=== PATIENT | male | born 1940 | race Caucasian/White ===

== ENCOUNTER → 2017-11-21 13:20 | Outpatient (CLI) | payer MEDICARE, OTHER, MEDICAID, SELFPAY ==
[2017-11-21 12:36] VITALS: TEMP 36.6
== END ==
PROVIDERS: PCP Family Medicine; Visit Provider Internal Medicine
DX: M86.671 Other chronic osteomyelitis, right ankle and foot (principal); L97.812 Non-pressure chronic ulcer of other part of right lower leg with fat layer exposed
CPT/HCPCS: G0277

== ENCOUNTER → 2017-12-02 | Outpatient (CLI) | payer MEDICARE, OTHER, MEDICAID, SELFPAY ==
[2017-12-02 09:06] LABS: Add Manual Diff / Slide Review NO; Basophils Percent Auto 0.8 % (0-2); Eosinophils Percent Auto 4.6 % (2-4); Hematocrit 30.1 % (41-53); Hemoglobin 10.4 g/dL (13.5-17.5); Lymphocytes Percent Auto 24.5 % (25-40); Mean Corpuscular HGB Conc 34.4 % (30-36); Mean Corpuscular Hemoglobin 34.2 PG (26-34); Mean Corpuscular Volume 99.4 fL (80-100); Monocytes Percent Auto 7.6 % (3-14); Neutrophils Absolute Auto 4500 /uL (3000-5900); Neutrophils Percent Auto 62.5 % (50-75); Platelet Count 213 X10^3/uL (150-400); Red Blood Cell Count 3.03 X10^6/uL (4.5-5.9); Red Cell Distribution Width 15.2 % (11.6-14.8); White Blood Cell Count 7.2 X10^3/uL (4.5-11.0)
[2017-12-02 09:16] LABS: Hemoglobin A1C% w Est Avg Glu 5.8 % (4.0-6.0)
[2017-12-02 09:47] LABS: Alanine Aminotransferase 19 IU/L (21-72); Albumin 3.9 g/dL (3.5-5.0); Albumin Globulin Ratio 1.1 (1.0-2.8); Alkaline Phosphatase 77 U/L (38-126); Aspartate Aminotransferase 27 IU/L (17-59); BUN Creatinine Ratio 19.4 (6-22); Bilirubin Total 0.6 mg/dL (0.2-1.3); Calcium 9.8 mg/dL (8.4-10.2); Cholesterol 171 mg/dL (140-199); Estimated Glomerular Filt Rate 41.9 mL/min (>60); Globulin 3.6 g/dL (1.7-4.1); Glucose 113 mg/dL (80-110); HDL Cholesterol 45 mg/dL (40-60); HEMOLYSIS < 15 (0-50); LDL Cholesterol Calculated 112 mg/dL (<100); Potassium 5.3 mmol/L (3.4-5.1); Sodium 140 mmol/L (137-145); Total Protein 7.5 g/dL (6.3-8.2); Triglycerides 71 mg/dL (35-150)
[2017-12-02 09:53] LABS: Free T3, Triiodothyronine Free 3.31 pg/mL (2.77-5.27)
[2017-12-02 10:07] LABS: Thyroid Stimulating Hormone 2.02 uIU/mL (0.47-4.68)
== END ==
LOC: LAB 07:15
PROVIDERS: PCP Family Medicine; Visit Provider Family Medicine
DX: E11.621 Type 2 diabetes mellitus with foot ulcer (principal); E11.51 Type 2 diabetes mellitus with diabetic peripheral angiopathy without gangrene; E03.9 Hypothyroidism, unspecified; E78.2 Mixed hyperlipidemia; I10 Essential (primary) hypertension
CPT/HCPCS: 36415; 80053; 80061; 83036; 84439; 84443; 84481; 85025

== ENCOUNTER → 2017-12-04 14:11 | Outpatient (CLI) | payer MEDICARE, SELFPAY | PROVIDERS: PCP Family Medicine; Visit Provider Internal Medicine | DX: L97.812 Non-pressure chronic ulcer of other part of right lower leg with fat layer exposed (principal); M86.671 Other chronic osteomyelitis, right ankle and foot | CPT/HCPCS: 96365; G0277; J0878 ==

== ENCOUNTER → 2017-12-05 09:49 | Outpatient (CLI) | payer MEDICARE, SELFPAY | PROVIDERS: PCP Family Medicine; Visit Provider Internal Medicine | DX: M86.671 Other chronic osteomyelitis, right ankle and foot (principal); L97.812 Non-pressure chronic ulcer of other part of right lower leg with fat layer exposed | CPT/HCPCS: 96365; G0277; J0878 ==

== ENCOUNTER 2017-12-06 10:22 | Emergency (ER) | payer MEDICARE, SELFPAY ==
[2017-12-06] VITALS (19 sets, daily range): BP systolic 111–180; BP diastolic 43–99; PULSE 58–128; RESP 14–30; TEMP 36.4; O2SAT 95–99
[2017-12-06] MEDS: LORazepam 2 MG/ML SYRINGE IV (10:25)
--- NOTE | 2017-12-06 10:28 | ED.SEIZURE ---
HPI - Seizure General Chief Complaint: Seizure Stated Complaint: SEIZURE Time Seen by Provider: 12/06/17 10:28 Source: EMS and other (Dr. Christensen) Mode of arrival: EMS Limitations: altered mental status History of Present Illness HPI Narrative: 77-year-old male with a history of diabetes and chronic wound of the lower extremity was in the hyperbaric chamber earlier today and around 10:00 a.m. had a witnessed seizure lasting approximately 5 min and resolved on its own without medication after hyperbaric therapy was stopped. I spoke with Dr. christensen who is sending him over who believes this is related to oxygen toxicity. Patient has no history of seizures. His oxygen has been above 96% since the seizure. He did bite his tongue and appears to be postictal/confused. He has also been agitated. No known head injury as there were at least 3 pillows under his head. MD complaint: seizure Related Data Home Medications Medication Instructions Recorded Confirmed aspirin 325 mg PO DAILY #0 01/04/11 12/06/17 timolol maleate 1 drp OPHTH QDAY #0 01/04/11 12/06/17 travoprost 1 drp OPHTH HS #0 01/04/11 12/06/17 clopidogrel [Plavix] 75 mg PO QDAY #0 09/05/16 12/06/17 metformin 500 mg PO QPM 12/06/17 12/06/17 metformin [Glucophage] 1,000 mg PO QAM 12/06/17 12/06/17 Previous Rx's Medication Instructions Recorded colchicine 0.6 mg PO BIDP PRN #60 tab 07/09/16 gabapentin [Neurontin] 300 mg PO TID #270 cap 10/10/17 glipizide [Glucotrol XL] 10 mg PO AMCC #90 tab 10/10/17 lisinopril 40 mg PO QDAY #90 tab 10/10/17 amlodipine [Norvasc] 5 mg PO QDAY #90 tab 10/15/17 levothyroxine [Synthroid] 50 mcg PO QAM #30 tab 10/23/17 allopurinol 300 mg PO Q DAY #90 tab 11/12/17 indomethacin 50 mg capsule 50 mg PO Q DAY #90 cap 11/26/17 simvastatin 40 mg tablet 20 mg PO Q DAY #45 tab 11/26/17 Allergies Allergy/AdvReac Type Severity Reaction Status Date / Time No Known Drug Allergies Allergy Verified 11/23/17 10:58 Review of Systems Review of Systems unobtainable due to mental status [facility] Surgical History Status post hernia repair Exam Initial Vital Signs Initial Vital Signs: Vital Signs Temperature 97.6 F 12/06/17 10:26 Pulse Rate 128 H 12/06/17 10:26 Respiratory Rate 30 H 12/06/17 10:26 Blood Pressure 176/60 H 12/06/17 10:26 Pulse Oximetry 99 12/06/17 10:26 Const General: other (yelling, nonverbal response, confused, blood in mouth with no active bleeding seen, thrashing in bed) Nutritional Appearance: well nourished Orientation: awake and confused Limitations: altered mental status [facility]ENKS Head: normocephalic and atraumatic Ears: external ears normal Nose: external nose normal and No nasal discharge Face and sinus: sinuses nontender, face symmetric, no sinus tenderness and No dry mucous membranes Mouth: oral mucosae normal, moist mucous membranes and tongue abnormal (laceration) Teeth and gingiva: dentition normal Throat: tonsils normal and uvula midline Eyes General: appearance normal, both eyes and all related structures Eyelids: eyelids normal Conjunctivae: conjunctivae normal Sclera: sclerae normal Pupils: PERRL EOM: EOM intact bilaterally Neck Neck: normal visual inspection, trachea midline, No lymphadenopathy, No midline deformity and No JVD Lymphatic: No lymphedema Chest Chest: normal inspection of the chest Resp Effort & Inspection: normal respiratory effort, able to speak in complete sentences, no respiratory distress and no use of accessory muscles Auscultation: clear to auscultation bilaterally, no rales, no rhonchi and no wheezes Cardio Rate: tachycardic Rhythm: regular rhythm Heart Sounds: no click, no gallops, murmur and no rubs Pulses: normal peripheral pulses GI Inspection: non-distended Palpation: soft, no hepatosplenomegaly, No guarding, No pulsatile mass and No tender Auscultation: normal bowel sounds Back/Spine/Pelvis Back: No CVA tenderness Cervical Spine: cervical ROM normal and No pain with cervical ROM Thoracic/Lumbar Spine: thoracic and lumbar spine normal to inspection Skin General: no rashes or lesions noted, No jaundice and No petechiae Wounds: wounds noted (RLE with wound wrap) Neuro General: alert and awake Cranial Nerves: CN's II-XI intact bilaterally Cognition: abnormal cognition (post ichtal) Speech: abnormal speech Motor: strength 5/5 throughout Sensory Exam: no sensory deficits noted Extrem General: full ROM, no clubbing, cyanosis or edema, no pedal edema and no calf tenderness Psych Appearance: disheveled Judgment: judgment good Course Hospital Course: pt still confuse and combative after ativan so haldol given at 1035am Orders Ordered: ED Orders 12/06/17 10:35 EKG-12 Lead Stat 12/06/17 10:37 CT head/brain wo con Stat 12/06/17 10:40 Complete Blood Count AUTO DIFF Stat Comprehensive Metabolic Panel Stat Magnesium Stat Troponin I Stat 12/06/17 12:49 Arterial Blood Gas Stat 12/06/17 15:29 Urinalysis and Microscopic Stat Sodium Chloride (Normal Saline 0.9%) 1,000 mls @ 150 mls/hr IV CONT REPLACED BY [facility] Last Admin: 12/06/17 11:09 Dose: 150 mls/hr Daptomycin 500 mg/ Sodium (Chloride) 50 mls @ 100 mls/hr IV NOW REPLACED BY [facility] Last Admin: 12/06/17 17:11 Dose: 100 mls/hr Discontinued Medications Acetaminophen (Tylenol) 975 mg PO NOW ONE Stop: 12/06/17 13:12 Last Admin: 12/06/17 13:23 Dose: 975 mg Haloperidol (Haldol) 5 mg IV NOW ONE Stop: 12/06/17 10:33 Last Admin: 12/06/17 10:35 Dose: 5 mg Lorazepam (Ativan) 2 mg IV NOW ONE Stop: 12/06/17 10:25 Last Admin: 12/06/17 10:25 Dose: 2 mg Vital Signs - 8 hr 12/06/17 10:26 12/06/17 10:30 12/06/17 10:35 Temperature 97.6 F Pulse Rate 128 H 128 H 67 Respiratory Rate 30 H 20 14 Blood Pressure 176/60 H Blood Pressure [Right Arm] 180/81 H 111/51 L Pulse Oximetry 99 98 95 12/06/17 10:37 12/06/17 10:40 12/06/17 11:05 Temperature Pulse Rate 101 H 118 H 72 Respiratory Rate 17 28 H 18 Blood Pressure Blood Pressure [Right Arm] 180/80 H 176/60 H 120/43 L Pulse Oximetry 99 98 95 12/06/17 11:13 12/06/17 11:36 12/06/17 11:45 Temperature Pulse Rate 62 67 Respiratory Rate 14 16 Blood Pressure Blood Pressure [Right Arm] 115/47 L 131/43 H Pulse Oximetry 99 95 95 12/06/17 12:05 12/06/17 12:21 12/06/17 12:43 Temperature Pulse Rate 68 64 64 Respiratory Rate 14 18 14 Blood Pressure Blood Pressure [Right Arm] 123/48 H 129/43 H 130/56 H Pulse Oximetry 95 95 95 12/06/17 13:28 12/06/17 14:18 12/06/17 15:33 Temperature Pulse Rate 61 63 60 Respiratory Rate 16 16 18 Blood Pressure Blood Pressure [Right Arm] 136/48 H 138/51 H 158/70 H Pulse Oximetry 97 97 96 12/06/17 16:34 12/06/17 17:07 Temperature Pulse Rate 60 58 L Respiratory Rate 16 18 Blood Pressure Blood Pressure [Right Arm] 139/99 H 137/50 H Pulse Oximetry 97 97 MDM - Seizure Lab Data Result diagrams: 12/06/17 10:40 12/06/17 10:40 Lab Results 12/06/17 12/06/17 12/06/17 Range/Units 10:40 10:40 10:40 WBC 7.7 (4.5-11.0) X10^3/uL RBC 3.04 L (4.5-5.9) X10^6/uL Hgb 10.1 L (13.5-17.5) g/dL Hct 30.3 L (41-53) % MCV 99.7 (80-100) fL MCH 33.2 (26-34) PG MCHC 33.3 (30-36) % RDW 15.1 H (11.6-14.8) % Plt Count 203 (150-400) X10^3/uL Neut % (Auto) 54.8 (50-75) % Lymph % (Auto) 30.5 (25-40) % [place] % (Auto) 9.5 (3-14) % Eos % (Auto) 4.3 H (2-4) % Baso % (Auto) 0.9 (0-2) % Neut # (Auto) 4200 (9815-2193) /uL ABG pH (7.35-7.45) ABG pCO2 (35-45) mmHg ABG pO2 (80-105) mmHg ABG HCO3 (23-27) mmol/L ABG Total CO2 (23-27) mmol/L ABG O2 Saturation (95-100) % ABG Base Excess (-2-3) mmol/L FiO2 Sodium 142 (137-145) mmol/L Potassium 4.9 (3.4-5.1) mmol/L Chloride 110.0 H (98-107) mmol/L Carbon Dioxide 13.0 L (22-32) mmol/L BUN 38.0 H (9-20) mg/dL Creatinine 1.70 H (0.66-1.25) mg/dL Estimated GFR 39.1 L (>60) mL/min BUN/Creatinine Ratio 22.4 H (6-22) Glucose 167 H (80-110) mg/dL Calcium 9.1 (8.4-10.2) mg/dL Magnesium 2.1 Cancelled (1.6-2.3) mg/dL Total Bilirubin 0.5 (0.2-1.3) mg/dL AST 27 (17-59) IU/L ALT 28 (21-72) IU/L Alkaline Phosphatase 79 (38-126) U/L Troponin I < 0.012 (0.01-0.034) ng/mL Total Protein 7.2 (6.3-8.2) g/dL Albumin 3.9 (3.5-5.0) g/dL Globulin 3.3 (1.7-4.1) g/dL Albumin/Globulin Ratio 1.2 (1.0-2.8) 05/18/18 Range/Units 12:49 WBC (4.5-11.0) X10^3/uL RBC (4.5-5.9) X10^6/uL Hgb (13.5-17.5) g/dL Hct (41-53) % MCV (80-100) fL MCH (26-34) PG MCHC (30-36) % RDW (11.6-14.8) % Plt Count (150-400) X10^3/uL Neut % (Auto) (50-75) % Lymph % (Auto) (25-40) % [place] % (Auto) (3-14) % Eos % (Auto) (2-4) % Baso % (Auto) (0-2) % Neut # (Auto) (1793-6770) /uL ABG pH 7.31 L (7.35-7.45) ABG pCO2 34.9 L (35-45) mmHg ABG pO2 71 L (80-105) mmHg ABG HCO3 18 L (23-27) mmol/L ABG Total CO2 19 L (23-27) mmol/L ABG O2 Saturation 93 L (95-100) % ABG Base Excess -9.0 L (-2-3) mmol/L FiO2 0.21 Sodium (137-145) mmol/L Potassium (3.4-5.1) mmol/L Chloride (98-107) mmol/L Carbon Dioxide (22-32) mmol/L BUN (9-20) mg/dL Creatinine (0.66-1.25) mg/dL Estimated GFR (>60) mL/min BUN/Creatinine Ratio (6-22) Glucose (80-110) mg/dL Calcium (8.4-10.2) mg/dL Magnesium (1.6-2.3) mg/dL Total Bilirubin (0.2-1.3) mg/dL AST (17-59) IU/L ALT (21-72) IU/L Alkaline Phosphatase (38-126) U/L Troponin I (0.01-0.034) ng/mL Total Protein (6.3-8.2) g/dL Albumin (3.5-5.0) g/dL Globulin (1.7-4.1) g/dL Albumin/Globulin Ratio (1.0-2.8) ABG Data ABG results: 7.312/34.9/71/17.7 on room air Attestation: I personally reviewed and interpreted this ABG as follows: (Consistent with mild metabolic acidosis with respiratory compensation) Imaging Data CT scan - head: Radiologist's impression: PROCEDURE: CT HEAD/BRAIN WO CON INDICATIONS: new onset seizure TECHNIQUE: Noncontrast 4.5 mm thick angled axial sections acquired from the foramen magnum to the vertex, with coronal and sagittal reformats. For radiation dose reduction, the following was used: automated exposure control, adjustment of mA and/or kV according to patient size. COMPARISON: None. FINDINGS: Image quality: Suboptimal related to motion artifact. CSF spaces: Basal cisterns are patent. No extra-axial fluid collections. Ventricles are moderately prominent. There is corresponding parenchymal volume loss. Brain: No midline shift. No intracranial masses or hemorrhage. [place]-white matter interface is normal. Small areas of low attenuation within the periventricular and deep white matter of the supratentorial brain are present. There may be an arachnoid cyst involving the anterior margin of the middle cranial fossa on the right versus volume averaging. Skull and face: Calvarium and visualized facial bones are intact, without suspicious lesions. Sinuses: Visualized sinuses and mastoids are clear. IMPRESSION: 1. No acute intracranial hemorrhage. 2. Mild chronic small vessel ischemic changes moderate parenchymal volume loss. Dictated by: Joaquín Foy M.D. on 12/06/2017 at 10:39 Approved by: Joaquín Foy M.D. on 12/06/2017 at 10:40 ECG Data Interpretation: EKG performed at 10:35 a.m. shows sinus rhythm with a left bundle branch block which is new when compared with 04/02/2012 [facility] Narrative Medical decision making narrative: 1300 patient is feeling much better. He is awake and alert and is complaining of some leg cramps. Will try Tylenol and get him up for ambulation trial. His ABG shows mild metabolic acidosis with respiratory compensation. Patient states he lives at home alone and drove himself here today. His closest family is in [place]. 1350 patient ambulated without difficulty 1600 After 3 different pages to [facility] I was called back by Dr. Starr who states that after a hyperbaric, hyper oxyia induced seizure, he could be safely discharged home if mentating at baseline and there were no other concerns. He does not need an EEG. She does recommend a Neurology follow-up within the next month or 2. She notes that the law in [facility] does not allow him to drive for the next 6 months after having a seizure, no matter the cause, although this could potentially be shortened by a neurologist in follow-up. Nursing reported to me that hyperbaric FORMING MACHINE ADJUSTER came over and saw him noting that he is not mentating at his baseline. 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 Advised that he will need to have someone pick him up and drive him home. Security is helping to get his phone. 1715 Pts friend arrived will cotton picking machine operator the patient and make sure he does not drive. He will stay with him tonight. He feels pt is mentating at baseline. Advised him of patient's history and the reason for his visit today. Patient receives his daptomycin for the day prior to being discharged. 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 He has no evidence of UTI. His anemia is baseline. His renal failure is also baseline. She initially he had metabolic acidosis which was mild with respiratory compensation. Blood sugars are not extremely elevated for low as a cause of the seizure or the metabolic acidosis. His abdomen was nontender after he was able to wake up and give me history. His infection appears to be well controlled with the current daptomycin which he was given today. He was mentating much better and after neurology consultation he was felt to be safe to go home. He was discharged with a friend who will ensure he does not drive and help him get to his appointments. Patient understands and agrees with the plan for follow-up. Discharge Plan Departure Patient Disposition: Home, Self-Care Clinical Impression: Seizure Instructions: DI for Seizure (Not Epilepsy/Seizure Disorder) Activity Restrictions/Additional Instructions: Thank you for trusting us with your care today. You were found to have a seizure most likely as a result of the hyperbaric treatment and the extra oxygen present in the chamber. Because of this it is [facility] Law that you cannot drive until released by a neurologist. Please follow up with neurology within the next month. Follow up with your primary care provider within one week. Continue your antibiotics. Return to the ER for new or worsening symptoms. Prescriptions: No Action travoprost 0.004 % Drops 1 drp OPHTH HS Qty: 0 RF: 0 aspirin 325 mg Tablet 325 mg PO DAILY Qty: 0 RF: 0 timolol maleate 0.5 % drops 1 drp OPHTH QDAY Qty: 0 RF: 0 colchicine 0.6 MG tablet 0.6 mg PO BIDP PRNQty: 60 RF: 0 clopidogrel [Plavix] 75 MG tablet 75 mg PO QDAY Qty: 0 RF: 0 glipizide [Glucotrol XL] 10 MG tablet extended release 24hr 10 mg PO AMCC Qty: 90 RF: 0 gabapentin [Neurontin] 300 MG capsule 300 mg PO TID Qty: 270 RF: 0 lisinopril 40 MG tablet 40 mg PO QDAY Qty: 90 RF: 0 amlodipine [Norvasc] 5 MG tablet 5 mg PO QDAY Qty: 90 RF: 0 levothyroxine [Synthroid] 50 MCG tablet 50 mcg PO QAM Qty: 30 RF: 3 allopurinol 300 MG tablet 300 mg PO Q DAY Qty: 90 RF: 3 simvastatin 40 mg tablet 20 mg PO Q DAY Qty: 45 RF: 1 indomethacin 50 mg capsule 50 mg PO Q DAY Qty: 90 RF: 0 metformin 500 mg Tablet 500 mg PO QPM RF: 0 metformin [Glucophage] 500 mg tablet 1,000 mg PO QAM RF: 0 Referrals: Sana Luz DO [Primary Care Provider] -
[2017-12-06] MEDS: HALOPERIDOL 5 MG/ML VIAL IV (10:35)
--- NOTE | 2017-12-06 10:35 | ED_ITS ---
HPI - Seizure General Chief Complaint: Seizure Stated Complaint: SEIZURE Time Seen by Provider: 12/06/17 10:28 Source: EMS and other (Dr. Christensen) Mode of arrival: EMS Limitations: altered mental status History of Present Illness HPI Narrative: 77-year-old male with a history of diabetes and chronic wound of the lower extremity was in the hyperbaric chamber earlier today and around 10: 00 a.m. had a witnessed seizure lasting approximately 5 min and resolved on its own without medication after hyperbaric therapy was stopped. I spoke with Dr. christensen who is sending him over who believes this is related to oxygen toxicity. Patient has no history of seizures. His oxygen has been above 96% since the seizure. He did bite his tongue and appears to be postictal/confused. He has also been agitated. No known head injury as there were at least 3 pillows under his head. MD complaint: seizure Related Data Home Medications Medication Instructions Recorded Confirmed aspirin 325 mg PO DAILY #0 01/04/11 12/06/17 timolol maleate 1 drp OPHTH QDAY #0 01/04/11 12/06/17 travoprost 1 drp OPHTH HS #0 01/04/11 12/06/17 clopidogrel [Plavix] 75 mg PO QDAY #0 09/05/16 12/06/17 metformin 500 mg PO QPM 12/06/17 12/06/17 metformin [Glucophage] 1,000 mg PO QAM 12/06/17 12/06/17 Previous Rx's Medication Instructions Recorded colchicine 0.6 mg PO BIDP PRN #60 tab 07/09/16 gabapentin [Neurontin] 300 mg PO TID #270 cap 10/10/17 glipizide [Glucotrol XL] 10 mg PO AMCC #90 tab 10/10/17 lisinopril 40 mg PO QDAY #90 tab 10/10/17 amlodipine [Norvasc] 5 mg PO QDAY #90 tab 10/15/17 levothyroxine [Synthroid] 50 mcg PO QAM #30 tab 10/23/17 allopurinol 300 mg PO Q DAY #90 tab 11/12/17 indomethacin 50 mg capsule 50 mg PO Q DAY #90 cap 11/26/17 simvastatin 40 mg tablet 20 mg PO Q DAY #45 tab 11/26/17 Allergies Allergy/AdvReac Type Severity Reaction Status Date / Time No Known Drug Allergies Allergy Verified 11/23/17 10:58 Review of Systems Review of Systems unobtainable due to mental status [facility] Surgical History Status post hernia repair Exam Initial Vital Signs Initial Vital Signs: Vital Signs Temperature 97.6 F 12/06/17 10:26 Pulse Rate 128 H 12/06/17 10:26 Respiratory Rate 30 H 12/06/17 10:26 Blood Pressure 176/60 H 12/06/17 10:26 Pulse Oximetry 99 12/06/17 10:26 Const General: other (yelling, nonverbal response, confused, blood in mouth with no active bleeding seen, thrashing in bed) Nutritional Appearance: well nourished Orientation: awake and confused Limitations: altered mental status HENRI Head: normocephalic and atraumatic Ears: external ears normal Nose: external nose normal and No nasal discharge Face and sinus: sinuses nontender, face symmetric, no sinus tenderness and No dry mucous membranes Mouth: oral mucosae normal, moist mucous membranes and tongue abnormal ( laceration) Teeth and gingiva: dentition normal Throat: tonsils normal and uvula midline Eyes General: appearance normal, both eyes and all related structures Eyelids: eyelids normal Conjunctivae: conjunctivae normal Sclera: sclerae normal Pupils: PERRL EOM: EOM intact bilaterally Neck Neck: normal visual inspection, trachea midline, No lymphadenopathy, No midline deformity and No JVD Lymphatic: No lymphedema Chest Chest: normal inspection of the chest Resp Effort & Inspection: normal respiratory effort, able to speak in complete sentences, no respiratory distress and no use of accessory muscles Auscultation: clear to auscultation bilaterally, no rales, no rhonchi and no wheezes Cardio Rate: tachycardic Rhythm: regular rhythm Heart Sounds: no click, no gallops, murmur and no rubs Pulses: normal peripheral pulses GI Inspection: non-distended Palpation: soft, no hepatosplenomegaly, No guarding, No pulsatile mass and No tender Auscultation: normal bowel sounds Back/Spine/Pelvis Back: No CVA tenderness Cervical Spine: cervical ROM normal and No pain with cervical ROM Thoracic/Lumbar Spine: thoracic and lumbar spine normal to inspection Skin General: no rashes or lesions noted, No jaundice and No petechiae Wounds: wounds noted (RLE with wound wrap) Neuro General: alert and awake Cranial Nerves: CN's II-XI intact bilaterally Cognition: abnormal cognition (post ichtal) Speech: abnormal speech Motor: strength 5/5 throughout Sensory Exam: no sensory deficits noted Extrem General: full ROM, no clubbing, cyanosis or edema, no pedal edema and no calf tenderness Psych Appearance: disheveled Judgment: judgment good Course Hospital Course: pt still confuse and combative after ativan so haldol given at 1035am Orders Ordered: ED Orders 12/06/17 10:35 EKG-12 Lead Stat 12/06/17 10:37 CT head/brain wo con Stat 12/06/17 10:40 Complete Blood Count AUTO DIFF Stat Comprehensive Metabolic Panel Stat Magnesium Stat Troponin I Stat 12/06/17 12:49 Arterial Blood Gas Stat 12/06/17 15:29 Urinalysis and Microscopic Stat Sodium Chloride (Normal Saline 0.9%) 1,000 mls @ 150 mls/hr IV CONT [facility] Last Admin: 12/06/17 11:09 Dose: 150 mls/hr Daptomycin 500 mg/ Sodium (Chloride) 50 mls @ 100 mls/hr IV NOW [facility] Last Admin: 12/06/17 17:11 Dose: 100 mls/hr Discontinued Medications Acetaminophen (Tylenol) 975 mg PO NOW ONE Stop: 12/06/17 13:12 Last Admin: 12/06/17 13:23 Dose: 975 mg Haloperidol (Haldol) 5 mg IV NOW ONE Stop: 12/06/17 10:33 Last Admin: 12/06/17 10:35 Dose: 5 mg Lorazepam (Ativan) 2 mg IV NOW ONE Stop: 12/06/17 10:25 Last Admin: 12/06/17 10:25 Dose: 2 mg Vital Signs - 8 hr 12/06/17 10:26 12/06/17 10:30 12/06/17 10:35 Temperature 97.6 F Pulse Rate 128 H 128 H 67 Respiratory Rate 30 H 20 14 Blood Pressure 176/60 H Blood Pressure [Right Arm] 180/81 H 111/51 L Pulse Oximetry 99 98 95 12/06/17 10:37 12/06/17 10:40 12/06/17 11:05 Temperature Pulse Rate 101 H 118 H 72 Respiratory Rate 17 28 H 18 Blood Pressure Blood Pressure [Right Arm] 180/80 H 176/60 H 120/43 L Pulse Oximetry 99 98 95 12/06/17 11:13 12/06/17 11:36 12/06/17 11:45 Temperature Pulse Rate 62 67 Respiratory Rate 14 16 Blood Pressure Blood Pressure [Right Arm] 115/47 L 131/43 H Pulse Oximetry 99 95 95 12/06/17 12:05 12/06/17 12:21 12/06/17 12:43 Temperature Pulse Rate 68 64 64 Respiratory Rate 14 18 14 Blood Pressure Blood Pressure [Right Arm] 123/48 H 129/43 H 130/56 H Pulse Oximetry 95 95 95 12/06/17 13:28 12/06/17 14:18 12/06/17 15:33 Temperature Pulse Rate 61 63 60 Respiratory Rate 16 16 18 Blood Pressure Blood Pressure [Right Arm] 136/48 H 138/51 H 158/70 H Pulse Oximetry 97 97 96 12/06/17 16:34 12/06/17 17:07 Temperature Pulse Rate 60 58 L Respiratory Rate 16 18 Blood Pressure Blood Pressure [Right Arm] 139/99 H 137/50 H Pulse Oximetry 97 97 MDM - Seizure Lab Data Result diagrams: 12/06/17 10:40 12/06/17 10:40 Lab Results 12/06/17 12/06/17 12/06/17 Range/Units 10:40 10:40 10:40 WBC 7.7 (4.5-11.0) X10^3/uL RBC 3.04 L (4.5-5.9) X10^6/uL Hgb 10.1 L (13.5-17.5) g/dL Hct 30.3 L (41-53) % MCV 99.7 (80-100) fL MCH 33.2 (26-34) PG MCHC 33.3 (30-36) % RDW 15.1 H (11.6-14.8) % Plt Count 203 (150-400) X10^3/uL Neut % (Auto) 54.8 (50-75) % Lymph % (Auto) 30.5 (25-40) % [place] % (Auto) 9.5 (3-14) % Eos % (Auto) 4.3 H (2-4) % Baso % (Auto) 0.9 (0-2) % Neut # (Auto) 4200 (8479-2046) /uL ABG pH (7.35-7.45) ABG pCO2 (35-45) mmHg ABG pO2 (80-105) mmHg ABG HCO3 (23-27) mmol/L ABG Total CO2 (23-27) mmol/L ABG O2 Saturation (95-100) % ABG Base Excess (-2-3) mmol/L FiO2 Sodium 142 (137-145) mmol/L Potassium 4.9 (3.4-5.1) mmol/L Chloride 110.0 H (98-107) mmol/L Carbon Dioxide 13.0 L (22-32) mmol/L BUN 38.0 H (9-20) mg/dL Creatinine 1.70 H (0.66-1.25) mg/dL Estimated GFR 39.1 L (>60) mL/min BUN/Creatinine Ratio 22.4 H (6-22) Glucose 167 H (80-110) mg/dL Calcium 9.1 (8.4-10.2) mg/dL Magnesium 2.1 Cancelled (1.6-2.3) mg/dL Total Bilirubin 0.5 (0.2-1.3) mg/dL AST 27 (17-59) IU/L ALT 28 (21-72) IU/L Alkaline Phosphatase 79 (38-126) U/L Troponin I < 0.012 (0.01-0.034) ng/mL Total Protein 7.2 (6.3-8.2) g/dL Albumin 3.9 (3.5-5.0) g/dL Globulin 3.3 (1.7-4.1) g/dL Albumin/Globulin Ratio 1.2 (1.0-2.8) 05/18/18 Range/Units 12:49 WBC (4.5-11.0) X10^3/uL RBC (4.5-5.9) X10^6/uL Hgb (13.5-17.5) g/dL Hct (41-53) % MCV (80-100) fL MCH (26-34) PG MCHC (30-36) % RDW (11.6-14.8) % Plt Count (150-400) X10^3/uL Neut % (Auto) (50-75) % Lymph % (Auto) (25-40) % [place] % (Auto) (3-14) % Eos % (Auto) (2-4) % Baso % (Auto) (0-2) % Neut # (Auto) (3008-0431) /uL ABG pH 7.31 L (7.35-7.45) ABG pCO2 34.9 L (35-45) mmHg ABG pO2 71 L (80-105) mmHg ABG HCO3 18 L (23-27) mmol/L ABG Total CO2 19 L (23-27) mmol/L ABG O2 Saturation 93 L (95-100) % ABG Base Excess -9.0 L (-2-3) mmol/L FiO2 0.21 Sodium (137-145) mmol/L Potassium (3.4-5.1) mmol/L Chloride (98-107) mmol/L Carbon Dioxide (22-32) mmol/L BUN (9-20) mg/dL Creatinine (0.66-1.25) mg/dL Estimated GFR (>60) mL/min BUN/Creatinine Ratio (6-22) Glucose (80-110) mg/dL Calcium (8.4-10.2) mg/dL Magnesium (1.6-2.3) mg/dL Total Bilirubin (0.2-1.3) mg/dL AST (17-59) IU/L ALT (21-72) IU/L Alkaline Phosphatase (38-126) U/L Troponin I (0.01-0.034) ng/mL Total Protein (6.3-8.2) g/dL Albumin (3.5-5.0) g/dL Globulin (1.7-4.1) g/dL Albumin/Globulin Ratio (1.0-2.8) ABG Data ABG results: 7.312/34.9/71/17.7 on room air Attestation: I personally reviewed and interpreted this ABG as follows: ( Consistent with mild metabolic acidosis with respiratory compensation) Imaging Data CT scan - head: Radiologist's impression: PROCEDURE: CT HEAD/BRAIN WO CON INDICATIONS: new onset seizure TECHNIQUE: Noncontrast 4.5 mm thick angled axial sections acquired from the foramen magnum to the vertex, with coronal and sagittal reformats. For radiation dose reduction, the following was used: automated exposure control, adjustment of mA and/or kV according to patient size. COMPARISON: None. FINDINGS: Image quality: Suboptimal related to motion artifact. CSF spaces: Basal cisterns are patent. No extra-axial fluid collections. Ventricles are moderately prominent. There is corresponding parenchymal volume loss. Brain: No midline shift. No intracranial masses or hemorrhage. [place]-white matter interface is normal. Small areas of low attenuation within the periventricular and deep white matter of the supratentorial brain are present. There may be an arachnoid cyst involving the anterior margin of the middle cranial fossa on the right versus volume averaging. Skull and face: Calvarium and visualized facial bones are intact, without suspicious lesions. Sinuses: Visualized sinuses and mastoids are clear. IMPRESSION: 1. No acute intracranial hemorrhage. 2. Mild chronic small vessel ischemic changes moderate parenchymal volume loss. Dictated by: Joaquín Foy M.D. on 12/06/2017 at 10:39 Approved by: Joaquín Foy M.D. on 12/06/2017 at 10:40 ECG Data Interpretation: EKG performed at 10:35 a.m. shows sinus rhythm with a left bundle branch block which is new when compared with 04/02/2012 [facility] Narrative Medical decision making narrative: 1300 patient is feeling much better. He is awake and alert and is complaining of some leg cramps. Will try Tylenol and get him up for ambulation trial. His ABG shows mild metabolic acidosis with respiratory compensation. Patient states he lives at home alone and drove himself here today. His closest family is in [place]. 1350 patient ambulated without difficulty 1600 After 3 different pages to [facility] Neurology I was called back by Dr. Starr who states that after a hyperbaric, hyper oxyia induced seizure, he could be safely discharged home if mentating at baseline and there were no other concerns. He does not need an EEG. She does recommend a Neurology follow -up within the next month or 2. She notes that the law in [facility] does not allow him to drive for the next 6 months after having a seizure, no matter the cause, although this could potentially be shortened by a neurologist in follow-up. Nursing reported to me that hyperbaric [employer]ATOR came over and saw him noting that he is not mentating at his baseline. 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 Advised that he will need to have someone pick him up and drive him home. Security is helping to get his phone. 1715 Pts friend arrived will lemon picker the patient and make sure he does not drive. He will stay with him tonight. He feels pt is mentating at baseline. Advised him of patient's history and the reason for his visit today. Patient receives his daptomycin for the day prior to being discharged. 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 He has no evidence of UTI. His anemia is baseline. His renal failure is also baseline. She initially he had metabolic acidosis which was mild with respiratory compensation. Blood sugars are not extremely elevated for low as a cause of the seizure or the metabolic acidosis. His abdomen was nontender after he was able to wake up and give me history. His infection appears to be well controlled with the current daptomycin which he was given today. He was mentating much better and after neurology consultation he was felt to be safe to go home. He was discharged with a friend who will ensure he does not drive and help him get to his appointments. Patient understands and agrees with the plan for follow-up. Discharge Plan Departure Patient Disposition: Home, Self-Care Clinical Impression: Seizure Instructions: DI for Seizure (Not Epilepsy/Seizure Disorder) Activity Restrictions/Additional Instructions: Thank you for trusting us with your care today. You were found to have a seizure most likely as a result of the hyperbaric treatment and the extra oxygen present in the chamber. Because of this it is [facility] Law that you cannot drive until released by a neurologist. Please follow up with neurology within the next month. Follow up with your primary care provider within one week. Continue your antibiotics. Return to the ER for new or worsening symptoms. Prescriptions: No Action travoprost 0.004 % Drops 1 drp OPHTH HS Qty: 0 RF: 0 aspirin 325 mg Tablet 325 mg PO DAILY Qty: 0 RF: 0 timolol maleate 0.5 % drops 1 drp OPHTH QDAY Qty: 0 RF: 0 colchicine 0.6 MG tablet 0.6 mg PO BIDP PRNQty: 60 RF: 0 clopidogrel [Plavix] 75 MG tablet 75 mg PO QDAY Qty: 0 RF: 0 glipizide [Glucotrol XL] 10 MG tablet extended release 24hr 10 mg PO AMCC Qty: 90 RF: 0 gabapentin [Neurontin] 300 MG capsule 300 mg PO TID Qty: 270 RF: 0 lisinopril 40 MG tablet 40 mg PO QDAY Qty: 90 RF: 0 amlodipine [Norvasc] 5 MG tablet 5 mg PO QDAY Qty: 90 RF: 0 levothyroxine [Synthroid] 50 MCG tablet 50 mcg PO QAM Qty: 30 RF: 3 allopurinol 300 MG tablet 300 mg PO Q DAY Qty: 90 RF: 3 simvastatin 40 mg tablet 20 mg PO Q DAY Qty: 45 RF: 1 indomethacin 50 mg capsule 50 mg PO Q DAY Qty: 90 RF: 0 metformin 500 mg Tablet 500 mg PO QPM RF: 0 metformin [Glucophage] 500 mg tablet 1,000 mg PO QAM RF: 0 Referrals: Sana Luz DO [Primary Care Provider] -
[2017-12-06 10:58] LABS: Add Manual Diff / Slide Review NO; Basophils Percent Auto 0.9 % (0-2); Eosinophils Percent Auto 4.3 % (2-4); Hematocrit 30.3 % (41-53); Hemoglobin 10.1 g/dL (13.5-17.5); Lymphocytes Percent Auto 30.5 % (25-40); Mean Corpuscular HGB Conc 33.3 % (30-36); Mean Corpuscular Hemoglobin 33.2 PG (26-34); Mean Corpuscular Volume 99.7 fL (80-100); Monocytes Percent Auto 9.5 % (3-14); Neutrophils Absolute Auto 4200 /uL (3000-5900); Neutrophils Percent Auto 54.8 % (50-75); Platelet Count 203 X10^3/uL (150-400); Red Blood Cell Count 3.04 X10^6/uL (4.5-5.9); Red Cell Distribution Width 15.1 % (11.6-14.8); White Blood Cell Count 7.7 X10^3/uL (4.5-11.0)
--- NOTE | 2017-12-06 11:01 | PC.NURSE ---
Running note from admission: Pt recieved from EMS w/ snoring respiration but effective, screaming when alert, flailing arms and legs after suffering seizure in hyperbaric chamber. No incontinence noted. Unable to be verbally reassured. Soft restraints placed after ordered by Dr. Salazar for pt / staff safety as risk to self / others. Pt medicated w/ ativan w/o effect. Continued to scream out, unfocused eyes, unable to be verbally reassured. Airway remained open w/o intervention. Haldol given iv w/ moderate success. Restraints removed as pt is no longer thrashing. Seizure pads remain w/ pt. Airway remains open. Pt will occasionally focus eyes toward speaker. At this time, responds 'no' to pain.
[2017-12-06 11:04] LABS: HEMOLYSIS 15 (0-50)
[2017-12-06 11:07] LABS: Alanine Aminotransferase 28 IU/L (21-72); Albumin 3.9 g/dL (3.5-5.0); Albumin Globulin Ratio 1.2 (1.0-2.8); Alkaline Phosphatase 79 U/L (38-126); Aspartate Aminotransferase 27 IU/L (17-59); BUN Creatinine Ratio 22.4 (6-22); Bilirubin Total 0.5 mg/dL (0.2-1.3); Calcium 9.1 mg/dL (8.4-10.2); Estimated Glomerular Filt Rate 39.1 mL/min (>60); Globulin 3.3 g/dL (1.7-4.1); Glucose 167 mg/dL (80-110); Magnesium 2.1 mg/dL (1.6-2.3); Potassium 4.9 mmol/L (3.4-5.1); Sodium 142 mmol/L (137-145); Total Protein 7.2 g/dL (6.3-8.2)
[2017-12-06] MEDS: SODIUM CHLORIDE 0.9% 1,000 ML 150 ML IV (11:09)
[2017-12-06 11:52] LABS: Troponin I < 0.012 ng/mL (0.01-0.034)
--- NOTE | 2017-12-06 11:58 | PC.NURSE ---
Continues to have episodes of calling out but is able to open eyes and focus on speaker. Continues to be confused to time, place. Able to be verbally reassured.
[2017-12-06 13:12] LABS: Fractionated Inspired Oxygen 0.21; HCO3 ABG 18 mmol/L (23-27); Oxygen Saturation ABG 93 % (95-100); PCO2 ABG 34.9 mmHg (35-45); PO2 ABG 71 mmHg (80-105); TCO2 ABG 19 mmol/L (23-27); pH ABG 7.31 (7.35-7.45)
[2017-12-06] MEDS: ACETAMINOPHEN 325 MG TABLET 975 MG PO (13:23)
--- NOTE | 2017-12-06 13:51 | PC.NURSE ---
pt ambulated to door and back to bed with light use of cane. slightly unstable gait but able noted. dr Little notified
--- NOTE | 2017-12-06 16:50 | PC.NURSE ---
Dr. Little spoke with pt about admission. Pt at this time is states he does not want to stay and is willing to leave AMA. Dr. Little told him he will allow him to leave AMA if he can find a ride home. Pt has found a ride per Dr. Little.
--- NOTE | 2017-12-06 17:02 | PC.NURSE ---
Oncology called and request we administer pt's daily Daptomyacin. Dr. Little agreed to do that and ordered. Medication brought to ED from main pharmacy.
--- NOTE | 2017-12-06 17:06 | PC.NURSE ---
Daptomyacin started, unable to scan in Sep.[address] Little while he was in room speaking with pt.
[2017-12-06] MEDS: DAPTOmycin 500 MG in SODIUM CHLORIDE 0.9% 50 ML 100 ML IV (17:11)
== END 2017-12-06 18:09 | disposition home or self-care (01) ==
PROVIDERS: Emergency Provider Emergency Medicine; PCP Family Medicine
DX: M86.671 Other chronic osteomyelitis, right ankle and foot (principal); L97.812 Non-pressure chronic ulcer of other part of right lower leg with fat layer exposed; R56.9 Unspecified convulsions
CPT/HCPCS: 36600; 70450; 80053; 81003; 82805; 82962; 83735; 84484; 85025; 93005; 94770; 96361; 96365; 96375; 99285; G0277; J0878; J1630; J2060

== ENCOUNTER → 2017-12-06 13:53 | Outpatient (CLI) | payer MEDICARE, OTHER, MEDICAID, SELFPAY | PROVIDERS: PCP Family Medicine; Visit Provider Internal Medicine | DX: M86.671 Other chronic osteomyelitis, right ankle and foot (principal); L97.812 Non-pressure chronic ulcer of other part of right lower leg with fat layer exposed | CPT/HCPCS: G0277 ==

== ENCOUNTER → 2017-12-09 13:17 | Outpatient (CLI) | payer MEDICARE, OTHER, MEDICAID, SELFPAY | PROVIDERS: PCP Family Medicine; Visit Provider Internal Medicine | DX: E11.621 Type 2 diabetes mellitus with foot ulcer (principal); L97.312 Non-pressure chronic ulcer of right ankle with fat layer exposed; L97.512 Non-pressure chronic ulcer of other part of right foot with fat layer exposed; M86.671 Other chronic osteomyelitis, right ankle and foot; G40.89 Other seizures | CPT/HCPCS: 11042; 87070; 87075; 87077; 87186; 87205 ==

== ENCOUNTER → 2017-12-13 13:37 | Outpatient (CLI) | payer MEDICARE, OTHER, MEDICAID, SELFPAY | PROVIDERS: PCP Family Medicine; Visit Provider Internal Medicine | DX: E11.621 Type 2 diabetes mellitus with foot ulcer (principal); L97.512 Non-pressure chronic ulcer of other part of right foot with fat layer exposed; L97.912 Non-pressure chronic ulcer of unspecified part of right lower leg with fat layer exposed; L97.312 Non-pressure chronic ulcer of right ankle with fat layer exposed; L08.89 Other specified local infections of the skin and subcutaneous tissue; M86.671 Other chronic osteomyelitis, right ankle and foot | CPT/HCPCS: 11042 ==

== ENCOUNTER → 2017-12-19 09:54 | Outpatient (CLI) | payer MEDICARE, SELFPAY | PROVIDERS: PCP Family Medicine; Visit Provider Internal Medicine | DX: E11.621 Type 2 diabetes mellitus with foot ulcer (principal); L97.312 Non-pressure chronic ulcer of right ankle with fat layer exposed; L97.512 Non-pressure chronic ulcer of other part of right foot with fat layer exposed; L08.89 Other specified local infections of the skin and subcutaneous tissue | CPT/HCPCS: 11042 ==

== ENCOUNTER → 2017-12-26 11:52 | Outpatient (CLI) | payer MEDICARE, SELFPAY | PROVIDERS: PCP Family Medicine; Visit Provider Internal Medicine | DX: E11.621 Type 2 diabetes mellitus with foot ulcer (principal); L97.512 Non-pressure chronic ulcer of other part of right foot with fat layer exposed; L97.311 Non-pressure chronic ulcer of right ankle limited to breakdown of skin; L97.322 Non-pressure chronic ulcer of left ankle with fat layer exposed; L08.89 Other specified local infections of the skin and subcutaneous tissue; I70.238 Atherosclerosis of native arteries of right leg with ulceration of other part of lower leg | CPT/HCPCS: 11042 ==

== ENCOUNTER → 2017-12-31 13:36 | Outpatient (REF) | payer MEDICARE, OTHER, MEDICAID, SELFPAY | LOC: LAB 13:36 | PROVIDERS: PCP Family Medicine; Visit Provider Internal Medicine | DX: L08.9 Local infection of the skin and subcutaneous tissue, unspecified (principal) | CPT/HCPCS: 87070; 87075; 87077; 87186; 87205 ==

== ENCOUNTER → 2017-12-31 14:30 | Outpatient (CLI) | payer MEDICARE, SELFPAY ==
--- NOTE | 2017-12-31 | OV.WND_ITS ---
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 Allergies NKDA HPI This information was obtained from the patient 12/31/17. Seen by Dr. Christensen. The patient called asking to be seen prior to his appointment this due to increased swelling and redness of the right lower leg. He's been on oral cefdinir and levofloxacin for refractory cellulitis of the leg and based on the recent Acinetobacter and Enterobacter positive wound cultures taken of the right lower leg and 1st toe diabetic ulcers. He does not report a fever but does state he feels a bit unwell. Also, he took his last dose of levofloxacin yesterday but has additional doses of cefdinir which indicates he may be missing doses of antibiotics. He also has an appointment with Dr. Harrison today for an angiogram and possible intervention to treat right leg PAD. His blood sugars is also elevated a bit today at 170. 12/26/17. Seen by Dr. Christensen. The patient does not report increased drainage associated with the chronic right lower leg ulcers has decreased since starting on oral cefdinir and levofloxacin for the recent Enterobacter and recurrent Acinetobacter wound cultures and he does not report adverse side effects. He also does not report any acute issues regarding the right 1st toe ulcer. He has an appointment in two weeks with Dr. Harrison to address the right leg PAD and he reports a new left medial malleolus ulcer that started about a week ago. He does not report pain or drainage from this site and does not report an inciting event. 12/19/17. Seen by Dr. Christensen. The patient feels the drainage associated with the chronic right lower leg ulcers has decreased since starting on oral cefdinir and levofloxacin for the recent Enterobacter and recurrent Acinetobacter wound cultures and he does not report adverse side effects. He also does not report pain or drainage associated with the right 1st toe diabetic ulcer and is applying topical gentamcinin as recommended. He suffers from PAD in the right leg as well as CKD stage 3 and has had angioplasty in 2016 to address the PAD. 12/13/17. Seen by Dr. Christensen. The patient is now on oral cefdinir and levofloxacin for the Enterobacter and resistant Acinetobacter positive wound cultures taken at his last visit. He does not report pain or increased drainage associated with the very refractory right medial malleolus, right lateral lower leg, nor right 1st toe diabetic ulcers since his last visit and he's changing the dressings only once daily. His HBOT has also been discontinued due to his recent seizure that occurred during his dive last week. 12/09/17. Seen by Dr. Christensen. The patient returns following his seizure that occurred during HBOT on Saturday. He was discharged home from the ER later in the day and does not report any significant issues over the weekend. He completed his course of Bactrim last week but continues on IV daptomycin which is treating chronic osteomyelitis of the right medical malleolus. He does not report pain nor increased drainage from this ulcer nor the other right lower leg non-pressure ulcer or right 1st toe diabetic ulcer. 11/29/17. Seen by Dr. Christensen. The patient continues on IV daptomycin and he completed his course of Bactrim that are treating the refractory Acinetobacter positive wound culture and right medial malleolar chronic osteomyelitis. In general he feels the drainage from the right medial malleolus, right lower leg, and right 1st toe diabetic ulcers has decreased considerably over the past week. He's also tolerating HBOT without difficulty. 11/22/17. Seen by Dr. Christensen. The patient continues on IV daptomycin and Bactrim that are treating the refractory Acinetobacter positive wound culture and right medial malleolar chronic osteomyelitis. He also continues on hyperbaric oxygen therapy and does not report ever side effects. In general he feels that the drainage associated with the chronic right medial malleolar and right lateral lower leg ulcers has decreased considerably and he does not report any new issues regarding right first toe diabetic ulcer and her second toe diabetic ulcers. 11/14/17. Seen by Dr. Christensen. The patient continues on IV daptomycin and he completed a course of Bactrim that are treating the refractory Acinetobacter positive wound culture and right medial malleolar chronic osteomyelitis. He also continues on hyperbaric oxygen therapy and does not report ever side effects. In general he feels that the drainage associated with the chronic right medial malleolar and right lateral lower leg ulcers has decreased considerably and he does not report any new issues regarding right first toe diabetic ulcer and her second toe diabetic ulcers. 11/07/17. Seen by Dr. Christensen. The patient continues on IV daptomycin for chronic osteomyelitis associated with the chronic right medial malleolus diabetic ulcer. He does not report adverse side effects nor pain or increased drainage associated with this ulcer number the right lateral ulcer nor first toe ulcer. He is also started on hyperbaric therapy and does not report any adverse effects. 10/31/17. Seen by Dr. Christensen. The patient feels that the drainage associated with chronic right medial malleolus and lateral foot and lower leg ulcers has decreased over the past week. He continues on IV daptomycin and has completed his course of Bactrim, both that were treating associated refractory cellulitis. Of note his bone scan reports a high suspicion for osteomyelitis of the right medial malleolus of which was diagnosed also in 2014 on bone scan. He also is unsure of whether an appointment has been made for follow-up with interventional radiology regarding review of his PAD for which he had angioplasty in 2016. He does not report adverse side effects of the antibiotics, fevers, or feeling unwell and his blood sugars continue to be well controlled with most below 150. 10/24/17. Seen by Dr. Christensen. The patient is now on IV daptomycin and Bactrim for refractory cellulitis, and possibly chronic osteomyelitis of the medial malleolus, associated with the chronic right lower leg diabetic ulcers. He is not reporting adverse side effects, fevers, nor feeling unwell in general however he does continue to report what sounds like rest pain when lying in bed at night that improves when standing up and walking around. His MRA did not reveal obvious proximal arterial disease however distal vessels were not well visualized. Dr. Harrison, interventional radiology, has recommended an angiogram to further evaluate for clinically significant PAD. 10/17/17. Seen by Dr. Christensen. The patient is now on Bactrim and Augmentin for the recurrent and resistant Acinetobacter culture plus enterococcus. He is not reporting adverse side effects however the drainage associated with chronic right medial malleolus and right lateral lower leg diabetic ulcers has not decreased since his last visit. He does not report pain nor increased swelling nor fevers or feeling unwell. He also does not report significant drainage associated with chronic right first toe diabetic ulcer. He has a history of severe PAD in the leg but does not report rest pain or claudication and had angioplasty approximately 18 months ago and his arterial Doppler from August 2017 confirms a high grade stenosis of the SFA. Of note, he has healed the ulcers in the past however has made no progress in terms of the size or depth over the past 3-4 months. Also, he has a history of osteomyelitis of the medial malleolus dating back to December 17, 2014 noted on his nuclear bone scan at that time and suggested again on his June 09, 2015 MRI. 10/10/17. Seen by Dr. Christensen. The patient does not report pain associated with the chronic right medial malleolus, right lateral lower leg, and right first toe and third toe diabetic ulcers however he does feel that the drainage continues to be significant from the malleoli or ulcer. His blood sugars continued to be well controlled and he is now off of antibiotics. Of note, he has a history of PAD in the leg and his last review by Dr. Harrison suggested flow was adequate to the foot however this was about 18 months ago. He does not report claudication or rest pain, fevers, or feeling unwell in general. 10/03/17. Seen by Kane Braun PA-C. The patient reports decreased drainage from his right lower extremity diabetic ulcers since beginning his antibiotics for his polymicrobial infection. 09/26/17. Seen by Kane Braun PA-C. The patient reports a very significant increase in drainage from his right medial lower leg ulcer. He is not currently on antibiotics and is spending more time on his feet. 09/19/17. Seen by Kane Braun PA-C. The patient reports good blood sugar control this week. He reports decreased drainage from his ulcer compared with 2 weeks ago and also reports that he has been leaving his new 2nd toe ulcer open to the air as he forgets that is needs a dressing. 09/12/17. Seen by Kane Braun PA-C. The patient reports decreased drainage since beginning antibiotics (which he continues taking) for his infection of his lower right leg ulcer. 09/05/17. To my Dr. Christensen. The patient feels the drainage associated with chronic right medial malleolar and right lateral lower leg diabetic ulcers continues to decrease since starting on levofloxacin and amoxicillin for the polymicrobial positive wound infection. He is not reporting adverse side effects nor drainage associated with chronic right first and second toe diabetic ulcers. Of note, he also has right lower leg PAD and underwent anterior tibial and peroneal angioplasty over a year ago. He does not report claudication or rest pain at this time. 08/29/17. Seen by Kane Braun PA-C. The patient reports increased drainage from his right lower leg diabetic ulcers. 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 08/19/17. Seen by Dr. Christensen. The patient feels the drainage associated with the chronic right lower leg diabetic ulcers continues to improve and he does not report any pain or drainage associated with chronic right first and second toe diabetic ulcers. He completed his course of Bactrim 2 days ago and does not report adverse side effects other than some mild diarrhea. 08/12/17. Seen by Dr. Christensen. The patient feels the drainage associated with the chronic right lower leg diabetic ulcers is improved since starting on Bactrim which he completed 2 days ago. He does not report adverse side effects, fevers, or feeling unwell or pain associated with these ulcers nor drainage or pain associated with the right first and second toe diabetic ulcers. 08/08/17. Seen by Dr. Christensen. The patient states his wound VAC foam dressing saturated with drainage as of yesterday. He continues on antibiotics for cellulitis associated with the chronic right medial malleolus diabetic ulcer and does not report adverse side effects, fevers, as her feeling unwell. I'm seeing him today due to the significant maceration noted in the periulcer area by the nurse today. 08/05/17. She will Dr. Christensen. The patient does not report pain or previous drainage associated with the chronic right medial malleolus diabetic ulcer nor the right first toe ulcer nor right lower leg lateral diabetic ulcer. He is on Bactrim for the refractory cellulitis associated with the recurrent Acinetobacter positive wound culture. He does not report adverse side effects, fevers, and her feeling unwell. 07/29/17. Seen by Dr. Christensen. The patient does not report pain nor increased drainage associated with chronic right lower leg and right first and second toe diabetic ulcers since his last visit. He is now off of antibiotics and states that he decreased his dressing changes recently to once daily from twice daily. The staff however are concerned about increased maceration around the ulcers. 07/17/17. Seen by Dr. Christensen. The patient reports persistent drainage associated with the right lower leg diabetic ulcers and states his wound VAC stopped working after 3 days. He since been changing his dressing daily. He's completed his course of cefdinir and levofloxacin and was treating cellulitis associated with the ulcers. He also notes a new ulcer at the distal second toe adjacent to the distal first toe diabetic ulcer. His blood sugars been well controlled also. 07/10/17. Seen by Dr. Christensen. The patient does not report pain nor increased drainage associated with chronic right lower leg diabetic ulcers nor the right first toe diabetic ulcer. He completed his course of cefdinir and levofloxacin that's treating the polymicrobial wound culture. His blood sugars are well controlled and he is not reporting adverse side effects from antibiotics. 07/04/17. Seen by Dr. Christensen. The patient reports increased drainage associated with the chronic right lower leg diabetic ulcers since his last visit and since stopping antibiotics that were treating the recently cultured Acinetobacter and Enterococcus cultures. He does not report pain in the leg nor fevers or feeling unwell and states his blood sugars remain well controlled. He also does not report any new issues regarding the chronic right 1st toe diabetic ulcer and of note was more active recently while on vacation in [place] the past 10 days. 06/21/17. Seen by Dr. Christensen. The patient feels the drainage associated with the chronic right lower leg diabetic ulcers is decreased since starting on cefdinir and he tolerated negative pressure wound therapy over the last 2 days without difficulty. His wound culture grew Acinetobacter and enterococcus. He does not report fevers, feeling unwell, nor adverse side effects from antibiotics. Of note, he will be traveling to [place] on an airplane leaving next Saturday and return 1 week later. 06/19/17. Seen by Dr. Christensen. The patient feels the recent significant drainage associated with the chronic right lower leg diabetic ulcers has decreased and he completed a course of cefdinir 5 days ago that was treating the recent Acinetobacter positive wound culture. He does not report pain at the site nor other acute issues today. He also does not report drainage associated with chronic right first toe diabetic ulcer. 06/11/17. Seen by Kane Braun PA-C. The patient reports continued drainage from his right lower extremity ulcers. He is applying gentamicin and taking bactrim to treat the bacteria that were cultured from his ulcer at his last visit. Of note, his cultured bacteria is intermediately sensitive to gentamicin. 06/04/17. Seen by Kane Braun PA-C. The patient reports increased purulent drainage from his right lower extremity ulcers. 05/28/17. Seen by Kane Braun PA-C. The patient reports no increase in drainage from his lower extremity ulcers. 05/14/17. Seen by Kane Braun PA-C. The patient reports increased drainage from his chronic lower extremity ulcers. 05/07/17. Seen by Kane Braun PA-C. The patient reports no increase in drainage from his chronic lower extremity ulcers. 04/30/17. Seen by Kane Braun PA-C. The patient reports no complications from his Bactrim and his ulcer drainage has decreased significantly over the past week. 04/23/17. Seen by Dr. Christensen. The patient is now on Bactrim for the recent Acinetobacter positive wound culture taken from the right lower leg diabetic ulcer. He reports decreased drainage and swelling in the leg and does not report any pain. He also does not report any problems regarding his chronic right distal first toe ulcer. 04/16/17. Seen by Dr. Christensen. The patient states his wound vac that was placed last lost its seal by Saturday and he removed the entire dressing. He does not report pain or increase drainage from the right lower leg and right 1st toe ulcers since then and states his blood sugars are mostly below 150. 04/11/17. Seen by Dr. Christensen. The patient does not report pain associated with the chronic right lower leg nor right first toe diabetic ulcers however drainage is significant and persistent associated with the lower leg ulcers. He continues on ciprofloxacin and amoxicillin to treat the polymicrobial wound infection. He does not report adverse side effects nor fevers or feeling unwell in general. 04/04/17. Seen by Dr. Christensen. The patient feels the drainage associated with the right lower leg and first toe diabetic ulcers is decreased over the past week. He's now on ciprofloxacin and amoxicillin for the recent polymicrobial positive wound culture and he does not report adverse side effects. His blood sugars also are mostly below 150. 03/28/17. Seen by Dr. Christensen. The patient feels the drainage associated with the right lower leg and first toe diabetic ulcers is decreased over the past week. He's changes dressings only once daily and does not report any other acute problems at this time. Also, a new ulcer is now present along the right lateral mid-foot. 03/21/17. Seen by Dr. Christensen. The patient reports improvement terms of the drainage associated with the right lower leg diabetic ulcers. He does not report any pain or drainage associated with the right first toe diabetic ulcer. He states his blood sugars have been well- controlled most below 120. 03/14/17. Seen by Dr. Christensen. The patient and staff report persistent and significant drainage associated with the chronic right lateral lower leg and right medial malleolar diabetic ulcers. He is changing his poise addressing once daily and is not currently on antibiotics. He does not reporting any new problems regarding the chronic right first toe diabetic ulcer. 03/07/17. Seen by Kane Braun PA-C. The patient reports very little drainage from his back wound and stable drainage from his right lower leg diabetic ulcers. He has a lot of questions regarding the pathology of and prognosis for his right lower leg and it's recurrent ulcers. He is considering moving to the [facility] and is looking into what medical services they have there. 02/28/17. Seen by Dr. Christensen. The patient feels the drainage associated with the right lower leg diabetic ulcers has decreased over the past week and he does not report any new problems regarding the chronic right 1st toe diabetic ulcer nor posterior right shoulder surgical wound. 02/21/17. Seen by Dr. Christensen. The patient continues to report significant drainage associated with the chronic right medial malleolar diabetic ulcer although he feels that is decreasing somewhat since starting on clindamycin for a recent positive wound culture. He does not report adverse side effects, pain in the ankle, nor fevers. He's also asked that I look at a slowly healing surgical wound on his back following a Mohs procedure for excision of a melanoma about 1 month ago. He states the site is tender but otherwise has no acute complaints. He does not report significant drainage nor new changes associated with chronic right first toe diabetic ulcer. 02/14/17. Seen by Kane Braun PA-C. The patient reports he has a new draining wound on his back. He had a shave removal of a skin cancer (patient is unsure of what type) and the dressing has fallen off and it has been draining through his shirt. It was not sutured and was left open to heal by secondary intention. His chronic right ankle and foot diabetic ulcers have had reduced drainage since starting clindamycin several days ago. Of note, he mis-read the label and was taking the clindamycin only once daily. He reports stable blood sugars with some blood sugars above 150 this week. 02/05/17. Seen by Dr. Christensen. The patient reports significant drainage associated with chronic right lower leg diabetic ulcers but none associated with the right first toe diabetic ulcer. He completed a course of Levaquin yesterday is been treating a recurrent infection associated with the toe ulcer and does not report fevers, feeling unwell, or adverse side effects. Of note, he is having problems in terms of financial limitations and medical costs associated with dressing changes. 01/31/17. Seen by Dr. Christensen. The patient does not report increased drainage or pain associated with the chronic right lower leg diabetic ulcers nor the chronic right first toe diabetic ulcer. He is now off of antibiotics does not report fevers or feeling unwell in general. 01/26/17. Seen by Kane Braun PA-C. The patient reports he continues to have a great deal of drainage from his right medial malleolar diabetic ulcer. 01/07/17. Seen by Dr. Christensen. The patient does not report increased pain or drainage associated with the chronic right lower ankle, right foot, nor right 1st toe diabetic ulcers since his last visit however staff report that the dressings are saturated. Also, the patient states his blood sugars remain well controlled below 150 consistently. 12/31/16. Seen by Kane Braun PA-C. The patient reports continued copious drainage from his right lower extremity diabetic ulcers. He is taking his Zyvox as prescribed. In addition his blood sugars are reportedly in good control, under 150. His prealbumin level resulted in the normal range. 12/27/16. Seen by Dr. Christensen. The patient does not report increased pain or drainage associated with the chronic right lower leg and right 1st toe diabetic ulcers however staff report that the dressings are saturated. He's been on Zyvox for a wound infection associated with the right medial malleolar ulcer and does not report adverse side effects. 12/18/16. Seen by Dr. Christensen. The patient feels there has been a significant increase in drainage associated with the right lower leg diabetic ulcers over the past week. He does not report pain at the site of the ulcers nor fevers or feeling unwell and his not currently on antibiotics. He states his blood sugars are relatively well controlled with most below 150. 12/10/16. Seen by Kane Braun PA-C. The patient reports increased drainage from his chronic diabetic ulcers of the right lower leg and foot. His wound culture has resulted with an enterococcus spp. and a coagulase negative staph spp. growth that are both PCN sensitive. 12/05/16. Seen by Dr. Christensen. The patient does not report pain associated with the compression wrap was placed over the right lower leg 2 days ago. The staff report that his dressings are soaked and there is some maceration in the periwound areas of the chronic right foot and medial malleolleolar diabetic ulcers. He does not report pain nor significant drainage associated with chronic right first toe diabetic ulcer. 12/03/16. Seen by Kane Braun PA-C. The patient reports no increase in drainage from his right lower leg diabetic ulcers since his last evaluation. His arterial doppler resulted with no significant stenosis in the right leg. 11/26/16. Seen by Kane Braun PA-C. The patient reports difficulty in controlling his blood sugars this week with several readings above 150. Drainage from his right lower leg ulcer has not increased. 11/19/16. Seen by Dr. Christensen. The patient reports some increased drainage associated with the lateral right lower leg diabetic ulcer. He isn't reporting any pain at the site nor pain or increased drainage associated with the right medial malleolar diabetic ulcer or right first toe ulcer since his last visit. His blood sugars continue to be mostly below 150 at home and he is not report fevers or feeling unwell in general. 11/12/16. Seen by Kane Braun PA-C. The patient reports good blood sugar control this week and no increase in drainage from his right lower leg diabetic ulcers. He is seeing dermatology today for removal of another skin cancer of the face. The patient is unsure if it is a melanoma. He also expresses concern about how long his ulcer is taking to heal, wondering Is it ever going to heal? 11/05/16. Seen by Kane Braun PA-C. The patient reports that some of his blood sugar readings have been above 150 this week. He reports that yesterday's AM blood sugar was 160. Drainage from his chronic right foot and right lower leg diabetic ulcers has reportedly reduced. 10/29/16. Seen by Kane Braun PA-C. The patient reports that he has had continued swelling at the site of his melanoma removal on the left side of his nose. His diabetic ulcers of the right foot have had stable drainage. 10/22/16. Seen by Kane Braun PA-C. The patient reports drainage from his right foot diabetic ulcers continues and today is his last does of Levaquin which was prescribed to treat an infection of these ulcers. 10/15/16. Seen by Kane Braun PA-C. The patient reports no increase in drainage from his chronic diabetic ulcers of the right foot. His pathology report has returned from the foreign body that was removed from his 2ng toe ulcer as likely plant material. After discussing this finding with the patient he believes it is a seed from [employer] [place]. 10/08/16. Seen by Kane Braun PA-C. The patient reports that he has been using tetragrip compression stockings as directed, but doesn't wear them on mornings that he has clinic appointments. 10/01/16. Seen by Kane Braun PA-C. The patient reports no increase in drainage from his chronic diabetic ulcers of the right foot and leg. He is noted today to have a new ulcer on his right 2nd toe. The patient was not aware of this ulcer until it was discovered today. 09/24/16. Seen by Kane Braun PA-C. The patient reports decreased drainage from his chronic diabetic ulcers of the right foot and lower leg since his last evaluation. 09/17/16. Seen by Kane Braun PA-C. The patient reports that his blood sugars have been elevated above 150 this week. He has finished his course of Ampicillin and reports decreased ulcer drainage. 09/10/16. Seen by Kane Braun PA-C. The patient should be finished with his Augmentin [correction he was on AMPicillin], but reports that he has a week or more left . He does not recall ever taking it 4 times a day. His diabetic ulcers of the right lower leg have had slightly decreased drainage since his last evaluation, but continue to drain. 09/03/16. Seen by Dr. Christensen. The patient does not report increased drainage or pain associated with chronic right lower leg diabetic ulcers or right first toe diabetic ulcer since his last visit. He is applying Kerasal to the periwound right first toe callus as recommended and he states his blood sugars continue to be mostly below 150. 08/20/16 Seen by Kane Braun PA-C. The patient reports increased drainage from his right medial ankle and lateral right lower leg ulcers since his last visit. He does not report associated fever or chills. 08/13/16 Seen by Kane Braun PA-C. The patient reports consistently increased drainage from his right medial ankle ulcers for the past 2-3 days. The drainage has been of a darker color than the usual clear drainage and he has noted associated erythema surrounding the ulcers. No fever or chills reported. In addition the patient was unaware of the new ulcers on his lateral lower right leg that were discovered today. 07/30/16 Seen by Kane Braun PA-C. The patient reports that he has had his facial melanoma excised and will return to dermatology for follow up in 4 days. He reports that his blood sugars have been running over 150 in the past few days and that his new wound dressing on his right ankle ulcers appears to have increased maceration in the ulcer area. 07/24/16 Seen by Kane Braun PA-C. The patient reports a significant increase in drainage from his chronic right ankle ulcers requiring more frequent dressing changes. The increased drainage began 5 days ago and has been continuous. He has not had any associated fever or chills. New periwound erythema is reported without warmth or pain. 07/17/16 Seen by Kane Braun PA-C. The patient reports no increase in drainage from his chronic right ankle ulcers or his more recent left leg ulcer. 07/09/16 Seen by Kane Braun PA-C. The patient reports a new wound on his left medial leg which begain spontaneously 2-3 days ago. The patient believes he may have spilled hot grease on it while cooking but doesn't actually recall doing so. It raised as a painless blister, then popped with clear fluid drainage. He also reports that he is making arrangements for his melanoma to be removed in the coming days. His right lower leg diabetic ulcers have had increased drainage which is reportedly sero-purulent. 06/20/16. Seen by Dr. Christensen. The patient does not report increased drainage associated with the chronic right lower leg diabetic ulcers nor the right 1st toe diabetic ulcer. The previously diagnosed left nose lesion has been biopsied and pathology confirms melanoma. He 's asked that I take a look at the biopsy site and states he's scheduled to see a surgeon in the near future to discuss further treatment options. He does not report pain or drainage from the biopsy site. 06/06/16. Seen by Dr. Christensen. The patient does not report increased drainage associated with the chronic right lower leg diabetic ulcers nor the right 1st toe diabetic ulcer. However, he's concerned about a non-painful lesion on the left side of his nose that's been growing over the past few weeks and started bleeding yesterday. He has a history of melanoma and recent excision of a malignant lesion from the left shoulder earlier this year. 06/01/16. Seen by Dr. Christensen. The patient does not report increased drainage or swelling associated with the chronic right lower leg diabetic ulcers. He's also applying Kerasal to the right 1st toe periulcer callus as recommended. He states his blood sugars are mostly below 150 and he's off of antibiotics. 05/24/16 Seen by Kane Braun PA-C. The patient reports stable drainage from his right lower leg and right great toe ulcers since his last evaluation. The patient reports a mix of blood sugars above and below 150 in the past week. 05/17/2106. Seen by Dr. Christensen. The patient does not report pain or increased drainage associated with the chronic right medial malleolar, right lower leg, or right 1st toe diabetic ulcers since his last visit. 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 05/11/16 Seen by Kane Braun PA-C. The patient reports that his blood sugars have been under 150 this past week and that he is finishing up his doxycycline and bactrim for a polymicrobial ulcer infection of his right ankle ulcers. His PAD is improved after his recent angioplasty and he reports more warmth in his right foot. His chronic ankle ulcers of the right foot have had stable drainage since his last evaluation. 05/04/16. Seen by Dr. Christensen. The patient does not report pain or increased drainage associated with the chronic right medial malleolar, right lower leg, or right 1st toe diabetic ulcers. 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 He also does not report any new issues regarding the right anterior lower leg trauma wound. 04/27/16. Seen by Dr. Christensen. The patient does not report pain or increased drainage associated with the chronic right medial malleolar, right lower leg, or right 1st toe diabetic ulcers. 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 He also does not report any new issues regarding the right anterior lower leg trauma wound. 04/20/16. Seen by Dr. Christensen. The patient does not report pain or increased drainage associated with the chronic right medial malleolar, right lower leg, or right 1st toe diabetic ulcers. 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 He states his blood sugars are typically around 150 and does not report any new issues regarding the right anterior lower leg trauma wound noted at his last visit. 04/13/16. Seen by Dr. Christensen. The patient missed his PCI for right leg PAD yesterday due to an error on his calendar. He does not report increased swelling, pain, or drainage associated with the chronic right medial malleolar or right lower leg diabetic ulcers nor the right 1st toe diabetic ulcer. 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 He does not report adverse side effects and states his blood sugars are typically around 150. Of note, his A1c increased to 7.9 from 6.8 6 months prior. 04/05/16. Seen by Dr. Christensen. The patient reports a new traumatic wound to the right lower leg that occurred when he hit his leg while walking in the dark earlier this morning. He says that he blood considerably but it is not particularly painful. Regarding his right ankle and lower leg diabetic ulcers, he does not report any increased drainage or other problems. Nor does he report any significant drainage from the right first toe diabetic ulcer. His blood sugars continue to be mostly around 150. He still complains of some pitching at the left shoulder surgical but does not report drainage. Also, he is scheduled for intervention for his right leg PAD within the next two weeks. Also, the patient continues on Bactrim and doxycycline for chronic osteomyelitis of the right ankle. 03/30/16. Seen by Dr. Christensen. 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 He's also reporting some significant pruritus associated with the slowly healing left shoulder surgical wound but no significant drainage. He states his blood sugars are mostly around 150. 03/23/16. Seen by Dr. Christensen. 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 He's also concerned about a possible suture delaying healing of the recently excised melanoma surgical wound at the left posterior shoulder. He does no report pain or drainage at this site. He also states his blood sugars are mostly below 150 with none over 200. 03/16/16 Seen by Kane Braun PA-C. The patient reports stable drainage from his right lower leg ulcers. In addition he reports not being able to schedule transportation for his angioplasty. Again today he was asked about definitive follow up for his recently re-excised melanoma and does not recall being told that the margins were clear. 03/09/16. Seen by Dr. Christensen. The patient does not report or increased drainage associated with the right lower leg or right medial malleolar diabetic ulcers over the past week. He continues on antibiotics for the ulcers and right medial malleolar chronic osteomyelitis without reporting adverse side effects. He's also asked that we review his left posterior shoulder surgical wound due to a possible retained suture. 02/17/16. Seen by Dr. Christensen. The patient does not report pain or significant drainage associated with the chronic right medial malleolar or right lower leg diabetic ulcers over the past week. 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 02/09/[address] Christensen. The patient does not report pain or significant drainage associated with the chronic right medial malleolar or right lower leg diabetic ulcers over the past week. 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 Of note, he was changed from doxycycline to Bactrim within the past week due to his most recent wound culture results. He also reports a new trauma wound to the more proximal right anterior lower leg but does not recall what he hit the leg on or when. He states his blood sugars are mostly below 150. 02/02/16. Seen by Dr. Christensen. Patient is not report significant pain or drainage associated with the right medial malleolus diabetic ulcer or right lower leg diabetic ulcer. 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 He states the blood sugars are typically around 150. Of note, he also reports a new left anterior lower leg trauma wound that is nonpainful and has only minimal drainage. This occurred sometime in the past week. 01/26/[address] Christensen. The patient feels the drainage and swelling associated with the chronic right medial malleolar and right lower leg diabetic ulcers continues to decrease since starting HBOT. He also continues on doxycycline for chronic osteomyelits of the ankle and does not report adverse side effects. He does not report pain or drainage associated with the right 1st toe diabetic ulcer and has been applying Kerasal to the surrounding callus as recommended. 01/19/[address] Christensen. The patient reports decreased drainage associated with the chronic right medial malleolar and right lower leg diabetic ulcers over the past week and no drainage from the right 1st toe diabetic ulcer. 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 He does not report adverse side effects from the doxycycline and states his blood sugars are well controlled with most below 150. 01/12/[address] Christensen. The patient feels the drainage associated with the chronic right medial malleolar and right lower leg diabetic ulcers continues to decrease since starting on doxycycline for osteomyelitis of the malleolus and HBOT. He reports his blood sugars are relatively well controlled with most below 150. He's also scheduled to see Dr. Peña next week again to discuss possible additional intervention to treat the right lower leg PAD. 01/05/[address] Christensen. The patient feels the drainage associated with the chronic right medial maleollar diabetic ulcer has been decreasing since starting on doxycycline for the resistant coag negative Staph culture. He also does not report adverse side effects from doxycycline or problems regarding HBOT that is adjunctive treatment for the Bauman grade 3 diabetic ulcer and associated underlying chronic osteomyelitis. His blood sugars are improving with most below 150 and he's using a walker while at home to help facilitate offloading. Of note, the patient also underwent right leg angioplasty due to his recent MRA showing severe PAD and with one vessel runoff to the ankle. 12/29/15 Seen by Kane Braun PA-C. The patient reports continued drainage and increased edema in the area of his right medial malleolar diabetic ulcers. He also reports the he has decided to postpone recommended melanoma treatment to focus on taking care of the ulcers. 12/22/[address] Christensen. The patient reports continued drainage and redness associated with the chronic right medial malleolar and right lower leg diabetic ulcers. He' s been on Zyvox for the past two days to treat the recent wound culture that grew two species of resistant coag negative Staph. He also has been checking his blood sugars twice daily stating most are around or below 150. He does not report fevers and states the right lower leg and ankle pain he reported last week is starting to improve. He's also scheduled for a right lower leg MRA and to see interventional radiology next week to evaluate for possible clinically significant PAD in the right leg that may be inhibiting wound healing. Additionally, his bone scan two days ago suggests possible osteomyelitis of the right medial malleolus and states it can not be ruled out. Of note, he carries a diagnosis of a Bauman grade 3 diabetic ulcer at the medial malleolus with underlying osteomyelitis based on his bone scan from Nov, 2014. This site has not entirely healed since then and in fact has deteriorated over the past month. 12/15/[address] Christensen. The patient reports continued moderate drainage from the chronic right medial malleolar and right lower leg diabetic ulcers and he's now on Levofloxacin for the recent malleolar ulcer Stenotrophomonas culture. He reports discomfort in the right lower leg that's most noticeable when lying in bed at night however it does not necessarily resolve when he stands to walk and he does not report claudication. His blood sugars also remain well controlled below 150 consistently although his last A1c was 8.0 on 10/11/15. 12/08/[address] Christensen. The patient reports persistent drainage from the chronic right medial malleolar diabetic ulcer and some pain at this site when he lies flat in bed at night. He's now on levofloxacin for Stenotrophomonas positive wound culture and does not report adverse side effects. His MRI of the right ankle shows some marrow edema but retained normal fatty marrow signal indicative more of reactive changes as opposed to osteomyelitis. His blood sugars are a bit elevated intermittently around 160 at home but not higher than this. He also does not report fevers or feeling unwell. 12/01/[address] Christensen. The patient reports increased pain and drainage associated with the chronic right medial malleolar diabetic ulcer. He does not report fevers or feeling unwell however and states his blood sugars remain under 150 consistently. 11/25/[address] Christensen. The patient reports increased drainage associated with the chronic right medial malleolar diabetic ulcer along with increased swelling in the right lower leg. He does not report pain associated with the ulcer nor fevers or feeling unwell and states his blood sugars remain consistently under 150. 11/18/[address] Christensen. The patient does not report pain or drainage associated with his chronic right medial malleolar diabetic ulcer. He does feel there's been some increased swelling and redness in the right lower leg this week however feels this may be due to a mild sun burn than occurred while mowing his lawn. He also states his blood sugars are consistently below 150. 11/04/[address] Christensen. The patient does not report significant drainage from the right medial malleolar diabetic ulcer and has completed his course of ciprofloxacin for the recent Pseudomonas infection of the ulcer. He also does not report pain or swelling associated with the ulcer and states his blood sugars are mostly below 150. 10/28/[address] Christensen. The patient does not report increased drainage from the right medial malleolar diabetic ulcer and he's completed his course of ciprofloxacin without reporting adverse side effects. He states his follow up surgery for removal of the remaining left should melanoma has been postponed for a few weeks and he does not report any drainage or pain associated with the left chest or left shoulder healing surgical wounds. His blood sugars also remain well controlled around 120 although his A1c in September was 8.0. 10/21/[address] Christensen. The patient continues on ciprofloxacin for the recent Pseudomonas positive culture of the right medial malleolus diabetic ulcer. He does not report adverse side effects and feels the drainage has decreased significantly over the past week. He also is to undergo additional surgery to address residual melanoma at the left shoulder. He does not report any new issues regarding the left shoulder or chest surgical wounds. His blood sugars also remain well controlled below 150 consistently. 10/14/[address] Christensen. The patient reports some persistent drainage from the chronic right medial malleolar diabetic ulcer and his wound culture from the last visit grew Pseudomonas. He was placed on doxycycline empirically at the last visit. He does not report pain associated with the ulcer and states his blood sugars are consistently below 150. 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 09/29/[address] Christensen. The patient does not report pain, significant drainage, or other issues regarding his chronic right medial malleolar non-pressure ulcer. He reports using Kerasal and a moisturizer on his right 1st toe callus and feet but is non- committal in terms of how frequently they're being applied. 09/19/15 Seen by Kane Braun PA-C. The patient reports no increase in drainage from his medial malleolar diabetic ulcer. His blood sugars are reportedly a little higher than average lately and he reports again that today's blood pressure reading is not consistent with his well controlled numbers outside of our clinic. In addition he reports that the recently removed lesion on his left scapular area came back as confirmed as Melanoma and he is going to have a surgery to excise it, and possibly some lymph nodes in the coming weeks. 09/02/[address] Christensen. The patient does not report significant drainage from the chronic right medial malleolar diabetic ulcer. 08/24/[address] Christensen. The patient does not report pain, swelling, or drainage associated with his chronic left medial malleolar diabetic ulcer and he states his blood sugars remain well controlled below 150 consistently. 08/10/2015 Seen by Kane Braun PA-C. The patient reports minimal drainage from his left ankle ulcer. 08/03/2015 Seen by Kane Braun PA-C. The patient does not report any drainage from his first toe ulcer since his last dressing change. He did inspect it with a mirror and was displeased to see discoloration in the callous. He has religiously been wearing his offloading shoe. His medial malleolar ulcer has been draining minimally. 07/28/[address] Christensen. The patient does not report increased drainage from the right medial malleolar diabetic ulcer nor any drainage from the right 1st toe diabetic ulcer. He does admit to not using his walker as recommended at all times but typically walks only on days of our appointments and when grocery shopping. His blood sugars remain well controlled and he's completed his course of ciprofloxacin that was treating osteomyelitis of both the right 1st toe and right medial malleolus. He also continues with HBOT to treat right 1st toe osteomyelitis. 07/20/[address] Christensen. The patient does not report significant drainage from either the right 1st toe nor right medial malleolar diabetic ulcers. He also continues on ciprofloxacin and continues HBOT for osteomyelitis of the right 1st toe. 07/04/15 Seen by Kane Braun PA-C. The patient reports stable drainage from his wounds. He reports using a frame walker for offloading whenever he can. 06/30/[address] Christensen. The patient returns today for review of his right 1st toe diabetic ulcer and underlying osteomyelitis for which he continues on HBOT. He's also on ciprofloxacin for a recent Pseudomonas culture of the right medial malleolar ulcer. He reports there's been some drainage on the dressing the past few days despite this ulcer being healed out recently. He also admits to not using his walker as recommended spending a modest amount of time walking in his house, to appointments, and at the grocery store. 06/22/15 Seen by Kane Braun PA-C. The patient reports minimal drainage from his right malleolar wound and no noted drainage from his toe wound. 06/10/[address] Christensen. The patient reports some increased erythema in the periwound area of the right medial malleolar Bauman grade III diabetic ulcer but does not report associated pain or drainage. Nor does he report drainage associated with the right 1st toe Bauman grade III diabetic ulcer. He's now been off of IV daptomycin for 8 days. His MRI from yesterday shows persistent, albeit decreased, marrow edema at the right 1st toe distal phalanx indicating modest improvement however the evidence for osteomyelitis of the medial malleolus remain unchanged. His blood sugars have increased a bit to the 170's and his last A1c in 02/2015 was 6.8. 11/13/[address] Christensen. The patient does not report drainage or pain associated with the recently healed right 1st toe or persistent medial malleolar diabetic ulcers. He also continues on IV daptomycin for associated osteomyelitis at each site without reporting adverse side effects. He also states his blood sugars are well controlled around 120 consistently. 05/27/[address] Christensen. The patient states there's been no drainage from the right 1st toe ulcer. He continues on IV daptomycin for osteomyelitis of the 1st toe and medial malleolus without reporting adverse side effects, fevers, or sweats . His blood sugars also remain relatively well controlled below 150 and he offloads with a surgical shoe and by significantly minimizing his walking. 05/20/[address] Christensen. 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 His blood sugars are well controlled recently with most below 120 at home. 05/13/[address] Christensen. The patient does not report pain or significant drainage associated with the right 1st toe and medial malleolar ulcers nor adverse side effects associated with the IV daptomycin he's on for chronic osteomyelitis of the right 1st toe. 05/06/[address] Christensen. The patient does not report significant drainage from either the right 1st toe diabetic foot ulcer nor the right medial malleolar ulcer. He continues on IV daptomycin for chronic osteomyelitis of the right 1st toe as well as HBOT and does not report issues with either. 04/22/[address] Christensen. The patient's MRI of the right foot showed interval improvement of the osteomyelitis however there's still evidence that this persists in the right 1st distal phalanx. He's now on IV daptomycin based on a wound culture from 04/11/15 that grew two resistant coag negative Staph organisms. His blood sugars are typically below 150 and his A1c in February 2015 was 6.8. 04/08/[address] Christensen. The patient does not report significant drainage from the right 1st to or medial malleolar diabetic foot ulcers and states his blood sugars are consistently below 150. He continues on oral levofloxacin and doxycycline to treat right toe chronic osteomyelitis and is on dual antibiotic therapy with levofloxacin and doxycycline since (day 29) to address the resistant coag negative Staph culture from 02/07/15 of the 1st to ulcer. He offloads by minimizing walking significantly and wearing diabetic shoes. 03/31/[address] Christensen. The patient reports only minimal drainage from the right malleolar ulcer and none from the right 1st toe diabetic ulcer. His blood sugars remain well controlled below 120 and he does not report any side effects from the levofloxacin and doxycycline he's taking for chronic osteomyelitis of the right 1st toe. Of note , he's not offloading the right foot with a surgical shoe and walker as recommended but he is limiting his walking as much as possible. 03/24/[address] Christensen. The patient reports no drainage from the right 1st toe diabetic ulcer however the right medial malleolar ulcer continues with modest drainage but no associated pain, swelling, or erythema. He continues on an extended course of levofloxacin and doxycycline to treat chronic osteomyelits of the 1st toe and does not report any adverse side effects other than some sun sensitivity likely associated with doxycycline. 03/16/[address] Christensen. The patient reports there's been no drainage from the right 1st to ulcer and only minimal drainage from the right medial malleolus ulcer. His blood sugars remain moderately well controlled below 150 and he continues on doxycycline and levofloxacin to treat chronic osteomyelitis of the right first toe. 03/08/[address] Christensen. The patient does not report increased drainage from either the right medial malleolar ulcer nor the right 1st toe ulcer and he continues on an extended course of oral doxycycline and HBOT for chronic osteomyelitis of the right 1st toe. He does not report fever, chills, or sweats nor adverse side effects associated with the doxycycline. His blood sugars continue to be well controlled and his A1c was 6.8 on 02/25/15. 03/01/15 Seen by Kane Braun PA-C. The patient reports stable drainage from his wounds. He has been on Doxycycline and will need a refill today if it is to be continued. The patient's MRI of the foot did not demonstrate osteomyelitis of the medial malleolus but it did demonstrate osteomyelitis of the great toe. The study's impression is as follows: IMPRESSION: There is prominent inflammatory change involving the fatty and cutaneous soft tissues of the distal great toe, extending contiguously to involve the distal half of the great toe distal phalanx, where some degree of cortical destruction can be seen with internal marrow space edema and enhancement suggestive of osteomyelitis extending into that portion of the medullary space. No additional lesion elsewhere is seen that would indicate abscess formation or additional osteomyelitis. 02/21/15 Seen by Kane Braun PA-C. The patient's arterial ultrasound of the right leg does not show focal stenosis, though it does show progression of scattered plaques from the prior study. the patient's wounds continue to drain minimally. 02/14/15 Seen by Kaen Braun PA-C. The patient reports more drainage from his medial malleolar ulcer than last week. Pain is minimal. Denies fever or chills. His hypertension is reportedly well controlled, and his BP is only elevated here in our clinic by his report. His diabetes reportely continues to be in good control with most morning blood sugars below 120 but he reports they have been higher in the past week or two. 02/07/15 Seen by Kane Braun PA-C. The patient reports minimal drainage from his wounds. He reports that he has attempted to spend time sitting with his feet elevated, which is a new therapy for him as he usually is always moving. He reports that it is helping his lower extremity edema modestly. 01/24/[address] Christensen. The patient's right medial malleolar ulcer wound culture from the last visit grew coag negative Staph and he's now on doxycycline since last Saturday. He reports only minimal drainage from both the ankle and 1st toe ulcer. He's also not offloading the right foot in anyway. His blood sugars continue to be well controlled below 120. 01/17/[address] Christensen. The patient does not report drainage from either the right medial malleolar or 1st toe ulcers. He's off antibiotics and states he got the ankle ulcer wet in the shower this morning. 01/03/15 Seen by Kane Braun PA-C. The patient reports minimal drainage from his wounds. He also reports that the shoes he brings into the clinic are not the ones he wears all day. Blood sugars are reportedly in pretty good control. 12/27/14 Seen by Kane Braun PA-C. X-ray of the right foot was negative for radiographic signs of osteomyelitis. ESR and CRP were within normal limits. The patient reports minimal drainage from his right ankle and toe wounds. 12/20/14 Seen by Kane Braun PA-C. The patient reports no increase in drainage from his right 1st toe ulcer or the malleolar ulcer that has recently recurred. He does report that he was treated for osteomyelitis at our clinic several years ago using HBOT and antibiotics with good results. 12/10/[address] Christensen. The patient does not report drainage from the right 1st toe ulcer but he states the right medial malleolar ulcer has recurred. He also report recurrence of right lower leg erythema and warmth since stopping Augmentin two days ago. His blood sugars remain below 150 and he does not report fever or chills. His most recent wound culture in mid October grew resistant coag negative Staph. 12/03/14 Seen by Kane Braun PA-C today. The patient reports no visible drainage from his right ankle or toe ulcers. He believes the ankle ulcer recurrence was related to edema when he was hospitalized. Edema has mostly resolved now in his legs by his report. 11/26/14 The patient does not report any drainage from the right 1st toe ulcer but states the right medial malleolar ulcer has recurred. He's not sure if it was caused by trauma or associated with blistering that was present as a result of the recent right lower leg cellulitis. He's nearly completed his course of high dose Keflex however still notes some swelling, warmth, and erythema in the leg. He does not report pain however. 11/22/14 The patient was discharged from [facility] on Saturday following treatment for recurrent right lower leg cellulitis. He was treated with vancomycin for resistant coag neg Staph and is now on high dose oral Keflex and feels the swelling and erythema continue to improve. He does not report fever or drainage associated with the right 1st toe ulcer and his blood sugars remain well controlled below 120. 11/15/14 The patient reports new drainage from the right 1st toe ulcer and was seen in the ER over the weekend for cellulitis of the right lower leg. He was treated with 3 doses of IV antibiotics on subsequent return to the ER over the course of the past few days and feels the swelling and erythema are slowly improving. He does not report fever or chills and states his blood sugars have been between 150 and 180. 11/01/14 The patient does not report drainage from his right 1st toe ulcer. His blood sugars remain well controlled below 150. 10/25/14 The patient reports only very minimal drainage from his right 1st toe ulcer and continues to offload using his diabetic shoe and minimizing his daily activity. 10/18/14 The patient reports continued improvement in his right toe ulcer. 10/11/14 The patient does not report drainage or pain in the right 1st toe ulcer. He does mention though he's concerned about memory difficulties and he's currently without a PCP as his recently retired. 10/04/14 The patient reports that he has difficulty applying Kerasal to the calloused ana-wound area and getting his dressing to stick. He does not report increased pain or drainage from his right great toe diabetic ulcer. 09/27/14 The patient reports increased walking since last visit with pain in his legs as a result. No increase in drainage from his wound. 09/20/14 The patient reports no new drainage from his left toe wound, and stable drainage from his right great toe wound. He asks about the plan of care today. 09/13/14 The patient reports he wounds appear stable without new symptoms. 09/06/14 The patient does not report any increase in drainage or other issues from his diabetic foot ulcers. 08/30/14 The patient does not report any new problems regarding his right 1st toe ulcer including increased drainage, pain, or redness. He states his blood sugars are well controlled under 150. His A1c was 6.8 in 07/04. 08/23/14 The patient does not complain of drainage from the right 1st toe. 08/16/14 The patient's been using Kerasal on the right 1st toe and does not report significant drainage from the ulcer. His blood sugars are usually below 140 with reported hypoglycemia. 08/09/14 The patient states he's using his offloading boot on the right foot and limiting his walking considerably. He states his blood sugars are well controlled and there' s only been minimal drainage from the toe ulcer. 08/02/14 The patient does not report increased drainage from his right first toe ulcer. He also feel his right leg erythema that was noted at his last visit has improved. He states that prior to arriving to clinic he fell in the parking lot of his pharmacy hitting his right knee. He does not report pain nor bleeding and does not report any other injuries. Past Medical History This information was obtained from the patient Patient has a medical history of: Diabetes type II (A1c 6.8 03/2017; A1c 6.2 on 05/04/16; A1c 7.9 on 01/09/16; 6.8 on 02/25/15) Hypertension Peripheral neuropathy Gout Right ankle Fracture Chronic venous insufficiency with ulcers and edema Unspecified cellulitis and abscess of toe Streptococcus infection of unspecified site Group D Enterococcus Dermatophytosis Osteomyelitis (right 1st toe (MRI 03/01/15, persistent but improved MRI 06/09/15) ; possible right medial malleolus (triple phase bone scan 12/17/14, not confirmed on MRI of 03/01/15; present on MRI 06/09/15)) 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 Melanoma ( left forehead) Diabetic foot ulcer - 10/13/2014 (Bauman grade III; plantar surface right 1st toe with underlying osteomyelitis diagnosed on 03/01/15; recurrent resistant coag negative Staph deep cultures on 11/15/14 and 02/07/15; resistant coag neg Staph cultured on 04/11/15 and started on IV daptomycin on 04/18/15) Diabetic foot ulcer (chronic and recurrent; right medial malleolus, possible osteomyeltis seen on triple phase bone scan 12/17/14 but not confirmed on MRI from 03/01/15; confirmed on MRI 06/09/15) Edema (chronic; right lower extremity) Cellulitis ( left great toe; hospitalized 02/15-02/18/surgical debridment) Complaints and Symptoms This information was obtained from the patient Patient complains of: General Notes: I have reviewed and concur with the Review of Systems and Past Family Social History documents completed by the clinician, I have reviewed and concur with the Wound Assessment document completed by the clinician Cardiovascular (Central/Peripheral): Lower extremity (leg) swelling Ear/Nose/Mouth/Throat: Hearing Loss / Aid Hematologic/Lymphatic: Bleeding Tendency Integumentary (Hair/Skin/Nails): Lesions, Open Sore Musculoskeletal: Assistive Devices, Deformities Neurological: Abnormal Gait, Loss of Protective Sensation Prior Wound History: Bleeding, Drainage, Erythema, Pain Psychiatric: Memory Loss Patient denies complaints or symptoms related to: Cardiovascular (Central/Peripheral): Intermittent Claudication, Lower extremity (leg) resting pain Cardiovascular (Peripheral) Constitutional Symptoms (General Health): Chills, Fatigue, Fever Gastrointestinal (GI): Nausea / Vomiting, Stomach/abdominal pain Hematologic/Lymphatic: Bleeding / Clotting Disorders Prior Wound History: Malodor Psychiatric: Depression Respiratory: Oxygen Use, Shortness of Breath OBJECTIVE Constitutional BP elevated; Afebrile; Alert and in no distress. Well developed. Alert. Clean appearing.. Height/Length: 71 in (180.34 cm), Weight: 256.4 lbs (116.55 kgs), BMI: 35.8, Temperature: 97.5 ?F (36.39 ?C), Pulse: 66 bpm, Respiratory Rate: 18 breaths/min, Blood Pressure: 171/64 mmHg, Capillary Blood Glucose: 170 mg/dl, Pulse Oximetry: 97 %. Vital Signs Notes: Glucose per patient. Ears, Nose, Mouth, and Throat: Mild hearing deficit. Respiratory: No respiratory distress. Even respirations and without use of accessory muscles.. Cardiovascular: Non-palpable doralis pedis and posterior tibial on the right. 2+ right lower extremity edema. Gastrointestinal (GI): Obese. Nondistended.. Integumentary (Hair, Skin) Mild periwound erythema with warmth extending to proximal right lower leg which is new from last visit. Refer to appropriate clinician wound documentation for this visit; right and left lower leg and right 1st toe ulcers extend to subcut with bases partially covered with pink granulation, remainder fibrin and slough. Maceration present in the right lower leg periwound areas. Wound #13 Right, Medial Ankle is an acute Bauman Grade 3 Diabetic Ulcer and has received a status of Not Healed. Subsequent wound encounter measurements are 4cm length x 2.5cm width x 0.3cm depth, with an area of 10 sq cm and a volume of 3 cubic cm. No tunneling has been noted. No sinus tract has been noted. No undermining has been noted. There is a large amount of serous drainage noted which has no odor. The patient reports a wound pain of level 0/10. The wound margin is attached. Wound bed has Yes epithelialization, No eschar, Yes slough, Yes bright red, pink, firm granulation. The periwound skin exhibited: Edema, Induration, Moist, Maceration, Atrophie [place], Erythema. The periwound skin did not exhibit: Brawny Induration, Excoriation, Callus, Crepitus, Fluctuance, Friable, Rash, Dry/Scaly, Cyanosis, Ecchymosis, Hemosiderosis, Pallor, Rubor. The temperature of the periwound skin is WNL. Periwound skin presents with s/s of infection. Confirmation Description and Treatment Plan is: Confirmed Systemic, Systemic Antibiotics Prescribed. Local Pulse is Doppler. General Notes: Proximal satellite 1.0x1.5x0.2cm Wound #17 Right, Plantar Great Toe is a Bauman Grade 3 Diabetic Ulcer and has received a status of Not Healed. Subsequent wound encounter measurements are 0.9cm length x 0.6cm width x 0.3cm depth, with an area of 0.54 sq cm and a volume of 0.162 cubic cm. No tunneling has been noted. No sinus tract has been noted. Undermining has been noted at 4:00 and ends at 7:00 with a maximum distance of 0.2cm. There is a small amount of serous drainage noted which has no odor. The patient reports no wound pain due to the wound being insensate. The wound margin is callus. Wound bed has No epithelialization, No eschar, No slough, Yes pink, firm granulation. The periwound skin moisture is normal. The periwound skin color is normal. The periwound skin exhibited: Callus. The periwound skin did not exhibit: Brawny Induration, Edema, Excoriation, Induration, Crepitus, Fluctuance, Friable, Rash. The temperature of the periwound skin is WNL. Periwound skin does not exhibit signs or symptoms of infection. Local Pulse is Palpable. Wound #25 Right, Lateral Ankle is a chronic Bauman Grade 2 Diabetic Ulcer and has received a status of Not Healed. Subsequent wound encounter measurements are 1.7cm length x 1.5cm width x 0.2cm depth, with an area of 2.55 sq cm and a volume of 0.51 cubic cm. No tunneling has been noted. No sinus tract has been noted. No undermining has been noted. There is a large amount of serous drainage noted which has no odor. The patient reports a wound pain of level 0/10. The wound margin is attached. Wound bed has Yes epithelialization, No eschar, Yes slough, Yes bright red, pink, firm granulation. The periwound skin exhibited: Edema, Induration, Moist, Maceration, Erythema. The periwound skin did not exhibit: Brawny Induration, Excoriation, Callus, Crepitus , Fluctuance, Friable, Rash, Dry/Scaly, Atrophie [place], Cyanosis, Ecchymosis, Hemosiderosis , Pallor, Rubor. The temperature of the periwound skin is Warm. Periwound skin presents with s/s of infection. Confirmation Description and Treatment Plan is: Confirmed Local, Systemic Antibiotics Prescribed. Local Pulse is Doppler. Wound #29 Right, Lateral Foot is a chronic Bauman Grade 2 Diabetic Ulcer and has received a status of Not Healed. Subsequent wound encounter measurements are 1cm length x 0.2cm width x 0.1cm depth, with an area of 0.2 sq cm and a volume of 0.02 cubic cm. No tunneling has been noted. No sinus tract has been noted. No undermining has been noted. There is a small amount of serous drainage noted which has no odor. The patient reports a wound pain of level 0/10. The wound margin is attached. Wound bed has No epithelialization, No eschar, Yes slough, Yes bright red, pink, firm granulation. The periwound skin texture is normal. The periwound skin color is normal. The periwound skin exhibited: Dry/Scaly. The periwound skin did not exhibit: Moist, Maceration. The temperature of the periwound skin is Warm. Periwound skin does not exhibit signs or symptoms of infection. Local Pulse is Doppler. General Notes: Satellite 1.0x0.3x0.1cm. Wound #32 Left, Medial Ankle is an acute Bauman Grade 2 Diabetic Ulcer and has received a status of Not Healed. Subsequent wound encounter measurements are 1.4cm length x 1.3cm width x 0.1cm depth, with an area of 1.82 sq cm and a volume of 0.182 cubic cm. No tunneling has been noted. No sinus tract has been noted. No undermining has been noted. There is a moderate amount of sero-sanguineous drainage noted which has no odor. The patient reports a wound pain of level 0/10. The wound margin is attached. Wound bed has No epithelialization, No eschar, Yes slough, Yes pink, firm granulation. The periwound skin moisture is normal. The periwound skin exhibited: Edema, Atrophie [place]. The periwound skin did not exhibit: Brawny Induration, Excoriation, Induration, Callus, Crepitus, Fluctuance, Friable, Rash, Cyanosis, Ecchymosis, Erythema, Hemosiderosis, Pallor, Rubor. The temperature of the periwound skin is WNL. Periwound skin does not exhibit signs or symptoms of infection. Local Pulse is Doppler. Neurological: Cranial nerves grossly intact with symmetric function normal by informal observation.. Additional Information [facility]STI/Vascular Completed?: 12/10/16 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 (Encounter Diagnosis) E11.621 - Type 2 diabetes mellitus with foot ulcer (Encounter Diagnosis) L97.512 - Non-pressure chronic ulcer of other part of right foot with fat layer exposed (Encounter Diagnosis) L08.89 - Other specified local infections of the skin and subcutaneous tissue (Encounter Diagnosis) I70.238 - Atherosclerosis of [place] arteries of right leg with ulceration of other part of lower right leg (Encounter Diagnosis) L97.822 - Non-pressure chronic ulcer of other part of left lower leg with fat layer exposed PROCEDURES Wound #13 Wound #13 (Diabetic Ulcer) is located on the right, medial ankle. A skin/ subcutaneous tissue level surgical debridement with a total area debrided of 10 sq cm was performed by Kam Christensen MD. Subcutaneous was removed along with devitalized tissue: exudate, slough, and macerated tissue. The following instrument(s) were used: curette. No anesthetic was required due to loss of sensation. A time out was conducted prior to the start of the procedure. A minimal amount of bleeding was controlled with pressure. The procedure was tolerated well with a loss of sensation throughout and a loss of sensation following the procedure. Post Debridement Measurements: 4cm length x 2.5cm width x 0.4cm depth; with an area of 10 sq cm and a volume of 4 cubic cm; Wound #17 Wound #17 (Diabetic Ulcer) is located on the right, plantar great toe. A skin/ subcutaneous tissue level surgical debridement with a total area debrided of 0.7 sq cm was performed by Kam Christensen MD. Subcutaneous was removed along with devitalized tissue: callus. The following instrument(s) were used: curette. No anesthetic was required due to loss of sensation. A time out was conducted prior to the start of the procedure. A moderate amount of bleeding was controlled with pressure. The procedure was tolerated well with a loss of sensation throughout and a loss of sensation following the procedure. Post Debridement Measurements: 1cm length x 0.7cm width x 0.3cm depth; with an area of 0.7 sq cm and a volume of 0.21 cubic cm; Wound #25 Wound #25 (Diabetic Ulcer) is located on the right, lateral ankle. A skin/ subcutaneous tissue level surgical debridement with a total area debrided of 2.7 sq cm was performed by Kam Christensen MD. Subcutaneous was removed along with devitalized tissue: callus. The following instrument(s) were used: curette. No anesthetic was required due to loss of sensation. A time out was conducted prior to the start of the procedure. A moderate amount of bleeding was controlled with pressure. The procedure was tolerated well with a loss of sensation throughout and a loss of sensation following the procedure. Post Debridement Measurements: 1.8cm length x 1.5cm width x 0.3cm depth; with an area of 2.7 sq cm and a volume of 0.81 cubic cm; Additional Information Muscle fascia or bone removed and sent to pathology?: No Muscle fascia or bone removed and sent to pathology?: No Muscle fascia or bone removed and sent to pathology?: No PLAN Wound Orders: Wound #13 Right, Medial Ankle Cleanser Cleanse Wound: - Normal saline and gauze, may use distilled water at home. May Shower. - Cover with cast protector or plastic bag. Cleanse wound with Soap and Water. - Leg washed with foaming cleanser and water. May wash around wounds at home. Topical Treatments Antibiotic/Antimicrobial Ointment/Cream. - Iodosorb ointment. Dressings Primary dressing: - Poise pad Cover and secure with: - Hypafix tape. Change Dressing: - Twice Daily. Wound #17 Right, Plantar Great Toe Cleanser Cleanse Wound: - Normal saline and gauze, may use distilled water at home. May Shower. - Cover with cast protector or plastic bag. Cleanse wound with Soap and Water. - Leg washed with foaming cleanser and water. May wash around wounds at home. Dressings Cover and secure with: - Foam and hypafix tape. Change Dressing: - Every other day Wound #25 Right, Lateral Ankle Cleanser Cleanse Wound: - Normal saline and gauze, may use distilled water at home. May Shower. - Cover with cast protector or plastic bag. Cleanse wound with Soap and Water. - Leg washed with foaming cleanser and water. May wash around wounds at home. Topical Treatments Antibiotic/Antimicrobial Ointment/Cream. - Iodosorb ointment. Dressings Primary dressing: - Poise pad. Cover and secure with: - Hypafix tape. Change Dressing: - Daily. Wound #29 Right, Lateral Foot Cleanser Cleanse Wound: - Normal saline and gauze, may use distilled water at home. May Shower. - Cover with cast protector or plastic bag. Cleanse wound with Soap and Water. - Leg washed with foaming cleanser and water. May wash around wounds at home. Dressings Primary dressing: - Poise pad. Cover and secure with: - Hypafix tape. Change Dressing: - Twice Daily. Wound #32 Left, Medial Ankle Cleanser Cleanse Wound: - Normal saline and gauze, may use distilled water at home. May Shower. - Cover with cast protector or plastic bag. Cleanse wound with Soap and Water. - Leg washed with foaming cleanser and water. May wash around wounds at home. Dressings Primary dressing: - Bordered foam Change Dressing: - Every other day Additional Orders: Compression/Edema Control Elevation of leg(s) above the level of the heart when sitting. Single Layer Compression Hose - Tetragrip F on in am and off at bedtime. Follow-Up Appointments Return Appointment: - - One week for wound care. Other information: If you develop fever, chills, increased pain, drainage, redness or swelling please call our office. If after hours, respond to the ER. Should you experience any significant changes in your wound(s) or have any questions regarding your home care instructions please contact the wound center @ [phone]. If after hours, contact your primary care physician or go to the hospital emergency room. Scribing Attestation I attest, as the nurse, that I scribed these orders for the physician. Laboratory: Bacteria identified in Wound by Culture - #13- R medial ankle. I've reviewed the clinician's documentation and agree with the evaluation and plan as written. In addition the patient's ulcers demonstrate evidence of non-viable devitalized tissue and they will continue to benefit from sharp debridement to help promote granulation and expedite healing. Also, I've repeated a culture of the right medial malleolus ulcer and restarted the patient on cefdinir, which I feel he may have been missing doses, and levofloxacin for cellulitis. I'll adjust antibiotics accordingly and await feedback regarding his angiogram. Electronic Signature(s) Signed By: Date: Kam Christensen MD 12/31/2017 14:23:23 Entered By: Kam Christensen on 12/31/2017 12:01:06
== END ==
PROVIDERS: PCP Family Medicine; Visit Provider Internal Medicine
DX: E11.621 Type 2 diabetes mellitus with foot ulcer (principal); L97.512 Non-pressure chronic ulcer of other part of right foot with fat layer exposed; L97.322 Non-pressure chronic ulcer of left ankle with fat layer exposed; L97.312 Non-pressure chronic ulcer of right ankle with fat layer exposed; L03.116 Cellulitis of left lower limb; I70.201 Unspecified atherosclerosis of native arteries of extremities, right leg
CPT/HCPCS: 11042; 87070; 87075; 87077; 87186; 87205

== ENCOUNTER → 2018-01-02 10:11 | Outpatient (CLI) | payer MEDICARE, SELFPAY ==
--- NOTE | 2018-01-02 | OV.WND_ITS ---
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 Allergies NKDA HPI This information was obtained from the patient 01/02/18. Seen by Dr. Christensen. The patient's recent wound culture again grew a resistant Acinetobacter species. He's on oral levofloxacin and cefdinir again after an interruption in the dual therapy that was noted at his last visit. He feels the left redness, swelling, and drainage have started to decrease and he's changing the dressings overlying the right medical malleolus, right lower leg and foot, right 1st toe and left lower leg diabetic ulcers twice daily as recommended. He also is scheduled for repeat intervention to treat the right leg PAD next week with Dr. Harrison. 12/31/17. Seen by Dr. Christensen. The patient called asking to be seen prior to his appointment this due to increased swelling and redness of the right lower leg. He's been on oral cefdinir and levofloxacin for refractory cellulitis of the leg and based on the recent Acinetobacter and Enterobacter positive wound cultures taken of the right lower leg and 1st toe diabetic ulcers. He does not report a fever but does state he feels a bit unwell. Also, he took his last dose of levofloxacin yesterday but has additional doses of cefdinir which indicates he may be missing doses of antibiotics. He also has an appointment with Dr. Harrison today for an angiogram and possible intervention to treat right leg PAD. His blood sugars is also elevated a bit today at 170. 12/26/17. Seen by Dr. Christensen. The patient does not report increased drainage associated with the chronic right lower leg ulcers has decreased since starting on oral cefdinir and levofloxacin for the recent Enterobacter and recurrent Acinetobacter wound cultures and he does not report adverse side effects. He also does not report any acute issues regarding the right 1st toe ulcer. He has an appointment in two weeks with Dr. Harrison to address the right leg PAD and he reports a new left medial malleolus ulcer that started about a week ago. He does not report pain or drainage from this site and does not report an inciting event. 12/19/17. Seen by Dr. Christensen. The patient feels the drainage associated with the chronic right lower leg ulcers has decreased since starting on oral cefdinir and levofloxacin for the recent Enterobacter and recurrent Acinetobacter wound cultures and he does not report adverse side effects. He also does not report pain or drainage associated with the right 1st toe diabetic ulcer and is applying topical gentamcinin as recommended. He suffers from PAD in the right leg as well as CKD stage 3 and has had angioplasty in 2016 to address the PAD. 12/13/17. Seen by Dr. Christensen. The patient is now on oral cefdinir and levofloxacin for the Enterobacter and resistant Acinetobacter positive wound cultures taken at his last visit. He does not report pain or increased drainage associated with the very refractory right medial malleolus, right lateral lower leg, nor right 1st toe diabetic ulcers since his last visit and he's changing the dressings only once daily. His HBOT has also been discontinued due to his recent seizure that occurred during his dive last week. 12/09/17. Seen by Dr. Christensen. The patient returns following his seizure that occurred during HBOT on Saturday. He was discharged home from the ER later in the day and does not report any significant issues over the weekend. He completed his course of Bactrim last week but continues on IV daptomycin which is treating chronic osteomyelitis of the right medical malleolus. He does not report pain nor increased drainage from this ulcer nor the other right lower leg non-pressure ulcer or right 1st toe diabetic ulcer. 11/29/17. Seen by Dr. Christensen. The patient continues on IV daptomycin and he completed his course of Bactrim that are treating the refractory Acinetobacter positive wound culture and right medial malleolar chronic osteomyelitis. In general he feels the drainage from the right medial malleolus, right lower leg, and right 1st toe diabetic ulcers has decreased considerably over the past week. He's also tolerating HBOT without difficulty. 11/22/17. Seen by Dr. Christensen. The patient continues on IV daptomycin and Bactrim that are treating the refractory Acinetobacter positive wound culture and right medial malleolar chronic osteomyelitis. He also continues on hyperbaric oxygen therapy and does not report ever side effects. In general he feels that the drainage associated with the chronic right medial malleolar and right lateral lower leg ulcers has decreased considerably and he does not report any new issues regarding right first toe diabetic ulcer and her second toe diabetic ulcers. 11/14/17. Seen by Dr. Christensen. The patient continues on IV daptomycin and he completed a course of Bactrim that are treating the refractory Acinetobacter positive wound culture and right medial malleolar chronic osteomyelitis. He also continues on hyperbaric oxygen therapy and does not report ever side effects. In general he feels that the drainage associated with the chronic right medial malleolar and right lateral lower leg ulcers has decreased considerably and he does not report any new issues regarding right first toe diabetic ulcer and her second toe diabetic ulcers. 11/07/17. Seen by Dr. Christensen. The patient continues on IV daptomycin for chronic osteomyelitis associated with the chronic right medial malleolus diabetic ulcer. He does not report adverse side effects nor pain or increased drainage associated with this ulcer number the right lateral ulcer nor first toe ulcer. He is also started on hyperbaric therapy and does not report any adverse effects. 10/31/17. Seen by Dr. Christensen. The patient feels that the drainage associated with chronic right medial malleolus and lateral foot and lower leg ulcers has decreased over the past week. He continues on IV daptomycin and has completed his course of Bactrim, both that were treating associated refractory cellulitis. Of note his bone scan reports a high suspicion for osteomyelitis of the right medial malleolus of which was diagnosed also in 2015 on bone scan. He also is unsure of whether an appointment has been made for follow-up with interventional radiology regarding review of his PAD for which he had angioplasty in 2016. He does not report adverse side effects of the antibiotics, fevers, or feeling unwell and his blood sugars continue to be well controlled with most below 150. 10/24/17. Seen by Dr. Christensen. The patient is now on IV daptomycin and Bactrim for refractory cellulitis, and possibly chronic osteomyelitis of the medial malleolus, associated with the chronic right lower leg diabetic ulcers. He is not reporting adverse side effects, fevers, nor feeling unwell in general however he does continue to report what sounds like rest pain when lying in bed at night that improves when standing up and walking around. His MRA did not reveal obvious proximal arterial disease however distal vessels were not well visualized. Dr. Harrison, interventional radiology, has recommended an angiogram to further evaluate for clinically significant PAD. 10/17/17. Seen by Dr. Christensen. The patient is now on Bactrim and Augmentin for the recurrent and resistant Acinetobacter culture plus enterococcus. He is not reporting adverse side effects however the drainage associated with chronic right medial malleolus and right lateral lower leg diabetic ulcers has not decreased since his last visit. He does not report pain nor increased swelling nor fevers or feeling unwell. He also does not report significant drainage associated with chronic right first toe diabetic ulcer. He has a history of severe PAD in the leg but does not report rest pain or claudication and had angioplasty approximately 18 months ago and his arterial Doppler from August 2017 confirms a high grade stenosis of the SFA. Of note, he has healed the ulcers in the past however has made no progress in terms of the size or depth over the past 3-4 months. Also, he has a history of osteomyelitis of the medial malleolus dating back to December 17, 2014 noted on his nuclear bone scan at that time and suggested again on his June 09, 2015 MRI. 10/10/17. Seen by Dr. Christensen. The patient does not report pain associated with the chronic right medial malleolus, right lateral lower leg, and right first toe and third toe diabetic ulcers however he does feel that the drainage continues to be significant from the malleoli or ulcer. His blood sugars continued to be well controlled and he is now off of antibiotics. Of note, he has a history of PAD in the leg and his last review by Dr. Harrison suggested flow was adequate to the foot however this was about 18 months ago. He does not report claudication or rest pain, fevers, or feeling unwell in general. 10/03/17. Seen by Kane Braun PA-C. The patient reports decreased drainage from his right lower extremity diabetic ulcers since beginning his antibiotics for his polymicrobial infection. 09/26/17. Seen by Kane Braun PA-C. The patient reports a very significant increase in drainage from his right medial lower leg ulcer. He is not currently on antibiotics and is spending more time on his feet. 09/19/17. Seen by Kane Braun PA-C. The patient reports good blood sugar control this week. He reports decreased drainage from his ulcer compared with 2 weeks ago and also reports that he has been leaving his new 2nd toe ulcer open to the air as he forgets that is needs a dressing. 09/12/17. Seen by Kane Braun PA-C. The patient reports decreased drainage since beginning antibiotics (which he continues taking) for his infection of his lower right leg ulcer. 09/05/17. To my Dr. Christensen. The patient feels the drainage associated with chronic right medial malleolar and right lateral lower leg diabetic ulcers continues to decrease since starting on levofloxacin and amoxicillin for the polymicrobial positive wound infection. He is not reporting adverse side effects nor drainage associated with chronic right first and second toe diabetic ulcers. Of note, he also has right lower leg PAD and underwent anterior tibial and peroneal angioplasty over a year ago. He does not report claudication or rest pain at this time. 08/29/17. Seen by Kane Braun PA-C. The patient reports increased drainage from his right lower leg diabetic ulcers. 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 08/19/17. Seen by Dr. Christensen. The patient feels the drainage associated with the chronic right lower leg diabetic ulcers continues to improve and he does not report any pain or drainage associated with chronic right first and second toe diabetic ulcers. He completed his course of Bactrim 2 days ago and does not report adverse side effects other than some mild diarrhea. 08/12/17. Seen by Dr. Christensen. The patient feels the drainage associated with the chronic right lower leg diabetic ulcers is improved since starting on Bactrim which he completed 2 days ago. He does not report adverse side effects, fevers, or feeling unwell or pain associated with these ulcers nor drainage or pain associated with the right first and second toe diabetic ulcers. 08/08/17. Seen by Dr. Christensen. The patient states his wound VAC foam dressing saturated with drainage as of yesterday. He continues on antibiotics for cellulitis associated with the chronic right medial malleolus diabetic ulcer and does not report adverse side effects, fevers, as her feeling unwell. I'm seeing him today due to the significant maceration noted in the periulcer area by the nurse today. 08/05/17. She will Dr. Christensen. The patient does not report pain or previous drainage associated with the chronic right medial malleolus diabetic ulcer nor the right first toe ulcer nor right lower leg lateral diabetic ulcer. He is on Bactrim for the refractory cellulitis associated with the recurrent Acinetobacter positive wound culture. He does not report adverse side effects, fevers, and her feeling unwell. 07/29/17. Seen by Dr. Christensen. The patient does not report pain nor increased drainage associated with chronic right lower leg and right first and second toe diabetic ulcers since his last visit. He is now off of antibiotics and states that he decreased his dressing changes recently to once daily from twice daily. The staff however are concerned about increased maceration around the ulcers. 07/17/17. Seen by Dr. Christensen. The patient reports persistent drainage associated with the right lower leg diabetic ulcers and states his wound VAC stopped working after 3 days. He since been changing his dressing daily. He's completed his course of cefdinir and levofloxacin and was treating cellulitis associated with the ulcers. He also notes a new ulcer at the distal second toe adjacent to the distal first toe diabetic ulcer. His blood sugars been well controlled also. 07/10/17. Seen by Dr. Christensen. The patient does not report pain nor increased drainage associated with chronic right lower leg diabetic ulcers nor the right first toe diabetic ulcer. He completed his course of cefdinir and levofloxacin that's treating the polymicrobial wound culture. His blood sugars are well controlled and he is not reporting adverse side effects from antibiotics. 07/04/17. Seen by Dr. Christensen. The patient reports increased drainage associated with the chronic right lower leg diabetic ulcers since his last visit and since stopping antibiotics that were treating the recently cultured Acinetobacter and Enterococcus cultures. He does not report pain in the leg nor fevers or feeling unwell and states his blood sugars remain well controlled. He also does not report any new issues regarding the chronic right 1st toe diabetic ulcer and of note was more active recently while on vacation in [place] the past 10 days. 06/21/17. Seen by Dr. Christensen. The patient feels the drainage associated with the chronic right lower leg diabetic ulcers is decreased since starting on cefdinir and he tolerated negative pressure wound therapy over the last 2 days without difficulty. His wound culture grew Acinetobacter and enterococcus. He does not report fevers, feeling unwell, nor adverse side effects from antibiotics. Of note, he will be traveling to [place] on an airplane leaving next Saturday and return 1 week later. 06/19/17. Seen by Dr. Christensen. The patient feels the recent significant drainage associated with the chronic right lower leg diabetic ulcers has decreased and he completed a course of cefdinir 5 days ago that was treating the recent Acinetobacter positive wound culture. He does not report pain at the site nor other acute issues today. He also does not report drainage associated with chronic right first toe diabetic ulcer. 06/11/17. Seen by Kane Braun PA-C. The patient reports continued drainage from his right lower extremity ulcers. He is applying gentamicin and taking bactrim to treat the bacteria that were cultured from his ulcer at his last visit. Of note, his cultured bacteria is intermediately sensitive to gentamicin. 06/04/17. Seen by Kane Braun PA-C. The patient reports increased purulent drainage from his right lower extremity ulcers. 05/28/17. Seen by Kane Braun PA-C. The patient reports no increase in drainage from his lower extremity ulcers. 05/14/17. Seen by Kane Braun PA-C. The patient reports increased drainage from his chronic lower extremity ulcers. 05/07/17. Seen by Kane Braun PA-C. The patient reports no increase in drainage from his chronic lower extremity ulcers. 04/30/17. Seen by Kane Braun PA-C. The patient reports no complications from his Bactrim and his ulcer drainage has decreased significantly over the past week. 04/23/17. Seen by Dr. Christensen. The patient is now on Bactrim for the recent Acinetobacter positive wound culture taken from the right lower leg diabetic ulcer. He reports decreased drainage and swelling in the leg and does not report any pain. He also does not report any problems regarding his chronic right distal first toe ulcer. 04/16/17. Seen by Dr. Christensen. The patient states his wound vac that was placed last lost its seal by Saturday and he removed the entire dressing. He does not report pain or increase drainage from the right lower leg and right 1st toe ulcers since then and states his blood sugars are mostly below 150. 04/11/17. Seen by Dr. Christensen. The patient does not report pain associated with the chronic right lower leg nor right first toe diabetic ulcers however drainage is significant and persistent associated with the lower leg ulcers. He continues on ciprofloxacin and amoxicillin to treat the polymicrobial wound infection. He does not report adverse side effects nor fevers or feeling unwell in general. 04/04/17. Seen by Dr. Christensen. The patient feels the drainage associated with the right lower leg and first toe diabetic ulcers is decreased over the past week. He's now on ciprofloxacin and amoxicillin for the recent polymicrobial positive wound culture and he does not report adverse side effects. His blood sugars also are mostly below 150. 03/28/17. Seen by Dr. Christensen. The patient feels the drainage associated with the right lower leg and first toe diabetic ulcers is decreased over the past week. He's changes dressings only once daily and does not report any other acute problems at this time. Also, a new ulcer is now present along the right lateral mid-foot. 03/21/17. Seen by Dr. Christensen. The patient reports improvement terms of the drainage associated with the right lower leg diabetic ulcers. He does not report any pain or drainage associated with the right first toe diabetic ulcer. He states his blood sugars have been well- controlled most below 120. 03/14/17. Seen by Dr. Christensen. The patient and staff report persistent and significant drainage associated with the chronic right lateral lower leg and right medial malleolar diabetic ulcers. He is changing his poise addressing once daily and is not currently on antibiotics. He does not reporting any new problems regarding the chronic right first toe diabetic ulcer. 03/07/17. Seen by Kane Braun PA-C. The patient reports very little drainage from his back wound and stable drainage from his right lower leg diabetic ulcers. He has a lot of questions regarding the pathology of and prognosis for his right lower leg and it's recurrent ulcers. He is considering moving to the [facility] and is looking into what medical services they have there. 02/28/17. Seen by Dr. Christensen. The patient feels the drainage associated with the right lower leg diabetic ulcers has decreased over the past week and he does not report any new problems regarding the chronic right 1st toe diabetic ulcer nor posterior right shoulder surgical wound. 02/21/17. Seen by Dr. Christensen. The patient continues to report significant drainage associated with the chronic right medial malleolar diabetic ulcer although he feels that is decreasing somewhat since starting on clindamycin for a recent positive wound culture. He does not report adverse side effects, pain in the ankle, nor fevers. He's also asked that I look at a slowly healing surgical wound on his back following a Mohs procedure for excision of a melanoma about 1 month ago. He states the site is tender but otherwise has no acute complaints. He does not report significant drainage nor new changes associated with chronic right first toe diabetic ulcer. 02/14/17. Seen by Kane Braun PA-C. The patient reports he has a new draining wound on his back. He had a shave removal of a skin cancer (patient is unsure of what type) and the dressing has fallen off and it has been draining through his shirt. It was not sutured and was left open to heal by secondary intention. His chronic right ankle and foot diabetic ulcers have had reduced drainage since starting clindamycin several days ago. Of note, he mis-read the label and was taking the clindamycin only once daily. He reports stable blood sugars with some blood sugars above 150 this week. 02/05/17. Seen by Dr. Christensen. The patient reports significant drainage associated with chronic right lower leg diabetic ulcers but none associated with the right first toe diabetic ulcer. He completed a course of Levaquin yesterday is been treating a recurrent infection associated with the toe ulcer and does not report fevers, feeling unwell, or adverse side effects. Of note, he is having problems in terms of financial limitations and medical costs associated with dressing changes. 01/31/17. Seen by Dr. Christensen. The patient does not report increased drainage or pain associated with the chronic right lower leg diabetic ulcers nor the chronic right first toe diabetic ulcer. He is now off of antibiotics does not report fevers or feeling unwell in general. 01/26/17. Seen by Kane Braun PA-C. The patient reports he continues to have a great deal of drainage from his right medial malleolar diabetic ulcer. 01/07/17. Seen by Dr. Christensen. The patient does not report increased pain or drainage associated with the chronic right lower ankle, right foot, nor right 1st toe diabetic ulcers since his last visit however staff report that the dressings are saturated. Also, the patient states his blood sugars remain well controlled below 150 consistently. 12/31/16. Seen by Kane rBaun PA-C. The patient reports continued copious drainage from his right lower extremity diabetic ulcers. He is taking his Zyvox as prescribed. In addition his blood sugars are reportedly in good control, under 150. His prealbumin level resulted in the normal range. 12/27/16. Seen by Dr. Christensen. The patient does not report increased pain or drainage associated with the chronic right lower leg and right 1st toe diabetic ulcers however staff report that the dressings are saturated. He's been on Zyvox for a wound infection associated with the right medial malleolar ulcer and does not report adverse side effects. 12/18/16. Seen by Dr. Christensen. The patient feels there has been a significant increase in drainage associated with the right lower leg diabetic ulcers over the past week. He does not report pain at the site of the ulcers nor fevers or feeling unwell and his not currently on antibiotics. He states his blood sugars are relatively well controlled with most below 150. 12/10/16. Seen by Kane Braun PA-C. The patient reports increased drainage from his chronic diabetic ulcers of the right lower leg and foot. His wound culture has resulted with an enterococcus spp. and a coagulase negative staph spp. growth that are both PCN sensitive. 12/05/16. Seen by Dr. Christensen. The patient does not report pain associated with the compression wrap was placed over the right lower leg 2 days ago. The staff report that his dressings are soaked and there is some maceration in the periwound areas of the chronic right foot and medial malleolleolar diabetic ulcers. He does not report pain nor significant drainage associated with chronic right first toe diabetic ulcer. 12/03/16. Seen by Kane Braun PA-C. The patient reports no increase in drainage from his right lower leg diabetic ulcers since his last evaluation. His arterial doppler resulted with no significant stenosis in the right leg. 11/26/16. Seen by Kane Braun PA-C. The patient reports difficulty in controlling his blood sugars this week with several readings above 150. Drainage from his right lower leg ulcer has not increased. 11/19/16. Seen by Dr. Christensen. The patient reports some increased drainage associated with the lateral right lower leg diabetic ulcer. He isn't reporting any pain at the site nor pain or increased drainage associated with the right medial malleolar diabetic ulcer or right first toe ulcer since his last visit. His blood sugars continue to be mostly below 150 at home and he is not report fevers or feeling unwell in general. 11/12/16. Seen by Kane Braun PA-C. The patient reports good blood sugar control this week and no increase in drainage from his right lower leg diabetic ulcers. He is seeing dermatology today for removal of another skin cancer of the face. The patient is unsure if it is a melanoma. He also expresses concern about how long his ulcer is taking to heal, wondering Is it ever going to heal? 11/05/16. Seen by Kane Braun PA-C. The patient reports that some of his blood sugar readings have been above 150 this week. He reports that yesterday's AM blood sugar was 160. Drainage from his chronic right foot and right lower leg diabetic ulcers has reportedly reduced. 10/29/16. Seen by Kane Braun PA-C. The patient reports that he has had continued swelling at the site of his melanoma removal on the left side of his nose. His diabetic ulcers of the right foot have had stable drainage. 10/22/16. Seen by Kane Braun PA-C. The patient reports drainage from his right foot diabetic ulcers continues and today is his last does of Levaquin which was prescribed to treat an infection of these ulcers. 10/15/16. Seen by Kane Braun PA-C. The patient reports no increase in drainage from his chronic diabetic ulcers of the right foot. His pathology report has returned from the foreign body that was removed from his 2ng toe ulcer as likely plant material. After discussing this finding with the patient he believes it is a seed from [employer] 10/08/16. Seen by Kane Braun PA-C. The patient reports that he has been using tetragrip compression stockings as directed, but doesn't wear them on mornings that he has clinic appointments. 10/01/16. Seen by Kane Braun PA-C. The patient reports no increase in drainage from his chronic diabetic ulcers of the right foot and leg. He is noted today to have a new ulcer on his right 2nd toe. The patient was not aware of this ulcer until it was discovered today. 09/24/16. Seen by Kane Braun PA-C. The patient reports decreased drainage from his chronic diabetic ulcers of the right foot and lower leg since his last evaluation. 09/17/16. Seen by Kane Braun PA-C. The patient reports that his blood sugars have been elevated above 150 this week. He has finished his course of Ampicillin and reports decreased ulcer drainage. 09/10/16. Seen by Kane Braun PA-C. The patient should be finished with his Augmentin [correction he was on AMPicillin], but reports that he has a week or more left . He does not recall ever taking it 4 times a day. His diabetic ulcers of the right lower leg have had slightly decreased drainage since his last evaluation, but continue to drain. 09/03/16. Seen by Dr. Christensen. The patient does not report increased drainage or pain associated with chronic right lower leg diabetic ulcers or right first toe diabetic ulcer since his last visit. He is applying Kerasal to the periwound right first toe callus as recommended and he states his blood sugars continue to be mostly below 150. 08/20/16 Seen by Kane Braun PA-C. The patient reports increased drainage from his right medial ankle and lateral right lower leg ulcers since his last visit. He does not report associated fever or chills. 08/13/16 Seen by Kane Braun PA-C. The patient reports consistently increased drainage from his right medial ankle ulcers for the past 2-3 days. The drainage has been of a darker color than the usual clear drainage and he has noted associated erythema surrounding the ulcers. No fever or chills reported. In addition the patient was unaware of the new ulcers on his lateral lower right leg that were discovered today. 07/30/16 Seen by Kane Braun PA-C. The patient reports that he has had his facial melanoma excised and will return to dermatology for follow up in 4 days. He reports that his blood sugars have been running over 150 in the past few days and that his new wound dressing on his right ankle ulcers appears to have increased maceration in the ulcer area. 07/24/16 Seen by Kane Braun PA-C. The patient reports a significant increase in drainage from his chronic right ankle ulcers requiring more frequent dressing changes. The increased drainage began 5 days ago and has been continuous. He has not had any associated fever or chills. New periwound erythema is reported without warmth or pain. 07/17/16 Seen by Kane Braun PA-C. The patient reports no increase in drainage from his chronic right ankle ulcers or his more recent left leg ulcer. 07/09/16 Seen by Kane Braun PA-C. The patient reports a new wound on his left medial leg which begain spontaneously 2-3 days ago. The patient believes he may have spilled hot grease on it while cooking but doesn't actually recall doing so. It raised as a painless blister, then popped with clear fluid drainage. He also reports that he is making arrangements for his melanoma to be removed in the coming days. His right lower leg diabetic ulcers have had increased drainage which is reportedly sero-purulent. 06/20/16. Seen by Dr. Christensen. The patient does not report increased drainage associated with the chronic right lower leg diabetic ulcers nor the right 1st toe diabetic ulcer. The previously diagnosed left nose lesion has been biopsied and pathology confirms melanoma. He 's asked that I take a look at the biopsy site and states he's scheduled to see a surgeon in the near future to discuss further treatment options. He does not report pain or drainage from the biopsy site. 06/06/16. Seen by Dr. Christensen. The patient does not report increased drainage associated with the chronic right lower leg diabetic ulcers nor the right 1st toe diabetic ulcer. However, he's concerned about a non-painful lesion on the left side of his nose that's been growing over the past few weeks and started bleeding yesterday. He has a history of melanoma and recent excision of a malignant lesion from the left shoulder earlier this year. 06/01/16. Seen by Dr. Christensen. The patient does not report increased drainage or swelling associated with the chronic right lower leg diabetic ulcers. He's also applying Kerasal to the right 1st toe periulcer callus as recommended. He states his blood sugars are mostly below 150 and he's off of antibiotics. 05/24/16 Seen by Kane Braun PA-C. The patient reports stable drainage from his right lower leg and right great toe ulcers since his last evaluation. The patient reports a mix of blood sugars above and below 150 in the past week. 05/17/2106. Seen by Dr. Christensen. The patient does not report pain or increased drainage associated with the chronic right medial malleolar, right lower leg, or right 1st toe diabetic ulcers since his last visit. 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 05/11/16 Seen by Kane Braun PA-C. The patient reports that his blood sugars have been under 150 this past week and that he is finishing up his doxycycline and bactrim for a polymicrobial ulcer infection of his right ankle ulcers. His PAD is improved after his recent angioplasty and he reports more warmth in his right foot. His chronic ankle ulcers of the right foot have had stable drainage since his last evaluation. 05/04/16. Seen by Dr. Christensen. The patient does not report pain or increased drainage associated with the chronic right medial malleolar, right lower leg, or right 1st toe diabetic ulcers. 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 He also does not report any new issues regarding the right anterior lower leg trauma wound. 04/27/16. Seen by Dr. Christensen. The patient does not report pain or increased drainage associated with the chronic right medial malleolar, right lower leg, or right 1st toe diabetic ulcers. 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 He also does not report any new issues regarding the right anterior lower leg trauma wound. 04/20/16. Seen by Dr. Christensen. The patient does not report pain or increased drainage associated with the chronic right medial malleolar, right lower leg, or right 1st toe diabetic ulcers. 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 He states his blood sugars are typically around 150 and does not report any new issues regarding the right anterior lower leg trauma wound noted at his last visit. 04/13/16. Seen by Dr. Christensen. The patient missed his PCI for right leg PAD yesterday due to an error on his calendar. He does not report increased swelling, pain, or drainage associated with the chronic right medial malleolar or right lower leg diabetic ulcers nor the right 1st toe diabetic ulcer. 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 He does not report adverse side effects and states his blood sugars are typically around 150. Of note, his A1c increased to 7.9 from 6.8 6 months prior. 04/05/16. Seen by Dr. Christensen. The patient reports a new traumatic wound to the right lower leg that occurred when he hit his leg while walking in the dark earlier this morning. He says that he blood considerably but it is not particularly painful. Regarding his right ankle and lower leg diabetic ulcers, he does not report any increased drainage or other problems. Nor does he report any significant drainage from the right first toe diabetic ulcer. His blood sugars continue to be mostly around 150. He still complains of some pitching at the left shoulder surgical but does not report drainage. Also, he is scheduled for intervention for his right leg PAD within the next two weeks. Also, the patient continues on Bactrim and doxycycline for chronic osteomyelitis of the right ankle. 03/30/16. Seen by Dr. Christensen. 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 He's also reporting some significant pruritus associated with the slowly healing left shoulder surgical wound but no significant drainage. He states his blood sugars are mostly around 150. 03/23/16. Seen by Dr. Christensen. 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 He's also concerned about a possible suture delaying healing of the recently excised melanoma surgical wound at the left posterior shoulder. He does no report pain or drainage at this site. He also states his blood sugars are mostly below 150 with none over 200. 03/16/16 Seen by Kane Braun PA-C. The patient reports stable drainage from his right lower leg ulcers. In addition he reports not being able to schedule transportation for his angioplasty. Again today he was asked about definitive follow up for his recently re-excised melanoma and does not recall being told that the margins were clear. 03/09/16. Seen by Dr. Christensen. The patient does not report or increased drainage associated with the right lower leg or right medial malleolar diabetic ulcers over the past week. He continues on antibiotics for the ulcers and right medial malleolar chronic osteomyelitis without reporting adverse side effects. He's also asked that we review his left posterior shoulder surgical wound due to a possible retained suture. 02/17/16. Seen by Dr. Christensen. The patient does not report pain or significant drainage associated with the chronic right medial malleolar or right lower leg diabetic ulcers over the past week. 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 02/09/[address] Christensen. The patient does not report pain or significant drainage associated with the chronic right medial malleolar or right lower leg diabetic ulcers over the past week. 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 Of note, he was changed from doxycycline to Bactrim within the past week due to his most recent wound culture results. He also reports a new trauma wound to the more proximal right anterior lower leg but does not recall what he hit the leg on or when. He states his blood sugars are mostly below 150. 02/02/16. Seen by Dr. Christensen. Patient is not report significant pain or drainage associated with the right medial malleolus diabetic ulcer or right lower leg diabetic ulcer. 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 He states the blood sugars are typically around 150. Of note, he also reports a new left anterior lower leg trauma wound that is nonpainful and has only minimal drainage. This occurred sometime in the past week. 01/26/[address] Christensen. The patient feels the drainage and swelling associated with the chronic right medial malleolar and right lower leg diabetic ulcers continues to decrease since starting HBOT. He also continues on doxycycline for chronic osteomyelits of the ankle and does not report adverse side effects. He does not report pain or drainage associated with the right 1st toe diabetic ulcer and has been applying Kerasal to the surrounding callus as recommended. 01/19/[address] Christensen. The patient reports decreased drainage associated with the chronic right medial malleolar and right lower leg diabetic ulcers over the past week and no drainage from the right 1st toe diabetic ulcer. 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 He does not report adverse side effects from the doxycycline and states his blood sugars are well controlled with most below 150. 01/12/[address] Christensen. The patient feels the drainage associated with the chronic right medial malleolar and right lower leg diabetic ulcers continues to decrease since starting on doxycycline for osteomyelitis of the malleolus and HBOT. He reports his blood sugars are relatively well controlled with most below 150. He's also scheduled to see Dr. Peña next week again to discuss possible additional intervention to treat the right lower leg PAD. 01/05/[address] Christensen. The patient feels the drainage associated with the chronic right medial maleollar diabetic ulcer has been decreasing since starting on doxycycline for the resistant coag negative Staph culture. He also does not report adverse side effects from doxycycline or problems regarding HBOT that is adjunctive treatment for the Bauman grade 3 diabetic ulcer and associated underlying chronic osteomyelitis. His blood sugars are improving with most below 150 and he's using a walker while at home to help facilitate offloading. Of note, the patient also underwent right leg angioplasty due to his recent MRA showing severe PAD and with one vessel runoff to the ankle. 12/29/15 Seen by Kane Braun PA-C. The patient reports continued drainage and increased edema in the area of his right medial malleolar diabetic ulcers. He also reports the he has decided to postpone recommended melanoma treatment to focus on taking care of the ulcers. 12/22/[address] Christensen. The patient reports continued drainage and redness associated with the chronic right medial malleolar and right lower leg diabetic ulcers. He' s been on Zyvox for the past two days to treat the recent wound culture that grew two species of resistant coag negative Staph. He also has been checking his blood sugars twice daily stating most are around or below 150. He does not report fevers and states the right lower leg and ankle pain he reported last week is starting to improve. He's also scheduled for a right lower leg MRA and to see interventional radiology next week to evaluate for possible clinically significant PAD in the right leg that may be inhibiting wound healing. Additionally, his bone scan two days ago suggests possible osteomyelitis of the right medial malleolus and states it can not be ruled out. Of note, he carries a diagnosis of a Bauman grade 3 diabetic ulcer at the medial malleolus with underlying osteomyelitis based on his bone scan from Nov, 2014. This site has not entirely healed since then and in fact has deteriorated over the past month. 12/15/[address] Christensen. The patient reports continued moderate drainage from the chronic right medial malleolar and right lower leg diabetic ulcers and he's now on Levofloxacin for the recent malleolar ulcer Stenotrophomonas culture. He reports discomfort in the right lower leg that's most noticeable when lying in bed at night however it does not necessarily resolve when he stands to walk and he does not report claudication. His blood sugars also remain well controlled below 150 consistently although his last A1c was 8.0 on 10/11/15. 12/08/[address] Christensen. The patient reports persistent drainage from the chronic right medial malleolar diabetic ulcer and some pain at this site when he lies flat in bed at night. He's now on levofloxacin for Stenotrophomonas positive wound culture and does not report adverse side effects. His MRI of the right ankle shows some marrow edema but retained normal fatty marrow signal indicative more of reactive changes as opposed to osteomyelitis. His blood sugars are a bit elevated intermittently around 160 at home but not higher than this. He also does not report fevers or feeling unwell. 12/01/[address] Christensen. The patient reports increased pain and drainage associated with the chronic right medial malleolar diabetic ulcer. He does not report fevers or feeling unwell however and states his blood sugars remain under 150 consistently. 11/25/[address] Christensen. The patient reports increased drainage associated with the chronic right medial malleolar diabetic ulcer along with increased swelling in the right lower leg. He does not report pain associated with the ulcer nor fevers or feeling unwell and states his blood sugars remain consistently under 150. 11/18/[address] Christensen. The patient does not report pain or drainage associated with his chronic right medial malleolar diabetic ulcer. He does feel there's been some increased swelling and redness in the right lower leg this week however feels this may be due to a mild sun burn than occurred while mowing his lawn. He also states his blood sugars are consistently below 150. 11/04/[address] Christensen. The patient does not report significant drainage from the right medial malleolar diabetic ulcer and has completed his course of ciprofloxacin for the recent Pseudomonas infection of the ulcer. He also does not report pain or swelling associated with the ulcer and states his blood sugars are mostly below 150. 10/28/[address] Christensen. The patient does not report increased drainage from the right medial malleolar diabetic ulcer and he's completed his course of ciprofloxacin without reporting adverse side effects. He states his follow up surgery for removal of the remaining left should melanoma has been postponed for a few weeks and he does not report any drainage or pain associated with the left chest or left shoulder healing surgical wounds. His blood sugars also remain well controlled around 120 although his A1c in September was 8.0. 10/21/[address] Christensen. The patient continues on ciprofloxacin for the recent Pseudomonas positive culture of the right medial malleolus diabetic ulcer. He does not report adverse side effects and feels the drainage has decreased significantly over the past week. He also is to undergo additional surgery to address residual melanoma at the left shoulder. He does not report any new issues regarding the left shoulder or chest surgical wounds. His blood sugars also remain well controlled below 150 consistently. 10/14/[address] Christensen. The patient reports some persistent drainage from the chronic right medial malleolar diabetic ulcer and his wound culture from the last visit grew Pseudomonas. He was placed on doxycycline empirically at the last visit. He does not report pain associated with the ulcer and states his blood sugars are consistently below 150. 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 09/29/[address] Christensen. The patient does not report pain, significant drainage, or other issues regarding his chronic right medial malleolar non-pressure ulcer. He reports using Kerasal and a moisturizer on his right 1st toe callus and feet but is non- committal in terms of how frequently they're being applied. 09/19/15 Seen by Kane Braun PA-C. The patient reports no increase in drainage from his medial malleolar diabetic ulcer. His blood sugars are reportedly a little higher than average lately and he reports again that today's blood pressure reading is not consistent with his well controlled numbers outside of our clinic. In addition he reports that the recently removed lesion on his left scapular area came back as confirmed as Melanoma and he is going to have a surgery to excise it, and possibly some lymph nodes in the coming weeks. 09/02/[address] Christensen. The patient does not report significant drainage from the chronic right medial malleolar diabetic ulcer. 08/24/[address] Christensen. The patient does not report pain, swelling, or drainage associated with his chronic left medial malleolar diabetic ulcer and he states his blood sugars remain well controlled below 150 consistently. 08/10/2015 Seen by Kane Braun PA-C. The patient reports minimal drainage from his left ankle ulcer. 08/03/2015 Seen by Kane Braun PA-C. The patient does not report any drainage from his first toe ulcer since his last dressing change. He did inspect it with a mirror and was displeased to see discoloration in the callous. He has religiously been wearing his offloading shoe. His medial malleolar ulcer has been draining minimally. 07/28/[address] Christensen. The patient does not report increased drainage from the right medial malleolar diabetic ulcer nor any drainage from the right 1st toe diabetic ulcer. He does admit to not using his walker as recommended at all times but typically walks only on days of our appointments and when grocery shopping. His blood sugars remain well controlled and he's completed his course of ciprofloxacin that was treating osteomyelitis of both the right 1st toe and right medial malleolus. He also continues with HBOT to treat right 1st toe osteomyelitis. 07/20/[address] Christensen. The patient does not report significant drainage from either the right 1st toe nor right medial malleolar diabetic ulcers. He also continues on ciprofloxacin and continues HBOT for osteomyelitis of the right 1st toe. 07/04/15 Seen by Kane Braun PA-C. The patient reports stable drainage from his wounds. He reports using a frame walker for offloading whenever he can. 06/30/[address] Christensen. The patient returns today for review of his right 1st toe diabetic ulcer and underlying osteomyelitis for which he continues on HBOT. He's also on ciprofloxacin for a recent Pseudomonas culture of the right medial malleolar ulcer. He reports there's been some drainage on the dressing the past few days despite this ulcer being healed out recently. He also admits to not using his walker as recommended spending a modest amount of time walking in his house, to appointments, and at the grocery store. 06/22/15 Seen by Kane Braun PA-C. The patient reports minimal drainage from his right malleolar wound and no noted drainage from his toe wound. 06/10/[address] Christensen. The patient reports some increased erythema in the periwound area of the right medial malleolar Bauman grade III diabetic ulcer but does not report associated pain or drainage. Nor does he report drainage associated with the right 1st toe Bauman grade III diabetic ulcer. He's now been off of IV daptomycin for 8 days. His MRI from yesterday shows persistent, albeit decreased, marrow edema at the right 1st toe distal phalanx indicating modest improvement however the evidence for osteomyelitis of the medial malleolus remain unchanged. His blood sugars have increased a bit to the 170's and his last A1c in 02/2015 was 6.8. 06/03/[address] Christensen. The patient does not report drainage or pain associated with the recently healed right 1st toe or persistent medial malleolar diabetic ulcers. He also continues on IV daptomycin for associated osteomyelitis at each site without reporting adverse side effects. He also states his blood sugars are well controlled around 120 consistently. 05/27/[address] Christensen. The patient states there's been no drainage from the right 1st toe ulcer. He continues on IV daptomycin for osteomyelitis of the 1st toe and medial malleolus without reporting adverse side effects, fevers, or sweats . His blood sugars also remain relatively well controlled below 150 and he offloads with a surgical shoe and by significantly minimizing his walking. 05/20/[address] Christensen. 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 His blood sugars are well controlled recently with most below 120 at home. 05/13/[address] Christensen. The patient does not report pain or significant drainage associated with the right 1st toe and medial malleolar ulcers nor adverse side effects associated with the IV daptomycin he's on for chronic osteomyelitis of the right 1st toe. 05/06/[address] Christensen. The patient does not report significant drainage from either the right 1st toe diabetic foot ulcer nor the right medial malleolar ulcer. He continues on IV daptomycin for chronic osteomyelitis of the right 1st toe as well as HBOT and does not report issues with either. 04/22/[address] Christensen. The patient's MRI of the right foot showed interval improvement of the osteomyelitis however there's still evidence that this persists in the right 1st distal phalanx. He's now on IV daptomycin based on a wound culture from 04/11/15 that grew two resistant coag negative Staph organisms. His blood sugars are typically below 150 and his A1c in February 2015 was 6.8. 04/08/[address] Christensen. The patient does not report significant drainage from the right 1st to or medial malleolar diabetic foot ulcers and states his blood sugars are consistently below 150. He continues on oral levofloxacin and doxycycline to treat right toe chronic osteomyelitis and is on dual antibiotic therapy with levofloxacin and doxycycline since (day 29) to address the resistant coag negative Staph culture from 02/07/15 of the 1st to ulcer. He offloads by minimizing walking significantly and wearing diabetic shoes. 03/31/[address] Christensen. The patient reports only minimal drainage from the right malleolar ulcer and none from the right 1st toe diabetic ulcer. His blood sugars remain well controlled below 120 and he does not report any side effects from the levofloxacin and doxycycline he's taking for chronic osteomyelitis of the right 1st toe. Of note , he's not offloading the right foot with a surgical shoe and walker as recommended but he is limiting his walking as much as possible. 03/24/[address] Christensen. The patient reports no drainage from the right 1st toe diabetic ulcer however the right medial malleolar ulcer continues with modest drainage but no associated pain, swelling, or erythema. He continues on an extended course of levofloxacin and doxycycline to treat chronic osteomyelits of the 1st toe and does not report any adverse side effects other than some sun sensitivity likely associated with doxycycline. 03/16/[address] Christensen. The patient reports there's been no drainage from the right 1st to ulcer and only minimal drainage from the right medial malleolus ulcer. His blood sugars remain moderately well controlled below 150 and he continues on doxycycline and levofloxacin to treat chronic osteomyelitis of the right first toe. 03/08/[address] Christensen. The patient does not report increased drainage from either the right medial malleolar ulcer nor the right 1st toe ulcer and he continues on an extended course of oral doxycycline and HBOT for chronic osteomyelitis of the right 1st toe. He does not report fever, chills, or sweats nor adverse side effects associated with the doxycycline. His blood sugars continue to be well controlled and his A1c was 6.8 on 02/25/15. 03/01/15 Seen by Kane Braun PA-C. The patient reports stable drainage from his wounds. He has been on Doxycycline and will need a refill today if it is to be continued. The patient's MRI of the foot did not demonstrate osteomyelitis of the medial malleolus but it did demonstrate osteomyelitis of the great toe. The study's impression is as follows: IMPRESSION: There is prominent inflammatory change involving the fatty and cutaneous soft tissues of the distal great toe, extending contiguously to involve the distal half of the great toe distal phalanx, where some degree of cortical destruction can be seen with internal marrow space edema and enhancement suggestive of osteomyelitis extending into that portion of the medullary space. No additional lesion elsewhere is seen that would indicate abscess formation or additional osteomyelitis. 02/21/15 Seen by Kane Braun PA-C. The patient's arterial ultrasound of the right leg does not show focal stenosis, though it does show progression of scattered plaques from the prior study. the patient's wounds continue to drain minimally. 02/14/15 Seen by Kane Braun PA-C. The patient reports more drainage from his medial malleolar ulcer than last week. Pain is minimal. Denies fever or chills. His hypertension is reportedly well controlled, and his BP is only elevated here in our clinic by his report. His diabetes reportely continues to be in good control with most morning blood sugars below 120 but he reports they have been higher in the past week or two. 02/07/15 Seen by Kane Braun PA-C. The patient reports minimal drainage from his wounds. He reports that he has attempted to spend time sitting with his feet elevated, which is a new therapy for him as he usually is always moving. He reports that it is helping his lower extremity edema modestly. 01/24/[address] Christensen. The patient's right medial malleolar ulcer wound culture from the last visit grew coag negative Staph and he's now on doxycycline since last Saturday. He reports only minimal drainage from both the ankle and 1st toe ulcer. He's also not offloading the right foot in anyway. His blood sugars continue to be well controlled below 120. 01/17/[address] Christensen. The patient does not report drainage from either the right medial malleolar or 1st toe ulcers. He's off antibiotics and states he got the ankle ulcer wet in the shower this morning. 01/03/15 Seen by Kane Braun PA-C. The patient reports minimal drainage from his wounds. He also reports that the shoes he brings into the clinic are not the ones he wears all day. Blood sugars are reportedly in pretty good control. 12/27/14 Seen by Kane Braun PA-C. X-ray of the right foot was negative for radiographic signs of osteomyelitis. ESR and CRP were within normal limits. The patient reports minimal drainage from his right ankle and toe wounds. 12/20/14 Seen by Kane Braun PA-C. The patient reports no increase in drainage from his right 1st toe ulcer or the malleolar ulcer that has recently recurred. He does report that he was treated for osteomyelitis at our clinic several years ago using HBOT and antibiotics with good results. 12/10/[address] Christensen. The patient does not report drainage from the right 1st toe ulcer but he states the right medial malleolar ulcer has recurred. He also report recurrence of right lower leg erythema and warmth since stopping Augmentin two days ago. His blood sugars remain below 150 and he does not report fever or chills. His most recent wound culture in mid October grew resistant coag negative Staph. 12/03/14 Seen by Kane Braun PA-C today. The patient reports no visible drainage from his right ankle or toe ulcers. He believes the ankle ulcer recurrence was related to edema when he was hospitalized. Edema has mostly resolved now in his legs by his report. 11/26/14 The patient does not report any drainage from the right 1st toe ulcer but states the right medial malleolar ulcer has recurred. He's not sure if it was caused by trauma or associated with blistering that was present as a result of the recent right lower leg cellulitis. He's nearly completed his course of high dose Keflex however still notes some swelling, warmth, and erythema in the leg. He does not report pain however. 11/22/14 The patient was discharged from [facility] on Saturday following treatment for recurrent right lower leg cellulitis. He was treated with vancomycin for resistant coag neg Staph and is now on high dose oral Keflex and feels the swelling and erythema continue to improve. He does not report fever or drainage associated with the right 1st toe ulcer and his blood sugars remain well controlled below 120. 11/15/14 The patient reports new drainage from the right 1st toe ulcer and was seen in the ER over the weekend for cellulitis of the right lower leg. He was treated with 3 doses of IV antibiotics on subsequent return to the ER over the course of the past few days and feels the swelling and erythema are slowly improving. He does not report fever or chills and states his blood sugars have been between 150 and 180. 11/01/14 The patient does not report drainage from his right 1st toe ulcer. His blood sugars remain well controlled below 150. 10/25/14 The patient reports only very minimal drainage from his right 1st toe ulcer and continues to offload using his diabetic shoe and minimizing his daily activity. 10/18/14 The patient reports continued improvement in his right toe ulcer. 10/11/14 The patient does not report drainage or pain in the right 1st toe ulcer. He does mention though he's concerned about memory difficulties and he's currently without a PCP as his recently retired. 10/04/14 The patient reports that he has difficulty applying Kerasal to the calloused aan-wound area and getting his dressing to stick. He does not report increased pain or drainage from his right great toe diabetic ulcer. 09/27/14 The patient reports increased walking since last visit with pain in his legs as a result. No increase in drainage from his wound. 09/20/14 The patient reports no new drainage from his left toe wound, and stable drainage from his right great toe wound. He asks about the plan of care today. 09/13/14 The patient reports he wounds appear stable without new symptoms. 09/06/14 The patient does not report any increase in drainage or other issues from his diabetic foot ulcers. 08/30/14 The patient does not report any new problems regarding his right 1st toe ulcer including increased drainage, pain, or redness. He states his blood sugars are well controlled under 150. His A1c was 6.8 in 07/04. 08/23/14 The patient does not complain of drainage from the right 1st toe. 08/16/14 The patient's been using Kerasal on the right 1st toe and does not report significant drainage from the ulcer. His blood sugars are usually below 140 with reported hypoglycemia. 08/09/14 The patient states he's using his offloading boot on the right foot and limiting his walking considerably. He states his blood sugars are well controlled and there' s only been minimal drainage from the toe ulcer. 08/02/14 The patient does not report increased drainage from his right first toe ulcer. He also feel his right leg erythema that was noted at his last visit has improved. He states that prior to arriving to clinic he fell in the parking lot of his pharmacy hitting his right knee. He does not report pain nor bleeding and does not report any other injuries. Family History This information was obtained from the patient Heart Disease - Father, Other - Mother Social History This information was obtained from the patient Never smoker, Children - One son, Lives in - own home, Retired, Self Care and Mobility Past Medical History This information was obtained from the patient Patient has a medical history of: Diabetes type II (A1c 6.8 03/2017; A1c 6.2 on 05/04/16; A1c 7.9 on 01/09/16; 6.8 on 02/25/15) Hypertension Peripheral neuropathy Gout Right ankle Fracture Chronic venous insufficiency with ulcers and edema Unspecified cellulitis and abscess of toe Streptococcus infection of unspecified site Group D Enterococcus Dermatophytosis Osteomyelitis (right 1st toe (MRI 03/01/15, persistent but improved MRI 06/09/15) ; possible right medial malleolus (triple phase bone scan 12/17/14, not confirmed on MRI of 03/01/15; present on MRI 06/09/15)) 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 Melanoma ( left forehead) Diabetic foot ulcer - 10/13/2014 (Bauman grade III; plantar surface right 1st toe with underlying osteomyelitis diagnosed on 03/01/15; recurrent resistant coag negative Staph deep cultures on 11/15/14 and 02/07/15; resistant coag neg Staph cultured on 04/11/15 and started on IV daptomycin on 04/18/15) Diabetic foot ulcer (chronic and recurrent; right medial malleolus, possible osteomyeltis seen on triple phase bone scan 12/17/14 but not confirmed on MRI from 03/01/15; confirmed on MRI 06/09/15) Edema (chronic; right lower extremity) Cellulitis ( left great toe; hospitalized 02/15-02/18/surgical debridment) Surgical History This information was obtained from the patient Patient has a surgical history of: Left great toe amputation of first joint - 03/22/2012 Excision melanoma left forehead - 09/28/2013 Angioplasty (December 2015 and February 2016) Melanoma removal to nose - 07/27/2016 General Notes: Will have revascularization next week? Complaints and Symptoms This information was obtained from the patient Patient complains of: General Notes: I have reviewed and concur with the Review of Systems and Past Family Social History documents completed by the clinician, I have reviewed and concur with the Wound Assessment document completed by the clinician Cardiovascular (Central/Peripheral): Lower extremity (leg) swelling Ear/Nose/Mouth/Throat: Hearing Loss / Aid Hematologic/Lymphatic: Bleeding Tendency Integumentary (Hair/Skin/Nails): Lesions, Open Sore Musculoskeletal: Assistive Devices, Deformities Neurological: Abnormal Gait, Loss of Protective Sensation Prior Wound History: Bleeding, Drainage, Erythema, Pain Psychiatric: Memory Loss Patient denies complaints or symptoms related to: Cardiovascular (Central/Peripheral): Intermittent Claudication, Lower extremity (leg) resting pain Cardiovascular (Peripheral) Constitutional Symptoms (General Health): Chills, Fatigue, Fever Gastrointestinal (GI): Nausea / Vomiting, Stomach/abdominal pain Hematologic/Lymphatic: Bleeding / Clotting Disorders Prior Wound History: Malodor Psychiatric: Depression Respiratory: Oxygen Use, Shortness of Breath OBJECTIVE Constitutional BP elevated; Afebrile; Alert and in no distress. Well developed. Alert. Clean appearing.. Height/Length: 71 in (180.34 cm), Weight: 256.4 lbs (116.55 kgs), BMI: 35.8, Temperature: 98 ?F (36.67 ?C), Pulse: 64 bpm, Respiratory Rate: 18 breaths/min, Blood Pressure: 158/65 mmHg, Capillary Blood Glucose: 146 mg/dl, Pulse Oximetry: 98 %. Vital Signs Notes: Glucose per patient. Ears, Nose, Mouth, and Throat: Mild hearing deficit. Respiratory: No respiratory distress. Even respirations and without use of accessory muscles.. Cardiovascular: 1+ dorsalis pedis and posterior tibial on the right. 2+ right lower extremity edema; improved from last visit. Gastrointestinal (GI): Obese. Nondistended.. Integumentary (Hair, Skin) Mild right lower leg periwound erythema without warmth; improved from last visit. Refer to appropriate clinician wound documentation for this visit; right and left lower leg and right 1st toe ulcers extend to subcut with bases partially covered with pink granulation, remainder fibrin and slough; left lower leg ulcer appears dry. Maceration present in the right lower leg periwound areas. Wound #13 Right, Medial Ankle is an acute Bauman Grade 3 Diabetic Ulcer and has received a status of Not Healed. Subsequent wound encounter measurements are 4.2cm length x 2.9cm width x 0.3cm depth, with an area of 12.18 sq cm and a volume of 3.654 cubic cm. No tunneling has been noted. No sinus tract has been noted. No undermining has been noted. There is a moderate amount of serous drainage noted which has no odor. The patient reports a wound pain of level 0/10. The wound margin is attached. Wound bed has No epithelialization, No eschar, Yes slough, Yes bright red, pink, firm granulation. The periwound skin exhibited: Edema, Induration, Moist, Maceration, Atrophie Marcelina, Erythema. The periwound skin did not exhibit: Brawny Induration, Excoriation, Callus, Crepitus, Fluctuance, Friable, Rash, Dry/Scaly, Cyanosis, Ecchymosis, Hemosiderosis, Pallor, Rubor. The temperature of the periwound skin is WNL. Periwound skin does not exhibit signs or symptoms of infection. Local Pulse is Doppler. General Notes: Proximal satellite 1.2x4.0x0.2 Wound #17 Right, Plantar Great Toe is a Bauman Grade 3 Diabetic Ulcer and has received a status of Not Healed. Subsequent wound encounter measurements are 0.8cm length x 0.8cm width x 0.3cm depth, with an area of 0.64 sq cm and a volume of 0.192 cubic cm. No tunneling has been noted. No sinus tract has been noted. No undermining has been noted. There is a scant amount of serous drainage noted which has no odor. The patient reports no wound pain due to the wound being insensate. The wound margin is callus. Wound bed has No epithelialization, No eschar, No slough, Yes pink, firm granulation. The periwound skin moisture is normal. The periwound skin color is normal. The periwound skin exhibited: Callus. The periwound skin did not exhibit: Brawny Induration, Edema, Excoriation, Induration, Crepitus, Fluctuance, Friable, Rash. The temperature of the periwound skin is WNL. Periwound skin does not exhibit signs or symptoms of infection. Local Pulse is Palpable. Wound #25 Right, Lateral Ankle is a chronic Bauman Grade 2 Diabetic Ulcer and has received a status of Not Healed. Subsequent wound encounter measurements are 3.1cm length x 1.7cm width x 0.3cm depth, with an area of 5.27 sq cm and a volume of 1.581 cubic cm. No tunneling has been noted. No sinus tract has been noted. No undermining has been noted. There is a large amount of serous drainage noted which has no odor. The patient reports a wound pain of level 0/10. The wound margin is attached. Wound bed has No epithelialization, No eschar, Yes slough, Yes bright red, pink, firm granulation. The periwound skin exhibited: Edema, Induration, Moist, Maceration, Erythema. The periwound skin did not exhibit: Brawny Induration, Excoriation, Callus, Crepitus , Fluctuance, Friable, Rash, Dry/Scaly, Atrophie Hassell, Cyanosis, Ecchymosis, Hemosiderosis , Pallor, Rubor. The temperature of the periwound skin is Warm. Periwound skin presents with s/s of infection. Confirmation Description and Treatment Plan is: Confirmed Local, Systemic Antibiotics Prescribed. Local Pulse is Doppler. Wound #29 Right, Lateral Foot is a chronic Bauman Grade 2 Diabetic Ulcer and has received a status of Not Healed. Subsequent wound encounter measurements are 1cm length x 0.5cm width x 0.1cm depth, with an area of 0.5 sq cm and a volume of 0.05 cubic cm. No tunneling has been noted. No sinus tract has been noted. No undermining has been noted. There is a small amount of serous drainage noted which has no odor. The patient reports a wound pain of level 0/10. The wound margin is attached. Wound bed has No epithelialization, No eschar, Yes slough, Yes bright red, pink, firm granulation. The periwound skin texture is normal. The periwound skin color is normal. The periwound skin exhibited: Dry/Scaly, Moist, Maceration. The temperature of the periwound skin is Warm. Periwound skin does not exhibit signs or symptoms of infection. Local Pulse is Doppler. General Notes: Satellite 1.1x0.2x0.1 Wound #32 Left, Medial Ankle is an acute Bauman Grade 2 Diabetic Ulcer and has received a status of Not Healed. Subsequent wound encounter measurements are 2cm length x 1.1cm width x 0.1cm depth, with an area of 2.2 sq cm and a volume of 0.22 cubic cm. No tunneling has been noted. No sinus tract has been noted. No undermining has been noted. There is a small amount of sero-sanguineous drainage noted which has no odor. The patient reports a wound pain of level 0/10. The wound margin is attached. Wound bed has No epithelialization, No eschar, Yes slough, Yes pink, firm granulation. The periwound skin moisture is normal. The periwound skin exhibited: Edema, Atrophie Hassell. The periwound skin did not exhibit: Brawny Induration, Excoriation, Induration, Callus, Crepitus, Fluctuance, Friable, Rash, Cyanosis, Ecchymosis, Erythema, Hemosiderosis, Pallor, Rubor. The temperature of the periwound skin is WNL. Periwound skin does not exhibit signs or symptoms of infection. Local Pulse is Doppler. Wound #33 Right Second Toe is an acute Bauman Grade 2 Diabetic Ulcer and has received a status of Not Healed. Initial wound encounter measurements are 0.8cm length x 0.3cm width x 0.1cm depth, with an area of 0.24 sq cm and a volume of 0.024 cubic cm. No tunneling has been noted. No sinus tract has been noted. No undermining has been noted. There is a small amount of serous drainage noted which has no odor. The patient reports a wound pain of level 0/10. The wound margin is attached. Wound bed has No epithelialization, No eschar, Yes slough, Yes granulation. The periwound skin texture is normal. The periwound skin moisture is normal. The periwound skin color is normal. The temperature of the periwound skin is WNL. Periwound skin does not exhibit signs or symptoms of infection. Local Pulse is Weak. Neurological: Cranial nerves grossly intact with symmetric function normal by informal observation.. Additional Information CHRISTI/Vascular Completed?: 12/10/16 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 (Encounter Diagnosis) E11.621 - Type 2 diabetes mellitus with foot ulcer (Encounter Diagnosis) L97.512 - Non-pressure chronic ulcer of other part of right foot with fat layer exposed (Encounter Diagnosis) L08.89 - Other specified local infections of the skin and subcutaneous tissue (Encounter Diagnosis) I70.238 - Atherosclerosis of [place] arteries of right leg with ulceration of other part of lower right leg (Encounter Diagnosis) L97.822 - Non-pressure chronic ulcer of other part of left lower leg with fat layer exposed PROCEDURES Wound #13 Wound #13 (Diabetic Ulcer) is located on the right, medial ankle. A skin/ subcutaneous tissue level surgical debridement with a total area debrided of 12.18 sq cm was performed by Kam Christensen MD. Subcutaneous was removed along with devitalized tissue: exudate and slough. The following instrument(s) were used: curette. Pain control was achieved using 4% Lido. A time out was conducted prior to the start of the procedure. A minimal amount of bleeding was controlled with pressure. The procedure was tolerated well with a pain level of 0 throughout and a pain level of 0 following the procedure. 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 A skin/ subcutaneous tissue level surgical debridement with a total area debrided of 0.64 sq cm was performed by Kam Christensen MD. Subcutaneous was removed along with devitalized tissue: callus, exudate, and slough. The following instrument(s) were used: curette. Pain control was achieved using 4% Lido. A time out was conducted prior to the start of the procedure. A minimal amount of bleeding was controlled with pressure. The procedure was tolerated well with a pain level of 0 throughout and a pain level of 0 following the procedure. Post Debridement Measurements: 0.8cm length x 0.8cm width x 0.3cm depth; with an area of 0.64 sq cm and a volume of 0.192 cubic cm; Wound #25 Wound #25 (Diabetic Ulcer) is located on the right, lateral ankle. A skin/ subcutaneous tissue level surgical debridement with a total area debrided of 5.27 sq cm was performed by Kam Christensen MD. Subcutaneous was removed along with devitalized tissue: exudate and slough. The following instrument(s) were used: curette. Pain control was achieved using 4% Lido. A time out was conducted prior to the start of the procedure. A minimal amount of bleeding was controlled with pressure. The procedure was tolerated well with a pain level of 0 throughout and a pain level of 0 following the procedure. Post Debridement Measurements: 3.1cm length x 1.7cm width x 0.3cm depth; with an area of 5.27 sq cm and a volume of 1.581 cubic cm; Wound #29 Wound #29 (Diabetic Ulcer) is located on the right, lateral foot. A skin/ subcutaneous tissue level surgical debridement with a total area debrided of 0.5 sq cm was performed by Kam Christensen MD. Subcutaneous was removed along with devitalized tissue: exudate and slough. The following instrument(s) were used: curette. Pain control was achieved using 4% Lido. A time out was conducted prior to the start of the procedure. A minimal amount of bleeding was controlled with pressure. The procedure was tolerated well with a pain level of 0 throughout and a pain level of 0 following the procedure. Post Debridement Measurements: 1cm length x 0.5cm width x 0.1cm depth; with an area of 0.5 sq cm and a volume of 0.05 cubic cm; Additional Information Muscle fascia or bone removed and sent to pathology?: No Muscle fascia or bone removed and sent to pathology?: No Muscle fascia or bone removed and sent to pathology?: No Muscle fascia or bone removed and sent to pathology?: No PLAN Wound Orders: Wound #13 Right, Medial Ankle Cleanser Cleanse Wound: - Normal saline and gauze, may use distilled water at home. May Shower. - Cover with cast protector or plastic bag. Cleanse wound with Soap and Water. - Leg washed with foaming cleanser and water. May wash around wounds at home. Topical Treatments Antibiotic/Antimicrobial Ointment/Cream. - Iodosorb ointment. Dressings Primary dressing: - Poise pad Cover and secure with: - Hypafix tape. Change Dressing: - Twice Daily. Wound #17 Right, Plantar Great Toe Cleanser Cleanse Wound: - Normal saline and gauze, may use distilled water at home. May Shower. - Cover with cast protector or plastic bag. Cleanse wound with Soap and Water. - Leg washed with foaming cleanser and water. May wash around wounds at home. Dressings Cover and secure with: - Foam and hypafix tape. Change Dressing: - Every other day Wound #25 Right, Lateral Ankle Cleanser Cleanse Wound: - Normal saline and gauze, may use distilled water at home. May Shower. - Cover with cast protector or plastic bag. Cleanse wound with Soap and Water. - Leg washed with foaming cleanser and water. May wash around wounds at home. Topical Treatments Antibiotic/Antimicrobial Ointment/Cream. - Iodosorb ointment. Dressings Primary dressing: - Poise pad. Cover and secure with: - Hypafix tape. Change Dressing: - Daily. Wound #29 Right, Lateral Foot Cleanser Cleanse Wound: - Normal saline and gauze, may use distilled water at home. May Shower. - Cover with cast protector or plastic bag. Cleanse wound with Soap and Water. - Leg washed with foaming cleanser and water. May wash around wounds at home. Dressings Primary dressing: - Poise pad. Cover and secure with: - Hypafix tape. Change Dressing: - Twice Daily. Wound #32 Left, Medial Ankle Cleanser Cleanse Wound: - Normal saline and gauze, may use distilled water at home. May Shower. - Cover with cast protector or plastic bag. Cleanse wound with Soap and Water. - Leg washed with foaming cleanser and water. May wash around wounds at home. Dressings Pack wound: - Hydrogel to wound base. Primary dressing: - Bordered foam Change Dressing: - Every other day Additional Orders: Compression/Edema Control Elevation of leg(s) above the level of the heart when sitting. Single Layer Compression Hose - Tetragrip F on in am and off at bedtime. Follow-Up Appointments Return Appointment: - - One week for wound care. Other information: If you develop fever, chills, increased pain, drainage, redness or swelling please call our office. If after hours, respond to the ER. Should you experience any significant changes in your wound(s) or have any questions regarding your home care instructions please contact the wound center @ [phone]. If after hours, contact your primary care physician or go to the hospital emergency room. Scribing Attestation I attest, as the nurse, that I scribed these orders for the physician. General Notes: Finish antibiotics. Please use a Q-Tip to apply your medication not your hands. We would highly recommend you use gloves while doing your dressing changes. I've reviewed the clinician's documentation and agree with the evaluation and plan as written. In addition the patient's ulcers demonstrate evidence of non-viable devitalized tissue and they will continue to benefit from sharp debridement to help promote granulation and expedite healing. Also, we'll continue dual antibiotic therapy with levofloxacin and cefdinir for the resistant Acinetobacter wound infection however if the ulcers deteriorate or cellulitis recurs he'll require another PICC line and I'd consider treating with cefepime if a daily dosing regimen is possible noting he lives on [facility]. Electronic Signature(s) Signed By: Date: Kam Christensen MD 01/03/2018 08:42:30 Entered By: Kam Christensen on 01/02/2018 11:40:30
== END ==
PROVIDERS: PCP Family Medicine; Visit Provider Internal Medicine
DX: E11.621 Type 2 diabetes mellitus with foot ulcer (principal); L97.512 Non-pressure chronic ulcer of other part of right foot with fat layer exposed; E11.622 Type 2 diabetes mellitus with other skin ulcer; L97.322 Non-pressure chronic ulcer of left ankle with fat layer exposed; L97.312 Non-pressure chronic ulcer of right ankle with fat layer exposed; L08.89 Other specified local infections of the skin and subcutaneous tissue; I70.238 Atherosclerosis of native arteries of right leg with ulceration of other part of lower leg
CPT/HCPCS: 11042

== ENCOUNTER → 2018-01-09 09:25 | Outpatient (CLI) | payer MEDICARE, SELFPAY | PROVIDERS: PCP Family Medicine; Visit Provider Physician Assistant | DX: L97.812 Non-pressure chronic ulcer of other part of right lower leg with fat layer exposed (principal); E11.621 Type 2 diabetes mellitus with foot ulcer; L97.512 Non-pressure chronic ulcer of other part of right foot with fat layer exposed; L08.89 Other specified local infections of the skin and subcutaneous tissue; I70.238 Atherosclerosis of native arteries of right leg with ulceration of other part of lower leg; L97.822 Non-pressure chronic ulcer of other part of left lower leg with fat layer exposed; E11.65 Type 2 diabetes mellitus with hyperglycemia | CPT/HCPCS: 11042; 97597; 99215 ==

== ENCOUNTER → 2018-01-16 09:44 | Outpatient (CLI) | payer MEDICARE, SELFPAY ==
--- NOTE | 2018-01-16 | OV.WND_ITS ---
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 Allergies NKDA HPI This information was obtained from the patient 01/16/18. Seen by Dr. Christensen. The patient underwent intervention for his right lower limb PAD last week however notes are not yet available to review. He does not report pain in the leg but feels the drainage from the right medial malleolus and right lower leg diabetic ulcers has increased. He does not report increased drainage or acute issues regarding the right 1st toe nor left lower leg diabetic ulcers. He's also completed his course of levofloxacin and continues on cefdinir for the recent polymicrobial wound cultures taken from the right lower leg ulcers and he does not report adverse side effects or fevers. 01/09/18. Seen by Kane Braun PA-C. The patient reports stable drainage from his chronic ulcers of the right lower extremity. He continues on antibiotics for his polymicrobial infection of his ulcers. 01/02/18. Seen by Dr. Christensen. The patient's recent wound culture again grew a resistant Acinetobacter species. He's on oral levofloxacin and cefdinir again after an interruption in the dual therapy that was noted at his last visit. He feels the left redness, swelling, and drainage have started to decrease and he's changing the dressings overlying the right medical malleolus, right lower leg and foot, right 1st toe and left lower leg diabetic ulcers twice daily as recommended. He also is scheduled for repeat intervention to treat the right leg PAD next week with Dr. aHrrison. 12/31/17. Seen by Dr. Christensen. The patient called asking to be seen prior to his appointment this due to increased swelling and redness of the right lower leg. He's been on oral cefdinir and levofloxacin for refractory cellulitis of the leg and based on the recent Acinetobacter and Enterobacter positive wound cultures taken of the right lower leg and 1st toe diabetic ulcers. He does not report a fever but does state he feels a bit unwell. Also, he took his last dose of levofloxacin yesterday but has additional doses of cefdinir which indicates he may be missing doses of antibiotics. He also has an appointment with Dr. Harrison today for an angiogram and possible intervention to treat right leg PAD. His blood sugars is also elevated a bit today at 170. 12/26/17. Seen by Dr. Christensen. The patient does not report increased drainage associated with the chronic right lower leg ulcers has decreased since starting on oral cefdinir and levofloxacin for the recent Enterobacter and recurrent Acinetobacter wound cultures and he does not report adverse side effects. He also does not report any acute issues regarding the right 1st toe ulcer. He has an appointment in two weeks with Dr. Harrison to address the right leg PAD and he reports a new left medial malleolus ulcer that started about a week ago. He does not report pain or drainage from this site and does not report an inciting event. 12/19/17. Seen by Dr. Christensen. The patient feels the drainage associated with the chronic right lower leg ulcers has decreased since starting on oral cefdinir and levofloxacin for the recent Enterobacter and recurrent Acinetobacter wound cultures and he does not report adverse side effects. He also does not report pain or drainage associated with the right 1st toe diabetic ulcer and is applying topical gentamcinin as recommended. He suffers from PAD in the right leg as well as CKD stage 3 and has had angioplasty in 2016 to address the PAD. 12/13/17. Seen by Dr. Christensen. The patient is now on oral cefdinir and levofloxacin for the Enterobacter and resistant Acinetobacter positive wound cultures taken at his last visit. He does not report pain or increased drainage associated with the very refractory right medial malleolus, right lateral lower leg, nor right 1st toe diabetic ulcers since his last visit and he's changing the dressings only once daily. His HBOT has also been discontinued due to his recent seizure that occurred during his dive last week. 12/09/17. Seen by Dr. Christensen. The patient returns following his seizure that occurred during HBOT on Saturday. He was discharged home from the ER later in the day and does not report any significant issues over the weekend. He completed his course of Bactrim last week but continues on IV daptomycin which is treating chronic osteomyelitis of the right medical malleolus. He does not report pain nor increased drainage from this ulcer nor the other right lower leg non-pressure ulcer or right 1st toe diabetic ulcer. 11/29/17. Seen by Dr. Christensen. The patient continues on IV daptomycin and he completed his course of Bactrim that are treating the refractory Acinetobacter positive wound culture and right medial malleolar chronic osteomyelitis. In general he feels the drainage from the right medial malleolus, right lower leg, and right 1st toe diabetic ulcers has decreased considerably over the past week. He's also tolerating HBOT without difficulty. 11/22/17. Seen by Dr. Christnesen. The patient continues on IV daptomycin and Bactrim that are treating the refractory Acinetobacter positive wound culture and right medial malleolar chronic osteomyelitis. He also continues on hyperbaric oxygen therapy and does not report ever side effects. In general he feels that the drainage associated with the chronic right medial malleolar and right lateral lower leg ulcers has decreased considerably and he does not report any new issues regarding right first toe diabetic ulcer and her second toe diabetic ulcers. 11/14/17. Seen by Dr. Christensen. The patient continues on IV daptomycin and he completed a course of Bactrim that are treating the refractory Acinetobacter positive wound culture and right medial malleolar chronic osteomyelitis. He also continues on hyperbaric oxygen therapy and does not report ever side effects. In general he feels that the drainage associated with the chronic right medial malleolar and right lateral lower leg ulcers has decreased considerably and he does not report any new issues regarding right first toe diabetic ulcer and her second toe diabetic ulcers. 11/07/17. Seen by Dr. Christensen. The patient continues on IV daptomycin for chronic osteomyelitis associated with the chronic right medial malleolus diabetic ulcer. He does not report adverse side effects nor pain or increased drainage associated with this ulcer number the right lateral ulcer nor first toe ulcer. He is also started on hyperbaric therapy and does not report any adverse effects. 10/31/17. Seen by Dr. Christensen. The patient feels that the drainage associated with chronic right medial malleolus and lateral foot and lower leg ulcers has decreased over the past week. He continues on IV daptomycin and has completed his course of Bactrim, both that were treating associated refractory cellulitis. Of note his bone scan reports a high suspicion for osteomyelitis of the right medial malleolus of which was diagnosed also in 2014 on bone scan. He also is unsure of whether an appointment has been made for follow-up with interventional radiology regarding review of his PAD for which he had angioplasty in 2016. He does not report adverse side effects of the antibiotics, fevers, or feeling unwell and his blood sugars continue to be well controlled with most below 150. 10/24/17. Seen by Dr. Christensen. The patient is now on IV daptomycin and Bactrim for refractory cellulitis, and possibly chronic osteomyelitis of the medial malleolus, associated with the chronic right lower leg diabetic ulcers. He is not reporting adverse side effects, fevers, nor feeling unwell in general however he does continue to report what sounds like rest pain when lying in bed at night that improves when standing up and walking around. His MRA did not reveal obvious proximal arterial disease however distal vessels were not well visualized. Dr. Harrison, interventional radiology, has recommended an angiogram to further evaluate for clinically significant PAD. 10/17/17. Seen by Dr. Christensen. The patient is now on Bactrim and Augmentin for the recurrent and resistant Acinetobacter culture plus enterococcus. He is not reporting adverse side effects however the drainage associated with chronic right medial malleolus and right lateral lower leg diabetic ulcers has not decreased since his last visit. He does not report pain nor increased swelling nor fevers or feeling unwell. He also does not report significant drainage associated with chronic right first toe diabetic ulcer. He has a history of severe PAD in the leg but does not report rest pain or claudication and had angioplasty approximately 18 months ago and his arterial Doppler from August 2017 confirms a high grade stenosis of the SFA. Of note, he has healed the ulcers in the past however has made no progress in terms of the size or depth over the past 3-4 months. Also, he has a history of osteomyelitis of the medial malleolus dating back to December 17, 2014 noted on his nuclear bone scan at that time and suggested again on his June 09, 2015 MRI. 10/10/17. Seen by Dr. Christensen. The patient does not report pain associated with the chronic right medial malleolus, right lateral lower leg, and right first toe and third toe diabetic ulcers however he does feel that the drainage continues to be significant from the malleoli or ulcer. His blood sugars continued to be well controlled and he is now off of antibiotics. Of note, he has a history of PAD in the leg and his last review by Dr. Harrison suggested flow was adequate to the foot however this was about 18 months ago. He does not report claudication or rest pain, fevers, or feeling unwell in general. 10/03/17. Seen by Kane Braun PA-C. The patient reports decreased drainage from his right lower extremity diabetic ulcers since beginning his antibiotics for his polymicrobial infection. 09/26/17. Seen by Kane Braun PA-C. The patient reports a very significant increase in drainage from his right medial lower leg ulcer. He is not currently on antibiotics and is spending more time on his feet. 09/19/17. Seen by Kane Braun PA-C. The patient reports good blood sugar control this week. He reports decreased drainage from his ulcer compared with 2 weeks ago and also reports that he has been leaving his new 2nd toe ulcer open to the air as he forgets that is needs a dressing. 09/12/17. Seen by Kane Braun PA-C. The patient reports decreased drainage since beginning antibiotics (which he continues taking) for his infection of his lower right leg ulcer. 09/05/17. To my Dr. Christensen. The patient feels the drainage associated with chronic right medial malleolar and right lateral lower leg diabetic ulcers continues to decrease since starting on levofloxacin and amoxicillin for the polymicrobial positive wound infection. He is not reporting adverse side effects nor drainage associated with chronic right first and second toe diabetic ulcers. Of note, he also has right lower leg PAD and underwent anterior tibial and peroneal angioplasty over a year ago. He does not report claudication or rest pain at this time. 08/29/17. Seen by Kane Braun PA-C. The patient reports increased drainage from his right lower leg diabetic ulcers. 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 08/19/17. Seen by Dr. Christensen. The patient feels the drainage associated with the chronic right lower leg diabetic ulcers continues to improve and he does not report any pain or drainage associated with chronic right first and second toe diabetic ulcers. He completed his course of Bactrim 2 days ago and does not report adverse side effects other than some mild diarrhea. 08/12/17. Seen by Dr. Christensen. The patient feels the drainage associated with the chronic right lower leg diabetic ulcers is improved since starting on Bactrim which he completed 2 days ago. He does not report adverse side effects, fevers, or feeling unwell or pain associated with these ulcers nor drainage or pain associated with the right first and second toe diabetic ulcers. 08/08/17. Seen by Dr. Christensen. The patient states his wound VAC foam dressing saturated with drainage as of yesterday. He continues on antibiotics for cellulitis associated with the chronic right medial malleolus diabetic ulcer and does not report adverse side effects, fevers, as her feeling unwell. I'm seeing him today due to the significant maceration noted in the periulcer area by the nurse today. 08/05/17. She will Dr. Christensen. The patient does not report pain or previous drainage associated with the chronic right medial malleolus diabetic ulcer nor the right first toe ulcer nor right lower leg lateral diabetic ulcer. He is on Bactrim for the refractory cellulitis associated with the recurrent Acinetobacter positive wound culture. He does not report adverse side effects, fevers, and her feeling unwell. 07/29/17. Seen by Dr. Christensen. The patient does not report pain nor increased drainage associated with chronic right lower leg and right first and second toe diabetic ulcers since his last visit. He is now off of antibiotics and states that he decreased his dressing changes recently to once daily from twice daily. The staff however are concerned about increased maceration around the ulcers. 07/17/17. Seen by Dr. Christensen. The patient reports persistent drainage associated with the right lower leg diabetic ulcers and states his wound VAC stopped working after 3 days. He since been changing his dressing daily. He's completed his course of cefdinir and levofloxacin and was treating cellulitis associated with the ulcers. He also notes a new ulcer at the distal second toe adjacent to the distal first toe diabetic ulcer. His blood sugars been well controlled also. 07/10/17. Seen by Dr. Christensen. The patient does not report pain nor increased drainage associated with chronic right lower leg diabetic ulcers nor the right first toe diabetic ulcer. He completed his course of cefdinir and levofloxacin that's treating the polymicrobial wound culture. His blood sugars are well controlled and he is not reporting adverse side effects from antibiotics. 07/04/17. Seen by Dr. Christensen. The patient reports increased drainage associated with the chronic right lower leg diabetic ulcers since his last visit and since stopping antibiotics that were treating the recently cultured Acinetobacter and Enterococcus cultures. He does not report pain in the leg nor fevers or feeling unwell and states his blood sugars remain well controlled. He also does not report any new issues regarding the chronic right 1st toe diabetic ulcer and of note was more active recently while on vacation in [place] the past 10 days. 06/21/17. Seen by Dr. Christensen. The patient feels the drainage associated with the chronic right lower leg diabetic ulcers is decreased since starting on cefdinir and he tolerated negative pressure wound therapy over the last 2 days without difficulty. His wound culture grew Acinetobacter and enterococcus. He does not report fevers, feeling unwell, nor adverse side effects from antibiotics. Of note, he will be traveling to [place] on an airplane leaving next Saturday and return 1 week later. 06/19/17. Seen by Dr. Christensen. The patient feels the recent significant drainage associated with the chronic right lower leg diabetic ulcers has decreased and he completed a course of cefdinir 5 days ago that was treating the recent Acinetobacter positive wound culture. He does not report pain at the site nor other acute issues today. He also does not report drainage associated with chronic right first toe diabetic ulcer. 06/11/17. Seen by Kane Braun PA-C. The patient reports continued drainage from his right lower extremity ulcers. He is applying gentamicin and taking bactrim to treat the bacteria that were cultured from his ulcer at his last visit. Of note, his cultured bacteria is intermediately sensitive to gentamicin. 06/04/17. Seen by Kane Braun PA-C. The patient reports increased purulent drainage from his right lower extremity ulcers. 05/28/17. Seen by Kane Braun PA-C. The patient reports no increase in drainage from his lower extremity ulcers. 05/14/17. Seen by Kane Braun PA-C. The patient reports increased drainage from his chronic lower extremity ulcers. 05/07/17. Seen by Kane Braun PA-C. The patient reports no increase in drainage from his chronic lower extremity ulcers. 04/30/17. Seen by Kane Braun PA-C. The patient reports no complications from his Bactrim and his ulcer drainage has decreased significantly over the past week. 04/23/17. Seen by Dr. Christensen. The patient is now on Bactrim for the recent Acinetobacter positive wound culture taken from the right lower leg diabetic ulcer. He reports decreased drainage and swelling in the leg and does not report any pain. He also does not report any problems regarding his chronic right distal first toe ulcer. 04/16/17. Seen by Dr. Christensen. The patient states his wound vac that was placed last lost its seal by Saturday and he removed the entire dressing. He does not report pain or increase drainage from the right lower leg and right 1st toe ulcers since then and states his blood sugars are mostly below 150. 04/11/17. Seen by Dr. Christensen. The patient does not report pain associated with the chronic right lower leg nor right first toe diabetic ulcers however drainage is significant and persistent associated with the lower leg ulcers. He continues on ciprofloxacin and amoxicillin to treat the polymicrobial wound infection. He does not report adverse side effects nor fevers or feeling unwell in general. 04/04/17. Seen by Dr. Christensen. The patient feels the drainage associated with the right lower leg and first toe diabetic ulcers is decreased over the past week. He's now on ciprofloxacin and amoxicillin for the recent polymicrobial positive wound culture and he does not report adverse side effects. His blood sugars also are mostly below 150. 03/28/17. Seen by Dr. Christensen. The patient feels the drainage associated with the right lower leg and first toe diabetic ulcers is decreased over the past week. He's changes dressings only once daily and does not report any other acute problems at this time. Also, a new ulcer is now present along the right lateral mid-foot. 03/21/17. Seen by Dr. Christensen. The patient reports improvement terms of the drainage associated with the right lower leg diabetic ulcers. He does not report any pain or drainage associated with the right first toe diabetic ulcer. He states his blood sugars have been well- controlled most below 120. 03/14/17. Seen by Dr. Christensen. The patient and staff report persistent and significant drainage associated with the chronic right lateral lower leg and right medial malleolar diabetic ulcers. He is changing his poise addressing once daily and is not currently on antibiotics. He does not reporting any new problems regarding the chronic right first toe diabetic ulcer. 03/07/17. Seen by Kane Braun PA-C. The patient reports very little drainage from his back wound and stable drainage from his right lower leg diabetic ulcers. He has a lot of questions regarding the pathology of and prognosis for his right lower leg and it's recurrent ulcers. He is considering moving to the [facility] and is looking into what medical services they have there. 02/28/17. Seen by Dr. Christensen. The patient feels the drainage associated with the right lower leg diabetic ulcers has decreased over the past week and he does not report any new problems regarding the chronic right 1st toe diabetic ulcer nor posterior right shoulder surgical wound. 02/21/17. Seen by Dr. Christensen. The patient continues to report significant drainage associated with the chronic right medial malleolar diabetic ulcer although he feels that is decreasing somewhat since starting on clindamycin for a recent positive wound culture. He does not report adverse side effects, pain in the ankle, nor fevers. He's also asked that I look at a slowly healing surgical wound on his back following a Mohs procedure for excision of a melanoma about 1 month ago. He states the site is tender but otherwise has no acute complaints. He does not report significant drainage nor new changes associated with chronic right first toe diabetic ulcer. 02/14/17. Seen by Kane Braun PA-C. The patient reports he has a new draining wound on his back. He had a shave removal of a skin cancer (patient is unsure of what type) and the dressing has fallen off and it has been draining through his shirt. It was not sutured and was left open to heal by secondary intention. His chronic right ankle and foot diabetic ulcers have had reduced drainage since starting clindamycin several days ago. Of note, he mis-read the label and was taking the clindamycin only once daily. He reports stable blood sugars with some blood sugars above 150 this week. 02/05/17. Seen by Dr. Christensen. The patient reports significant drainage associated with chronic right lower leg diabetic ulcers but none associated with the right first toe diabetic ulcer. He completed a course of Levaquin yesterday is been treating a recurrent infection associated with the toe ulcer and does not report fevers, feeling unwell, or adverse side effects. Of note, he is having problems in terms of financial limitations and medical costs associated with dressing changes. 01/31/17. Seen by Dr. Christensen. The patient does not report increased drainage or pain associated with the chronic right lower leg diabetic ulcers nor the chronic right first toe diabetic ulcer. He is now off of antibiotics does not report fevers or feeling unwell in general. 01/26/17. Seen by Kane Braun PA-C. The patient reports he continues to have a great deal of drainage from his right medial malleolar diabetic ulcer. 01/07/17. Seen by Dr. Christensen. The patient does not report increased pain or drainage associated with the chronic right lower ankle, right foot, nor right 1st toe diabetic ulcers since his last visit however staff report that the dressings are saturated. Also, the patient states his blood sugars remain well controlled below 150 consistently. 12/31/16. Seen by Kane rBaun PA-C. The patient reports continued copious drainage from his right lower extremity diabetic ulcers. He is taking his Zyvox as prescribed. In addition his blood sugars are reportedly in good control, under 150. His prealbumin level resulted in the normal range. 12/27/16. Seen by Dr. Christensen. The patient does not report increased pain or drainage associated with the chronic right lower leg and right 1st toe diabetic ulcers however staff report that the dressings are saturated. He's been on Zyvox for a wound infection associated with the right medial malleolar ulcer and does not report adverse side effects. 12/18/16. Seen by Dr. Christensen. The patient feels there has been a significant increase in drainage associated with the right lower leg diabetic ulcers over the past week. He does not report pain at the site of the ulcers nor fevers or feeling unwell and his not currently on antibiotics. He states his blood sugars are relatively well controlled with most below 150. 12/10/16. Seen by Kane Braun PA-C. The patient reports increased drainage from his chronic diabetic ulcers of the right lower leg and foot. His wound culture has resulted with an enterococcus spp. and a coagulase negative staph spp. growth that are both PCN sensitive. 12/05/16. Seen by Dr. Christensen. The patient does not report pain associated with the compression wrap was placed over the right lower leg 2 days ago. The staff report that his dressings are soaked and there is some maceration in the periwound areas of the chronic right foot and medial malleolleolar diabetic ulcers. He does not report pain nor significant drainage associated with chronic right first toe diabetic ulcer. 12/03/16. Seen by Kane Braun PA-C. The patient reports no increase in drainage from his right lower leg diabetic ulcers since his last evaluation. His arterial doppler resulted with no significant stenosis in the right leg. 11/26/16. Seen by Kane Braun PA-C. The patient reports difficulty in controlling his blood sugars this week with several readings above 150. Drainage from his right lower leg ulcer has not increased. 11/19/16. Seen by Dr. Christensen. The patient reports some increased drainage associated with the lateral right lower leg diabetic ulcer. He isn't reporting any pain at the site nor pain or increased drainage associated with the right medial malleolar diabetic ulcer or right first toe ulcer since his last visit. His blood sugars continue to be mostly below 150 at home and he is not report fevers or feeling unwell in general. 11/12/16. Seen by Kane Braun PA-C. The patient reports good blood sugar control this week and no increase in drainage from his right lower leg diabetic ulcers. He is seeing dermatology today for removal of another skin cancer of the face. The patient is unsure if it is a melanoma. He also expresses concern about how long his ulcer is taking to heal, wondering Is it ever going to heal? 11/05/16. Seen by Kane Braun PA-C. The patient reports that some of his blood sugar readings have been above 150 this week. He reports that yesterday's AM blood sugar was 160. Drainage from his chronic right foot and right lower leg diabetic ulcers has reportedly reduced. 10/29/16. Seen by Kane Braun PA-C. The patient reports that he has had continued swelling at the site of his melanoma removal on the left side of his nose. His diabetic ulcers of the right foot have had stable drainage. 10/22/16. Seen by Kane Braun PA-C. The patient reports drainage from his right foot diabetic ulcers continues and today is his last does of Levaquin which was prescribed to treat an infection of these ulcers. 10/15/16. Seen by Kane Braun PA-C. The patient reports no increase in drainage from his chronic diabetic ulcers of the right foot. His pathology report has returned from the foreign body that was removed from his 2ng toe ulcer as likely plant material. After discussing this finding with the patient he believes it is a seed from birdseed. 10/08/16. Seen by Kane Braun PA-C. The patient reports that he has been using tetragrip compression stockings as directed, but doesn't wear them on mornings that he has clinic appointments. 10/01/16. Seen by Kane Braun PA-C. The patient reports no increase in drainage from his chronic diabetic ulcers of the right foot and leg. He is noted today to have a new ulcer on his right 2nd toe. The patient was not aware of this ulcer until it was discovered today. 09/24/16. Seen by Kane Braun PA-C. The patient reports decreased drainage from his chronic diabetic ulcers of the right foot and lower leg since his last evaluation. 09/17/16. Seen by Kane Braun PA-C. The patient reports that his blood sugars have been elevated above 150 this week. He has finished his course of Ampicillin and reports decreased ulcer drainage. 09/10/16. Seen by Kane Braun PA-C. The patient should be finished with his Augmentin [correction he was on AMPicillin], but reports that he has a week or more left . He does not recall ever taking it 4 times a day. His diabetic ulcers of the right lower leg have had slightly decreased drainage since his last evaluation, but continue to drain. 09/03/16. Seen by Dr. Christensen. The patient does not report increased drainage or pain associated with chronic right lower leg diabetic ulcers or right first toe diabetic ulcer since his last visit. He is applying Kerasal to the periwound right first toe callus as recommended and he states his blood sugars continue to be mostly below 150. 08/20/16 Seen by Kane Braun PA-C. The patient reports increased drainage from his right medial ankle and lateral right lower leg ulcers since his last visit. He does not report associated fever or chills. 08/13/16 Seen by Kane Braun PA-C. The patient reports consistently increased drainage from his right medial ankle ulcers for the past 2-3 days. The drainage has been of a darker color than the usual clear drainage and he has noted associated erythema surrounding the ulcers. No fever or chills reported. In addition the patient was unaware of the new ulcers on his lateral lower right leg that were discovered today. 07/30/16 Seen by Kane Braun PA-C. The patient reports that he has had his facial melanoma excised and will return to dermatology for follow up in 4 days. He reports that his blood sugars have been running over 150 in the past few days and that his new wound dressing on his right ankle ulcers appears to have increased maceration in the ulcer area. 07/24/16 Seen by Kane Braun PA-C. The patient reports a significant increase in drainage from his chronic right ankle ulcers requiring more frequent dressing changes. The increased drainage began 5 days ago and has been continuous. He has not had any associated fever or chills. New periwound erythema is reported without warmth or pain. 07/17/16 Seen by Kane Braun PA-C. The patient reports no increase in drainage from his chronic right ankle ulcers or his more recent left leg ulcer. 07/09/16 Seen by Kane Braun PA-C. The patient reports a new wound on his left medial leg which begain spontaneously 2-3 days ago. The patient believes he may have spilled hot grease on it while cooking but doesn't actually recall doing so. It raised as a painless blister, then popped with clear fluid drainage. He also reports that he is making arrangements for his melanoma to be removed in the coming days. His right lower leg diabetic ulcers have had increased drainage which is reportedly sero-purulent. 06/20/16. Seen by Dr. Christensen. The patient does not report increased drainage associated with the chronic right lower leg diabetic ulcers nor the right 1st toe diabetic ulcer. The previously diagnosed left nose lesion has been biopsied and pathology confirms melanoma. He 's asked that I take a look at the biopsy site and states he's scheduled to see a surgeon in the near future to discuss further treatment options. He does not report pain or drainage from the biopsy site. 06/06/16. Seen by Dr. Christensen. The patient does not report increased drainage associated with the chronic right lower leg diabetic ulcers nor the right 1st toe diabetic ulcer. However, he's concerned about a non-painful lesion on the left side of his nose that's been growing over the past few weeks and started bleeding yesterday. He has a history of melanoma and recent excision of a malignant lesion from the left shoulder earlier this year. 06/01/16. Seen by Dr. Christensen. The patient does not report increased drainage or swelling associated with the chronic right lower leg diabetic ulcers. He's also applying Kerasal to the right 1st toe periulcer callus as recommended. He states his blood sugars are mostly below 150 and he's off of antibiotics. 05/24/16 Seen by Kane Braun PA-C. The patient reports stable drainage from his right lower leg and right great toe ulcers since his last evaluation. The patient reports a mix of blood sugars above and below 150 in the past week. 05/17/2106. Seen by Dr. Christensen. The patient does not report pain or increased drainage associated with the chronic right medial malleolar, right lower leg, or right 1st toe diabetic ulcers since his last visit. 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 05/11/16 Seen by Kane Braun PA-C. The patient reports that his blood sugars have been under 150 this past week and that he is finishing up his doxycycline and bactrim for a polymicrobial ulcer infection of his right ankle ulcers. His PAD is improved after his recent angioplasty and he reports more warmth in his right foot. His chronic ankle ulcers of the right foot have had stable drainage since his last evaluation. 05/04/16. Seen by Dr. Christensen. The patient does not report pain or increased drainage associated with the chronic right medial malleolar, right lower leg, or right 1st toe diabetic ulcers. 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 He also does not report any new issues regarding the right anterior lower leg trauma wound. 04/27/16. Seen by Dr. Christensen. The patient does not report pain or increased drainage associated with the chronic right medial malleolar, right lower leg, or right 1st toe diabetic ulcers. 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 He also does not report any new issues regarding the right anterior lower leg trauma wound. 04/20/16. Seen by Dr. Christensen. The patient does not report pain or increased drainage associated with the chronic right medial malleolar, right lower leg, or right 1st toe diabetic ulcers. 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 He states his blood sugars are typically around 150 and does not report any new issues regarding the right anterior lower leg trauma wound noted at his last visit. 04/13/16. Seen by Dr. Christensen. The patient missed his PCI for right leg PAD yesterday due to an error on his calendar. He does not report increased swelling, pain, or drainage associated with the chronic right medial malleolar or right lower leg diabetic ulcers nor the right 1st toe diabetic ulcer. 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 He does not report adverse side effects and states his blood sugars are typically around 150. Of note, his A1c increased to 7.9 from 6.8 6 months prior. 04/05/16. Seen by Dr. Christensen. The patient reports a new traumatic wound to the right lower leg that occurred when he hit his leg while walking in the dark earlier this morning. He says that he blood considerably but it is not particularly painful. Regarding his right ankle and lower leg diabetic ulcers, he does not report any increased drainage or other problems. Nor does he report any significant drainage from the right first toe diabetic ulcer. His blood sugars continue to be mostly around 150. He still complains of some pitching at the left shoulder surgical but does not report drainage. Also, he is scheduled for intervention for his right leg PAD within the next two weeks. Also, the patient continues on Bactrim and doxycycline for chronic osteomyelitis of the right ankle. 03/30/16. Seen by Dr. Christensen. 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 He's also reporting some significant pruritus associated with the slowly healing left shoulder surgical wound but no significant drainage. He states his blood sugars are mostly around 150. 03/23/16. Seen by Dr. Christensen. 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 He's also concerned about a possible suture delaying healing of the recently excised melanoma surgical wound at the left posterior shoulder. He does no report pain or drainage at this site. He also states his blood sugars are mostly below 150 with none over 200. 03/16/16 Seen by Kane Braun PA-C. The patient reports stable drainage from his right lower leg ulcers. In addition he reports not being able to schedule transportation for his angioplasty. Again today he was asked about definitive follow up for his recently re-excised melanoma and does not recall being told that the margins were clear. 03/09/16. Seen by Dr. Christensen. The patient does not report or increased drainage associated with the right lower leg or right medial malleolar diabetic ulcers over the past week. He continues on antibiotics for the ulcers and right medial malleolar chronic osteomyelitis without reporting adverse side effects. He's also asked that we review his left posterior shoulder surgical wound due to a possible retained suture. 02/17/16. Seen by Dr. Christensen. The patient does not report pain or significant drainage associated with the chronic right medial malleolar or right lower leg diabetic ulcers over the past week. 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 02/09/[address] Christensen. The patient does not report pain or significant drainage associated with the chronic right medial malleolar or right lower leg diabetic ulcers over the past week. 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 Of note, he was changed from doxycycline to Bactrim within the past week due to his most recent wound culture results. He also reports a new trauma wound to the more proximal right anterior lower leg but does not recall what he hit the leg on or when. He states his blood sugars are mostly below 150. 02/02/16. Seen by Dr. Christensen. Patient is not report significant pain or drainage associated with the right medial malleolus diabetic ulcer or right lower leg diabetic ulcer. 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 He states the blood sugars are typically around 150. Of note, he also reports a new left anterior lower leg trauma wound that is nonpainful and has only minimal drainage. This occurred sometime in the past week. 01/26/[address] Christensen. The patient feels the drainage and swelling associated with the chronic right medial malleolar and right lower leg diabetic ulcers continues to decrease since starting HBOT. He also continues on doxycycline for chronic osteomyelits of the ankle and does not report adverse side effects. He does not report pain or drainage associated with the right 1st toe diabetic ulcer and has been applying Kerasal to the surrounding callus as recommended. 01/19/[address] Christensen. The patient reports decreased drainage associated with the chronic right medial malleolar and right lower leg diabetic ulcers over the past week and no drainage from the right 1st toe diabetic ulcer. 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 He does not report adverse side effects from the doxycycline and states his blood sugars are well controlled with most below 150. 01/12/[address] Christensen. The patient feels the drainage associated with the chronic right medial malleolar and right lower leg diabetic ulcers continues to decrease since starting on doxycycline for osteomyelitis of the malleolus and HBOT. He reports his blood sugars are relatively well controlled with most below 150. He's also scheduled to see Dr. Peña next week again to discuss possible additional intervention to treat the right lower leg PAD. 01/05/[address] Christensen. The patient feels the drainage associated with the chronic right medial maleollar diabetic ulcer has been decreasing since starting on doxycycline for the resistant coag negative Staph culture. He also does not report adverse side effects from doxycycline or problems regarding HBOT that is adjunctive treatment for the Bauman grade 3 diabetic ulcer and associated underlying chronic osteomyelitis. His blood sugars are improving with most below 150 and he's using a walker while at home to help facilitate offloading. Of note, the patient also underwent right leg angioplasty due to his recent MRA showing severe PAD and with one vessel runoff to the ankle. 12/29/15 Seen by Kane Braun PA-C. The patient reports continued drainage and increased edema in the area of his right medial malleolar diabetic ulcers. He also reports the he has decided to postpone recommended melanoma treatment to focus on taking care of the ulcers. 12/22/[address] Christensen. The patient reports continued drainage and redness associated with the chronic right medial malleolar and right lower leg diabetic ulcers. He' s been on Zyvox for the past two days to treat the recent wound culture that grew two species of resistant coag negative Staph. He also has been checking his blood sugars twice daily stating most are around or below 150. He does not report fevers and states the right lower leg and ankle pain he reported last week is starting to improve. He's also scheduled for a right lower leg MRA and to see interventional radiology next week to evaluate for possible clinically significant PAD in the right leg that may be inhibiting wound healing. Additionally, his bone scan two days ago suggests possible osteomyelitis of the right medial malleolus and states it can not be ruled out. Of note, he carries a diagnosis of a Bauman grade 3 diabetic ulcer at the medial malleolus with underlying osteomyelitis based on his bone scan from Nov, 2014. This site has not entirely healed since then and in fact has deteriorated over the past month. 12/15/[address] Christensen. The patient reports continued moderate drainage from the chronic right medial malleolar and right lower leg diabetic ulcers and he's now on Levofloxacin for the recent malleolar ulcer Stenotrophomonas culture. He reports discomfort in the right lower leg that's most noticeable when lying in bed at night however it does not necessarily resolve when he stands to walk and he does not report claudication. His blood sugars also remain well controlled below 150 consistently although his last A1c was 8.0 on 10/11/15. 12/08/[address] Christensen. The patient reports persistent drainage from the chronic right medial malleolar diabetic ulcer and some pain at this site when he lies flat in bed at night. He's now on levofloxacin for Stenotrophomonas positive wound culture and does not report adverse side effects. His MRI of the right ankle shows some marrow edema but retained normal fatty marrow signal indicative more of reactive changes as opposed to osteomyelitis. His blood sugars are a bit elevated intermittently around 160 at home but not higher than this. He also does not report fevers or feeling unwell. 12/01/[address] Christensen. The patient reports increased pain and drainage associated with the chronic right medial malleolar diabetic ulcer. He does not report fevers or feeling unwell however and states his blood sugars remain under 150 consistently. 11/25/[address] Christensen. The patient reports increased drainage associated with the chronic right medial malleolar diabetic ulcer along with increased swelling in the right lower leg. He does not report pain associated with the ulcer nor fevers or feeling unwell and states his blood sugars remain consistently under 150. 11/18/[address] Christensen. The patient does not report pain or drainage associated with his chronic right medial malleolar diabetic ulcer. He does feel there's been some increased swelling and redness in the right lower leg this week however feels this may be due to a mild sun burn than occurred while mowing his lawn. He also states his blood sugars are consistently below 150. 11/04/[address] Christensen. The patient does not report significant drainage from the right medial malleolar diabetic ulcer and has completed his course of ciprofloxacin for the recent Pseudomonas infection of the ulcer. He also does not report pain or swelling associated with the ulcer and states his blood sugars are mostly below 150. 10/28/[address] Christensen. The patient does not report increased drainage from the right medial malleolar diabetic ulcer and he's completed his course of ciprofloxacin without reporting adverse side effects. He states his follow up surgery for removal of the remaining left should melanoma has been postponed for a few weeks and he does not report any drainage or pain associated with the left chest or left shoulder healing surgical wounds. His blood sugars also remain well controlled around 120 although his A1c in September was 8.0. 10/21/[address] Christensen. The patient continues on ciprofloxacin for the recent Pseudomonas positive culture of the right medial malleolus diabetic ulcer. He does not report adverse side effects and feels the drainage has decreased significantly over the past week. He also is to undergo additional surgery to address residual melanoma at the left shoulder. He does not report any new issues regarding the left shoulder or chest surgical wounds. His blood sugars also remain well controlled below 150 consistently. 10/14/[address] Christensen. The patient reports some persistent drainage from the chronic right medial malleolar diabetic ulcer and his wound culture from the last visit grew Pseudomonas. He was placed on doxycycline empirically at the last visit. He does not report pain associated with the ulcer and states his blood sugars are consistently below 150. 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 09/29/[address] Christensen. The patient does not report pain, significant drainage, or other issues regarding his chronic right medial malleolar non-pressure ulcer. He reports using Kerasal and a moisturizer on his right 1st toe callus and feet but is non- committal in terms of how frequently they're being applied. 09/19/15 Seen by Kane Braun PA-C. The patient reports no increase in drainage from his medial malleolar diabetic ulcer. His blood sugars are reportedly a little higher than average lately and he reports again that today's blood pressure reading is not consistent with his well controlled numbers outside of our clinic. In addition he reports that the recently removed lesion on his left scapular area came back as confirmed as Melanoma and he is going to have a surgery to excise it, and possibly some lymph nodes in the coming weeks. 09/02/[address] Christensen. The patient does not report significant drainage from the chronic right medial malleolar diabetic ulcer. 08/24/[address] Christensen. The patient does not report pain, swelling, or drainage associated with his chronic left medial malleolar diabetic ulcer and he states his blood sugars remain well controlled below 150 consistently. 08/10/2015 Seen by Kane Braun PA-C. The patient reports minimal drainage from his left ankle ulcer. 08/03/2015 Seen by Kane Braun PA-C. The patient does not report any drainage from his first toe ulcer since his last dressing change. He did inspect it with a mirror and was displeased to see discoloration in the callous. He has religiously been wearing his offloading shoe. His medial malleolar ulcer has been draining minimally. 07/28/[address] Christensen. The patient does not report increased drainage from the right medial malleolar diabetic ulcer nor any drainage from the right 1st toe diabetic ulcer. He does admit to not using his walker as recommended at all times but typically walks only on days of our appointments and when grocery shopping. His blood sugars remain well controlled and he's completed his course of ciprofloxacin that was treating osteomyelitis of both the right 1st toe and right medial malleolus. He also continues with HBOT to treat right 1st toe osteomyelitis. 07/20/[address] Christensen. The patient does not report significant drainage from either the right 1st toe nor right medial malleolar diabetic ulcers. He also continues on ciprofloxacin and continues HBOT for osteomyelitis of the right 1st toe. 07/04/15 Seen by Kane Braun PA-C. The patient reports stable drainage from his wounds. He reports using a frame walker for offloading whenever he can. 06/30/[address] Christensen. The patient returns today for review of his right 1st toe diabetic ulcer and underlying osteomyelitis for which he continues on HBOT. He's also on ciprofloxacin for a recent Pseudomonas culture of the right medial malleolar ulcer. He reports there's been some drainage on the dressing the past few days despite this ulcer being healed out recently. He also admits to not using his walker as recommended spending a modest amount of time walking in his house, to appointments, and at the grocery store. 06/22/15 Seen by Kane Braun PA-C. The patient reports minimal drainage from his right malleolar wound and no noted drainage from his toe wound. 06/10/[address] Christensen. The patient reports some increased erythema in the periwound area of the right medial malleolar Bauman grade III diabetic ulcer but does not report associated pain or drainage. Nor does he report drainage associated with the right 1st toe Bauman grade III diabetic ulcer. He's now been off of IV daptomycin for 8 days. His MRI from yesterday shows persistent, albeit decreased, marrow edema at the right 1st toe distal phalanx indicating modest improvement however the evidence for osteomyelitis of the medial malleolus remain unchanged. His blood sugars have increased a bit to the 170's and his last A1c in 02/2015 was 6.8. 06/03/[address] Christensen. The patient does not report drainage or pain associated with the recently healed right 1st toe or persistent medial malleolar diabetic ulcers. He also continues on IV daptomycin for associated osteomyelitis at each site without reporting adverse side effects. He also states his blood sugars are well controlled around 120 consistently. 05/27/[address] Christensen. The patient states there's been no drainage from the right 1st toe ulcer. He continues on IV daptomycin for osteomyelitis of the 1st toe and medial malleolus without reporting adverse side effects, fevers, or sweats . His blood sugars also remain relatively well controlled below 150 and he offloads with a surgical shoe and by significantly minimizing his walking. 05/20/[address] Christensen. 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 His blood sugars are well controlled recently with most below 120 at home. 05/13/[address] Christensen. The patient does not report pain or significant drainage associated with the right 1st toe and medial malleolar ulcers nor adverse side effects associated with the IV daptomycin he's on for chronic osteomyelitis of the right 1st toe. 05/06/[address] Christensen. The patient does not report significant drainage from either the right 1st toe diabetic foot ulcer nor the right medial malleolar ulcer. He continues on IV daptomycin for chronic osteomyelitis of the right 1st toe as well as HBOT and does not report issues with either. 04/22/[address] Christensen. The patient's MRI of the right foot showed interval improvement of the osteomyelitis however there's still evidence that this persists in the right 1st distal phalanx. He's now on IV daptomycin based on a wound culture from 04/11/15 that grew two resistant coag negative Staph organisms. His blood sugars are typically below 150 and his A1c in February 2015 was 6.8. 04/08/[address] Christensen. The patient does not report significant drainage from the right 1st to or medial malleolar diabetic foot ulcers and states his blood sugars are consistently below 150. He continues on oral levofloxacin and doxycycline to treat right toe chronic osteomyelitis and is on dual antibiotic therapy with levofloxacin and doxycycline since (day 29) to address the resistant coag negative Staph culture from 02/07/15 of the 1st to ulcer. He offloads by minimizing walking significantly and wearing diabetic shoes. 03/31/[address] Christensen. The patient reports only minimal drainage from the right malleolar ulcer and none from the right 1st toe diabetic ulcer. His blood sugars remain well controlled below 120 and he does not report any side effects from the levofloxacin and doxycycline he's taking for chronic osteomyelitis of the right 1st toe. Of note , he's not offloading the right foot with a surgical shoe and walker as recommended but he is limiting his walking as much as possible. 03/24/[address] Christensen. The patient reports no drainage from the right 1st toe diabetic ulcer however the right medial malleolar ulcer continues with modest drainage but no associated pain, swelling, or erythema. He continues on an extended course of levofloxacin and doxycycline to treat chronic osteomyelits of the 1st toe and does not report any adverse side effects other than some sun sensitivity likely associated with doxycycline. 03/16/[address] Christensen. The patient reports there's been no drainage from the right 1st to ulcer and only minimal drainage from the right medial malleolus ulcer. His blood sugars remain moderately well controlled below 150 and he continues on doxycycline and levofloxacin to treat chronic osteomyelitis of the right first toe. 03/08/[address] Christensen. The patient does not report increased drainage from either the right medial malleolar ulcer nor the right 1st toe ulcer and he continues on an extended course of oral doxycycline and HBOT for chronic osteomyelitis of the right 1st toe. He does not report fever, chills, or sweats nor adverse side effects associated with the doxycycline. His blood sugars continue to be well controlled and his A1c was 6.8 on 02/25/15. 03/01/15 Seen by Kane Braun PA-C. The patient reports stable drainage from his wounds. He has been on Doxycycline and will need a refill today if it is to be continued. The patient's MRI of the foot did not demonstrate osteomyelitis of the medial malleolus but it did demonstrate osteomyelitis of the great toe. The study's impression is as follows: IMPRESSION: There is prominent inflammatory change involving the fatty and cutaneous soft tissues of the distal great toe, extending contiguously to involve the distal half of the great toe distal phalanx, where some degree of cortical destruction can be seen with internal marrow space edema and enhancement suggestive of osteomyelitis extending into that portion of the medullary space. No additional lesion elsewhere is seen that would indicate abscess formation or additional osteomyelitis. 02/21/15 Seen by Kane Braun PA-C. The patient's arterial ultrasound of the right leg does not show focal stenosis, though it does show progression of scattered plaques from the prior study. the patient's wounds continue to drain minimally. 02/14/15 Seen by Kane Braun PA-C. The patient reports more drainage from his medial malleolar ulcer than last week. Pain is minimal. Denies fever or chills. His hypertension is reportedly well controlled, and his BP is only elevated here in our clinic by his report. His diabetes reportely continues to be in good control with most morning blood sugars below 120 but he reports they have been higher in the past week or two. 02/07/15 Seen by Kane Braun PA-C. The patient reports minimal drainage from his wounds. He reports that he has attempted to spend time sitting with his feet elevated, which is a new therapy for him as he usually is always moving. He reports that it is helping his lower extremity edema modestly. 01/24/[address] Christensen. The patient's right medial malleolar ulcer wound culture from the last visit grew coag negative Staph and he's now on doxycycline since last Saturday. He reports only minimal drainage from both the ankle and 1st toe ulcer. He's also not offloading the right foot in anyway. His blood sugars continue to be well controlled below 120. 01/17/[address] Christensen. The patient does not report drainage from either the right medial malleolar or 1st toe ulcers. He's off antibiotics and states he got the ankle ulcer wet in the shower this morning. 01/03/15 Seen by Kane Braun PA-C. The patient reports minimal drainage from his wounds. He also reports that the shoes he brings into the clinic are not the ones he wears all day. Blood sugars are reportedly in pretty good control. 12/27/14 Seen by Kane Braun PA-C. X-ray of the right foot was negative for radiographic signs of osteomyelitis. ESR and CRP were within normal limits. The patient reports minimal drainage from his right ankle and toe wounds. 12/20/14 Seen by Kane Braun PA-C. The patient reports no increase in drainage from his right 1st toe ulcer or the malleolar ulcer that has recently recurred. He does report that he was treated for osteomyelitis at our clinic several years ago using HBOT and antibiotics with good results. 12/10/[address] Christensen. The patient does not report drainage from the right 1st toe ulcer but he states the right medial malleolar ulcer has recurred. He also report recurrence of right lower leg erythema and warmth since stopping Augmentin two days ago. His blood sugars remain below 150 and he does not report fever or chills. His most recent wound culture in mid October grew resistant coag negative Staph. 12/03/14 Seen by Kane Braun PA-C today. The patient reports no visible drainage from his right ankle or toe ulcers. He believes the ankle ulcer recurrence was related to edema when he was hospitalized. Edema has mostly resolved now in his legs by his report. 11/26/14 The patient does not report any drainage from the right 1st toe ulcer but states the right medial malleolar ulcer has recurred. He's not sure if it was caused by trauma or associated with blistering that was present as a result of the recent right lower leg cellulitis. He's nearly completed his course of high dose Keflex however still notes some swelling, warmth, and erythema in the leg. He does not report pain however. 11/22/14 The patient was discharged from [facility] on Saturday following treatment for recurrent right lower leg cellulitis. He was treated with vancomycin for resistant coag neg Staph and is now on high dose oral Keflex and feels the swelling and erythema continue to improve. He does not report fever or drainage associated with the right 1st toe ulcer and his blood sugars remain well controlled below 120. 11/15/14 The patient reports new drainage from the right 1st toe ulcer and was seen in the ER over the weekend for cellulitis of the right lower leg. He was treated with 3 doses of IV antibiotics on subsequent return to the ER over the course of the past few days and feels the swelling and erythema are slowly improving. He does not report fever or chills and states his blood sugars have been between 150 and 180. 11/01/14 The patient does not report drainage from his right 1st toe ulcer. His blood sugars remain well controlled below 150. 10/25/14 The patient reports only very minimal drainage from his right 1st toe ulcer and continues to offload using his diabetic shoe and minimizing his daily activity. 10/18/14 The patient reports continued improvement in his right toe ulcer. 10/11/14 The patient does not report drainage or pain in the right 1st toe ulcer. He does mention though he's concerned about memory difficulties and he's currently without a PCP as his recently retired. 10/04/14 The patient reports that he has difficulty applying Kerasal to the calloused ana-wound area and getting his dressing to stick. He does not report increased pain or drainage from his right great toe diabetic ulcer. 09/27/14 The patient reports increased walking since last visit with pain in his legs as a result. No increase in drainage from his wound. 09/20/14 The patient reports no new drainage from his left toe wound, and stable drainage from his right great toe wound. He asks about the plan of care today. 09/13/14 The patient reports he wounds appear stable without new symptoms. 09/06/14 The patient does not report any increase in drainage or other issues from his diabetic foot ulcers. 08/30/14 The patient does not report any new problems regarding his right 1st toe ulcer including increased drainage, pain, or redness. He states his blood sugars are well controlled under 150. His A1c was 6.8 in 07/04. 08/23/14 The patient does not complain of drainage from the right 1st toe. 08/16/14 The patient's been using Kerasal on the right 1st toe and does not report significant drainage from the ulcer. His blood sugars are usually below 140 with reported hypoglycemia. 08/09/14 The patient states he's using his offloading boot on the right foot and limiting his walking considerably. He states his blood sugars are well controlled and there' s only been minimal drainage from the toe ulcer. 08/02/14 The patient does not report increased drainage from his right first toe ulcer. He also feel his right leg erythema that was noted at his last visit has improved. He states that prior to arriving to clinic he fell in the parking lot of his pharmacy hitting his right knee. He does not report pain nor bleeding and does not report any other injuries. Past Medical History This information was obtained from the patient Patient has a medical history of: Diabetes type II (A1c 6.8 03/2017; A1c 6.2 on 05/04/16; A1c 7.9 on 01/09/16; 6.8 on 02/25/15) Hypertension Peripheral neuropathy Gout Right ankle Fracture Chronic venous insufficiency with ulcers and edema Unspecified cellulitis and abscess of toe Streptococcus infection of unspecified site Group D Enterococcus Dermatophytosis Osteomyelitis (right 1st toe (MRI 03/01/15, persistent but improved MRI 06/09/15) ; possible right medial malleolus (triple phase bone scan 12/17/14, not confirmed on MRI of 03/01/15; present on MRI 06/09/15)) 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 Melanoma ( left forehead) Diabetic foot ulcer - 10/13/2014 (Bauman grade III; plantar surface right 1st toe with underlying osteomyelitis diagnosed on 03/01/15; recurrent resistant coag negative Staph deep cultures on 11/15/14 and 02/07/15; resistant coag neg Staph cultured on 04/11/15 and started on IV daptomycin on 04/18/15) Diabetic foot ulcer (chronic and recurrent; right medial malleolus, possible osteomyeltis seen on triple phase bone scan 12/17/14 but not confirmed on MRI from 03/01/15; confirmed on MRI 06/09/15) Edema (chronic; right lower extremity) Cellulitis ( left great toe; hospitalized 02/15-02/18/surgical debridment) Complaints and Symptoms This information was obtained from the patient Patient complains of: General Notes: I have reviewed and concur with the Review of Systems and Past Family Social History documents completed by the clinician, I have reviewed and concur with the Wound Assessment document completed by the clinician Cardiovascular (Central/Peripheral): Lower extremity (leg) swelling Ear/Nose/Mouth/Throat: Hearing Loss / Aid Hematologic/Lymphatic: Bleeding Tendency Integumentary (Hair/Skin/Nails): Lesions, Open Sore Musculoskeletal: Assistive Devices, Deformities Neurological: Abnormal Gait, Loss of Protective Sensation Prior Wound History: Bleeding, Drainage, Erythema, Pain Psychiatric: Memory Loss Patient denies complaints or symptoms related to: Cardiovascular (Central/Peripheral): Intermittent Claudication, Lower extremity (leg) resting pain Cardiovascular (Peripheral) Constitutional Symptoms (General Health): Chills, Fatigue, Fever Gastrointestinal (GI): Nausea / Vomiting, Stomach/abdominal pain Hematologic/Lymphatic: Bleeding / Clotting Disorders Prior Wound History: Malodor Psychiatric: Depression Respiratory: Oxygen Use, Shortness of Breath OBJECTIVE Constitutional BP elevated; Afebrile; Alert and in no distress. Well developed. Alert. Clean appearing.. Height/Length: 71 in (180.34 cm), Weight: 257 lbs (116.82 kgs), BMI: 35.8, Temperature: 98.3 ?F (36.83 ?C), Pulse: 65 bpm, Respiratory Rate: 18 breaths/min, Blood Pressure: 139/59 mmHg, Capillary Blood Glucose: 124 mg/dl, Pulse Oximetry: 97 %. Vital Signs Notes: Glucose per patient. Ears, Nose, Mouth, and Throat: Mild hearing deficit. Respiratory: No respiratory distress. Even respirations and without use of accessory muscles.. Cardiovascular: monophasic pedal pulses on the right; improved from previous review. 2+ right lower extremity edema. Gastrointestinal (GI): Obese. Nondistended.. Integumentary (Hair, Skin) Moderate periwound erythema without warmth. Refer to appropriate clinician wound documentation for this visit; right and left lower leg and right 1st toe ulcers extend to subcut with bases partially covered with pink granulation, remainder fibrin and slough ; left lower leg ulcer appears dry. Increased maceration present in the right lower leg periwound areas. Wound #13 Right, Medial Ankle is an acute Bauman Grade 3 Diabetic Ulcer and has received a status of Not Healed. Subsequent wound encounter measurements are 4.2cm length x 2.6cm width x 0.3cm depth, with an area of 10.92 sq cm and a volume of 3.276 cubic cm. No tunneling has been noted. No sinus tract has been noted. No undermining has been noted. There is a large amount of serous drainage noted which has no odor. The patient reports a wound pain of level 0/10. The wound margin is attached. Wound bed has No epithelialization, No eschar, Yes slough, Yes pink, firm granulation. The periwound skin exhibited: Edema, Induration, Moist, Maceration, Atrophie [place], Erythema. The periwound skin did not exhibit: Brawny Induration, Excoriation, Callus, Crepitus, Fluctuance, Friable, Rash, Dry/Scaly, Cyanosis, Ecchymosis, Hemosiderosis, Pallor, Rubor. The temperature of the periwound skin is WNL. Periwound skin presents with s/s of infection. Confirmation Description and Treatment Plan is: Confirmed Local, Systemic Antibiotics Prescribed. Local Pulse is Doppler. Wound #17 Right, Plantar Great Toe is a Bauman Grade 3 Diabetic Ulcer and has received a status of Not Healed. Subsequent wound encounter measurements are 0.6cm length x 0.6cm width x 0.4cm depth, with an area of 0.36 sq cm and a volume of 0.144 cubic cm. No tunneling has been noted. No sinus tract has been noted. No undermining has been noted. There is a moderate amount of serous drainage noted which has no odor. The patient reports no wound pain due to the wound being insensate. The wound margin is callus. Wound bed has No epithelialization, No eschar, Yes slough, Yes pink, firm granulation. The periwound skin moisture is normal. The periwound skin color is normal. The periwound skin exhibited: Callus. The periwound skin did not exhibit: Brawny Induration, Edema, Excoriation, Induration, Crepitus, Fluctuance, Friable, Rash. The temperature of the periwound skin is WNL. Periwound skin does not exhibit signs or symptoms of infection. Local Pulse is Palpable. Wound #25 Right, Lateral Ankle is a chronic Bauman Grade 2 Diabetic Ulcer and has received a status of Not Healed. Subsequent wound encounter measurements are 2.5cm length x 1.6cm width x 0.3cm depth, with an area of 4 sq cm and a volume of 1.2 cubic cm. No tunneling has been noted. No sinus tract has been noted. No undermining has been noted. There is a large amount of serous drainage noted which has no odor. The patient reports a wound pain of level 0/10. The wound margin is attached. Wound bed has No epithelialization, No eschar, Yes slough, Yes bright red, pink, firm granulation. The periwound skin exhibited: Edema, Induration, Moist, Maceration, Erythema. The periwound skin did not exhibit: Brawny Induration, Excoriation, Callus, Crepitus , Fluctuance, Friable, Rash, Dry/Scaly, Atrophie [place], Cyanosis, Ecchymosis, Hemosiderosis , Pallor, Rubor. The temperature of the periwound skin is Warm. Periwound skin presents with s/s of infection. Confirmation Description and Treatment Plan is: Confirmed Local, Systemic Antibiotics Prescribed. Local Pulse is Doppler. Wound #29 Right, Lateral Foot is a chronic Bauman Grade 2 Diabetic Ulcer and has received a status of Not Healed. Subsequent wound encounter measurements are 0.8cm length x 0.7cm width x 0.1cm depth, with an area of 0.56 sq cm and a volume of 0.056 cubic cm. No tunneling has been noted. No sinus tract has been noted. No undermining has been noted. There is a small amount of serous drainage noted which has no odor. The patient reports a wound pain of level 0/10. The wound margin is attached. Wound bed has No epithelialization, No eschar, Yes slough, No granulation. The periwound skin texture is normal. The periwound skin color is normal. The periwound skin exhibited: Dry/Scaly, Moist. The periwound skin did not exhibit: Maceration. The temperature of the periwound skin is Warm. Periwound skin does not exhibit signs or symptoms of infection. Local Pulse is Doppler. Wound #32 Left, Medial Ankle is an acute Bauman Grade 2 Diabetic Ulcer and has received a status of Not Healed. Subsequent wound encounter measurements are 1.4cm length x 1cm width x 0.1cm depth, with an area of 1.4 sq cm and a volume of 0.14 cubic cm. No tunneling has been noted. No sinus tract has been noted. No undermining has been noted. There is a small amount of sero-sanguineous drainage noted which has no odor. The patient reports a wound pain of level 0/10. The wound margin is attached. Wound bed has No epithelialization, No eschar, Yes slough, Yes pink, firm granulation. The periwound skin exhibited: Edema, Moist, Atrophie [place]. The periwound skin did not exhibit: Brawny Induration, Excoriation, Induration, Callus, Crepitus, Fluctuance, Friable, Rash, Dry/Scaly, Maceration, Cyanosis, Ecchymosis, Erythema, Hemosiderosis, Pallor, Rubor. The temperature of the periwound skin is WNL. Periwound skin does not exhibit signs or symptoms of infection. Local Pulse is Doppler. Wound #33 Right Second Toe is an acute Bauman Grade 2 Diabetic Ulcer and has received a status of Not Healed. Subsequent wound encounter measurements are 0.9cm length x 0.5cm width x 0.1cm depth, with an area of 0.45 sq cm and a volume of 0.045 cubic cm. No tunneling has been noted. No sinus tract has been noted. No undermining has been noted. There is a small amount of serous drainage noted which has no odor. The patient reports a wound pain of level 0/10. The wound margin is attached. Wound bed has Yes epithelialization, No eschar, Yes slough, Yes pink, firm granulation. The periwound skin texture is normal. The periwound skin color is normal. The periwound skin exhibited: Moist. The periwound skin did not exhibit: Dry/Scaly, Maceration. The temperature of the periwound skin is WNL. Periwound skin does not exhibit signs or symptoms of infection. Local Pulse is Weak. Neurological: Cranial nerves grossly intact with symmetric function normal by informal observation.. Additional Information [facility] Completed?: 12/10/16. Angioplasty procedure 01/07/18. 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 (Encounter Diagnosis) E11.621 - Type 2 diabetes mellitus with foot ulcer (Encounter Diagnosis) L97.512 - Non-pressure chronic ulcer of other part of right foot with fat layer exposed (Encounter Diagnosis) L08.89 - Other specified local infections of the skin and subcutaneous tissue (Encounter Diagnosis) I70.238 - Atherosclerosis of [place] arteries of right leg with ulceration of other part of lower right leg (Encounter Diagnosis) 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 A skin/ subcutaneous tissue level surgical debridement with a total area debrided of 11.34 sq cm was performed by Kam Christensen MD. Subcutaneous was removed along with devitalized tissue: exudate, slough, and maceration. The following instrument(s) were used: curette. No anesthetic was required due to loss of sensation. A time out was conducted prior to the start of the procedure. A minimal amount of bleeding was controlled with pressure. The procedure was tolerated well with a loss of sensation throughout and a loss of sensation following the procedure. Post Debridement Measurements: 4.2cm length x 2.7cm width x 0.4cm depth; with an area of 11.34 sq cm and a volume of 4.536 cubic cm; Wound #25 Wound #25 (Diabetic Ulcer) is located on the right, lateral ankle. A skin/ subcutaneous tissue level surgical debridement with a total area debrided of 4.16 sq cm was performed by Kam Christensen MD. Subcutaneous was removed along with devitalized tissue: exudate, slough, and maceration. The following instrument(s) were used: curette. No anesthetic was required due to loss of sensation. A time out was conducted prior to the start of the procedure. A minimal amount of bleeding was controlled with pressure. The procedure was tolerated well with a loss of sensation throughout and a loss of sensation following the procedure. Post Debridement Measurements: 2.6cm length x 1.6cm width x 0.4cm depth; with an area of 4.16 sq cm and a volume of 1.664 cubic cm; Wound #29 Wound #29 (Diabetic Ulcer) is located on the right, lateral foot. A skin/ subcutaneous tissue level surgical debridement with a total area debrided of 0.56 sq cm was performed by Kam Christensen MD. Subcutaneous was removed along with devitalized tissue: exudate and slough. The following instrument(s) were used: curette. No anesthetic was required due to loss of sensation. A time out was conducted prior to the start of the procedure. A minimal amount of bleeding was controlled with n/a. The procedure was tolerated well with a loss of sensation throughout and a loss of sensation following the procedure. Post Debridement Measurements: 0.8cm length x 0.7cm width x 0.2cm depth; with an area of 0.56 sq cm and a volume of 0.112 cubic cm; Additional Information Muscle fascia or bone removed and sent to pathology?: No Muscle fascia or bone removed and sent to pathology?: No Muscle fascia or bone removed and sent to pathology?: No PLAN Wound Orders: Wound #13 Right, Medial Ankle Dressings Primary dressing: - Iodoflex or Iodosorb to wound base. Cover and secure with: - Poise pad or ExuDry, secured with tape. Change Dressing: - 2-3 times daily. Wound #17 Right, Plantar Great Toe Dressings Cover and secure with: - Telfa pad and tape. Change Dressing: - Every other day. Wound #25 Right, Lateral Ankle Dressings Primary dressing: - Iodoflex or Iodosorb to wound base. Cover and secure with: - Poise pad or ExuDry, secured with tape. Change Dressing: - 2-3 times daily. Wound #29 Right, Lateral Foot Dressings Primary dressing: - Iodoflex or Iodosorb to wound base. Cover and secure with: - Poise pad or ExuDry, secured with tape. Change Dressing: - 2-3 times daily. Wound #32 Left, Medial Ankle Dressings Cover and secure with: - Covrsite. Change Dressing: - Every other day. Wound #33 Right Second Toe Dressings Cover and secure with: - Telfa pad and tape. Change Dressing: - Every other day. Additional Orders: Cleanser Cleanse Wound: - Rinse all wounds with distilled water during each dressing change. May Shower. - Cover leg with cast protector. Cleanse wound with Soap and Water. - Cleanse leg with Hibiclens (Chlorhexidine Gluconate 4%) daily with each dressing change. Can be purchased at your local drug store near the pharmacy. Compression/Edema Control Elevation of leg(s) above the level of the heart when sitting. - Elevate legs above hip level at least twice daily. Avoid prolonged standing in one place. Single Layer Compression Hose - Tetragrip F to both legs. Apply in the morning, remove at night. Follow-Up Appointments Return Appointment: - - Saturday next week for possible wrap application, then return again on next week. Other information: If you develop fever, chills, increased pain, drainage, redness or swelling please call our office. If after hours, respond to the ER. Should you experience any significant changes in your wound(s) or have any questions regarding your home care instructions please contact the wound center @ [phone]. If after hours, contact your primary care physician or go to the hospital emergency room. Scribing Attestation I attest, as the nurse, that I scribed these orders for the physician. Laboratory: Bacteria identified in Wound by Culture - #13, Bacteria identified in Wound by Culture - #25 Medications prescribed: cefdinir - oral 300 mg capsule twice daily for 5 days for infected ulcers starting 01/16/2018 levofloxacin - oral 500 mg tablet once daily for 5 days for infected ulcers starting 01/16/2018 General Notes: Please orange picker refill of your cefdinir and levaquin and continue taking. Will evaluate culture results on Saturday, and call with any changes needed. I've reviewed the clinician's documentation and agree with the evaluation and plan as written. In addition the patient's ulcers demonstrate evidence of non-viable devitalized tissue and they will continue to benefit from sharp debridement to help promote granulation and expedite healing. Also, I've repeated cultures of the right lower leg ulcers and refilled his antibiotics. We'll request copies of his PAD interventional notes and consider placing a compression wrap early next week to help address the right lower leg chronic venous hypertension which is contributing to the refractory nature of the ulcers. Electronic Signature(s) Signed By: Date: Kam Christensen MD 01/17/2018 08:43:48 Entered By: Kam Christensen on 01/16/2018 12:15:42
== END ==
PROVIDERS: PCP Family Medicine; Visit Provider Internal Medicine
DX: E11.621 Type 2 diabetes mellitus with foot ulcer (principal); L97.512 Non-pressure chronic ulcer of other part of right foot with fat layer exposed; L97.312 Non-pressure chronic ulcer of right ankle with fat layer exposed; E11.622 Type 2 diabetes mellitus with other skin ulcer; L08.89 Other specified local infections of the skin and subcutaneous tissue; I70.238 Atherosclerosis of native arteries of right leg with ulceration of other part of lower leg; L97.812 Non-pressure chronic ulcer of other part of right lower leg with fat layer exposed; E11.65 Type 2 diabetes mellitus with hyperglycemia
CPT/HCPCS: 11042; 87070; 87075; 87077; 87147; 87186; 87205

== ENCOUNTER → 2018-01-21 11:49 | Outpatient (CLI) | payer MEDICARE, SELFPAY ==
--- NOTE | 2018-01-21 | OV.WND_ITS ---
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 Allergies NKDA HPI This information was obtained from the patient 01/21/18. Seen by Dr. Christensen. The patient feels there's been a modest decrease in drainage associated with the right lower leg diabetic ulcers while taking levofloxacin and cefdinir over the past week. His wound cultures however returned showing persistence of the resistant Acinetobacter and Staph haemolyticus bacteria. He does not report pain in the leg and recently underwent repeat intervention for the right leg PAD. He does not report fevers or feeling unwell nor adverse side effects of the antibiotics. He also does not report significant drainage from the right 1st or 2nd toe diabetic ulcers nor left lower leg diabetic ulcer since his last visit. 01/16/18. Seen by Dr. Christensen. The patient underwent intervention for his right lower limb PAD last week however notes are not yet available to review. He does not report pain in the leg but feels the drainage from the right medial malleolus and right lower leg diabetic ulcers has increased. He does not report increased drainage or acute issues regarding the right 1st toe nor left lower leg diabetic ulcers. He's also completed his course of levofloxacin and continues on cefdinir for the recent polymicrobial wound cultures taken from the right lower leg ulcers and he does not report adverse side effects or fevers. 01/09/18. Seen by Kane Braun PA-C. The patient reports stable drainage from his chronic ulcers of the right lower extremity. He continues on antibiotics for his polymicrobial infection of his ulcers. 01/02/18. Seen by Dr. Christensen. The patient's recent wound culture again grew a resistant Acinetobacter species. He's on oral levofloxacin and cefdinir again after an interruption in the dual therapy that was noted at his last visit. He feels the left redness, swelling, and drainage have started to decrease and he's changing the dressings overlying the right medical malleolus, right lower leg and foot, right 1st toe and left lower leg diabetic ulcers twice daily as recommended. He also is scheduled for repeat intervention to treat the right leg PAD next week with Dr. Harrison. 12/31/17. Seen by Dr. Christensen. The patient called asking to be seen prior to his appointment this due to increased swelling and redness of the right lower leg. He's been on oral cefdinir and levofloxacin for refractory cellulitis of the leg and based on the recent Acinetobacter and Enterobacter positive wound cultures taken of the right lower leg and 1st toe diabetic ulcers. He does not report a fever but does state he feels a bit unwell. Also, he took his last dose of levofloxacin yesterday but has additional doses of cefdinir which indicates he may be missing doses of antibiotics. He also has an appointment with Dr. Harrison today for an angiogram and possible intervention to treat right leg PAD. His blood sugars is also elevated a bit today at 170. 12/26/17. Seen by Dr. Christensen. The patient does not report increased drainage associated with the chronic right lower leg ulcers has decreased since starting on oral cefdinir and levofloxacin for the recent Enterobacter and recurrent Acinetobacter wound cultures and he does not report adverse side effects. He also does not report any acute issues regarding the right 1st toe ulcer. He has an appointment in two weeks with Dr. Harrison to address the right leg PAD and he reports a new left medial malleolus ulcer that started about a week ago. He does not report pain or drainage from this site and does not report an inciting event. 12/19/17. Seen by Dr. Christensen. The patient feels the drainage associated with the chronic right lower leg ulcers has decreased since starting on oral cefdinir and levofloxacin for the recent Enterobacter and recurrent Acinetobacter wound cultures and he does not report adverse side effects. He also does not report pain or drainage associated with the right 1st toe diabetic ulcer and is applying topical gentamcinin as recommended. He suffers from PAD in the right leg as well as CKD stage 3 and has had angioplasty in 2016 to address the PAD. 12/13/17. Seen by Dr. Christensen. The patient is now on oral cefdinir and levofloxacin for the Enterobacter and resistant Acinetobacter positive wound cultures taken at his last visit. He does not report pain or increased drainage associated with the very refractory right medial malleolus, right lateral lower leg, nor right 1st toe diabetic ulcers since his last visit and he's changing the dressings only once daily. His HBOT has also been discontinued due to his recent seizure that occurred during his dive last week. 12/09/17. Seen by Dr. Christensen. The patient returns following his seizure that occurred during HBOT on Saturday. He was discharged home from the ER later in the day and does not report any significant issues over the weekend. He completed his course of Bactrim last week but continues on IV daptomycin which is treating chronic osteomyelitis of the right medical malleolus. He does not report pain nor increased drainage from this ulcer nor the other right lower leg non-pressure ulcer or right 1st toe diabetic ulcer. 11/29/17. Seen by Dr. Christensen. The patient continues on IV daptomycin and he completed his course of Bactrim that are treating the refractory Acinetobacter positive wound culture and right medial malleolar chronic osteomyelitis. In general he feels the drainage from the right medial malleolus, right lower leg, and right 1st toe diabetic ulcers has decreased considerably over the past week. He's also tolerating HBOT without difficulty. 11/22/17. Seen by Dr. Christensen. The patient continues on IV daptomycin and Bactrim that are treating the refractory Acinetobacter positive wound culture and right medial malleolar chronic osteomyelitis. He also continues on hyperbaric oxygen therapy and does not report ever side effects. In general he feels that the drainage associated with the chronic right medial malleolar and right lateral lower leg ulcers has decreased considerably and he does not report any new issues regarding right first toe diabetic ulcer and her second toe diabetic ulcers. 11/14/17. Seen by Dr. Christensen. The patient continues on IV daptomycin and he completed a course of Bactrim that are treating the refractory Acinetobacter positive wound culture and right medial malleolar chronic osteomyelitis. He also continues on hyperbaric oxygen therapy and does not report ever side effects. In general he feels that the drainage associated with the chronic right medial malleolar and right lateral lower leg ulcers has decreased considerably and he does not report any new issues regarding right first toe diabetic ulcer and her second toe diabetic ulcers. 11/07/17. Seen by Dr. Christensen. The patient continues on IV daptomycin for chronic osteomyelitis associated with the chronic right medial malleolus diabetic ulcer. He does not report adverse side effects nor pain or increased drainage associated with this ulcer number the right lateral ulcer nor first toe ulcer. He is also started on hyperbaric therapy and does not report any adverse effects. 10/31/17. Seen by Dr. Christensen. The patient feels that the drainage associated with chronic right medial malleolus and lateral foot and lower leg ulcers has decreased over the past week. He continues on IV daptomycin and has completed his course of Bactrim, both that were treating associated refractory cellulitis. Of note his bone scan reports a high suspicion for osteomyelitis of the right medial malleolus of which was diagnosed also in 2014 on bone scan. He also is unsure of whether an appointment has been made for follow-up with interventional radiology regarding review of his PAD for which he had angioplasty in 2015. He does not report adverse side effects of the antibiotics, fevers, or feeling unwell and his blood sugars continue to be well controlled with most below 150. 10/24/17. Seen by Dr. Christensen. The patient is now on IV daptomycin and Bactrim for refractory cellulitis, and possibly chronic osteomyelitis of the medial malleolus, associated with the chronic right lower leg diabetic ulcers. He is not reporting adverse side effects, fevers, nor feeling unwell in general however he does continue to report what sounds like rest pain when lying in bed at night that improves when standing up and walking around. His MRA did not reveal obvious proximal arterial disease however distal vessels were not well visualized. Dr. Harrison, interventional radiology, has recommended an angiogram to further evaluate for clinically significant PAD. 10/17/17. Seen by Dr. Christensen. The patient is now on Bactrim and Augmentin for the recurrent and resistant Acinetobacter culture plus enterococcus. He is not reporting adverse side effects however the drainage associated with chronic right medial malleolus and right lateral lower leg diabetic ulcers has not decreased since his last visit. He does not report pain nor increased swelling nor fevers or feeling unwell. He also does not report significant drainage associated with chronic right first toe diabetic ulcer. He has a history of severe PAD in the leg but does not report rest pain or claudication and had angioplasty approximately 18 months ago and his arterial Doppler from August 2017 confirms a high grade stenosis of the SFA. Of note, he has healed the ulcers in the past however has made no progress in terms of the size or depth over the past 3-4 months. Also, he has a history of osteomyelitis of the medial malleolus dating back to December 17, 2014 noted on his nuclear bone scan at that time and suggested again on his June 09, 2015 MRI. 10/10/17. Seen by Dr. Christensen. The patient does not report pain associated with the chronic right medial malleolus, right lateral lower leg, and right first toe and third toe diabetic ulcers however he does feel that the drainage continues to be significant from the malleoli or ulcer. His blood sugars continued to be well controlled and he is now off of antibiotics. Of note, he has a history of PAD in the leg and his last review by Dr. Harrison suggested flow was adequate to the foot however this was about 18 months ago. He does not report claudication or rest pain, fevers, or feeling unwell in general. 10/03/17. Seen by Kane Braun PA-C. The patient reports decreased drainage from his right lower extremity diabetic ulcers since beginning his antibiotics for his polymicrobial infection. 09/26/17. Seen by Kane Braun PA-C. The patient reports a very significant increase in drainage from his right medial lower leg ulcer. He is not currently on antibiotics and is spending more time on his feet. 09/19/17. Seen by Kane Braun PA-C. The patient reports good blood sugar control this week. He reports decreased drainage from his ulcer compared with 2 weeks ago and also reports that he has been leaving his new 2nd toe ulcer open to the air as he forgets that is needs a dressing. 09/12/17. Seen by Kane Braun PA-C. The patient reports decreased drainage since beginning antibiotics (which he continues taking) for his infection of his lower right leg ulcer. 09/05/17. To my Dr. Christensen. The patient feels the drainage associated with chronic right medial malleolar and right lateral lower leg diabetic ulcers continues to decrease since starting on levofloxacin and amoxicillin for the polymicrobial positive wound infection. He is not reporting adverse side effects nor drainage associated with chronic right first and second toe diabetic ulcers. Of note, he also has right lower leg PAD and underwent anterior tibial and peroneal angioplasty over a year ago. He does not report claudication or rest pain at this time. 08/29/17. Seen by Kane Braun PA-C. The patient reports increased drainage from his right lower leg diabetic ulcers. 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 08/19/17. Seen by Dr. Christensen. The patient feels the drainage associated with the chronic right lower leg diabetic ulcers continues to improve and he does not report any pain or drainage associated with chronic right first and second toe diabetic ulcers. He completed his course of Bactrim 2 days ago and does not report adverse side effects other than some mild diarrhea. 08/12/17. Seen by Dr. Christensen. The patient feels the drainage associated with the chronic right lower leg diabetic ulcers is improved since starting on Bactrim which he completed 2 days ago. He does not report adverse side effects, fevers, or feeling unwell or pain associated with these ulcers nor drainage or pain associated with the right first and second toe diabetic ulcers. 08/08/17. Seen by Dr. Christensen. The patient states his wound VAC foam dressing saturated with drainage as of yesterday. He continues on antibiotics for cellulitis associated with the chronic right medial malleolus diabetic ulcer and does not report adverse side effects, fevers, as her feeling unwell. I'm seeing him today due to the significant maceration noted in the periulcer area by the nurse today. 08/05/17. She will Dr. Christensen. The patient does not report pain or previous drainage associated with the chronic right medial malleolus diabetic ulcer nor the right first toe ulcer nor right lower leg lateral diabetic ulcer. He is on Bactrim for the refractory cellulitis associated with the recurrent Acinetobacter positive wound culture. He does not report adverse side effects, fevers, and her feeling unwell. 07/29/17. Seen by Dr. Christensen. The patient does not report pain nor increased drainage associated with chronic right lower leg and right first and second toe diabetic ulcers since his last visit. He is now off of antibiotics and states that he decreased his dressing changes recently to once daily from twice daily. The staff however are concerned about increased maceration around the ulcers. 07/17/17. Seen by Dr. Christensen. The patient reports persistent drainage associated with the right lower leg diabetic ulcers and states his wound VAC stopped working after 3 days. He since been changing his dressing daily. He's completed his course of cefdinir and levofloxacin and was treating cellulitis associated with the ulcers. He also notes a new ulcer at the distal second toe adjacent to the distal first toe diabetic ulcer. His blood sugars been well controlled also. 07/10/17. Seen by Dr. Christensen. The patient does not report pain nor increased drainage associated with chronic right lower leg diabetic ulcers nor the right first toe diabetic ulcer. He completed his course of cefdinir and levofloxacin that's treating the polymicrobial wound culture. His blood sugars are well controlled and he is not reporting adverse side effects from antibiotics. 07/04/17. Seen by Dr. Christensen. The patient reports increased drainage associated with the chronic right lower leg diabetic ulcers since his last visit and since stopping antibiotics that were treating the recently cultured Acinetobacter and Enterococcus cultures. He does not report pain in the leg nor fevers or feeling unwell and states his blood sugars remain well controlled. He also does not report any new issues regarding the chronic right 1st toe diabetic ulcer and of note was more active recently while on vacation in [place] the past 10 days. 06/21/17. Seen by Dr. Christensen. The patient feels the drainage associated with the chronic right lower leg diabetic ulcers is decreased since starting on cefdinir and he tolerated negative pressure wound therapy over the last 2 days without difficulty. His wound culture grew Acinetobacter and enterococcus. He does not report fevers, feeling unwell, nor adverse side effects from antibiotics. Of note, he will be traveling to [place] on an airplane leaving next Saturday and return 1 week later. 06/19/17. Seen by Dr. Christensen. The patient feels the recent significant drainage associated with the chronic right lower leg diabetic ulcers has decreased and he completed a course of cefdinir 5 days ago that was treating the recent Acinetobacter positive wound culture. He does not report pain at the site nor other acute issues today. He also does not report drainage associated with chronic right first toe diabetic ulcer. 06/11/17. Seen by Kane Braun PA-C. The patient reports continued drainage from his right lower extremity ulcers. He is applying gentamicin and taking bactrim to treat the bacteria that were cultured from his ulcer at his last visit. Of note, his cultured bacteria is intermediately sensitive to gentamicin. 06/04/17. Seen by Kane Braun PA-C. The patient reports increased purulent drainage from his right lower extremity ulcers. 05/28/17. Seen by Kane Braun PA-C. The patient reports no increase in drainage from his lower extremity ulcers. 05/14/17. Seen by Kane Braun PA-C. The patient reports increased drainage from his chronic lower extremity ulcers. 05/07/17. Seen by Kane Braun PA-C. The patient reports no increase in drainage from his chronic lower extremity ulcers. 04/30/17. Seen by Kane Braun PA-C. The patient reports no complications from his Bactrim and his ulcer drainage has decreased significantly over the past week. 04/23/17. Seen by Dr. Christensen. The patient is now on Bactrim for the recent Acinetobacter positive wound culture taken from the right lower leg diabetic ulcer. He reports decreased drainage and swelling in the leg and does not report any pain. He also does not report any problems regarding his chronic right distal first toe ulcer. 04/16/17. Seen by Dr. Christensen. The patient states his wound vac that was placed last lost its seal by Saturday and he removed the entire dressing. He does not report pain or increase drainage from the right lower leg and right 1st toe ulcers since then and states his blood sugars are mostly below 150. 04/11/17. Seen by Dr. Christensen. The patient does not report pain associated with the chronic right lower leg nor right first toe diabetic ulcers however drainage is significant and persistent associated with the lower leg ulcers. He continues on ciprofloxacin and amoxicillin to treat the polymicrobial wound infection. He does not report adverse side effects nor fevers or feeling unwell in general. 04/04/17. Seen by Dr. Christensen. The patient feels the drainage associated with the right lower leg and first toe diabetic ulcers is decreased over the past week. He's now on ciprofloxacin and amoxicillin for the recent polymicrobial positive wound culture and he does not report adverse side effects. His blood sugars also are mostly below 150. 03/28/17. Seen by Dr. Christensen. The patient feels the drainage associated with the right lower leg and first toe diabetic ulcers is decreased over the past week. He's changes dressings only once daily and does not report any other acute problems at this time. Also, a new ulcer is now present along the right lateral mid-foot. 03/21/17. Seen by Dr. Christensen. The patient reports improvement terms of the drainage associated with the right lower leg diabetic ulcers. He does not report any pain or drainage associated with the right first toe diabetic ulcer. He states his blood sugars have been well- controlled most below 120. 03/14/17. Seen by Dr. Christensen. The patient and staff report persistent and significant drainage associated with the chronic right lateral lower leg and right medial malleolar diabetic ulcers. He is changing his poise addressing once daily and is not currently on antibiotics. He does not reporting any new problems regarding the chronic right first toe diabetic ulcer. 03/07/17. Seen by Kane Braun PA-C. The patient reports very little drainage from his back wound and stable drainage from his right lower leg diabetic ulcers. He has a lot of questions regarding the pathology of and prognosis for his right lower leg and it's recurrent ulcers. He is considering moving to the [facility] and is looking into what medical services they have there. 02/28/17. Seen by Dr. Christensen. The patient feels the drainage associated with the right lower leg diabetic ulcers has decreased over the past week and he does not report any new problems regarding the chronic right 1st toe diabetic ulcer nor posterior right shoulder surgical wound. 02/21/17. Seen by Dr. Christensen. The patient continues to report significant drainage associated with the chronic right medial malleolar diabetic ulcer although he feels that is decreasing somewhat since starting on clindamycin for a recent positive wound culture. He does not report adverse side effects, pain in the ankle, nor fevers. He's also asked that I look at a slowly healing surgical wound on his back following a Mohs procedure for excision of a melanoma about 1 month ago. He states the site is tender but otherwise has no acute complaints. He does not report significant drainage nor new changes associated with chronic right first toe diabetic ulcer. 02/14/17. Seen by Kane Braun PA-C. The patient reports he has a new draining wound on his back. He had a shave removal of a skin cancer (patient is unsure of what type) and the dressing has fallen off and it has been draining through his shirt. It was not sutured and was left open to heal by secondary intention. His chronic right ankle and foot diabetic ulcers have had reduced drainage since starting clindamycin several days ago. Of note, he mis-read the label and was taking the clindamycin only once daily. He reports stable blood sugars with some blood sugars above 150 this week. 02/05/17. Seen by Dr. Christensen. The patient reports significant drainage associated with chronic right lower leg diabetic ulcers but none associated with the right first toe diabetic ulcer. He completed a course of Levaquin yesterday is been treating a recurrent infection associated with the toe ulcer and does not report fevers, feeling unwell, or adverse side effects. Of note, he is having problems in terms of financial limitations and medical costs associated with dressing changes. 01/31/17. Seen by Dr. Christensen. The patient does not report increased drainage or pain associated with the chronic right lower leg diabetic ulcers nor the chronic right first toe diabetic ulcer. He is now off of antibiotics does not report fevers or feeling unwell in general. 01/26/17. Seen by Kane Braun PA-C. The patient reports he continues to have a great deal of drainage from his right medial malleolar diabetic ulcer. 01/07/17. Seen by Dr. Christensen. The patient does not report increased pain or drainage associated with the chronic right lower ankle, right foot, nor right 1st toe diabetic ulcers since his last visit however staff report that the dressings are saturated. Also, the patient states his blood sugars remain well controlled below 150 consistently. 12/31/16. Seen by Kane Braun PA-C. The patient reports continued copious drainage from his right lower extremity diabetic ulcers. He is taking his Zyvox as prescribed. In addition his blood sugars are reportedly in good control, under 150. His prealbumin level resulted in the normal range. 12/27/16. Seen by Dr. Christensen. The patient does not report increased pain or drainage associated with the chronic right lower leg and right 1st toe diabetic ulcers however staff report that the dressings are saturated. He's been on Zyvox for a wound infection associated with the right medial malleolar ulcer and does not report adverse side effects. 12/18/16. Seen by Dr. Christensen. The patient feels there has been a significant increase in drainage associated with the right lower leg diabetic ulcers over the past week. He does not report pain at the site of the ulcers nor fevers or feeling unwell and his not currently on antibiotics. He states his blood sugars are relatively well controlled with most below 150. 12/10/16. Seen by Kane Braun PA-C. The patient reports increased drainage from his chronic diabetic ulcers of the right lower leg and foot. His wound culture has resulted with an enterococcus spp. and a coagulase negative staph spp. growth that are both PCN sensitive. 12/05/16. Seen by Dr. Christensen. The patient does not report pain associated with the compression wrap was placed over the right lower leg 2 days ago. The staff report that his dressings are soaked and there is some maceration in the periwound areas of the chronic right foot and medial malleolleolar diabetic ulcers. He does not report pain nor significant drainage associated with chronic right first toe diabetic ulcer. 12/03/16. Seen by Kane Braun PA-C. The patient reports no increase in drainage from his right lower leg diabetic ulcers since his last evaluation. His arterial doppler resulted with no significant stenosis in the right leg. 11/26/16. Seen by Kane Braun PA-C. The patient reports difficulty in controlling his blood sugars this week with several readings above 150. Drainage from his right lower leg ulcer has not increased. 11/19/16. Seen by Dr. Christensen. The patient reports some increased drainage associated with the lateral right lower leg diabetic ulcer. He isn't reporting any pain at the site nor pain or increased drainage associated with the right medial malleolar diabetic ulcer or right first toe ulcer since his last visit. His blood sugars continue to be mostly below 150 at home and he is not report fevers or feeling unwell in general. 11/12/16. Seen by Kane Braun PA-C. The patient reports good blood sugar control this week and no increase in drainage from his right lower leg diabetic ulcers. He is seeing dermatology today for removal of another skin cancer of the face. The patient is unsure if it is a melanoma. He also expresses concern about how long his ulcer is taking to heal, wondering Is it ever going to heal? 11/05/16. Seen by Kane Braun PA-C. The patient reports that some of his blood sugar readings have been above 150 this week. He reports that yesterday's AM blood sugar was 160. Drainage from his chronic right foot and right lower leg diabetic ulcers has reportedly reduced. 10/29/16. Seen by Kane Braun PA-C. The patient reports that he has had continued swelling at the site of his melanoma removal on the left side of his nose. His diabetic ulcers of the right foot have had stable drainage. 10/22/16. Seen by Kane Braun PA-C. The patient reports drainage from his right foot diabetic ulcers continues and today is his last does of Levaquin which was prescribed to treat an infection of these ulcers. 10/15/16. Seen by Kane Braun PA-C. The patient reports no increase in drainage from his chronic diabetic ulcers of the right foot. His pathology report has returned from the foreign body that was removed from his 2ng toe ulcer as likely plant material. After discussing this finding with the patient he believes it is a seed from [employer]. 10/08/16. Seen by Kane Braun PA-C. The patient reports that he has been using tetragrip compression stockings as directed, but doesn't wear them on mornings that he has clinic appointments. 10/01/16. Seen by Kane Braun PA-C. The patient reports no increase in drainage from his chronic diabetic ulcers of the right foot and leg. He is noted today to have a new ulcer on his right 2nd toe. The patient was not aware of this ulcer until it was discovered today. 09/24/16. Seen by Kane Braun PA-C. The patient reports decreased drainage from his chronic diabetic ulcers of the right foot and lower leg since his last evaluation. 09/17/16. Seen by Kane Braun PA-C. The patient reports that his blood sugars have been elevated above 150 this week. He has finished his course of Ampicillin and reports decreased ulcer drainage. 09/10/16. Seen by Kane Braun PA-C. The patient should be finished with his Augmentin [correction he was on AMPicillin], but reports that he has a week or more left . He does not recall ever taking it 4 times a day. His diabetic ulcers of the right lower leg have had slightly decreased drainage since his last evaluation, but continue to drain. 09/03/16. Seen by Dr. Christensen. The patient does not report increased drainage or pain associated with chronic right lower leg diabetic ulcers or right first toe diabetic ulcer since his last visit. He is applying Kerasal to the periwound right first toe callus as recommended and he states his blood sugars continue to be mostly below 150. 08/20/16 Seen by Kane Braun PA-C. The patient reports increased drainage from his right medial ankle and lateral right lower leg ulcers since his last visit. He does not report associated fever or chills. 08/13/16 Seen by Kane Braun PA-C. The patient reports consistently increased drainage from his right medial ankle ulcers for the past 2-3 days. The drainage has been of a darker color than the usual clear drainage and he has noted associated erythema surrounding the ulcers. No fever or chills reported. In addition the patient was unaware of the new ulcers on his lateral lower right leg that were discovered today. 07/30/16 Seen by Kane Braun PA-C. The patient reports that he has had his facial melanoma excised and will return to dermatology for follow up in 4 days. He reports that his blood sugars have been running over 150 in the past few days and that his new wound dressing on his right ankle ulcers appears to have increased maceration in the ulcer area. 07/24/16 Seen by Kane Braun PA-C. The patient reports a significant increase in drainage from his chronic right ankle ulcers requiring more frequent dressing changes. The increased drainage began 5 days ago and has been continuous. He has not had any associated fever or chills. New periwound erythema is reported without warmth or pain. 07/17/16 Seen by Kane Braun PA-C. The patient reports no increase in drainage from his chronic right ankle ulcers or his more recent left leg ulcer. 07/09/16 Seen by Kane Braun PA-C. The patient reports a new wound on his left medial leg which begain spontaneously 2-3 days ago. The patient believes he may have spilled hot grease on it while cooking but doesn't actually recall doing so. It raised as a painless blister, then popped with clear fluid drainage. He also reports that he is making arrangements for his melanoma to be removed in the coming days. His right lower leg diabetic ulcers have had increased drainage which is reportedly sero-purulent. 06/20/16. Seen by Dr. Christensen. The patient does not report increased drainage associated with the chronic right lower leg diabetic ulcers nor the right 1st toe diabetic ulcer. The previously diagnosed left nose lesion has been biopsied and pathology confirms melanoma. He 's asked that I take a look at the biopsy site and states he's scheduled to see a surgeon in the near future to discuss further treatment options. He does not report pain or drainage from the biopsy site. 06/06/16. Seen by Dr. Christensen. The patient does not report increased drainage associated with the chronic right lower leg diabetic ulcers nor the right 1st toe diabetic ulcer. However, he's concerned about a non-painful lesion on the left side of his nose that's been growing over the past few weeks and started bleeding yesterday. He has a history of melanoma and recent excision of a malignant lesion from the left shoulder earlier this year. 06/01/16. Seen by Dr. Christensen. The patient does not report increased drainage or swelling associated with the chronic right lower leg diabetic ulcers. He's also applying Kerasal to the right 1st toe periulcer callus as recommended. He states his blood sugars are mostly below 150 and he's off of antibiotics. 05/24/16 Seen by Kane Braun PA-C. The patient reports stable drainage from his right lower leg and right great toe ulcers since his last evaluation. The patient reports a mix of blood sugars above and below 150 in the past week. 05/17/2106. Seen by Dr. Christensen. The patient does not report pain or increased drainage associated with the chronic right medial malleolar, right lower leg, or right 1st toe diabetic ulcers since his last visit. 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 05/11/16 Seen by Kane Braun PA-C. The patient reports that his blood sugars have been under 150 this past week and that he is finishing up his doxycycline and bactrim for a polymicrobial ulcer infection of his right ankle ulcers. His PAD is improved after his recent angioplasty and he reports more warmth in his right foot. His chronic ankle ulcers of the right foot have had stable drainage since his last evaluation. 05/04/16. Seen by Dr. Christensen. The patient does not report pain or increased drainage associated with the chronic right medial malleolar, right lower leg, or right 1st toe diabetic ulcers. 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 He also does not report any new issues regarding the right anterior lower leg trauma wound. 04/27/16. Seen by Dr. Christensen. The patient does not report pain or increased drainage associated with the chronic right medial malleolar, right lower leg, or right 1st toe diabetic ulcers. 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 He also does not report any new issues regarding the right anterior lower leg trauma wound. 04/20/16. Seen by Dr. Christensen. The patient does not report pain or increased drainage associated with the chronic right medial malleolar, right lower leg, or right 1st toe diabetic ulcers. 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 He states his blood sugars are typically around 150 and does not report any new issues regarding the right anterior lower leg trauma wound noted at his last visit. 04/13/16. Seen by Dr. Christensen. The patient missed his PCI for right leg PAD yesterday due to an error on his calendar. He does not report increased swelling, pain, or drainage associated with the chronic right medial malleolar or right lower leg diabetic ulcers nor the right 1st toe diabetic ulcer. 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 He does not report adverse side effects and states his blood sugars are typically around 150. Of note, his A1c increased to 7.9 from 6.8 6 months prior. 04/05/16. Seen by Dr. Christensen. The patient reports a new traumatic wound to the right lower leg that occurred when he hit his leg while walking in the dark earlier this morning. He says that he blood considerably but it is not particularly painful. Regarding his right ankle and lower leg diabetic ulcers, he does not report any increased drainage or other problems. Nor does he report any significant drainage from the right first toe diabetic ulcer. His blood sugars continue to be mostly around 150. He still complains of some pitching at the left shoulder surgical but does not report drainage. Also, he is scheduled for intervention for his right leg PAD within the next two weeks. Also, the patient continues on Bactrim and doxycycline for chronic osteomyelitis of the right ankle. 03/30/16. Seen by Dr. Christensen. 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 He's also reporting some significant pruritus associated with the slowly healing left shoulder surgical wound but no significant drainage. He states his blood sugars are mostly around 150. 03/23/16. Seen by Dr. Christensen. 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 He's also concerned about a possible suture delaying healing of the recently excised melanoma surgical wound at the left posterior shoulder. He does no report pain or drainage at this site. He also states his blood sugars are mostly below 150 with none over 200. 03/16/16 Seen by Kane Braun PA-C. The patient reports stable drainage from his right lower leg ulcers. In addition he reports not being able to schedule transportation for his angioplasty. Again today he was asked about definitive follow up for his recently re-excised melanoma and does not recall being told that the margins were clear. 03/09/16. Seen by Dr. Christensen. The patient does not report or increased drainage associated with the right lower leg or right medial malleolar diabetic ulcers over the past week. He continues on antibiotics for the ulcers and right medial malleolar chronic osteomyelitis without reporting adverse side effects. He's also asked that we review his left posterior shoulder surgical wound due to a possible retained suture. 02/17/16. Seen by Dr. Christensen. The patient does not report pain or significant drainage associated with the chronic right medial malleolar or right lower leg diabetic ulcers over the past week. 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 02/09/[address] Christensen. The patient does not report pain or significant drainage associated with the chronic right medial malleolar or right lower leg diabetic ulcers over the past week. 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 Of note, he was changed from doxycycline to Bactrim within the past week due to his most recent wound culture results. He also reports a new trauma wound to the more proximal right anterior lower leg but does not recall what he hit the leg on or when. He states his blood sugars are mostly below 150. 7/14/16. Seen by Dr. Christensen. Patient is not report significant pain or drainage associated with the right medial malleolus diabetic ulcer or right lower leg diabetic ulcer. 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 He states the blood sugars are typically around 150. Of note, he also reports a new left anterior lower leg trauma wound that is nonpainful and has only minimal drainage. This occurred sometime in the past week. 01/26/[address] Christensen. The patient feels the drainage and swelling associated with the chronic right medial malleolar and right lower leg diabetic ulcers continues to decrease since starting HBOT. He also continues on doxycycline for chronic osteomyelits of the ankle and does not report adverse side effects. He does not report pain or drainage associated with the right 1st toe diabetic ulcer and has been applying Kerasal to the surrounding callus as recommended. 01/19/[address] Christensen. The patient reports decreased drainage associated with the chronic right medial malleolar and right lower leg diabetic ulcers over the past week and no drainage from the right 1st toe diabetic ulcer. 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 He does not report adverse side effects from the doxycycline and states his blood sugars are well controlled with most below 150. 01/12/[address] Christensen. The patient feels the drainage associated with the chronic right medial malleolar and right lower leg diabetic ulcers continues to decrease since starting on doxycycline for osteomyelitis of the malleolus and HBOT. He reports his blood sugars are relatively well controlled with most below 150. He's also scheduled to see Dr. Peña next week again to discuss possible additional intervention to treat the right lower leg PAD. 01/05/[address] Christensen. The patient feels the drainage associated with the chronic right medial maleollar diabetic ulcer has been decreasing since starting on doxycycline for the resistant coag negative Staph culture. He also does not report adverse side effects from doxycycline or problems regarding HBOT that is adjunctive treatment for the Bauman grade 3 diabetic ulcer and associated underlying chronic osteomyelitis. His blood sugars are improving with most below 150 and he's using a walker while at home to help facilitate offloading. Of note, the patient also underwent right leg angioplasty due to his recent MRA showing severe PAD and with one vessel runoff to the ankle. 12/29/15 Seen by Kane Braun PA-C. The patient reports continued drainage and increased edema in the area of his right medial malleolar diabetic ulcers. He also reports the he has decided to postpone recommended melanoma treatment to focus on taking care of the ulcers. 12/22/[address] Christensen. The patient reports continued drainage and redness associated with the chronic right medial malleolar and right lower leg diabetic ulcers. He' s been on Zyvox for the past two days to treat the recent wound culture that grew two species of resistant coag negative Staph. He also has been checking his blood sugars twice daily stating most are around or below 150. He does not report fevers and states the right lower leg and ankle pain he reported last week is starting to improve. He's also scheduled for a right lower leg MRA and to see interventional radiology next week to evaluate for possible clinically significant PAD in the right leg that may be inhibiting wound healing. Additionally, his bone scan two days ago suggests possible osteomyelitis of the right medial malleolus and states it can not be ruled out. Of note, he carries a diagnosis of a Bauman grade 3 diabetic ulcer at the medial malleolus with underlying osteomyelitis based on his bone scan from Nov, 2014. This site has not entirely healed since then and in fact has deteriorated over the past month. 12/15/[address] Christensen. The patient reports continued moderate drainage from the chronic right medial malleolar and right lower leg diabetic ulcers and he's now on Levofloxacin for the recent malleolar ulcer Stenotrophomonas culture. He reports discomfort in the right lower leg that's most noticeable when lying in bed at night however it does not necessarily resolve when he stands to walk and he does not report claudication. His blood sugars also remain well controlled below 150 consistently although his last A1c was 8.0 on 10/11/15. 12/08/[address] Christensen. The patient reports persistent drainage from the chronic right medial malleolar diabetic ulcer and some pain at this site when he lies flat in bed at night. He's now on levofloxacin for Stenotrophomonas positive wound culture and does not report adverse side effects. His MRI of the right ankle shows some marrow edema but retained normal fatty marrow signal indicative more of reactive changes as opposed to osteomyelitis. His blood sugars are a bit elevated intermittently around 160 at home but not higher than this. He also does not report fevers or feeling unwell. 12/01/[address] Christensen. The patient reports increased pain and drainage associated with the chronic right medial malleolar diabetic ulcer. He does not report fevers or feeling unwell however and states his blood sugars remain under 150 consistently. 11/25/[address] Christensen. The patient reports increased drainage associated with the chronic right medial malleolar diabetic ulcer along with increased swelling in the right lower leg. He does not report pain associated with the ulcer nor fevers or feeling unwell and states his blood sugars remain consistently under 150. 11/18/[address] Christensen. The patient does not report pain or drainage associated with his chronic right medial malleolar diabetic ulcer. He does feel there's been some increased swelling and redness in the right lower leg this week however feels this may be due to a mild sun burn than occurred while mowing his lawn. He also states his blood sugars are consistently below 150. 11/04/[address] Christensen. The patient does not report significant drainage from the right medial malleolar diabetic ulcer and has completed his course of ciprofloxacin for the recent Pseudomonas infection of the ulcer. He also does not report pain or swelling associated with the ulcer and states his blood sugars are mostly below 150. 10/28/[address] Christensen. The patient does not report increased drainage from the right medial malleolar diabetic ulcer and he's completed his course of ciprofloxacin without reporting adverse side effects. He states his follow up surgery for removal of the remaining left should melanoma has been postponed for a few weeks and he does not report any drainage or pain associated with the left chest or left shoulder healing surgical wounds. His blood sugars also remain well controlled around 120 although his A1c in September was 8.0. 10/21/[address] Christensen. The patient continues on ciprofloxacin for the recent Pseudomonas positive culture of the right medial malleolus diabetic ulcer. He does not report adverse side effects and feels the drainage has decreased significantly over the past week. He also is to undergo additional surgery to address residual melanoma at the left shoulder. He does not report any new issues regarding the left shoulder or chest surgical wounds. His blood sugars also remain well controlled below 150 consistently. 10/14/[address] Christensen. The patient reports some persistent drainage from the chronic right medial malleolar diabetic ulcer and his wound culture from the last visit grew Pseudomonas. He was placed on doxycycline empirically at the last visit. He does not report pain associated with the ulcer and states his blood sugars are consistently below 150. 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 09/29/[address] Christensen. The patient does not report pain, significant drainage, or other issues regarding his chronic right medial malleolar non-pressure ulcer. He reports using Kerasal and a moisturizer on his right 1st toe callus and feet but is non- committal in terms of how frequently they're being applied. 09/19/15 Seen by Kane Braun PA-C. The patient reports no increase in drainage from his medial malleolar diabetic ulcer. His blood sugars are reportedly a little higher than average lately and he reports again that today's blood pressure reading is not consistent with his well controlled numbers outside of our clinic. In addition he reports that the recently removed lesion on his left scapular area came back as confirmed as Melanoma and he is going to have a surgery to excise it, and possibly some lymph nodes in the coming weeks. 09/02/[address] Christensen. The patient does not report significant drainage from the chronic right medial malleolar diabetic ulcer. 08/24/[address] Christensen. The patient does not report pain, swelling, or drainage associated with his chronic left medial malleolar diabetic ulcer and he states his blood sugars remain well controlled below 150 consistently. 08/10/2015 Seen by Kane Braun PA-C. The patient reports minimal drainage from his left ankle ulcer. 08/03/2015 Seen by Kane Braun PA-C. The patient does not report any drainage from his first toe ulcer since his last dressing change. He did inspect it with a mirror and was displeased to see discoloration in the callous. He has religiously been wearing his offloading shoe. His medial malleolar ulcer has been draining minimally. 07/28/[address] Christensen. The patient does not report increased drainage from the right medial malleolar diabetic ulcer nor any drainage from the right 1st toe diabetic ulcer. He does admit to not using his walker as recommended at all times but typically walks only on days of our appointments and when grocery shopping. His blood sugars remain well controlled and he's completed his course of ciprofloxacin that was treating osteomyelitis of both the right 1st toe and right medial malleolus. He also continues with HBOT to treat right 1st toe osteomyelitis. 07/20/[address] Christensen. The patient does not report significant drainage from either the right 1st toe nor right medial malleolar diabetic ulcers. He also continues on ciprofloxacin and continues HBOT for osteomyelitis of the right 1st toe. 07/04/15 Seen by Kane Braun PA-C. The patient reports stable drainage from his wounds. He reports using a frame walker for offloading whenever he can. 06/30/[address] Christensen. The patient returns today for review of his right 1st toe diabetic ulcer and underlying osteomyelitis for which he continues on HBOT. He's also on ciprofloxacin for a recent Pseudomonas culture of the right medial malleolar ulcer. He reports there's been some drainage on the dressing the past few days despite this ulcer being healed out recently. He also admits to not using his walker as recommended spending a modest amount of time walking in his house, to appointments, and at the grocery store. 06/22/15 Seen by Kane Braun PA-C. The patient reports minimal drainage from his right malleolar wound and no noted drainage from his toe wound. 06/10/[address] Christensen. The patient reports some increased erythema in the periwound area of the right medial malleolar Bauman grade III diabetic ulcer but does not report associated pain or drainage. Nor does he report drainage associated with the right 1st toe Bauman grade III diabetic ulcer. He's now been off of IV daptomycin for 8 days. His MRI from yesterday shows persistent, albeit decreased, marrow edema at the right 1st toe distal phalanx indicating modest improvement however the evidence for osteomyelitis of the medial malleolus remain unchanged. His blood sugars have increased a bit to the 170's and his last A1c in 02/2015 was 6.8. 06/03/[address] Christensen. The patient does not report drainage or pain associated with the recently healed right 1st toe or persistent medial malleolar diabetic ulcers. He also continues on IV daptomycin for associated osteomyelitis at each site without reporting adverse side effects. He also states his blood sugars are well controlled around 120 consistently. 05/27/[address] Christensen. The patient states there's been no drainage from the right 1st toe ulcer. He continues on IV daptomycin for osteomyelitis of the 1st toe and medial malleolus without reporting adverse side effects, fevers, or sweats . His blood sugars also remain relatively well controlled below 150 and he offloads with a surgical shoe and by significantly minimizing his walking. 05/20/[address] Christensen. 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 His blood sugars are well controlled recently with most below 120 at home. 05/13/[address] Christensen. The patient does not report pain or significant drainage associated with the right 1st toe and medial malleolar ulcers nor adverse side effects associated with the IV daptomycin he's on for chronic osteomyelitis of the right 1st toe. 05/06/[address] Christensen. The patient does not report significant drainage from either the right 1st toe diabetic foot ulcer nor the right medial malleolar ulcer. He continues on IV daptomycin for chronic osteomyelitis of the right 1st toe as well as HBOT and does not report issues with either. 04/22/[address] Christensen. The patient's MRI of the right foot showed interval improvement of the osteomyelitis however there's still evidence that this persists in the right 1st distal phalanx. He's now on IV daptomycin based on a wound culture from 04/11/15 that grew two resistant coag negative Staph organisms. His blood sugars are typically below 150 and his A1c in February 2015 was 6.8. 04/08/[address] Christensen. The patient does not report significant drainage from the right 1st to or medial malleolar diabetic foot ulcers and states his blood sugars are consistently below 150. He continues on oral levofloxacin and doxycycline to treat right toe chronic osteomyelitis and is on dual antibiotic therapy with levofloxacin and doxycycline since (day 29) to address the resistant coag negative Staph culture from 02/07/15 of the 1st to ulcer. He offloads by minimizing walking significantly and wearing diabetic shoes. 03/31/[address] Christensen. The patient reports only minimal drainage from the right malleolar ulcer and none from the right 1st toe diabetic ulcer. His blood sugars remain well controlled below 120 and he does not report any side effects from the levofloxacin and doxycycline he's taking for chronic osteomyelitis of the right 1st toe. Of note , he's not offloading the right foot with a surgical shoe and walker as recommended but he is limiting his walking as much as possible. 03/24/[address] Christensen. The patient reports no drainage from the right 1st toe diabetic ulcer however the right medial malleolar ulcer continues with modest drainage but no associated pain, swelling, or erythema. He continues on an extended course of levofloxacin and doxycycline to treat chronic osteomyelits of the 1st toe and does not report any adverse side effects other than some sun sensitivity likely associated with doxycycline. 03/16/[address] Christensen. The patient reports there's been no drainage from the right 1st to ulcer and only minimal drainage from the right medial malleolus ulcer. His blood sugars remain moderately well controlled below 150 and he continues on doxycycline and levofloxacin to treat chronic osteomyelitis of the right first toe. 03/08/[address] Christensen. The patient does not report increased drainage from either the right medial malleolar ulcer nor the right 1st toe ulcer and he continues on an extended course of oral doxycycline and HBOT for chronic osteomyelitis of the right 1st toe. He does not report fever, chills, or sweats nor adverse side effects associated with the doxycycline. His blood sugars continue to be well controlled and his A1c was 6.8 on 02/25/15. 03/01/15 Seen by Kane Braun PA-C. The patient reports stable drainage from his wounds. He has been on Doxycycline and will need a refill today if it is to be continued. The patient's MRI of the foot did not demonstrate osteomyelitis of the medial malleolus but it did demonstrate osteomyelitis of the great toe. The study's impression is as follows: IMPRESSION: There is prominent inflammatory change involving the fatty and cutaneous soft tissues of the distal great toe, extending contiguously to involve the distal half of the great toe distal phalanx, where some degree of cortical destruction can be seen with internal marrow space edema and enhancement suggestive of osteomyelitis extending into that portion of the medullary space. No additional lesion elsewhere is seen that would indicate abscess formation or additional osteomyelitis. 02/21/15 Seen by Kane Braun PA-C. The patient's arterial ultrasound of the right leg does not show focal stenosis, though it does show progression of scattered plaques from the prior study. the patient's wounds continue to drain minimally. 02/14/15 Seen by Kane Braun PA-C. The patient reports more drainage from his medial malleolar ulcer than last week. Pain is minimal. Denies fever or chills. His hypertension is reportedly well controlled, and his BP is only elevated here in our clinic by his report. His diabetes reportely continues to be in good control with most morning blood sugars below 120 but he reports they have been higher in the past week or two. 02/07/15 Seen by Kane Braun PA-C. The patient reports minimal drainage from his wounds. He reports that he has attempted to spend time sitting with his feet elevated, which is a new therapy for him as he usually is always moving. He reports that it is helping his lower extremity edema modestly. 01/24/[address] Christensen. The patient's right medial malleolar ulcer wound culture from the last visit grew coag negative Staph and he's now on doxycycline since last Saturday. He reports only minimal drainage from both the ankle and 1st toe ulcer. He's also not offloading the right foot in anyway. His blood sugars continue to be well controlled below 120. 01/17/[address] Christensen. The patient does not report drainage from either the right medial malleolar or 1st toe ulcers. He's off antibiotics and states he got the ankle ulcer wet in the shower this morning. 01/03/15 Seen by Kane Braun PA-C. The patient reports minimal drainage from his wounds. He also reports that the shoes he brings into the clinic are not the ones he wears all day. Blood sugars are reportedly in pretty good control. 12/27/14 Seen by Kane Braun PA-C. X-ray of the right foot was negative for radiographic signs of osteomyelitis. ESR and CRP were within normal limits. The patient reports minimal drainage from his right ankle and toe wounds. 12/20/14 Seen by Kane Braun PA-C. The patient reports no increase in drainage from his right 1st toe ulcer or the malleolar ulcer that has recently recurred. He does report that he was treated for osteomyelitis at our clinic several years ago using HBOT and antibiotics with good results. 12/10/[address] Christensen. The patient does not report drainage from the right 1st toe ulcer but he states the right medial malleolar ulcer has recurred. He also report recurrence of right lower leg erythema and warmth since stopping Augmentin two days ago. His blood sugars remain below 150 and he does not report fever or chills. His most recent wound culture in mid October grew resistant coag negative Staph. 12/03/14 Seen by Kane Braun PA-C today. The patient reports no visible drainage from his right ankle or toe ulcers. He believes the ankle ulcer recurrence was related to edema when he was hospitalized. Edema has mostly resolved now in his legs by his report. 11/26/14 The patient does not report any drainage from the right 1st toe ulcer but states the right medial malleolar ulcer has recurred. He's not sure if it was caused by trauma or associated with blistering that was present as a result of the recent right lower leg cellulitis. He's nearly completed his course of high dose Keflex however still notes some swelling, warmth, and erythema in the leg. He does not report pain however. 11/22/14 The patient was discharged from [facility] on Saturday following treatment for recurrent right lower leg cellulitis. He was treated with vancomycin for resistant coag neg Staph and is now on high dose oral Keflex and feels the swelling and erythema continue to improve. He does not report fever or drainage associated with the right 1st toe ulcer and his blood sugars remain well controlled below 120. 11/15/14 The patient reports new drainage from the right 1st toe ulcer and was seen in the ER over the weekend for cellulitis of the right lower leg. He was treated with 3 doses of IV antibiotics on subsequent return to the ER over the course of the past few days and feels the swelling and erythema are slowly improving. He does not report fever or chills and states his blood sugars have been between 150 and 180. 11/01/14 The patient does not report drainage from his right 1st toe ulcer. His blood sugars remain well controlled below 150. 10/25/14 The patient reports only very minimal drainage from his right 1st toe ulcer and continues to offload using his diabetic shoe and minimizing his daily activity. 10/18/14 The patient reports continued improvement in his right toe ulcer. 10/11/14 The patient does not report drainage or pain in the right 1st toe ulcer. He does mention though he's concerned about memory difficulties and he's currently without a PCP as his recently retired. 10/04/14 The patient reports that he has difficulty applying Kerasal to the calloused ana-wound area and getting his dressing to stick. He does not report increased pain or drainage from his right great toe diabetic ulcer. 09/27/14 The patient reports increased walking since last visit with pain in his legs as a result. No increase in drainage from his wound. 09/20/14 The patient reports no new drainage from his left toe wound, and stable drainage from his right great toe wound. He asks about the plan of care today. 09/13/14 The patient reports he wounds appear stable without new symptoms. 09/06/14 The patient does not report any increase in drainage or other issues from his diabetic foot ulcers. 08/30/14 The patient does not report any new problems regarding his right 1st toe ulcer including increased drainage, pain, or redness. He states his blood sugars are well controlled under 150. His A1c was 6.8 in 07/04. 08/23/14 The patient does not complain of drainage from the right 1st toe. 08/16/14 The patient's been using Kerasal on the right 1st toe and does not report significant drainage from the ulcer. His blood sugars are usually below 140 with reported hypoglycemia. 08/09/14 The patient states he's using his offloading boot on the right foot and limiting his walking considerably. He states his blood sugars are well controlled and there' s only been minimal drainage from the toe ulcer. 08/02/14 The patient does not report increased drainage from his right first toe ulcer. He also feel his right leg erythema that was noted at his last visit has improved. He states that prior to arriving to clinic he fell in the parking lot of his pharmacy hitting his right knee. He does not report pain nor bleeding and does not report any other injuries. Past Medical History This information was obtained from the patient Patient has a medical history of: Diabetes type II (A1c 6.8 03/2017; A1c 6.2 on 05/04/16; A1c 7.9 on 01/09/16; 6.8 on 02/25/15) Hypertension Peripheral neuropathy Gout Right ankle Fracture Chronic venous insufficiency with ulcers and edema Unspecified cellulitis and abscess of toe Streptococcus infection of unspecified site Group D Enterococcus Dermatophytosis Osteomyelitis (right 1st toe (MRI 03/01/15, persistent but improved MRI 06/09/15) ; possible right medial malleolus (triple phase bone scan 12/17/14, not confirmed on MRI of 03/01/15; present on MRI 06/09/15)) 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 Melanoma ( left forehead) Diabetic foot ulcer - 10/13/2014 (Bauman grade III; plantar surface right 1st toe with underlying osteomyelitis diagnosed on 03/01/15; recurrent resistant coag negative Staph deep cultures on 11/15/14 and 02/07/15; resistant coag neg Staph cultured on 04/11/15 and started on IV daptomycin on 04/18/15) Diabetic foot ulcer (chronic and recurrent; right medial malleolus, possible osteomyeltis seen on triple phase bone scan 12/17/14 but not confirmed on MRI from 03/01/15; confirmed on MRI 06/09/15) Edema (chronic; right lower extremity) Cellulitis ( left great toe; hospitalized 02/15-02/18/surgical debridment) Complaints and Symptoms This information was obtained from the patient Patient complains of: General Notes: I have reviewed and concur with the Review of Systems and Past Family Social History documents completed by the clinician, I have reviewed and concur with the Wound Assessment document completed by the clinician Cardiovascular (Central/Peripheral): Lower extremity (leg) swelling Ear/Nose/Mouth/Throat: Hearing Loss / Aid Hematologic/Lymphatic: Bleeding Tendency Integumentary (Hair/Skin/Nails): Lesions, Open Sore Musculoskeletal: Assistive Devices, Deformities Neurological: Abnormal Gait, Loss of Protective Sensation Prior Wound History: Bleeding, Drainage, Erythema, Pain Psychiatric: Memory Loss Patient denies complaints or symptoms related to: Cardiovascular (Central/Peripheral): Intermittent Claudication, Lower extremity (leg) resting pain Cardiovascular (Peripheral) Constitutional Symptoms (General Health): Chills, Fatigue, Fever Gastrointestinal (GI): Nausea / Vomiting, Stomach/abdominal pain Hematologic/Lymphatic: Bleeding / Clotting Disorders Prior Wound History: Malodor Psychiatric: Depression Respiratory: Oxygen Use, Shortness of Breath OBJECTIVE Constitutional BP elevated; Low grade fever; Alert and in no distress. Well developed. Alert. Clean appearing.. Height/Length: 71 in (180.34 cm), Weight: 258.7 lbs (117.59 kgs), BMI: 36.1, Temperature: 99.2 ?F (37.33 ?C), Pulse: 80 bpm, Respiratory Rate: 18 breaths/min , Blood Pressure: 174/74 mmHg, Capillary Blood Glucose: 146 mg/dl, Pulse Oximetry: 97 %. Vital Signs Notes: Glucose per patient. Ears, Nose, Mouth, and Throat: Mild hearing deficit. Respiratory: No respiratory distress. Even respirations and without use of accessory muscles.. Cardiovascular: 1+ dorsalis pedis and posterior tibial on the right. 1+ right lower extremity edema. Gastrointestinal (GI): Obese. Nondistended.. Integumentary (Hair, Skin) Mild right lower leg periwound erythema without warmth. Refer to appropriate clinician wound documentation for this visit; right and left lower leg and right 1st toe ulcers extend to subcut with bases partially covered with pink granulation, remainder fibrin and slough ; left lower leg ulcer appears dry. Decreased maceration present in the right lower leg periwound areas. Wound #13 Right, Medial Ankle is an acute Bauman Grade 3 Diabetic Ulcer and has received a status of Not Healed. Subsequent wound encounter measurements are 3.7cm length x 3.6cm width x 0.3cm depth, with an area of 13.32 sq cm and a volume of 3.996 cubic cm. No tunneling has been noted. No sinus tract has been noted. No undermining has been noted. There is a large amount of serous drainage noted which has no odor. The patient reports a wound pain of level 0/10. The wound margin is attached. Wound bed has No epithelialization, No eschar, Yes slough, Yes pink, firm granulation. The periwound skin exhibited: Edema, Induration, Moist, Maceration, Atrophie Hilliard, Erythema. The periwound skin did not exhibit: Brawny Induration, Excoriation, Callus, Crepitus, Fluctuance, Friable, Rash, Dry/Scaly, Cyanosis, Ecchymosis, Hemosiderosis, Pallor, Rubor. The temperature of the periwound skin is WNL. Periwound skin presents with s/s of infection. Confirmation Description and Treatment Plan is: Confirmed Local, Systemic Antibiotics Prescribed. Local Pulse is Doppler. General Notes: Satellite ulcer proximal to wound measures 1.0x3.4x0.2cm. Wound #17 Right, Plantar Great Toe is a Bauman Grade 3 Diabetic Ulcer and has received a status of Not Healed. Subsequent wound encounter measurements are 1cm length x 0.7cm width x 0.4cm depth, with an area of 0.7 sq cm and a volume of 0.28 cubic cm. No tunneling has been noted. No sinus tract has been noted. No undermining has been noted. There is a small amount of serous drainage noted which has no odor. The patient reports no wound pain due to the wound being insensate. The wound margin is callus. Wound bed has No epithelialization, No eschar, Yes slough, Yes pink, firm granulation. The periwound skin moisture is normal. The periwound skin color is normal. The periwound skin exhibited: Callus. The periwound skin did not exhibit: Brawny Induration, Edema, Excoriation, Induration, Crepitus, Fluctuance, Friable, Rash. The temperature of the periwound skin is WNL. Periwound skin does not exhibit signs or symptoms of infection. Local Pulse is Palpable. Wound #25 Right, Lateral Ankle is a chronic Bauman Grade 2 Diabetic Ulcer and has received a status of Not Healed. Subsequent wound encounter measurements are 3.9cm length x 1.9cm width x 0.3cm depth, with an area of 7.41 sq cm and a volume of 2.223 cubic cm. No tunneling has been noted. No sinus tract has been noted. No undermining has been noted. There is a moderate amount of serous drainage noted which has no odor. The patient reports a wound pain of level 0/10. The wound margin is attached. Wound bed has No epithelialization, No eschar, Yes slough, Yes bright red, pink, firm granulation. The periwound skin exhibited: Edema, Induration, Moist, Maceration, Erythema. The periwound skin did not exhibit: Brawny Induration, Excoriation, Callus, Crepitus , Fluctuance, Friable, Rash, Dry/Scaly, Atrophie Marcelina, Cyanosis, Ecchymosis, Hemosiderosis , Pallor, Rubor. The temperature of the periwound skin is Warm. Periwound skin presents with s/s of infection. Confirmation Description and Treatment Plan is: Confirmed Local, Systemic Antibiotics Prescribed. Local Pulse is Doppler. Wound #29 Right, Lateral Foot is a chronic Bauman Grade 2 Diabetic Ulcer and has received a status of Not Healed. Subsequent wound encounter measurements are 0.5cm length x 0.2cm width x 0.1cm depth, with an area of 0.1 sq cm and a volume of 0.01 cubic cm. No tunneling has been noted. No sinus tract has been noted. No undermining has been noted. There is a small amount of serous drainage noted which has no odor. The patient reports a wound pain of level 0/10. The wound margin is attached. Wound bed has No epithelialization, No eschar, Yes slough, No granulation. The periwound skin texture is normal. The periwound skin color is normal. The periwound skin exhibited: Dry/Scaly. The periwound skin did not exhibit: Moist, Maceration. The temperature of the periwound skin is Warm. Periwound skin does not exhibit signs or symptoms of infection. Local Pulse is Doppler. Wound #32 Left, Medial Ankle is an acute Bauman Grade 2 Diabetic Ulcer and has received a status of Not Healed. Subsequent wound encounter measurements are 1.2cm length x 0.6cm width x 0.1cm depth, with an area of 0.72 sq cm and a volume of 0.072 cubic cm. No tunneling has been noted. No sinus tract has been noted. No undermining has been noted. There is a moderate amount of serous drainage noted which has no odor. The patient reports a wound pain of level 0/10. The wound margin is attached. Wound bed has No epithelialization, No eschar, Yes slough, No granulation. The periwound skin moisture is normal. The periwound skin exhibited: Edema, Atrophie Marcelina. The periwound skin did not exhibit: Brawny Induration, Excoriation, Induration, Callus, Crepitus, Fluctuance, Friable, Rash, Cyanosis, Ecchymosis, Erythema, Hemosiderosis, Pallor, Rubor. The temperature of the periwound skin is WNL. Periwound skin does not exhibit signs or symptoms of infection. Local Pulse is Doppler. Wound #33 Right Second Toe is an acute Bauman Grade 2 Diabetic Ulcer and has received a status of Not Healed. Subsequent wound encounter measurements are 0.5cm length x 0.5cm width x 0.1cm depth, with an area of 0.25 sq cm and a volume of 0.025 cubic cm. No tunneling has been noted. No sinus tract has been noted. No undermining has been noted. There is a small amount of serous drainage noted which has no odor. The patient reports a wound pain of level 0/10. The wound margin is attached. Wound bed has Yes epithelialization, No eschar, Yes slough, Yes pink, firm granulation. The periwound skin texture is normal. The periwound skin color is normal. The periwound skin exhibited: Moist. The periwound skin did not exhibit: Dry/Scaly, Maceration. The temperature of the periwound skin is WNL. Periwound skin does not exhibit signs or symptoms of infection. Local Pulse is Weak. Neurological: Cranial nerves grossly intact with symmetric function normal by informal observation.. Additional Information [facility] Completed?: 12/10/16. Angioplasty procedure 01/07/18. 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 (Encounter Diagnosis) E11.621 - Type 2 diabetes mellitus with foot ulcer (Encounter Diagnosis) L97.512 - Non-pressure chronic ulcer of other part of right foot with fat layer exposed (Encounter Diagnosis) L08.89 - Other specified local infections of the skin and subcutaneous tissue (Encounter Diagnosis) I70.238 - Atherosclerosis of [place] arteries of right leg with ulceration of other part of lower right leg (Encounter Diagnosis) L97.822 - Non-pressure chronic ulcer of other part of left lower leg with fat layer exposed PROCEDURES Wound #13 Wound #13 (Diabetic Ulcer) is located on the right, medial ankle. A skin/ subcutaneous tissue level surgical debridement with a total area debrided of 13.69 sq cm was performed by Kam Christensen MD. Subcutaneous was removed along with devitalized tissue: exudate and slough. The following instrument(s) were used: curette. No anesthetic was required due to loss of sensation. A time out was conducted prior to the start of the procedure. A minimal amount of bleeding was controlled with pressure. The procedure was tolerated well with a pain level of 0 throughout and a pain level of 0 following the procedure. Post Debridement Measurements: 3.7cm length x 3.7cm width x 0.3cm depth; with an area of 13.69 sq cm and a volume of 4.107 cubic cm; Wound #13 (Diabetic Ulcer) is located on the right, medial ankle. A Multilayer Compression procedure was performed by Naomi Velarde MA. General Notes: Coban 2 Layer Lite compression wrap applied to right leg. Wound #17 Wound #17 (Diabetic Ulcer) is located on the right, plantar great toe. A skin/ subcutaneous tissue level surgical debridement with a total area debrided of 1 sq cm was performed by Kam Christensen MD. Subcutaneous was removed along with devitalized tissue: callus and exudate. The following instrument(s) were used: curette. No anesthetic was required due to loss of sensation. A time out was conducted prior to the start of the procedure. A minimal amount of bleeding was controlled with pressure. The procedure was tolerated well with a pain level of 0 throughout and a pain level of 0 following the procedure. Post Debridement Measurements: 1cm length x 1cm width x 0.4cm depth; with an area of 1 sq cm and a volume of 0.4 cubic cm; Wound #25 Wound #25 (Diabetic Ulcer) is located on the right, lateral ankle. A skin/ subcutaneous tissue level surgical debridement with a total area debrided of 7.8 sq cm was performed by Kam Christensen MD. Subcutaneous was removed along with devitalized tissue: exudate and slough. The following instrument(s) were used: curette. No anesthetic was required due to loss of sensation. A time out was conducted prior to the start of the procedure. A minimal amount of bleeding was controlled with pressure. The procedure was tolerated well with a pain level of 0 throughout and a pain level of 0 following the procedure. Post Debridement Measurements: 3.9cm length x 2cm width x 0.3cm depth; with an area of 7.8 sq cm and a volume of 2.34 cubic cm; Wound #29 Wound #29 (Diabetic Ulcer) is located on the right, lateral foot. A skin/ subcutaneous tissue level surgical debridement with a total area debrided of 0.3 sq cm was performed by Kam Christensen MD. Subcutaneous was removed along with devitalized tissue: exudate and slough. The following instrument(s) were used: curette. No anesthetic was required due to loss of sensation. A time out was conducted prior to the start of the procedure. A minimal amount of bleeding was controlled with pressure. The procedure was tolerated well with a pain level of 0 throughout and a pain level of 0 following the procedure. Post Debridement Measurements: 1cm length x 0.3cm width x 0.2cm depth; with an area of 0.3 sq cm and a volume of 0.06 cubic cm; Additional Information Muscle fascia or bone removed and sent to pathology?: No Muscle fascia or bone removed and sent to pathology?: No Muscle fascia or bone removed and sent to pathology?: No Muscle fascia or bone removed and sent to pathology?: No PLAN Medications prescribed: Bactrim DS - oral 800 mg-160 mg tablet twice daily for 14 days for infected ulcers starting 01/21/2018 clindamycin HCl - oral 300 mg capsule three times daily for 14 days for infected ulcers starting 01/21/2018 I've reviewed the clinician's documentation and agree with the evaluation and plan as written. In addition the patient's ulcers demonstrate evidence of non-viable devitalized tissue and they will continue to benefit from sharp debridement to help promote granulation and expedite healing. Also, we'll place Coban lite compression wrap today to address the right lower leg edema. I've changed his antibiotics also to clindamycin and Bactrim based on his most recent wound culture sensitivities. Electronic Signature(s) Signed By: Date: Kam Christensen MD 01/23/2018 08:46:21 Entered By: Kam Christensen on 01/21/2018 14:12:09
== END ==
PROVIDERS: PCP Family Medicine; Visit Provider Internal Medicine
DX: E11.622 Type 2 diabetes mellitus with other skin ulcer (principal); L97.812 Non-pressure chronic ulcer of other part of right lower leg with fat layer exposed; E11.621 Type 2 diabetes mellitus with foot ulcer; L97.512 Non-pressure chronic ulcer of other part of right foot with fat layer exposed; L08.89 Other specified local infections of the skin and subcutaneous tissue; I70.238 Atherosclerosis of native arteries of right leg with ulceration of other part of lower leg; R60.0 Localized edema
CPT/HCPCS: 11042; 11045

== ENCOUNTER → 2018-01-23 10:08 | Outpatient (CLI) | payer MEDICARE, SELFPAY ==
--- NOTE | 2018-01-23 | OV.WND_ITS ---
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 Allergies NKDA HPI This information was obtained from the patient 01/23/18. Seen by Dr. Christensen. The patient does not report pain in the right lower leg since we started compression therapy with a Coban wrap 2 days ago. He's also now on clindamycin and Bactrim for the polymicrobial wound cultures taken from right lower leg and 1st toe diabetic ulcers and he does not report adverse side effects. He recently had intervention to treat right leg PAD which has been contributing to the refractory nature of the diabetic ulcers. He has another small non-pressure ulcer over the left lower leg and does not report significant drainage from this site. 01/21/18. Seen by Dr. Christensen. The patient feels there's been a modest decrease in drainage associated with the right lower leg diabetic ulcers while taking levofloxacin and cefdinir over the past week. His wound cultures however returned showing persistence of the resistant Acinetobacter and Staph haemolyticus bacteria. He does not report pain in the leg and recently underwent repeat intervention for the right leg PAD. He does not report fevers or feeling unwell nor adverse side effects of the antibiotics. He also does not report significant drainage from the right 1st or 2nd toe diabetic ulcers nor left lower leg diabetic ulcer since his last visit. 01/16/18. Seen by Dr. Christensen. The patient underwent intervention for his right lower limb PAD last week however notes are not yet available to review. He does not report pain in the leg but feels the drainage from the right medial malleolus and right lower leg diabetic ulcers has increased. He does not report increased drainage or acute issues regarding the right 1st toe nor left lower leg diabetic ulcers. He's also completed his course of levofloxacin and continues on cefdinir for the recent polymicrobial wound cultures taken from the right lower leg ulcers and he does not report adverse side effects or fevers. 01/09/18. Seen by Kane Braun PA-C. The patient reports stable drainage from his chronic ulcers of the right lower extremity. He continues on antibiotics for his polymicrobial infection of his ulcers. 01/02/18. Seen by Dr. Christensen. The patient's recent wound culture again grew a resistant Acinetobacter species. He's on oral levofloxacin and cefdinir again after an interruption in the dual therapy that was noted at his last visit. He feels the left redness, swelling, and drainage have started to decrease and he's changing the dressings overlying the right medical malleolus, right lower leg and foot, right 1st toe and left lower leg diabetic ulcers twice daily as recommended. He also is scheduled for repeat intervention to treat the right leg PAD next week with Dr. Harrison. 12/31/17. Seen by Dr. Christensen. The patient called asking to be seen prior to his appointment this due to increased swelling and redness of the right lower leg. He's been on oral cefdinir and levofloxacin for refractory cellulitis of the leg and based on the recent Acinetobacter and Enterobacter positive wound cultures taken of the right lower leg and 1st toe diabetic ulcers. He does not report a fever but does state he feels a bit unwell. Also, he took his last dose of levofloxacin yesterday but has additional doses of cefdinir which indicates he may be missing doses of antibiotics. He also has an appointment with Dr. Harrison today for an angiogram and possible intervention to treat right leg PAD. His blood sugars is also elevated a bit today at 170. 12/26/17. Seen by Dr. Christensen. The patient does not report increased drainage associated with the chronic right lower leg ulcers has decreased since starting on oral cefdinir and levofloxacin for the recent Enterobacter and recurrent Acinetobacter wound cultures and he does not report adverse side effects. He also does not report any acute issues regarding the right 1st toe ulcer. He has an appointment in two weeks with Dr. Harrison to address the right leg PAD and he reports a new left medial malleolus ulcer that started about a week ago. He does not report pain or drainage from this site and does not report an inciting event. 12/19/17. Seen by Dr. Christensen. The patient feels the drainage associated with the chronic right lower leg ulcers has decreased since starting on oral cefdinir and levofloxacin for the recent Enterobacter and recurrent Acinetobacter wound cultures and he does not report adverse side effects. He also does not report pain or drainage associated with the right 1st toe diabetic ulcer and is applying topical gentamcinin as recommended. He suffers from PAD in the right leg as well as CKD stage 3 and has had angioplasty in 2016 to address the PAD. 12/13/17. Seen by Dr. Christensen. The patient is now on oral cefdinir and levofloxacin for the Enterobacter and resistant Acinetobacter positive wound cultures taken at his last visit. He does not report pain or increased drainage associated with the very refractory right medial malleolus, right lateral lower leg, nor right 1st toe diabetic ulcers since his last visit and he's changing the dressings only once daily. His HBOT has also been discontinued due to his recent seizure that occurred during his dive last week. 12/09/17. Seen by Dr. Christensen. The patient returns following his seizure that occurred during HBOT on Saturday. He was discharged home from the ER later in the day and does not report any significant issues over the weekend. He completed his course of Bactrim last week but continues on IV daptomycin which is treating chronic osteomyelitis of the right medical malleolus. He does not report pain nor increased drainage from this ulcer nor the other right lower leg non-pressure ulcer or right 1st toe diabetic ulcer. 11/29/17. Seen by Dr. Christensen. The patient continues on IV daptomycin and he completed his course of Bactrim that are treating the refractory Acinetobacter positive wound culture and right medial malleolar chronic osteomyelitis. In general he feels the drainage from the right medial malleolus, right lower leg, and right 1st toe diabetic ulcers has decreased considerably over the past week. He's also tolerating HBOT without difficulty. 11/22/17. Seen by Dr. Christensen. The patient continues on IV daptomycin and Bactrim that are treating the refractory Acinetobacter positive wound culture and right medial malleolar chronic osteomyelitis. He also continues on hyperbaric oxygen therapy and does not report ever side effects. In general he feels that the drainage associated with the chronic right medial malleolar and right lateral lower leg ulcers has decreased considerably and he does not report any new issues regarding right first toe diabetic ulcer and her second toe diabetic ulcers. 11/14/17. Seen by Dr. Christensen. The patient continues on IV daptomycin and he completed a course of Bactrim that are treating the refractory Acinetobacter positive wound culture and right medial malleolar chronic osteomyelitis. He also continues on hyperbaric oxygen therapy and does not report ever side effects. In general he feels that the drainage associated with the chronic right medial malleolar and right lateral lower leg ulcers has decreased considerably and he does not report any new issues regarding right first toe diabetic ulcer and her second toe diabetic ulcers. 11/07/17. Seen by Dr. Christensen. The patient continues on IV daptomycin for chronic osteomyelitis associated with the chronic right medial malleolus diabetic ulcer. He does not report adverse side effects nor pain or increased drainage associated with this ulcer number the right lateral ulcer nor first toe ulcer. He is also started on hyperbaric therapy and does not report any adverse effects. 10/31/17. Seen by Dr. Christensen. The patient feels that the drainage associated with chronic right medial malleolus and lateral foot and lower leg ulcers has decreased over the past week. He continues on IV daptomycin and has completed his course of Bactrim, both that were treating associated refractory cellulitis. Of note his bone scan reports a high suspicion for osteomyelitis of the right medial malleolus of which was diagnosed also in 2014 on bone scan. He also is unsure of whether an appointment has been made for follow-up with interventional radiology regarding review of his PAD for which he had angioplasty in 2016. He does not report adverse side effects of the antibiotics, fevers, or feeling unwell and his blood sugars continue to be well controlled with most below 150. 10/24/17. Seen by Dr. Christensen. The patient is now on IV daptomycin and Bactrim for refractory cellulitis, and possibly chronic osteomyelitis of the medial malleolus, associated with the chronic right lower leg diabetic ulcers. He is not reporting adverse side effects, fevers, nor feeling unwell in general however he does continue to report what sounds like rest pain when lying in bed at night that improves when standing up and walking around. His MRA did not reveal obvious proximal arterial disease however distal vessels were not well visualized. Dr. Harrison, interventional radiology, has recommended an angiogram to further evaluate for clinically significant PAD. 10/17/17. Seen by Dr. Christensen. The patient is now on Bactrim and Augmentin for the recurrent and resistant Acinetobacter culture plus enterococcus. He is not reporting adverse side effects however the drainage associated with chronic right medial malleolus and right lateral lower leg diabetic ulcers has not decreased since his last visit. He does not report pain nor increased swelling nor fevers or feeling unwell. He also does not report significant drainage associated with chronic right first toe diabetic ulcer. He has a history of severe PAD in the leg but does not report rest pain or claudication and had angioplasty approximately 18 months ago and his arterial Doppler from August 2017 confirms a high grade stenosis of the SFA. Of note, he has healed the ulcers in the past however has made no progress in terms of the size or depth over the past 3-4 months. Also, he has a history of osteomyelitis of the medial malleolus dating back to December 17, 2014 noted on his nuclear bone scan at that time and suggested again on his June 09, 2015 MRI. 10/10/17. Seen by Dr. Christensen. The patient does not report pain associated with the chronic right medial malleolus, right lateral lower leg, and right first toe and third toe diabetic ulcers however he does feel that the drainage continues to be significant from the malleoli or ulcer. His blood sugars continued to be well controlled and he is now off of antibiotics. Of note, he has a history of PAD in the leg and his last review by Dr. Harrison suggested flow was adequate to the foot however this was about 18 months ago. He does not report claudication or rest pain, fevers, or feeling unwell in general. 10/03/17. Seen by Kane Braun PA-C. The patient reports decreased drainage from his right lower extremity diabetic ulcers since beginning his antibiotics for his polymicrobial infection. 09/26/17. Seen by Kane Braun PA-C. The patient reports a very significant increase in drainage from his right medial lower leg ulcer. He is not currently on antibiotics and is spending more time on his feet. 09/19/17. Seen by Kane Braun PA-C. The patient reports good blood sugar control this week. He reports decreased drainage from his ulcer compared with 2 weeks ago and also reports that he has been leaving his new 2nd toe ulcer open to the air as he forgets that is needs a dressing. 09/12/17. Seen by Kane Braun PA-C. The patient reports decreased drainage since beginning antibiotics (which he continues taking) for his infection of his lower right leg ulcer. 09/05/17. To my Dr. Christensen. The patient feels the drainage associated with chronic right medial malleolar and right lateral lower leg diabetic ulcers continues to decrease since starting on levofloxacin and amoxicillin for the polymicrobial positive wound infection. He is not reporting adverse side effects nor drainage associated with chronic right first and second toe diabetic ulcers. Of note, he also has right lower leg PAD and underwent anterior tibial and peroneal angioplasty over a year ago. He does not report claudication or rest pain at this time. 08/29/17. Seen by Kane Braun PA-C. The patient reports increased drainage from his right lower leg diabetic ulcers. 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 08/19/17. Seen by Dr. Christensen. The patient feels the drainage associated with the chronic right lower leg diabetic ulcers continues to improve and he does not report any pain or drainage associated with chronic right first and second toe diabetic ulcers. He completed his course of Bactrim 2 days ago and does not report adverse side effects other than some mild diarrhea. 08/12/17. Seen by Dr. Christensen. The patient feels the drainage associated with the chronic right lower leg diabetic ulcers is improved since starting on Bactrim which he completed 2 days ago. He does not report adverse side effects, fevers, or feeling unwell or pain associated with these ulcers nor drainage or pain associated with the right first and second toe diabetic ulcers. 08/08/17. Seen by Dr. Christensen. The patient states his wound VAC foam dressing saturated with drainage as of yesterday. He continues on antibiotics for cellulitis associated with the chronic right medial malleolus diabetic ulcer and does not report adverse side effects, fevers, as her feeling unwell. I'm seeing him today due to the significant maceration noted in the periulcer area by the nurse today. 08/05/17. She will Dr. Christensen. The patient does not report pain or previous drainage associated with the chronic right medial malleolus diabetic ulcer nor the right first toe ulcer nor right lower leg lateral diabetic ulcer. He is on Bactrim for the refractory cellulitis associated with the recurrent Acinetobacter positive wound culture. He does not report adverse side effects, fevers, and her feeling unwell. 07/29/17. Seen by Dr. Christensen. The patient does not report pain nor increased drainage associated with chronic right lower leg and right first and second toe diabetic ulcers since his last visit. He is now off of antibiotics and states that he decreased his dressing changes recently to once daily from twice daily. The staff however are concerned about increased maceration around the ulcers. 07/17/17. Seen by Dr. Christensen. The patient reports persistent drainage associated with the right lower leg diabetic ulcers and states his wound VAC stopped working after 3 days. He since been changing his dressing daily. He's completed his course of cefdinir and levofloxacin and was treating cellulitis associated with the ulcers. He also notes a new ulcer at the distal second toe adjacent to the distal first toe diabetic ulcer. His blood sugars been well controlled also. 07/10/17. Seen by Dr. Christensen. The patient does not report pain nor increased drainage associated with chronic right lower leg diabetic ulcers nor the right first toe diabetic ulcer. He completed his course of cefdinir and levofloxacin that's treating the polymicrobial wound culture. His blood sugars are well controlled and he is not reporting adverse side effects from antibiotics. 07/04/17. Seen by Dr. Christensen. The patient reports increased drainage associated with the chronic right lower leg diabetic ulcers since his last visit and since stopping antibiotics that were treating the recently cultured Acinetobacter and Enterococcus cultures. He does not report pain in the leg nor fevers or feeling unwell and states his blood sugars remain well controlled. He also does not report any new issues regarding the chronic right 1st toe diabetic ulcer and of note was more active recently while on vacation in [place] the past 10 days. 06/21/17. Seen by Dr. Christensen. The patient feels the drainage associated with the chronic right lower leg diabetic ulcers is decreased since starting on cefdinir and he tolerated negative pressure wound therapy over the last 2 days without difficulty. His wound culture grew Acinetobacter and enterococcus. He does not report fevers, feeling unwell, nor adverse side effects from antibiotics. Of note, he will be traveling to [place] on an airplane leaving next Saturday and return 1 week later. 06/19/17. Seen by Dr. Christensen. The patient feels the recent significant drainage associated with the chronic right lower leg diabetic ulcers has decreased and he completed a course of cefdinir 5 days ago that was treating the recent Acinetobacter positive wound culture. He does not report pain at the site nor other acute issues today. He also does not report drainage associated with chronic right first toe diabetic ulcer. 06/11/17. Seen by Kane Braun PA-C. The patient reports continued drainage from his right lower extremity ulcers. He is applying gentamicin and taking bactrim to treat the bacteria that were cultured from his ulcer at his last visit. Of note, his cultured bacteria is intermediately sensitive to gentamicin. 06/04/17. Seen by Kane Braun PA-C. The patient reports increased purulent drainage from his right lower extremity ulcers. 05/28/17. Seen by Kane Braun PA-C. The patient reports no increase in drainage from his lower extremity ulcers. 05/14/17. Seen by Kane Braun PA-C. The patient reports increased drainage from his chronic lower extremity ulcers. 05/07/17. Seen by Kane Braun PA-C. The patient reports no increase in drainage from his chronic lower extremity ulcers. 04/30/17. Seen by Kane Braun PA-C. The patient reports no complications from his Bactrim and his ulcer drainage has decreased significantly over the past week. 04/23/17. Seen by Dr. Christensen. The patient is now on Bactrim for the recent Acinetobacter positive wound culture taken from the right lower leg diabetic ulcer. He reports decreased drainage and swelling in the leg and does not report any pain. He also does not report any problems regarding his chronic right distal first toe ulcer. 04/16/17. Seen by Dr. Christensen. The patient states his wound vac that was placed last lost its seal by Saturday and he removed the entire dressing. He does not report pain or increase drainage from the right lower leg and right 1st toe ulcers since then and states his blood sugars are mostly below 150. 04/11/17. Seen by Dr. Christensen. The patient does not report pain associated with the chronic right lower leg nor right first toe diabetic ulcers however drainage is significant and persistent associated with the lower leg ulcers. He continues on ciprofloxacin and amoxicillin to treat the polymicrobial wound infection. He does not report adverse side effects nor fevers or feeling unwell in general. 04/04/17. Seen by Dr. Christensen. The patient feels the drainage associated with the right lower leg and first toe diabetic ulcers is decreased over the past week. He's now on ciprofloxacin and amoxicillin for the recent polymicrobial positive wound culture and he does not report adverse side effects. His blood sugars also are mostly below 150. 03/28/17. Seen by Dr. Christensen. The patient feels the drainage associated with the right lower leg and first toe diabetic ulcers is decreased over the past week. He's changes dressings only once daily and does not report any other acute problems at this time. Also, a new ulcer is now present along the right lateral mid-foot. 03/21/17. Seen by Dr. Christensen. The patient reports improvement terms of the drainage associated with the right lower leg diabetic ulcers. He does not report any pain or drainage associated with the right first toe diabetic ulcer. He states his blood sugars have been well- controlled most below 120. 03/14/17. Seen by Dr. Christensen. The patient and staff report persistent and significant drainage associated with the chronic right lateral lower leg and right medial malleolar diabetic ulcers. He is changing his poise addressing once daily and is not currently on antibiotics. He does not reporting any new problems regarding the chronic right first toe diabetic ulcer. 03/07/17. Seen by Kane Braun PA-C. The patient reports very little drainage from his back wound and stable drainage from his right lower leg diabetic ulcers. He has a lot of questions regarding the pathology of and prognosis for his right lower leg and it's recurrent ulcers. He is considering moving to the [facility] and is looking into what medical services they have there. 02/28/17. Seen by Dr. Christensen. The patient feels the drainage associated with the right lower leg diabetic ulcers has decreased over the past week and he does not report any new problems regarding the chronic right 1st toe diabetic ulcer nor posterior right shoulder surgical wound. 02/21/17. Seen by Dr. Christensen. The patient continues to report significant drainage associated with the chronic right medial malleolar diabetic ulcer although he feels that is decreasing somewhat since starting on clindamycin for a recent positive wound culture. He does not report adverse side effects, pain in the ankle, nor fevers. He's also asked that I look at a slowly healing surgical wound on his back following a Mohs procedure for excision of a melanoma about 1 month ago. He states the site is tender but otherwise has no acute complaints. He does not report significant drainage nor new changes associated with chronic right first toe diabetic ulcer. 02/14/17. Seen by Kane Braun PA-C. The patient reports he has a new draining wound on his back. He had a shave removal of a skin cancer (patient is unsure of what type) and the dressing has fallen off and it has been draining through his shirt. It was not sutured and was left open to heal by secondary intention. His chronic right ankle and foot diabetic ulcers have had reduced drainage since starting clindamycin several days ago. Of note, he mis-read the label and was taking the clindamycin only once daily. He reports stable blood sugars with some blood sugars above 150 this week. 02/05/17. Seen by Dr. Christensen. The patient reports significant drainage associated with chronic right lower leg diabetic ulcers but none associated with the right first toe diabetic ulcer. He completed a course of Levaquin yesterday is been treating a recurrent infection associated with the toe ulcer and does not report fevers, feeling unwell, or adverse side effects. Of note, he is having problems in terms of financial limitations and medical costs associated with dressing changes. 01/31/17. Seen by Dr. Christensen. The patient does not report increased drainage or pain associated with the chronic right lower leg diabetic ulcers nor the chronic right first toe diabetic ulcer. He is now off of antibiotics does not report fevers or feeling unwell in general. 01/26/17. Seen by Kane Braun PA-C. The patient reports he continues to have a great deal of drainage from his right medial malleolar diabetic ulcer. 01/07/17. Seen by Dr. Christensen. The patient does not report increased pain or drainage associated with the chronic right lower ankle, right foot, nor right 1st toe diabetic ulcers since his last visit however staff report that the dressings are saturated. Also, the patient states his blood sugars remain well controlled below 150 consistently. 12/31/16. Seen by Kane Braun PA-C. The patient reports continued copious drainage from his right lower extremity diabetic ulcers. He is taking his Zyvox as prescribed. In addition his blood sugars are reportedly in good control, under 150. His prealbumin level resulted in the normal range. 12/27/16. Seen by Dr. Christensen. The patient does not report increased pain or drainage associated with the chronic right lower leg and right 1st toe diabetic ulcers however staff report that the dressings are saturated. He's been on Zyvox for a wound infection associated with the right medial malleolar ulcer and does not report adverse side effects. 12/18/16. Seen by Dr. Christensen. The patient feels there has been a significant increase in drainage associated with the right lower leg diabetic ulcers over the past week. He does not report pain at the site of the ulcers nor fevers or feeling unwell and his not currently on antibiotics. He states his blood sugars are relatively well controlled with most below 150. 12/10/16. Seen by Kane Braun PA-C. The patient reports increased drainage from his chronic diabetic ulcers of the right lower leg and foot. His wound culture has resulted with an enterococcus spp. and a coagulase negative staph spp. growth that are both PCN sensitive. 12/05/16. Seen by Dr. Christensen. The patient does not report pain associated with the compression wrap was placed over the right lower leg 2 days ago. The staff report that his dressings are soaked and there is some maceration in the periwound areas of the chronic right foot and medial malleolleolar diabetic ulcers. He does not report pain nor significant drainage associated with chronic right first toe diabetic ulcer. 12/03/16. Seen by Kane Braun PA-C. The patient reports no increase in drainage from his right lower leg diabetic ulcers since his last evaluation. His arterial doppler resulted with no significant stenosis in the right leg. 11/26/16. Seen by Kane Braun PA-C. The patient reports difficulty in controlling his blood sugars this week with several readings above 150. Drainage from his right lower leg ulcer has not increased. 11/19/16. Seen by Dr. Christensen. The patient reports some increased drainage associated with the lateral right lower leg diabetic ulcer. He isn't reporting any pain at the site nor pain or increased drainage associated with the right medial malleolar diabetic ulcer or right first toe ulcer since his last visit. His blood sugars continue to be mostly below 150 at home and he is not report fevers or feeling unwell in general. 11/12/16. Seen by Kane Braun PA-C. The patient reports good blood sugar control this week and no increase in drainage from his right lower leg diabetic ulcers. He is seeing dermatology today for removal of another skin cancer of the face. The patient is unsure if it is a melanoma. He also expresses concern about how long his ulcer is taking to heal, wondering Is it ever going to heal? 11/05/16. Seen by Kane Braun PA-C. The patient reports that some of his blood sugar readings have been above 150 this week. He reports that yesterday's AM blood sugar was 160. Drainage from his chronic right foot and right lower leg diabetic ulcers has reportedly reduced. 10/29/16. Seen by Kane Braun PA-C. The patient reports that he has had continued swelling at the site of his melanoma removal on the left side of his nose. His diabetic ulcers of the right foot have had stable drainage. 10/22/16. Seen by Kane Braun PA-C. The patient reports drainage from his right foot diabetic ulcers continues and today is his last does of Levaquin which was prescribed to treat an infection of these ulcers. 10/15/16. Seen by Kane Braun PA-C. The patient reports no increase in drainage from his chronic diabetic ulcers of the right foot. His pathology report has returned from the foreign body that was removed from his 2ng toe ulcer as likely plant material. After discussing this finding with the patient he believes it is a seed from [employer]. 10/08/16. Seen by Kane Braun PA-C. The patient reports that he has been using tetragrip compression stockings as directed, but doesn't wear them on mornings that he has clinic appointments. 10/01/16. Seen by Kane Braun PA-C. The patient reports no increase in drainage from his chronic diabetic ulcers of the right foot and leg. He is noted today to have a new ulcer on his right 2nd toe. The patient was not aware of this ulcer until it was discovered today. 09/24/16. Seen by Kane Braun PA-C. The patient reports decreased drainage from his chronic diabetic ulcers of the right foot and lower leg since his last evaluation. 09/17/16. Seen by Kane Braun PA-C. The patient reports that his blood sugars have been elevated above 150 this week. He has finished his course of Ampicillin and reports decreased ulcer drainage. 09/10/16. Seen by Kane Braun PA-C. The patient should be finished with his Augmentin [correction he was on AMPicillin], but reports that he has a week or more left . He does not recall ever taking it 4 times a day. His diabetic ulcers of the right lower leg have had slightly decreased drainage since his last evaluation, but continue to drain. 09/03/16. Seen by Dr. Christensen. The patient does not report increased drainage or pain associated with chronic right lower leg diabetic ulcers or right first toe diabetic ulcer since his last visit. He is applying Kerasal to the periwound right first toe callus as recommended and he states his blood sugars continue to be mostly below 150. 08/20/16 Seen by Kane Braun PA-C. The patient reports increased drainage from his right medial ankle and lateral right lower leg ulcers since his last visit. He does not report associated fever or chills. 08/13/16 Seen by Kane Braun PA-C. The patient reports consistently increased drainage from his right medial ankle ulcers for the past 2-3 days. The drainage has been of a darker color than the usual clear drainage and he has noted associated erythema surrounding the ulcers. No fever or chills reported. In addition the patient was unaware of the new ulcers on his lateral lower right leg that were discovered today. 07/30/16 Seen by Kane Braun PA-C. The patient reports that he has had his facial melanoma excised and will return to dermatology for follow up in 4 days. He reports that his blood sugars have been running over 150 in the past few days and that his new wound dressing on his right ankle ulcers appears to have increased maceration in the ulcer area. 07/24/16 Seen by Kane Braun PA-C. The patient reports a significant increase in drainage from his chronic right ankle ulcers requiring more frequent dressing changes. The increased drainage began 5 days ago and has been continuous. He has not had any associated fever or chills. New periwound erythema is reported without warmth or pain. 07/17/16 Seen by Kane Braun PA-C. The patient reports no increase in drainage from his chronic right ankle ulcers or his more recent left leg ulcer. 07/09/16 Seen by Kane Braun PA-C. The patient reports a new wound on his left medial leg which begain spontaneously 2-3 days ago. The patient believes he may have spilled hot grease on it while cooking but doesn't actually recall doing so. It raised as a painless blister, then popped with clear fluid drainage. He also reports that he is making arrangements for his melanoma to be removed in the coming days. His right lower leg diabetic ulcers have had increased drainage which is reportedly sero-purulent. 06/20/16. Seen by Dr. Christensen. The patient does not report increased drainage associated with the chronic right lower leg diabetic ulcers nor the right 1st toe diabetic ulcer. The previously diagnosed left nose lesion has been biopsied and pathology confirms melanoma. He 's asked that I take a look at the biopsy site and states he's scheduled to see a surgeon in the near future to discuss further treatment options. He does not report pain or drainage from the biopsy site. 06/06/16. Seen by Dr. Christensen. The patient does not report increased drainage associated with the chronic right lower leg diabetic ulcers nor the right 1st toe diabetic ulcer. However, he's concerned about a non-painful lesion on the left side of his nose that's been growing over the past few weeks and started bleeding yesterday. He has a history of melanoma and recent excision of a malignant lesion from the left shoulder earlier this year. 06/01/16. Seen by Dr. Christensen. The patient does not report increased drainage or swelling associated with the chronic right lower leg diabetic ulcers. He's also applying Kerasal to the right 1st toe periulcer callus as recommended. He states his blood sugars are mostly below 150 and he's off of antibiotics. 05/24/16 Seen by Kane Braun PA-C. The patient reports stable drainage from his right lower leg and right great toe ulcers since his last evaluation. The patient reports a mix of blood sugars above and below 150 in the past week. 05/17/2106. Seen by Dr. Christensen. The patient does not report pain or increased drainage associated with the chronic right medial malleolar, right lower leg, or right 1st toe diabetic ulcers since his last visit. 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 05/11/16 Seen by Kane Braun PA-C. The patient reports that his blood sugars have been under 150 this past week and that he is finishing up his doxycycline and bactrim for a polymicrobial ulcer infection of his right ankle ulcers. His PAD is improved after his recent angioplasty and he reports more warmth in his right foot. His chronic ankle ulcers of the right foot have had stable drainage since his last evaluation. 05/04/16. Seen by Dr. Christensen. The patient does not report pain or increased drainage associated with the chronic right medial malleolar, right lower leg, or right 1st toe diabetic ulcers. 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 He also does not report any new issues regarding the right anterior lower leg trauma wound. 04/27/16. Seen by Dr. Christensen. The patient does not report pain or increased drainage associated with the chronic right medial malleolar, right lower leg, or right 1st toe diabetic ulcers. 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 He also does not report any new issues regarding the right anterior lower leg trauma wound. 04/20/16. Seen by Dr. Christensen. The patient does not report pain or increased drainage associated with the chronic right medial malleolar, right lower leg, or right 1st toe diabetic ulcers. 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 He states his blood sugars are typically around 150 and does not report any new issues regarding the right anterior lower leg trauma wound noted at his last visit. 04/13/16. Seen by Dr. Christensen. The patient missed his PCI for right leg PAD yesterday due to an error on his calendar. He does not report increased swelling, pain, or drainage associated with the chronic right medial malleolar or right lower leg diabetic ulcers nor the right 1st toe diabetic ulcer. 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 He does not report adverse side effects and states his blood sugars are typically around 150. Of note, his A1c increased to 7.9 from 6.8 6 months prior. 04/05/16. Seen by Dr. Christensen. The patient reports a new traumatic wound to the right lower leg that occurred when he hit his leg while walking in the dark earlier this morning. He says that he blood considerably but it is not particularly painful. Regarding his right ankle and lower leg diabetic ulcers, he does not report any increased drainage or other problems. Nor does he report any significant drainage from the right first toe diabetic ulcer. His blood sugars continue to be mostly around 150. He still complains of some pitching at the left shoulder surgical but does not report drainage. Also, he is scheduled for intervention for his right leg PAD within the next two weeks. Also, the patient continues on Bactrim and doxycycline for chronic osteomyelitis of the right ankle. 03/30/16. Seen by Dr. Christensen. 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 He's also reporting some significant pruritus associated with the slowly healing left shoulder surgical wound but no significant drainage. He states his blood sugars are mostly around 150. 03/23/16. Seen by Dr. Christensen. 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 He's also concerned about a possible suture delaying healing of the recently excised melanoma surgical wound at the left posterior shoulder. He does no report pain or drainage at this site. He also states his blood sugars are mostly below 150 with none over 200. 03/16/16 Seen by Kane Braun PA-C. The patient reports stable drainage from his right lower leg ulcers. In addition he reports not being able to schedule transportation for his angioplasty. Again today he was asked about definitive follow up for his recently re-excised melanoma and does not recall being told that the margins were clear. 03/09/16. Seen by Dr. Christensen. The patient does not report or increased drainage associated with the right lower leg or right medial malleolar diabetic ulcers over the past week. He continues on antibiotics for the ulcers and right medial malleolar chronic osteomyelitis without reporting adverse side effects. He's also asked that we review his left posterior shoulder surgical wound due to a possible retained suture. 02/17/16. Seen by Dr. Christensen. The patient does not report pain or significant drainage associated with the chronic right medial malleolar or right lower leg diabetic ulcers over the past week. 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 02/09/[address] Christensen. The patient does not report pain or significant drainage associated with the chronic right medial malleolar or right lower leg diabetic ulcers over the past week. 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 Of note, he was changed from doxycycline to Bactrim within the past week due to his most recent wound culture results. He also reports a new trauma wound to the more proximal right anterior lower leg but does not recall what he hit the leg on or when. He states his blood sugars are mostly below 150. 02/02/16. Seen by Dr. Christensen. Patient is not report significant pain or drainage associated with the right medial malleolus diabetic ulcer or right lower leg diabetic ulcer. 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 He states the blood sugars are typically around 150. Of note, he also reports a new left anterior lower leg trauma wound that is nonpainful and has only minimal drainage. This occurred sometime in the past week. 01/26/[address] Christensen. The patient feels the drainage and swelling associated with the chronic right medial malleolar and right lower leg diabetic ulcers continues to decrease since starting HBOT. He also continues on doxycycline for chronic osteomyelits of the ankle and does not report adverse side effects. He does not report pain or drainage associated with the right 1st toe diabetic ulcer and has been applying Kerasal to the surrounding callus as recommended. 01/19/[address] Christensen. The patient reports decreased drainage associated with the chronic right medial malleolar and right lower leg diabetic ulcers over the past week and no drainage from the right 1st toe diabetic ulcer. 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 He does not report adverse side effects from the doxycycline and states his blood sugars are well controlled with most below 150. 01/12/[address] Christensen. The patient feels the drainage associated with the chronic right medial malleolar and right lower leg diabetic ulcers continues to decrease since starting on doxycycline for osteomyelitis of the malleolus and HBOT. He reports his blood sugars are relatively well controlled with most below 150. He's also scheduled to see Dr. Peña next week again to discuss possible additional intervention to treat the right lower leg PAD. 01/05/[address] Christensen. The patient feels the drainage associated with the chronic right medial maleollar diabetic ulcer has been decreasing since starting on doxycycline for the resistant coag negative Staph culture. He also does not report adverse side effects from doxycycline or problems regarding HBOT that is adjunctive treatment for the Bauman grade 3 diabetic ulcer and associated underlying chronic osteomyelitis. His blood sugars are improving with most below 150 and he's using a walker while at home to help facilitate offloading. Of note, the patient also underwent right leg angioplasty due to his recent MRA showing severe PAD and with one vessel runoff to the ankle. 12/29/15 Seen by Kane Braun PA-C. The patient reports continued drainage and increased edema in the area of his right medial malleolar diabetic ulcers. He also reports the he has decided to postpone recommended melanoma treatment to focus on taking care of the ulcers. 12/22/[address] Christensen. The patient reports continued drainage and redness associated with the chronic right medial malleolar and right lower leg diabetic ulcers. He' s been on Zyvox for the past two days to treat the recent wound culture that grew two species of resistant coag negative Staph. He also has been checking his blood sugars twice daily stating most are around or below 150. He does not report fevers and states the right lower leg and ankle pain he reported last week is starting to improve. He's also scheduled for a right lower leg MRA and to see interventional radiology next week to evaluate for possible clinically significant PAD in the right leg that may be inhibiting wound healing. Additionally, his bone scan two days ago suggests possible osteomyelitis of the right medial malleolus and states it can not be ruled out. Of note, he carries a diagnosis of a Bauman grade 3 diabetic ulcer at the medial malleolus with underlying osteomyelitis based on his bone scan from Nov, 2014. This site has not entirely healed since then and in fact has deteriorated over the past month. 12/15/[address] Christensen. The patient reports continued moderate drainage from the chronic right medial malleolar and right lower leg diabetic ulcers and he's now on Levofloxacin for the recent malleolar ulcer Stenotrophomonas culture. He reports discomfort in the right lower leg that's most noticeable when lying in bed at night however it does not necessarily resolve when he stands to walk and he does not report claudication. His blood sugars also remain well controlled below 150 consistently although his last A1c was 8.0 on 10/11/15. 12/08/[address] Christensen. The patient reports persistent drainage from the chronic right medial malleolar diabetic ulcer and some pain at this site when he lies flat in bed at night. He's now on levofloxacin for Stenotrophomonas positive wound culture and does not report adverse side effects. His MRI of the right ankle shows some marrow edema but retained normal fatty marrow signal indicative more of reactive changes as opposed to osteomyelitis. His blood sugars are a bit elevated intermittently around 160 at home but not higher than this. He also does not report fevers or feeling unwell. 12/01/[address] Christensen. The patient reports increased pain and drainage associated with the chronic right medial malleolar diabetic ulcer. He does not report fevers or feeling unwell however and states his blood sugars remain under 150 consistently. 11/25/[address] Christensen. The patient reports increased drainage associated with the chronic right medial malleolar diabetic ulcer along with increased swelling in the right lower leg. He does not report pain associated with the ulcer nor fevers or feeling unwell and states his blood sugars remain consistently under 150. 11/18/[address] Christensen. The patient does not report pain or drainage associated with his chronic right medial malleolar diabetic ulcer. He does feel there's been some increased swelling and redness in the right lower leg this week however feels this may be due to a mild sun burn than occurred while mowing his lawn. He also states his blood sugars are consistently below 150. 11/04/[address] Christensen. The patient does not report significant drainage from the right medial malleolar diabetic ulcer and has completed his course of ciprofloxacin for the recent Pseudomonas infection of the ulcer. He also does not report pain or swelling associated with the ulcer and states his blood sugars are mostly below 150. 10/28/[address] Christensen. The patient does not report increased drainage from the right medial malleolar diabetic ulcer and he's completed his course of ciprofloxacin without reporting adverse side effects. He states his follow up surgery for removal of the remaining left should melanoma has been postponed for a few weeks and he does not report any drainage or pain associated with the left chest or left shoulder healing surgical wounds. His blood sugars also remain well controlled around 120 although his A1c in September was 8.0. 10/21/[address] Christensen. The patient continues on ciprofloxacin for the recent Pseudomonas positive culture of the right medial malleolus diabetic ulcer. He does not report adverse side effects and feels the drainage has decreased significantly over the past week. He also is to undergo additional surgery to address residual melanoma at the left shoulder. He does not report any new issues regarding the left shoulder or chest surgical wounds. His blood sugars also remain well controlled below 150 consistently. 10/14/[address] Christensen. The patient reports some persistent drainage from the chronic right medial malleolar diabetic ulcer and his wound culture from the last visit grew Pseudomonas. He was placed on doxycycline empirically at the last visit. He does not report pain associated with the ulcer and states his blood sugars are consistently below 150. 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 09/29/[address] Christensen. The patient does not report pain, significant drainage, or other issues regarding his chronic right medial malleolar non-pressure ulcer. He reports using Kerasal and a moisturizer on his right 1st toe callus and feet but is non- committal in terms of how frequently they're being applied. 09/19/15 Seen by Kane Braun PA-C. The patient reports no increase in drainage from his medial malleolar diabetic ulcer. His blood sugars are reportedly a little higher than average lately and he reports again that today's blood pressure reading is not consistent with his well controlled numbers outside of our clinic. In addition he reports that the recently removed lesion on his left scapular area came back as confirmed as Melanoma and he is going to have a surgery to excise it, and possibly some lymph nodes in the coming weeks. 09/02/[address] Christensen. The patient does not report significant drainage from the chronic right medial malleolar diabetic ulcer. 08/24/[address] Christensen. The patient does not report pain, swelling, or drainage associated with his chronic left medial malleolar diabetic ulcer and he states his blood sugars remain well controlled below 150 consistently. 08/10/2015 Seen by Kane Braun PA-C. The patient reports minimal drainage from his left ankle ulcer. 08/03/2015 Seen by Kane Braun PA-C. The patient does not report any drainage from his first toe ulcer since his last dressing change. He did inspect it with a mirror and was displeased to see discoloration in the callous. He has religiously been wearing his offloading shoe. His medial malleolar ulcer has been draining minimally. 07/28/[address] Christensen. The patient does not report increased drainage from the right medial malleolar diabetic ulcer nor any drainage from the right 1st toe diabetic ulcer. He does admit to not using his walker as recommended at all times but typically walks only on days of our appointments and when grocery shopping. His blood sugars remain well controlled and he's completed his course of ciprofloxacin that was treating osteomyelitis of both the right 1st toe and right medial malleolus. He also continues with HBOT to treat right 1st toe osteomyelitis. 07/20/[address] Christensen. The patient does not report significant drainage from either the right 1st toe nor right medial malleolar diabetic ulcers. He also continues on ciprofloxacin and continues HBOT for osteomyelitis of the right 1st toe. 07/04/15 Seen by Kane Braun PA-C. The patient reports stable drainage from his wounds. He reports using a frame walker for offloading whenever he can. 06/30/[address] Christensen. The patient returns today for review of his right 1st toe diabetic ulcer and underlying osteomyelitis for which he continues on HBOT. He's also on ciprofloxacin for a recent Pseudomonas culture of the right medial malleolar ulcer. He reports there's been some drainage on the dressing the past few days despite this ulcer being healed out recently. He also admits to not using his walker as recommended spending a modest amount of time walking in his house, to appointments, and at the grocery store. 06/22/15 Seen by Kane Braun PA-C. The patient reports minimal drainage from his right malleolar wound and no noted drainage from his toe wound. 06/10/[address] Christensen. The patient reports some increased erythema in the periwound area of the right medial malleolar Bauman grade III diabetic ulcer but does not report associated pain or drainage. Nor does he report drainage associated with the right 1st toe Bauman grade III diabetic ulcer. He's now been off of IV daptomycin for 8 days. His MRI from yesterday shows persistent, albeit decreased, marrow edema at the right 1st toe distal phalanx indicating modest improvement however the evidence for osteomyelitis of the medial malleolus remain unchanged. His blood sugars have increased a bit to the 170's and his last A1c in 02/2015 was 6.8. 06/03/[address] Christensen. The patient does not report drainage or pain associated with the recently healed right 1st toe or persistent medial malleolar diabetic ulcers. He also continues on IV daptomycin for associated osteomyelitis at each site without reporting adverse side effects. He also states his blood sugars are well controlled around 120 consistently. 05/27/[address] Christensen. The patient states there's been no drainage from the right 1st toe ulcer. He continues on IV daptomycin for osteomyelitis of the 1st toe and medial malleolus without reporting adverse side effects, fevers, or sweats . His blood sugars also remain relatively well controlled below 150 and he offloads with a surgical shoe and by significantly minimizing his walking. 05/20/[address] Christensen. 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 His blood sugars are well controlled recently with most below 120 at home. 05/13/[address] Christensen. The patient does not report pain or significant drainage associated with the right 1st toe and medial malleolar ulcers nor adverse side effects associated with the IV daptomycin he's on for chronic osteomyelitis of the right 1st toe. 05/06/[address] Christensen. The patient does not report significant drainage from either the right 1st toe diabetic foot ulcer nor the right medial malleolar ulcer. He continues on IV daptomycin for chronic osteomyelitis of the right 1st toe as well as HBOT and does not report issues with either. 04/22/[address] Christensen. The patient's MRI of the right foot showed interval improvement of the osteomyelitis however there's still evidence that this persists in the right 1st distal phalanx. He's now on IV daptomycin based on a wound culture from 04/11/15 that grew two resistant coag negative Staph organisms. His blood sugars are typically below 150 and his A1c in February 2015 was 6.8. 04/08/[address] Christensen. The patient does not report significant drainage from the right 1st to or medial malleolar diabetic foot ulcers and states his blood sugars are consistently below 150. He continues on oral levofloxacin and doxycycline to treat right toe chronic osteomyelitis and is on dual antibiotic therapy with levofloxacin and doxycycline since (day 29) to address the resistant coag negative Staph culture from 02/07/15 of the 1st to ulcer. He offloads by minimizing walking significantly and wearing diabetic shoes. 03/31/[address] Christensen. The patient reports only minimal drainage from the right malleolar ulcer and none from the right 1st toe diabetic ulcer. His blood sugars remain well controlled below 120 and he does not report any side effects from the levofloxacin and doxycycline he's taking for chronic osteomyelitis of the right 1st toe. Of note , he's not offloading the right foot with a surgical shoe and walker as recommended but he is limiting his walking as much as possible. 03/24/[address] Christensen. The patient reports no drainage from the right 1st toe diabetic ulcer however the right medial malleolar ulcer continues with modest drainage but no associated pain, swelling, or erythema. He continues on an extended course of levofloxacin and doxycycline to treat chronic osteomyelits of the 1st toe and does not report any adverse side effects other than some sun sensitivity likely associated with doxycycline. 03/16/[address] Christensen. The patient reports there's been no drainage from the right 1st to ulcer and only minimal drainage from the right medial malleolus ulcer. His blood sugars remain moderately well controlled below 150 and he continues on doxycycline and levofloxacin to treat chronic osteomyelitis of the right first toe. 03/08/[address] Christensen. The patient does not report increased drainage from either the right medial malleolar ulcer nor the right 1st toe ulcer and he continues on an extended course of oral doxycycline and HBOT for chronic osteomyelitis of the right 1st toe. He does not report fever, chills, or sweats nor adverse side effects associated with the doxycycline. His blood sugars continue to be well controlled and his A1c was 6.8 on 02/25/15. 03/01/15 Seen by Kane Braun PA-C. The patient reports stable drainage from his wounds. He has been on Doxycycline and will need a refill today if it is to be continued. The patient's MRI of the foot did not demonstrate osteomyelitis of the medial malleolus but it did demonstrate osteomyelitis of the great toe. The study's impression is as follows: IMPRESSION: There is prominent inflammatory change involving the fatty and cutaneous soft tissues of the distal great toe, extending contiguously to involve the distal half of the great toe distal phalanx, where some degree of cortical destruction can be seen with internal marrow space edema and enhancement suggestive of osteomyelitis extending into that portion of the medullary space. No additional lesion elsewhere is seen that would indicate abscess formation or additional osteomyelitis. 02/21/15 Seen by Kane Braun PA-C. The patient's arterial ultrasound of the right leg does not show focal stenosis, though it does show progression of scattered plaques from the prior study. the patient's wounds continue to drain minimally. 02/14/15 Seen by aKne Braun PA-C. The patient reports more drainage from his medial malleolar ulcer than last week. Pain is minimal. Denies fever or chills. His hypertension is reportedly well controlled, and his BP is only elevated here in our clinic by his report. His diabetes reportely continues to be in good control with most morning blood sugars below 120 but he reports they have been higher in the past week or two. 02/07/15 Seen by Kane Braun PA-C. The patient reports minimal drainage from his wounds. He reports that he has attempted to spend time sitting with his feet elevated, which is a new therapy for him as he usually is always moving. He reports that it is helping his lower extremity edema modestly. 01/24/[address] Christensen. The patient's right medial malleolar ulcer wound culture from the last visit grew coag negative Staph and he's now on doxycycline since last Saturday. He reports only minimal drainage from both the ankle and 1st toe ulcer. He's also not offloading the right foot in anyway. His blood sugars continue to be well controlled below 120. 01/17/[address] Christensen. The patient does not report drainage from either the right medial malleolar or 1st toe ulcers. He's off antibiotics and states he got the ankle ulcer wet in the shower this morning. 01/03/15 Seen by Kane Braun PA-C. The patient reports minimal drainage from his wounds. He also reports that the shoes he brings into the clinic are not the ones he wears all day. Blood sugars are reportedly in pretty good control. 12/27/14 Seen by Kane Braun PA-C. X-ray of the right foot was negative for radiographic signs of osteomyelitis. ESR and CRP were within normal limits. The patient reports minimal drainage from his right ankle and toe wounds. 12/20/14 Seen by Kane Braun PA-C. The patient reports no increase in drainage from his right 1st toe ulcer or the malleolar ulcer that has recently recurred. He does report that he was treated for osteomyelitis at our clinic several years ago using HBOT and antibiotics with good results. 12/10/[address] Christensen. The patient does not report drainage from the right 1st toe ulcer but he states the right medial malleolar ulcer has recurred. He also report recurrence of right lower leg erythema and warmth since stopping Augmentin two days ago. His blood sugars remain below 150 and he does not report fever or chills. His most recent wound culture in mid October grew resistant coag negative Staph. 12/03/14 Seen by Kane Braun PA-C today. The patient reports no visible drainage from his right ankle or toe ulcers. He believes the ankle ulcer recurrence was related to edema when he was hospitalized. Edema has mostly resolved now in his legs by his report. 11/26/14 The patient does not report any drainage from the right 1st toe ulcer but states the right medial malleolar ulcer has recurred. He's not sure if it was caused by trauma or associated with blistering that was present as a result of the recent right lower leg cellulitis. He's nearly completed his course of high dose Keflex however still notes some swelling, warmth, and erythema in the leg. He does not report pain however. 11/22/14 The patient was discharged from [facility] on Saturday following treatment for recurrent right lower leg cellulitis. He was treated with vancomycin for resistant coag neg Staph and is now on high dose oral Keflex and feels the swelling and erythema continue to improve. He does not report fever or drainage associated with the right 1st toe ulcer and his blood sugars remain well controlled below 120. 11/15/14 The patient reports new drainage from the right 1st toe ulcer and was seen in the ER over the weekend for cellulitis of the right lower leg. He was treated with 3 doses of IV antibiotics on subsequent return to the ER over the course of the past few days and feels the swelling and erythema are slowly improving. He does not report fever or chills and states his blood sugars have been between 150 and 180. 11/01/14 The patient does not report drainage from his right 1st toe ulcer. His blood sugars remain well controlled below 150. 10/25/14 The patient reports only very minimal drainage from his right 1st toe ulcer and continues to offload using his diabetic shoe and minimizing his daily activity. 10/18/14 The patient reports continued improvement in his right toe ulcer. 10/11/14 The patient does not report drainage or pain in the right 1st toe ulcer. He does mention though he's concerned about memory difficulties and he's currently without a PCP as his recently retired. 10/04/14 The patient reports that he has difficulty applying Kerasal to the calloused ana-wound area and getting his dressing to stick. He does not report increased pain or drainage from his right great toe diabetic ulcer. 09/27/14 The patient reports increased walking since last visit with pain in his legs as a result. No increase in drainage from his wound. 09/20/14 The patient reports no new drainage from his left toe wound, and stable drainage from his right great toe wound. He asks about the plan of care today. 09/13/14 The patient reports he wounds appear stable without new symptoms. 09/06/14 The patient does not report any increase in drainage or other issues from his diabetic foot ulcers. 08/30/14 The patient does not report any new problems regarding his right 1st toe ulcer including increased drainage, pain, or redness. He states his blood sugars are well controlled under 150. His A1c was 6.8 in 07/04. 08/23/14 The patient does not complain of drainage from the right 1st toe. 08/16/14 The patient's been using Kerasal on the right 1st toe and does not report significant drainage from the ulcer. His blood sugars are usually below 140 with reported hypoglycemia. 08/09/14 The patient states he's using his offloading boot on the right foot and limiting his walking considerably. He states his blood sugars are well controlled and there' s only been minimal drainage from the toe ulcer. 08/02/14 The patient does not report increased drainage from his right first toe ulcer. He also feel his right leg erythema that was noted at his last visit has improved. He states that prior to arriving to clinic he fell in the parking lot of his pharmacy hitting his right knee. He does not report pain nor bleeding and does not report any other injuries. Past Medical History This information was obtained from the patient Patient has a medical history of: Diabetes type II (A1c 6.8 03/2017; A1c 6.2 on 05/04/16; A1c 7.9 on 01/09/16; 6.8 on 02/25/15) Hypertension Peripheral neuropathy Gout Right ankle Fracture Chronic venous insufficiency with ulcers and edema Unspecified cellulitis and abscess of toe Streptococcus infection of unspecified site Group D Enterococcus Dermatophytosis Osteomyelitis (right 1st toe (MRI 03/01/15, persistent but improved MRI 06/09/15) ; possible right medial malleolus (triple phase bone scan 12/17/14, not confirmed on MRI of 03/01/15; present on MRI 06/09/15)) 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 Melanoma ( left forehead) Diabetic foot ulcer - 10/13/2014 (Bauman grade III; plantar surface right 1st toe with underlying osteomyelitis diagnosed on 03/01/15; recurrent resistant coag negative Staph deep cultures on 11/15/14 and 02/07/15; resistant coag neg Staph cultured on 04/11/15 and started on IV daptomycin on 04/18/15) Diabetic foot ulcer (chronic and recurrent; right medial malleolus, possible osteomyeltis seen on triple phase bone scan 12/17/14 but not confirmed on MRI from 03/01/15; confirmed on MRI 06/09/15) Edema (chronic; right lower extremity) Cellulitis ( left great toe; hospitalized 02/15-02/18/surgical debridment) Complaints and Symptoms This information was obtained from the patient Patient complains of: General Notes: I have reviewed and concur with the Review of Systems and Past Family Social History documents completed by the clinician, I have reviewed and concur with the Wound Assessment document completed by the clinician Cardiovascular (Central/Peripheral): Lower extremity (leg) swelling Ear/Nose/Mouth/Throat: Hearing Loss / Aid Hematologic/Lymphatic: Bleeding Tendency Integumentary (Hair/Skin/Nails): Lesions, Open Sore Musculoskeletal: Assistive Devices, Deformities Neurological: Abnormal Gait, Loss of Protective Sensation Prior Wound History: Bleeding, Drainage, Erythema, Pain Psychiatric: Memory Loss Patient denies complaints or symptoms related to: Cardiovascular (Central/Peripheral): Intermittent Claudication, Lower extremity (leg) resting pain Cardiovascular (Peripheral) Constitutional Symptoms (General Health): Chills, Fatigue, Fever Gastrointestinal (GI): Nausea / Vomiting, Stomach/abdominal pain Hematologic/Lymphatic: Bleeding / Clotting Disorders Prior Wound History: Malodor Psychiatric: Depression Respiratory: Oxygen Use, Shortness of Breath OBJECTIVE Constitutional BP elevated; Afebrile; Alert and in no distress. Well developed. Alert. Clean appearing.. Height/Length: 71 in (180.34 cm), Weight: 260.7 lbs (118.5 kgs), BMI: 36.4, Temperature: 98.1 ?F (36.72 ?C), Pulse: 83 bpm, Respiratory Rate: 18 breaths/min, Blood Pressure: 175/74 mmHg, Capillary Blood Glucose: 112 mg/dl, Pulse Oximetry: 95 %. Vital Signs Notes: Glucose per patient. Ears, Nose, Mouth, and Throat: Mild hearing deficit. Respiratory: No respiratory distress. Even respirations and without use of accessory muscles.. Cardiovascular: 2+ right lower extremity edema; modest improvement over last review. Gastrointestinal (GI): Obese. Nondistended.. Integumentary (Hair, Skin) Mild periwound erythema without warmth. Refer to appropriate clinician wound documentation for this visit; right and left lower leg and right 1st toe ulcers extend to subcut with bases partially covered with pink granulation, remainder fibrin and slough. Maceration present in the right lower leg periwound areas. Wound #13 Right, Medial Ankle is an acute Bauman Grade 3 Diabetic Ulcer and has received a status of Not Healed. Subsequent wound encounter measurements are 4cm length x 2.5cm width x 0.4cm depth, with an area of 10 sq cm and a volume of 4 cubic cm. No tunneling has been noted. No sinus tract has been noted. No undermining has been noted. There is a large amount of serous drainage noted which has no odor. The patient reports a wound pain of level 0/10. The wound margin is attached. Wound bed has No epithelialization, No eschar, Yes slough, Yes pink, firm granulation. The periwound skin exhibited: Edema, Induration, Moist, Maceration, Atrophie Marcelina, Erythema. The periwound skin did not exhibit: Brawny Induration, Excoriation, Callus, Crepitus, Fluctuance, Friable, Rash, Dry/Scaly, Cyanosis, Ecchymosis, Hemosiderosis, Pallor, Rubor. The temperature of the periwound skin is WNL. Periwound skin presents with s/s of infection. Confirmation Description and Treatment Plan is: Confirmed Local, Systemic Antibiotics Prescribed. Local Pulse is Doppler. General Notes: Satellite ulcer proximal to wound measures 1.0x4.0x0.3cm Wound #17 Right, Plantar Great Toe is a Bauman Grade 3 Diabetic Ulcer and has received a status of Not Healed. Subsequent wound encounter measurements are 0.8cm length x 0.5cm width x 0.4cm depth, with an area of 0.4 sq cm and a volume of 0.16 cubic cm. No tunneling has been noted. No sinus tract has been noted. No undermining has been noted. There is a small amount of serous drainage noted which has no odor. The patient reports no wound pain due to the wound being insensate. The wound margin is callus. Wound bed has No epithelialization, No eschar, Yes slough, Yes pink, firm granulation. The periwound skin moisture is normal. The periwound skin color is normal. The periwound skin exhibited: Callus. The periwound skin did not exhibit: Brawny Induration, Edema, Excoriation, Induration, Crepitus, Fluctuance, Friable, Rash. The temperature of the periwound skin is WNL. Periwound skin does not exhibit signs or symptoms of infection. Local Pulse is Palpable. Wound #25 Right, Lateral Ankle is a chronic Bauman Grade 2 Diabetic Ulcer and has received a status of Not Healed. Subsequent wound encounter measurements are 2.7cm length x 1.5cm width x 0.4cm depth, with an area of 4.05 sq cm and a volume of 1.62 cubic cm. No tunneling has been noted. No sinus tract has been noted. No undermining has been noted. There is a moderate amount of serous drainage noted which has no odor. The patient reports a wound pain of level 0/10. The wound margin is attached. Wound bed has No epithelialization, No eschar, Yes slough, Yes bright red, pink, firm granulation. The periwound skin exhibited: Edema, Induration, Moist, Maceration, Erythema. The periwound skin did not exhibit: Brawny Induration, Excoriation, Callus, Crepitus , Fluctuance, Friable, Rash, Dry/Scaly, Atrophie Benton, Cyanosis, Ecchymosis, Hemosiderosis , Pallor, Rubor. The temperature of the periwound skin is Warm. Periwound skin presents with s/s of infection. Confirmation Description and Treatment Plan is: Confirmed Local, Systemic Antibiotics Prescribed. Local Pulse is Doppler. Wound #29 Right, Lateral Foot is a chronic Bauman Grade 2 Diabetic Ulcer and has received a status of Not Healed. Subsequent wound encounter measurements are 0.8cm length x 0.3cm width x 0.2cm depth, with an area of 0.24 sq cm and a volume of 0.048 cubic cm. No tunneling has been noted. No sinus tract has been noted. No undermining has been noted. There is a small amount of serous drainage noted which has no odor. The patient reports a wound pain of level 0/10. The wound margin is attached. Wound bed has No epithelialization, No eschar, Yes slough, No granulation. The periwound skin texture is normal. The periwound skin color is normal. The periwound skin exhibited: Moist, Maceration. The periwound skin did not exhibit: Dry/Scaly. The temperature of the periwound skin is Warm. Periwound skin does not exhibit signs or symptoms of infection. Local Pulse is Doppler. Wound #32 Left, Medial Ankle is an acute Bauman Grade 2 Diabetic Ulcer and has received a status of Not Healed. Subsequent wound encounter measurements are 1.5cm length x 1cm width x 0.3cm depth, with an area of 1.5 sq cm and a volume of 0.45 cubic cm. No tunneling has been noted. No sinus tract has been noted. No undermining has been noted. There is a moderate amount of serous drainage noted which has no odor. The patient reports a wound pain of level 0/10. The wound margin is attached. Wound bed has No epithelialization, No eschar, Yes slough, No granulation. The periwound skin moisture is normal. The periwound skin exhibited: Edema, Atrophie Benton. The periwound skin did not exhibit: Brawny Induration, Excoriation, Induration, Callus, Crepitus, Fluctuance, Friable, Rash, Cyanosis, Ecchymosis, Erythema, Hemosiderosis, Pallor, Rubor. The temperature of the periwound skin is WNL. Periwound skin does not exhibit signs or symptoms of infection. Local Pulse is Doppler. Wound #33 Right Second Toe is an acute Bauman Grade 2 Diabetic Ulcer and has received a status of Not Healed. Subsequent wound encounter measurements are 0.1cm length x 0.1cm width x 0.1cm depth, with an area of 0.01 sq cm and a volume of 0.001 cubic cm. No tunneling has been noted. No sinus tract has been noted. No undermining has been noted. There is a small amount of serous drainage noted which has no odor. The patient reports a wound pain of level 0/10. The wound margin is attached. Wound bed has Yes epithelialization, No eschar, Yes slough, No granulation. The periwound skin texture is normal. The periwound skin color is normal. The periwound skin exhibited: Moist. The periwound skin did not exhibit: Dry/Scaly, Maceration. The temperature of the periwound skin is WNL. Periwound skin does not exhibit signs or symptoms of infection. Local Pulse is Weak. Neurological: Cranial nerves grossly intact with symmetric function normal by informal observation.. Additional Information [facility]/Vascular Completed?: 12/10/16. Angioplasty procedure 01/07/18. 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 (Encounter Diagnosis) E11.621 - Type 2 diabetes mellitus with foot ulcer (Encounter Diagnosis) L97.512 - Non-pressure chronic ulcer of other part of right foot with fat layer exposed (Encounter Diagnosis) L08.89 - Other specified local infections of the skin and subcutaneous tissue (Encounter Diagnosis) I70.238 - Atherosclerosis of [place] arteries of right leg with ulceration of other part of lower right leg (Encounter Diagnosis) L97.822 - Non-pressure chronic ulcer of other part of left lower leg with fat layer exposed (Encounter Diagnosis) I87.311 - Chronic venous hypertension (idiopathic) with ulcer of right lower extremity PROCEDURES Wound #13 Wound #13 (Diabetic Ulcer) is located on the right, medial ankle. A skin/ subcutaneous tissue level surgical debridement with a total area debrided of 10 sq cm was performed by Kam Christensen MD. Subcutaneous was removed along with devitalized tissue: slough. The following instrument(s) were used: curette. No anesthetic was required due to loss of sensation. A time out was conducted prior to the start of the procedure. A minimal amount of bleeding was controlled with n/a. The procedure was tolerated well with a loss of sensation throughout and a loss of sensation following the procedure. Post Debridement Measurements: 4cm length x 2.5cm width x 0.5cm depth; with an area of 10 sq cm and a volume of 5 cubic cm; Wound #13 (Diabetic Ulcer) is located on the right, medial ankle. A Multilayer Compression procedure was performed by Elizabeth Garcia RN. General Notes: Coban 2 Layer Lite compression wrap applied to right leg. Wound #25 Wound #25 (Diabetic Ulcer) is located on the right, lateral ankle. A skin/ subcutaneous tissue level surgical debridement with a total area debrided of 4.05 sq cm was performed by Kam Christensen MD. Subcutaneous was removed along with devitalized tissue: slough. The following instrument(s) were used: curette. No anesthetic was required due to loss of sensation. A time out was conducted prior to the start of the procedure. A minimal amount of bleeding was controlled with n/a. The procedure was tolerated well with a loss of sensation throughout and a loss of sensation following the procedure. Post Debridement Measurements: 2.7cm length x 1.5cm width x 0.5cm depth; with an area of 4.05 sq cm and a volume of 2.025 cubic cm; Wound #29 Wound #29 (Diabetic Ulcer) is located on the right, lateral foot. A skin/ subcutaneous tissue level surgical debridement with a total area debrided of 0.24 sq cm was performed by Kam Christensen MD. Subcutaneous was removed. The following instrument(s) were used: curette. No anesthetic was required due to loss of sensation. A time out was conducted prior to the start of the procedure. A minimal amount of bleeding was controlled with n/a. The procedure was tolerated well with a loss of sensation throughout and a loss of sensation following the procedure. Post Debridement Measurements: 0.8cm length x 0.3cm width x 0.3cm depth; with an area of 0.24 sq cm and a volume of 0.072 cubic cm; Additional Information Muscle fascia or bone removed and sent to pathology?: No Muscle fascia or bone removed and sent to pathology?: No Muscle fascia or bone removed and sent to pathology?: No PLAN Wound Orders: Wound #13 Right, Medial Ankle Dressings Primary dressing: - Silver aquacel. Cover and secure with: - Mextra Supersorbant Coban 2 Layer Lite compression wrap. Change Dressing: - Leave in place until next visit. Wound #17 Right, Plantar Great Toe Dressings Cover and secure with: - Telfa pad secured with hypafix tape. Change Dressing: - Every other day. Wound #25 Right, Lateral Ankle Dressings Primary dressing: - Silver aquacel. Cover and secure with: - Mextra Supersorbant Coban 2 Layer Lite compression wrap. Change Dressing: - Leave in place until next visit. Wound #29 Right, Lateral Foot Dressings Primary dressing: - Silver aquacel. Cover and secure with: - Mextra Supersorbant Coban 2 Layer Lite compression wrap. Change Dressing: - Leave in place until next visit. Wound #32 Left, Medial Ankle Dressings Cover and secure with: - Covrsite 4x4. Change Dressing: - Every other day. Wound #33 Right Second Toe Dressings Cover and secure with: - Telfa pad secured with hypafix tape. Change Dressing: - Every other day. Additional Orders: Cleanser Cleanse Wound: - Rinse all wounds with distilled water during each dressing change. May Shower. - Cover leg with cast protector. Cleanse wound with Soap and Water. - Cleansed right leg with Hibiclens in clinic. Compression/Edema Control Elevation of leg(s) above the level of the heart when sitting. - Elevate legs above hip level at least twice daily. Avoid prolonged standing in one place. Multi Layer Wrap: - Coban 2 Layer Lite compression wrap to right leg. Single Layer Compression Hose - Tetragrip F to left leg. On in the am, off at night. Follow-Up Appointments Return Appointment: - - Saturday and for wraps. Other information: If you develop fever, chills, increased pain, drainage, redness or swelling please call our office. If after hours, respond to the ER. Should you experience any significant changes in your wound(s) or have any questions regarding your home care instructions please contact the wound center @ [phone]. If after hours, contact your primary care physician or go to the hospital emergency room. Scribing Attestation I attest, as the nurse, that I scribed these orders for the physician. General Notes: Please continue taking Clindamycin and bactrim I've reviewed the clinician's documentation and agree with the evaluation and plan as written. In addition the patient's ulcers demonstrate evidence of non-viable devitalized tissue and they will continue to benefit from sharp debridement to help promote granulation and expedite healing. Also, we'll continue using a compression wrap to treat the right lower leg chronic venous hypertension and consider increasing pressure to a Coban 2 wrap in the next week or two if he continues to remain asymptomatic and the ulcers are improving. He'll also continue on dual oral antibiotic therapy however may require IV antibiotics if the infection does not appear to be resolving over the next week. Electronic Signature(s) Signed By: Date: Kam Christensen MD 01/23/2018 15:34:08 Entered By: Kam Christensen on 01/23/2018 12:21:34
== END ==
PROVIDERS: PCP Family Medicine; Visit Provider Internal Medicine
DX: E11.621 Type 2 diabetes mellitus with foot ulcer (principal); L97.512 Non-pressure chronic ulcer of other part of right foot with fat layer exposed; L08.89 Other specified local infections of the skin and subcutaneous tissue; L97.812 Non-pressure chronic ulcer of other part of right lower leg with fat layer exposed; I70.238 Atherosclerosis of native arteries of right leg with ulceration of other part of lower leg; E11.622 Type 2 diabetes mellitus with other skin ulcer; L97.822 Non-pressure chronic ulcer of other part of left lower leg with fat layer exposed
CPT/HCPCS: 11042

== ENCOUNTER → 2018-01-27 15:53 | Outpatient (CLI) | payer MEDICARE, SELFPAY ==
--- NOTE | 2018-01-27 | OV.WND_ITS ---
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 Allergies NKDA HPI This information was obtained from the patient 01/27/18. Seen by Dr. Christensen. The patient does not report significant pain in the right lower leg since we started compression therapy with a Coban wrap. He continues on clindamycin and Bactrim for the polymicrobial wound cultures taken from right lower leg and 1st toe diabetic ulcers and he does not report adverse side effects. 01/23/18. Seen by Dr. Christensen. The patient does not report pain in the right lower leg since we started compression therapy with a Coban wrap 2 days ago. He's also now on clindamycin and Bactrim for the polymicrobial wound cultures taken from right lower leg and 1st toe diabetic ulcers and he does not report adverse side effects. He recently had intervention to treat right leg PAD which has been contributing to the refractory nature of the diabetic ulcers. He has another small non-pressure ulcer over the left lower leg and does not report significant drainage from this site. 01/21/18. Seen by Dr. Christensen. The patient feels there's been a modest decrease in drainage associated with the right lower leg diabetic ulcers while taking levofloxacin and cefdinir over the past week. His wound cultures however returned showing persistence of the resistant Acinetobacter and Staph haemolyticus bacteria. He does not report pain in the leg and recently underwent repeat intervention for the right leg PAD. He does not report fevers or feeling unwell nor adverse side effects of the antibiotics. He also does not report significant drainage from the right 1st or 2nd toe diabetic ulcers nor left lower leg diabetic ulcer since his last visit. 01/16/18. Seen by Dr. Christensen. The patient underwent intervention for his right lower limb PAD last week however notes are not yet available to review. He does not report pain in the leg but feels the drainage from the right medial malleolus and right lower leg diabetic ulcers has increased. He does not report increased drainage or acute issues regarding the right 1st toe nor left lower leg diabetic ulcers. He's also completed his course of levofloxacin and continues on cefdinir for the recent polymicrobial wound cultures taken from the right lower leg ulcers and he does not report adverse side effects or fevers. 01/09/18. Seen by Kane Braun PA-C. The patient reports stable drainage from his chronic ulcers of the right lower extremity. He continues on antibiotics for his polymicrobial infection of his ulcers. 01/02/18. Seen by Dr. Christensen. The patient's recent wound culture again grew a resistant Acinetobacter species. He's on oral levofloxacin and cefdinir again after an interruption in the dual therapy that was noted at his last visit. He feels the left redness, swelling, and drainage have started to decrease and he's changing the dressings overlying the right medical malleolus, right lower leg and foot, right 1st toe and left lower leg diabetic ulcers twice daily as recommended. He also is scheduled for repeat intervention to treat the right leg PAD next week with Dr. Harrison. 12/31/17. Seen by Dr. Christensen. The patient called asking to be seen prior to his appointment this due to increased swelling and redness of the right lower leg. He's been on oral cefdinir and levofloxacin for refractory cellulitis of the leg and based on the recent Acinetobacter and Enterobacter positive wound cultures taken of the right lower leg and 1st toe diabetic ulcers. He does not report a fever but does state he feels a bit unwell. Also, he took his last dose of levofloxacin yesterday but has additional doses of cefdinir which indicates he may be missing doses of antibiotics. He also has an appointment with Dr. Harrison today for an angiogram and possible intervention to treat right leg PAD. His blood sugars is also elevated a bit today at 170. 12/26/17. Seen by Dr. Christensen. The patient does not report increased drainage associated with the chronic right lower leg ulcers has decreased since starting on oral cefdinir and levofloxacin for the recent Enterobacter and recurrent Acinetobacter wound cultures and he does not report adverse side effects. He also does not report any acute issues regarding the right 1st toe ulcer. He has an appointment in two weeks with Dr. Harrison to address the right leg PAD and he reports a new left medial malleolus ulcer that started about a week ago. He does not report pain or drainage from this site and does not report an inciting event. 12/19/17. Seen by Dr. Christensen. The patient feels the drainage associated with the chronic right lower leg ulcers has decreased since starting on oral cefdinir and levofloxacin for the recent Enterobacter and recurrent Acinetobacter wound cultures and he does not report adverse side effects. He also does not report pain or drainage associated with the right 1st toe diabetic ulcer and is applying topical gentamcinin as recommended. He suffers from PAD in the right leg as well as CKD stage 3 and has had angioplasty in 2016 to address the PAD. 12/13/17. Seen by Dr. Christensen. The patient is now on oral cefdinir and levofloxacin for the Enterobacter and resistant Acinetobacter positive wound cultures taken at his last visit. He does not report pain or increased drainage associated with the very refractory right medial malleolus, right lateral lower leg, nor right 1st toe diabetic ulcers since his last visit and he's changing the dressings only once daily. His HBOT has also been discontinued due to his recent seizure that occurred during his dive last week. 12/09/17. Seen by Dr. Christensen. The patient returns following his seizure that occurred during HBOT on Saturday. He was discharged home from the ER later in the day and does not report any significant issues over the weekend. He completed his course of Bactrim last week but continues on IV daptomycin which is treating chronic osteomyelitis of the right medical malleolus. He does not report pain nor increased drainage from this ulcer nor the other right lower leg non-pressure ulcer or right 1st toe diabetic ulcer. 11/29/17. Seen by Dr. Christensen. The patient continues on IV daptomycin and he completed his course of Bactrim that are treating the refractory Acinetobacter positive wound culture and right medial malleolar chronic osteomyelitis. In general he feels the drainage from the right medial malleolus, right lower leg, and right 1st toe diabetic ulcers has decreased considerably over the past week. He's also tolerating HBOT without difficulty. 11/22/17. Seen by Dr. Christensen. The patient continues on IV daptomycin and Bactrim that are treating the refractory Acinetobacter positive wound culture and right medial malleolar chronic osteomyelitis. He also continues on hyperbaric oxygen therapy and does not report ever side effects. In general he feels that the drainage associated with the chronic right medial malleolar and right lateral lower leg ulcers has decreased considerably and he does not report any new issues regarding right first toe diabetic ulcer and her second toe diabetic ulcers. 11/14/17. Seen by Dr. Christensen. The patient continues on IV daptomycin and he completed a course of Bactrim that are treating the refractory Acinetobacter positive wound culture and right medial malleolar chronic osteomyelitis. He also continues on hyperbaric oxygen therapy and does not report ever side effects. In general he feels that the drainage associated with the chronic right medial malleolar and right lateral lower leg ulcers has decreased considerably and he does not report any new issues regarding right first toe diabetic ulcer and her second toe diabetic ulcers. 11/07/17. Seen by Dr. Christensen. The patient continues on IV daptomycin for chronic osteomyelitis associated with the chronic right medial malleolus diabetic ulcer. He does not report adverse side effects nor pain or increased drainage associated with this ulcer number the right lateral ulcer nor first toe ulcer. He is also started on hyperbaric therapy and does not report any adverse effects. 10/31/17. Seen by Dr. Christensen. The patient feels that the drainage associated with chronic right medial malleolus and lateral foot and lower leg ulcers has decreased over the past week. He continues on IV daptomycin and has completed his course of Bactrim, both that were treating associated refractory cellulitis. Of note his bone scan reports a high suspicion for osteomyelitis of the right medial malleolus of which was diagnosed also in 2015 on bone scan. He also is unsure of whether an appointment has been made for follow-up with interventional radiology regarding review of his PAD for which he had angioplasty in 2016. He does not report adverse side effects of the antibiotics, fevers, or feeling unwell and his blood sugars continue to be well controlled with most below 150. 10/24/17. Seen by Dr. Christensen. The patient is now on IV daptomycin and Bactrim for refractory cellulitis, and possibly chronic osteomyelitis of the medial malleolus, associated with the chronic right lower leg diabetic ulcers. He is not reporting adverse side effects, fevers, nor feeling unwell in general however he does continue to report what sounds like rest pain when lying in bed at night that improves when standing up and walking around. His MRA did not reveal obvious proximal arterial disease however distal vessels were not well visualized. Dr. Harrison, interventional radiology, has recommended an angiogram to further evaluate for clinically significant PAD. 10/17/17. Seen by Dr. Christensen. The patient is now on Bactrim and Augmentin for the recurrent and resistant Acinetobacter culture plus enterococcus. He is not reporting adverse side effects however the drainage associated with chronic right medial malleolus and right lateral lower leg diabetic ulcers has not decreased since his last visit. He does not report pain nor increased swelling nor fevers or feeling unwell. He also does not report significant drainage associated with chronic right first toe diabetic ulcer. He has a history of severe PAD in the leg but does not report rest pain or claudication and had angioplasty approximately 18 months ago and his arterial Doppler from August 2017 confirms a high grade stenosis of the SFA. Of note, he has healed the ulcers in the past however has made no progress in terms of the size or depth over the past 3-4 months. Also, he has a history of osteomyelitis of the medial malleolus dating back to December 17, 2014 noted on his nuclear bone scan at that time and suggested again on his June 09, 2015 MRI. 10/10/17. Seen by Dr. Christensen. The patient does not report pain associated with the chronic right medial malleolus, right lateral lower leg, and right first toe and third toe diabetic ulcers however he does feel that the drainage continues to be significant from the malleoli or ulcer. His blood sugars continued to be well controlled and he is now off of antibiotics. Of note, he has a history of PAD in the leg and his last review by Dr. Harrison suggested flow was adequate to the foot however this was about 18 months ago. He does not report claudication or rest pain, fevers, or feeling unwell in general. 10/03/17. Seen by Kane Braun PA-C. The patient reports decreased drainage from his right lower extremity diabetic ulcers since beginning his antibiotics for his polymicrobial infection. 09/26/17. Seen by Kane Braun PA-C. The patient reports a very significant increase in drainage from his right medial lower leg ulcer. He is not currently on antibiotics and is spending more time on his feet. 09/19/17. Seen by Kane Braun PA-C. The patient reports good blood sugar control this week. He reports decreased drainage from his ulcer compared with 2 weeks ago and also reports that he has been leaving his new 2nd toe ulcer open to the air as he forgets that is needs a dressing. 09/12/17. Seen by Kane Braun PA-C. The patient reports decreased drainage since beginning antibiotics (which he continues taking) for his infection of his lower right leg ulcer. 09/05/17. To my Dr. Christensen. The patient feels the drainage associated with chronic right medial malleolar and right lateral lower leg diabetic ulcers continues to decrease since starting on levofloxacin and amoxicillin for the polymicrobial positive wound infection. He is not reporting adverse side effects nor drainage associated with chronic right first and second toe diabetic ulcers. Of note, he also has right lower leg PAD and underwent anterior tibial and peroneal angioplasty over a year ago. He does not report claudication or rest pain at this time. 08/29/17. Seen by Kane Braun PA-C. The patient reports increased drainage from his right lower leg diabetic ulcers. 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 08/19/17. Seen by Dr. Christensen. The patient feels the drainage associated with the chronic right lower leg diabetic ulcers continues to improve and he does not report any pain or drainage associated with chronic right first and second toe diabetic ulcers. He completed his course of Bactrim 2 days ago and does not report adverse side effects other than some mild diarrhea. 08/12/17. Seen by Dr. Christensen. The patient feels the drainage associated with the chronic right lower leg diabetic ulcers is improved since starting on Bactrim which he completed 2 days ago. He does not report adverse side effects, fevers, or feeling unwell or pain associated with these ulcers nor drainage or pain associated with the right first and second toe diabetic ulcers. 08/08/17. Seen by Dr. Christensen. The patient states his wound VAC foam dressing saturated with drainage as of yesterday. He continues on antibiotics for cellulitis associated with the chronic right medial malleolus diabetic ulcer and does not report adverse side effects, fevers, as her feeling unwell. I'm seeing him today due to the significant maceration noted in the periulcer area by the nurse today. 08/05/17. She will Dr. Christensen. The patient does not report pain or previous drainage associated with the chronic right medial malleolus diabetic ulcer nor the right first toe ulcer nor right lower leg lateral diabetic ulcer. He is on Bactrim for the refractory cellulitis associated with the recurrent Acinetobacter positive wound culture. He does not report adverse side effects, fevers, and her feeling unwell. 07/29/17. Seen by Dr. Christensen. The patient does not report pain nor increased drainage associated with chronic right lower leg and right first and second toe diabetic ulcers since his last visit. He is now off of antibiotics and states that he decreased his dressing changes recently to once daily from twice daily. The staff however are concerned about increased maceration around the ulcers. 07/17/17. Seen by Dr. Christensen. The patient reports persistent drainage associated with the right lower leg diabetic ulcers and states his wound VAC stopped working after 3 days. He since been changing his dressing daily. He's completed his course of cefdinir and levofloxacin and was treating cellulitis associated with the ulcers. He also notes a new ulcer at the distal second toe adjacent to the distal first toe diabetic ulcer. His blood sugars been well controlled also. 07/10/17. Seen by Dr. Christensen. The patient does not report pain nor increased drainage associated with chronic right lower leg diabetic ulcers nor the right first toe diabetic ulcer. He completed his course of cefdinir and levofloxacin that's treating the polymicrobial wound culture. His blood sugars are well controlled and he is not reporting adverse side effects from antibiotics. 07/04/17. Seen by Dr. Crhistensen. The patient reports increased drainage associated with the chronic right lower leg diabetic ulcers since his last visit and since stopping antibiotics that were treating the recently cultured Acinetobacter and Enterococcus cultures. He does not report pain in the leg nor fevers or feeling unwell and states his blood sugars remain well controlled. He also does not report any new issues regarding the chronic right 1st toe diabetic ulcer and of note was more active recently while on vacation in [place] the past 10 days. 06/21/17. Seen by Dr. Christensen. The patient feels the drainage associated with the chronic right lower leg diabetic ulcers is decreased since starting on cefdinir and he tolerated negative pressure wound therapy over the last 2 days without difficulty. His wound culture grew Acinetobacter and enterococcus. He does not report fevers, feeling unwell, nor adverse side effects from antibiotics. Of note, he will be traveling to [place] on an airplane leaving next Saturday and return 1 week later. 06/19/17. Seen by Dr. Christensen. The patient feels the recent significant drainage associated with the chronic right lower leg diabetic ulcers has decreased and he completed a course of cefdinir 5 days ago that was treating the recent Acinetobacter positive wound culture. He does not report pain at the site nor other acute issues today. He also does not report drainage associated with chronic right first toe diabetic ulcer. 06/11/17. Seen by Kane Braun PA-C. The patient reports continued drainage from his right lower extremity ulcers. He is applying gentamicin and taking bactrim to treat the bacteria that were cultured from his ulcer at his last visit. Of note, his cultured bacteria is intermediately sensitive to gentamicin. 06/04/17. Seen by Kane Braun PA-C. The patient reports increased purulent drainage from his right lower extremity ulcers. 05/28/17. Seen by Kane Braun PA-C. The patient reports no increase in drainage from his lower extremity ulcers. 05/14/17. Seen by Kane Braun PA-C. The patient reports increased drainage from his chronic lower extremity ulcers. 05/07/17. Seen by Kane Braun PA-C. The patient reports no increase in drainage from his chronic lower extremity ulcers. 04/30/17. Seen by Kane Braun PA-C. The patient reports no complications from his Bactrim and his ulcer drainage has decreased significantly over the past week. 04/23/17. Seen by Dr. Christensen. The patient is now on Bactrim for the recent Acinetobacter positive wound culture taken from the right lower leg diabetic ulcer. He reports decreased drainage and swelling in the leg and does not report any pain. He also does not report any problems regarding his chronic right distal first toe ulcer. 04/16/17. Seen by Dr. Christensen. The patient states his wound vac that was placed last lost its seal by Saturday and he removed the entire dressing. He does not report pain or increase drainage from the right lower leg and right 1st toe ulcers since then and states his blood sugars are mostly below 150. 04/11/17. Seen by Dr. Christensen. The patient does not report pain associated with the chronic right lower leg nor right first toe diabetic ulcers however drainage is significant and persistent associated with the lower leg ulcers. He continues on ciprofloxacin and amoxicillin to treat the polymicrobial wound infection. He does not report adverse side effects nor fevers or feeling unwell in general. 04/04/17. Seen by Dr. Christensen. The patient feels the drainage associated with the right lower leg and first toe diabetic ulcers is decreased over the past week. He's now on ciprofloxacin and amoxicillin for the recent polymicrobial positive wound culture and he does not report adverse side effects. His blood sugars also are mostly below 150. 03/28/17. Seen by Dr. Christensen. The patient feels the drainage associated with the right lower leg and first toe diabetic ulcers is decreased over the past week. He's changes dressings only once daily and does not report any other acute problems at this time. Also, a new ulcer is now present along the right lateral mid-foot. 03/21/17. Seen by Dr. Christensen. The patient reports improvement terms of the drainage associated with the right lower leg diabetic ulcers. He does not report any pain or drainage associated with the right first toe diabetic ulcer. He states his blood sugars have been well- controlled most below 120. 03/14/17. Seen by Dr. Christensen. The patient and staff report persistent and significant drainage associated with the chronic right lateral lower leg and right medial malleolar diabetic ulcers. He is changing his poise addressing once daily and is not currently on antibiotics. He does not reporting any new problems regarding the chronic right first toe diabetic ulcer. 03/07/17. Seen by Kane Braun PA-C. The patient reports very little drainage from his back wound and stable drainage from his right lower leg diabetic ulcers. He has a lot of questions regarding the pathology of and prognosis for his right lower leg and it's recurrent ulcers. He is considering moving to the [facility] and is looking into what medical services they have there. 02/28/17. Seen by Dr. Christensen. The patient feels the drainage associated with the right lower leg diabetic ulcers has decreased over the past week and he does not report any new problems regarding the chronic right 1st toe diabetic ulcer nor posterior right shoulder surgical wound. 02/21/17. Seen by Dr. Christensen. The patient continues to report significant drainage associated with the chronic right medial malleolar diabetic ulcer although he feels that is decreasing somewhat since starting on clindamycin for a recent positive wound culture. He does not report adverse side effects, pain in the ankle, nor fevers. He's also asked that I look at a slowly healing surgical wound on his back following a Mohs procedure for excision of a melanoma about 1 month ago. He states the site is tender but otherwise has no acute complaints. He does not report significant drainage nor new changes associated with chronic right first toe diabetic ulcer. 02/14/17. Seen by Kane Braun PA-C. The patient reports he has a new draining wound on his back. He had a shave removal of a skin cancer (patient is unsure of what type) and the dressing has fallen off and it has been draining through his shirt. It was not sutured and was left open to heal by secondary intention. His chronic right ankle and foot diabetic ulcers have had reduced drainage since starting clindamycin several days ago. Of note, he mis-read the label and was taking the clindamycin only once daily. He reports stable blood sugars with some blood sugars above 150 this week. 02/05/17. Seen by Dr. Christensen. The patient reports significant drainage associated with chronic right lower leg diabetic ulcers but none associated with the right first toe diabetic ulcer. He completed a course of Levaquin yesterday is been treating a recurrent infection associated with the toe ulcer and does not report fevers, feeling unwell, or adverse side effects. Of note, he is having problems in terms of financial limitations and medical costs associated with dressing changes. 01/31/17. Seen by Dr. Christensen. The patient does not report increased drainage or pain associated with the chronic right lower leg diabetic ulcers nor the chronic right first toe diabetic ulcer. He is now off of antibiotics does not report fevers or feeling unwell in general. 01/26/17. Seen by Kane Braun PA-C. The patient reports he continues to have a great deal of drainage from his right medial malleolar diabetic ulcer. 01/07/17. Seen by Dr. Christensen. The patient does not report increased pain or drainage associated with the chronic right lower ankle, right foot, nor right 1st toe diabetic ulcers since his last visit however staff report that the dressings are saturated. Also, the patient states his blood sugars remain well controlled below 150 consistently. 12/31/16. Seen by Kane Braun PA-C. The patient reports continued copious drainage from his right lower extremity diabetic ulcers. He is taking his Zyvox as prescribed. In addition his blood sugars are reportedly in good control, under 150. His prealbumin level resulted in the normal range. 12/27/16. Seen by Dr. Christensen. The patient does not report increased pain or drainage associated with the chronic right lower leg and right 1st toe diabetic ulcers however staff report that the dressings are saturated. He's been on Zyvox for a wound infection associated with the right medial malleolar ulcer and does not report adverse side effects. 12/18/16. Seen by Dr. Christensen. The patient feels there has been a significant increase in drainage associated with the right lower leg diabetic ulcers over the past week. He does not report pain at the site of the ulcers nor fevers or feeling unwell and his not currently on antibiotics. He states his blood sugars are relatively well controlled with most below 150. 12/10/16. Seen by Kane Braun PA-C. The patient reports increased drainage from his chronic diabetic ulcers of the right lower leg and foot. His wound culture has resulted with an enterococcus spp. and a coagulase negative staph spp. growth that are both PCN sensitive. 12/05/16. Seen by Dr. Christensen. The patient does not report pain associated with the compression wrap was placed over the right lower leg 2 days ago. The staff report that his dressings are soaked and there is some maceration in the periwound areas of the chronic right foot and medial malleolleolar diabetic ulcers. He does not report pain nor significant drainage associated with chronic right first toe diabetic ulcer. 12/03/16. Seen by Kane Braun PA-C. The patient reports no increase in drainage from his right lower leg diabetic ulcers since his last evaluation. His arterial doppler resulted with no significant stenosis in the right leg. 11/26/16. Seen by Kane Braun PA-C. The patient reports difficulty in controlling his blood sugars this week with several readings above 150. Drainage from his right lower leg ulcer has not increased. 11/19/16. Seen by Dr. Christensen. The patient reports some increased drainage associated with the lateral right lower leg diabetic ulcer. He isn't reporting any pain at the site nor pain or increased drainage associated with the right medial malleolar diabetic ulcer or right first toe ulcer since his last visit. His blood sugars continue to be mostly below 150 at home and he is not report fevers or feeling unwell in general. 11/12/16. Seen by Kane Braun PA-C. The patient reports good blood sugar control this week and no increase in drainage from his right lower leg diabetic ulcers. He is seeing dermatology today for removal of another skin cancer of the face. The patient is unsure if it is a melanoma. He also expresses concern about how long his ulcer is taking to heal, wondering Is it ever going to heal? 11/05/16. Seen by Kane Braun PA-C. The patient reports that some of his blood sugar readings have been above 150 this week. He reports that yesterday's AM blood sugar was 160. Drainage from his chronic right foot and right lower leg diabetic ulcers has reportedly reduced. 10/29/16. Seen by Kane Barun PA-C. The patient reports that he has had continued swelling at the site of his melanoma removal on the left side of his nose. His diabetic ulcers of the right foot have had stable drainage. 10/22/16. Seen by Kane Braun PA-C. The patient reports drainage from his right foot diabetic ulcers continues and today is his last does of Levaquin which was prescribed to treat an infection of these ulcers. 10/15/16. Seen by Kane Braun PA-C. The patient reports no increase in drainage from his chronic diabetic ulcers of the right foot. His pathology report has returned from the foreign body that was removed from his 2ng toe ulcer as likely plant material. After discussing this finding with the patient he believes it is a seed from [employer]. 10/08/16. Seen by Kane Braun PA-C. The patient reports that he has been using tetragrip compression stockings as directed, but doesn't wear them on mornings that he has clinic appointments. 10/01/16. Seen by Kane Braun PA-C. The patient reports no increase in drainage from his chronic diabetic ulcers of the right foot and leg. He is noted today to have a new ulcer on his right 2nd toe. The patient was not aware of this ulcer until it was discovered today. 09/24/16. Seen by Kane Braun PA-C. The patient reports decreased drainage from his chronic diabetic ulcers of the right foot and lower leg since his last evaluation. 09/17/16. Seen by Kane Braun PA-C. The patient reports that his blood sugars have been elevated above 150 this week. He has finished his course of Ampicillin and reports decreased ulcer drainage. 09/10/16. Seen by Kane Braun PA-C. The patient should be finished with his Augmentin [correction he was on AMPicillin], but reports that he has a week or more left . He does not recall ever taking it 4 times a day. His diabetic ulcers of the right lower leg have had slightly decreased drainage since his last evaluation, but continue to drain. 09/03/16. Seen by Dr. Christensen. The patient does not report increased drainage or pain associated with chronic right lower leg diabetic ulcers or right first toe diabetic ulcer since his last visit. He is applying Kerasal to the periwound right first toe callus as recommended and he states his blood sugars continue to be mostly below 150. 08/20/16 Seen by Kane Braun PA-C. The patient reports increased drainage from his right medial ankle and lateral right lower leg ulcers since his last visit. He does not report associated fever or chills. 08/13/16 Seen by Kane Braun PA-C. The patient reports consistently increased drainage from his right medial ankle ulcers for the past 2-3 days. The drainage has been of a darker color than the usual clear drainage and he has noted associated erythema surrounding the ulcers. No fever or chills reported. In addition the patient was unaware of the new ulcers on his lateral lower right leg that were discovered today. 07/30/16 Seen by Kane Braun PA-C. The patient reports that he has had his facial melanoma excised and will return to dermatology for follow up in 4 days. He reports that his blood sugars have been running over 150 in the past few days and that his new wound dressing on his right ankle ulcers appears to have increased maceration in the ulcer area. 07/24/16 Seen by Kane Braun PA-C. The patient reports a significant increase in drainage from his chronic right ankle ulcers requiring more frequent dressing changes. The increased drainage began 5 days ago and has been continuous. He has not had any associated fever or chills. New periwound erythema is reported without warmth or pain. 07/17/16 Seen by Kane Braun PA-C. The patient reports no increase in drainage from his chronic right ankle ulcers or his more recent left leg ulcer. 07/09/16 Seen by Kane Braun PA-C. The patient reports a new wound on his left medial leg which begain spontaneously 2-3 days ago. The patient believes he may have spilled hot grease on it while cooking but doesn't actually recall doing so. It raised as a painless blister, then popped with clear fluid drainage. He also reports that he is making arrangements for his melanoma to be removed in the coming days. His right lower leg diabetic ulcers have had increased drainage which is reportedly sero-purulent. 06/20/16. Seen by Dr. Christensen. The patient does not report increased drainage associated with the chronic right lower leg diabetic ulcers nor the right 1st toe diabetic ulcer. The previously diagnosed left nose lesion has been biopsied and pathology confirms melanoma. He 's asked that I take a look at the biopsy site and states he's scheduled to see a surgeon in the near future to discuss further treatment options. He does not report pain or drainage from the biopsy site. 06/06/16. Seen by Dr. Christensen. The patient does not report increased drainage associated with the chronic right lower leg diabetic ulcers nor the right 1st toe diabetic ulcer. However, he's concerned about a non-painful lesion on the left side of his nose that's been growing over the past few weeks and started bleeding yesterday. He has a history of melanoma and recent excision of a malignant lesion from the left shoulder earlier this year. 06/01/16. Seen by Dr. Christensen. The patient does not report increased drainage or swelling associated with the chronic right lower leg diabetic ulcers. He's also applying Kerasal to the right 1st toe periulcer callus as recommended. He states his blood sugars are mostly below 150 and he's off of antibiotics. 05/24/16 Seen by Kane Braun PA-C. The patient reports stable drainage from his right lower leg and right great toe ulcers since his last evaluation. The patient reports a mix of blood sugars above and below 150 in the past week. 05/17/2106. Seen by Dr. Christensen. The patient does not report pain or increased drainage associated with the chronic right medial malleolar, right lower leg, or right 1st toe diabetic ulcers since his last visit. 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 05/11/16 Seen by Kane Braun PA-C. The patient reports that his blood sugars have been under 150 this past week and that he is finishing up his doxycycline and bactrim for a polymicrobial ulcer infection of his right ankle ulcers. His PAD is improved after his recent angioplasty and he reports more warmth in his right foot. His chronic ankle ulcers of the right foot have had stable drainage since his last evaluation. 05/04/16. Seen by Dr. Christensen. The patient does not report pain or increased drainage associated with the chronic right medial malleolar, right lower leg, or right 1st toe diabetic ulcers. 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 He also does not report any new issues regarding the right anterior lower leg trauma wound. 04/27/16. Seen by Dr. Christensen. The patient does not report pain or increased drainage associated with the chronic right medial malleolar, right lower leg, or right 1st toe diabetic ulcers. 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 He also does not report any new issues regarding the right anterior lower leg trauma wound. 04/20/16. Seen by Dr. Christensen. The patient does not report pain or increased drainage associated with the chronic right medial malleolar, right lower leg, or right 1st toe diabetic ulcers. 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 He states his blood sugars are typically around 150 and does not report any new issues regarding the right anterior lower leg trauma wound noted at his last visit. 04/13/16. Seen by Dr. Christensen. The patient missed his PCI for right leg PAD yesterday due to an error on his calendar. He does not report increased swelling, pain, or drainage associated with the chronic right medial malleolar or right lower leg diabetic ulcers nor the right 1st toe diabetic ulcer. 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 He does not report adverse side effects and states his blood sugars are typically around 150. Of note, his A1c increased to 7.9 from 6.8 6 months prior. 04/05/16. Seen by Dr. Christensen. The patient reports a new traumatic wound to the right lower leg that occurred when he hit his leg while walking in the dark earlier this morning. He says that he blood considerably but it is not particularly painful. Regarding his right ankle and lower leg diabetic ulcers, he does not report any increased drainage or other problems. Nor does he report any significant drainage from the right first toe diabetic ulcer. His blood sugars continue to be mostly around 150. He still complains of some pitching at the left shoulder surgical but does not report drainage. Also, he is scheduled for intervention for his right leg PAD within the next two weeks. Also, the patient continues on Bactrim and doxycycline for chronic osteomyelitis of the right ankle. 03/30/16. Seen by Dr. Christensen. 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 He's also reporting some significant pruritus associated with the slowly healing left shoulder surgical wound but no significant drainage. He states his blood sugars are mostly around 150. 03/23/16. Seen by Dr. Christensen. 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 He's also concerned about a possible suture delaying healing of the recently excised melanoma surgical wound at the left posterior shoulder. He does no report pain or drainage at this site. He also states his blood sugars are mostly below 150 with none over 200. 03/16/16 Seen by Kane Braun PA-C. The patient reports stable drainage from his right lower leg ulcers. In addition he reports not being able to schedule transportation for his angioplasty. Again today he was asked about definitive follow up for his recently re-excised melanoma and does not recall being told that the margins were clear. 03/09/16. Seen by Dr. Christensen. The patient does not report or increased drainage associated with the right lower leg or right medial malleolar diabetic ulcers over the past week. He continues on antibiotics for the ulcers and right medial malleolar chronic osteomyelitis without reporting adverse side effects. He's also asked that we review his left posterior shoulder surgical wound due to a possible retained suture. 02/17/16. Seen by Dr. Christensen. The patient does not report pain or significant drainage associated with the chronic right medial malleolar or right lower leg diabetic ulcers over the past week. 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 02/09/[address] Christensen. The patient does not report pain or significant drainage associated with the chronic right medial malleolar or right lower leg diabetic ulcers over the past week. 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 Of note, he was changed from doxycycline to Bactrim within the past week due to his most recent wound culture results. He also reports a new trauma wound to the more proximal right anterior lower leg but does not recall what he hit the leg on or when. He states his blood sugars are mostly below 150. 02/02/16. Seen by Dr. Christensen. Patient is not report significant pain or drainage associated with the right medial malleolus diabetic ulcer or right lower leg diabetic ulcer. 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 He states the blood sugars are typically around 150. Of note, he also reports a new left anterior lower leg trauma wound that is nonpainful and has only minimal drainage. This occurred sometime in the past week. 01/26/[address] Christensen. The patient feels the drainage and swelling associated with the chronic right medial malleolar and right lower leg diabetic ulcers continues to decrease since starting HBOT. He also continues on doxycycline for chronic osteomyelits of the ankle and does not report adverse side effects. He does not report pain or drainage associated with the right 1st toe diabetic ulcer and has been applying Kerasal to the surrounding callus as recommended. 01/19/[address] Christensen. The patient reports decreased drainage associated with the chronic right medial malleolar and right lower leg diabetic ulcers over the past week and no drainage from the right 1st toe diabetic ulcer. 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 He does not report adverse side effects from the doxycycline and states his blood sugars are well controlled with most below 150. 01/12/[address] Christensen. The patient feels the drainage associated with the chronic right medial malleolar and right lower leg diabetic ulcers continues to decrease since starting on doxycycline for osteomyelitis of the malleolus and HBOT. He reports his blood sugars are relatively well controlled with most below 150. He's also scheduled to see Dr. Peña next week again to discuss possible additional intervention to treat the right lower leg PAD. 01/05/[address] Christensen. The patient feels the drainage associated with the chronic right medial maleollar diabetic ulcer has been decreasing since starting on doxycycline for the resistant coag negative Staph culture. He also does not report adverse side effects from doxycycline or problems regarding HBOT that is adjunctive treatment for the Bauman grade 3 diabetic ulcer and associated underlying chronic osteomyelitis. His blood sugars are improving with most below 150 and he's using a walker while at home to help facilitate offloading. Of note, the patient also underwent right leg angioplasty due to his recent MRA showing severe PAD and with one vessel runoff to the ankle. 12/29/15 Seen by Kane Braun PA-C. The patient reports continued drainage and increased edema in the area of his right medial malleolar diabetic ulcers. He also reports the he has decided to postpone recommended melanoma treatment to focus on taking care of the ulcers. 12/22/[address] Christensen. The patient reports continued drainage and redness associated with the chronic right medial malleolar and right lower leg diabetic ulcers. He' s been on Zyvox for the past two days to treat the recent wound culture that grew two species of resistant coag negative Staph. He also has been checking his blood sugars twice daily stating most are around or below 150. He does not report fevers and states the right lower leg and ankle pain he reported last week is starting to improve. He's also scheduled for a right lower leg MRA and to see interventional radiology next week to evaluate for possible clinically significant PAD in the right leg that may be inhibiting wound healing. Additionally, his bone scan two days ago suggests possible osteomyelitis of the right medial malleolus and states it can not be ruled out. Of note, he carries a diagnosis of a Bauman grade 3 diabetic ulcer at the medial malleolus with underlying osteomyelitis based on his bone scan from Nov, 2014. This site has not entirely healed since then and in fact has deteriorated over the past month. 12/15/[address] Christensen. The patient reports continued moderate drainage from the chronic right medial malleolar and right lower leg diabetic ulcers and he's now on Levofloxacin for the recent malleolar ulcer Stenotrophomonas culture. He reports discomfort in the right lower leg that's most noticeable when lying in bed at night however it does not necessarily resolve when he stands to walk and he does not report claudication. His blood sugars also remain well controlled below 150 consistently although his last A1c was 8.0 on 10/11/15. 12/08/[address] Christensen. The patient reports persistent drainage from the chronic right medial malleolar diabetic ulcer and some pain at this site when he lies flat in bed at night. He's now on levofloxacin for Stenotrophomonas positive wound culture and does not report adverse side effects. His MRI of the right ankle shows some marrow edema but retained normal fatty marrow signal indicative more of reactive changes as opposed to osteomyelitis. His blood sugars are a bit elevated intermittently around 160 at home but not higher than this. He also does not report fevers or feeling unwell. 12/01/[address] Christensen. The patient reports increased pain and drainage associated with the chronic right medial malleolar diabetic ulcer. He does not report fevers or feeling unwell however and states his blood sugars remain under 150 consistently. 11/25/[address] Christensen. The patient reports increased drainage associated with the chronic right medial malleolar diabetic ulcer along with increased swelling in the right lower leg. He does not report pain associated with the ulcer nor fevers or feeling unwell and states his blood sugars remain consistently under 150. 11/18/[address] Christensen. The patient does not report pain or drainage associated with his chronic right medial malleolar diabetic ulcer. He does feel there's been some increased swelling and redness in the right lower leg this week however feels this may be due to a mild sun burn than occurred while mowing his lawn. He also states his blood sugars are consistently below 150. 11/04/[address] Christensen. The patient does not report significant drainage from the right medial malleolar diabetic ulcer and has completed his course of ciprofloxacin for the recent Pseudomonas infection of the ulcer. He also does not report pain or swelling associated with the ulcer and states his blood sugars are mostly below 150. 10/28/[address] Christensen. The patient does not report increased drainage from the right medial malleolar diabetic ulcer and he's completed his course of ciprofloxacin without reporting adverse side effects. He states his follow up surgery for removal of the remaining left should melanoma has been postponed for a few weeks and he does not report any drainage or pain associated with the left chest or left shoulder healing surgical wounds. His blood sugars also remain well controlled around 120 although his A1c in September was 8.0. 10/21/[address] Christensen. The patient continues on ciprofloxacin for the recent Pseudomonas positive culture of the right medial malleolus diabetic ulcer. He does not report adverse side effects and feels the drainage has decreased significantly over the past week. He also is to undergo additional surgery to address residual melanoma at the left shoulder. He does not report any new issues regarding the left shoulder or chest surgical wounds. His blood sugars also remain well controlled below 150 consistently. 10/14/[address] Christensen. The patient reports some persistent drainage from the chronic right medial malleolar diabetic ulcer and his wound culture from the last visit grew Pseudomonas. He was placed on doxycycline empirically at the last visit. He does not report pain associated with the ulcer and states his blood sugars are consistently below 150. 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 09/29/[address] Christensen. The patient does not report pain, significant drainage, or other issues regarding his chronic right medial malleolar non-pressure ulcer. He reports using Kerasal and a moisturizer on his right 1st toe callus and feet but is non- committal in terms of how frequently they're being applied. 09/19/15 Seen by Kane Braun PA-C. The patient reports no increase in drainage from his medial malleolar diabetic ulcer. His blood sugars are reportedly a little higher than average lately and he reports again that today's blood pressure reading is not consistent with his well controlled numbers outside of our clinic. In addition he reports that the recently removed lesion on his left scapular area came back as confirmed as Melanoma and he is going to have a surgery to excise it, and possibly some lymph nodes in the coming weeks. 09/02/[address] Christensen. The patient does not report significant drainage from the chronic right medial malleolar diabetic ulcer. 08/24/[address] Christensen. The patient does not report pain, swelling, or drainage associated with his chronic left medial malleolar diabetic ulcer and he states his blood sugars remain well controlled below 150 consistently. 08/10/2015 Seen by Kane Braun PA-C. The patient reports minimal drainage from his left ankle ulcer. 08/03/2015 Seen by Kane Braun PA-C. The patient does not report any drainage from his first toe ulcer since his last dressing change. He did inspect it with a mirror and was displeased to see discoloration in the callous. He has religiously been wearing his offloading shoe. His medial malleolar ulcer has been draining minimally. 07/28/[address] Christensen. The patient does not report increased drainage from the right medial malleolar diabetic ulcer nor any drainage from the right 1st toe diabetic ulcer. He does admit to not using his walker as recommended at all times but typically walks only on days of our appointments and when grocery shopping. His blood sugars remain well controlled and he's completed his course of ciprofloxacin that was treating osteomyelitis of both the right 1st toe and right medial malleolus. He also continues with HBOT to treat right 1st toe osteomyelitis. 07/20/[address] Christensen. The patient does not report significant drainage from either the right 1st toe nor right medial malleolar diabetic ulcers. He also continues on ciprofloxacin and continues HBOT for osteomyelitis of the right 1st toe. 07/04/15 Seen by Kane Braun PA-C. The patient reports stable drainage from his wounds. He reports using a frame walker for offloading whenever he can. 06/30/[address] Christensen. The patient returns today for review of his right 1st toe diabetic ulcer and underlying osteomyelitis for which he continues on HBOT. He's also on ciprofloxacin for a recent Pseudomonas culture of the right medial malleolar ulcer. He reports there's been some drainage on the dressing the past few days despite this ulcer being healed out recently. He also admits to not using his walker as recommended spending a modest amount of time walking in his house, to appointments, and at the grocery store. 06/22/15 Seen by Kane Braun PA-C. The patient reports minimal drainage from his right malleolar wound and no noted drainage from his toe wound. 06/10/[address] Christensen. The patient reports some increased erythema in the periwound area of the right medial malleolar Bauman grade III diabetic ulcer but does not report associated pain or drainage. Nor does he report drainage associated with the right 1st toe Bauman grade III diabetic ulcer. He's now been off of IV daptomycin for 8 days. His MRI from yesterday shows persistent, albeit decreased, marrow edema at the right 1st toe distal phalanx indicating modest improvement however the evidence for osteomyelitis of the medial malleolus remain unchanged. His blood sugars have increased a bit to the 170's and his last A1c in 02/2015 was 6.8. 06/03/[address] Christensen. The patient does not report drainage or pain associated with the recently healed right 1st toe or persistent medial malleolar diabetic ulcers. He also continues on IV daptomycin for associated osteomyelitis at each site without reporting adverse side effects. He also states his blood sugars are well controlled around 120 consistently. 05/27/[address] Christensen. The patient states there's been no drainage from the right 1st toe ulcer. He continues on IV daptomycin for osteomyelitis of the 1st toe and medial malleolus without reporting adverse side effects, fevers, or sweats . His blood sugars also remain relatively well controlled below 150 and he offloads with a surgical shoe and by significantly minimizing his walking. 05/20/[address] Christensen. 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 His blood sugars are well controlled recently with most below 120 at home. 05/13/[address] Christensen. The patient does not report pain or significant drainage associated with the right 1st toe and medial malleolar ulcers nor adverse side effects associated with the IV daptomycin he's on for chronic osteomyelitis of the right 1st toe. 05/06/[address] Christensen. The patient does not report significant drainage from either the right 1st toe diabetic foot ulcer nor the right medial malleolar ulcer. He continues on IV daptomycin for chronic osteomyelitis of the right 1st toe as well as HBOT and does not report issues with either. 04/22/[address] Christensen. The patient's MRI of the right foot showed interval improvement of the osteomyelitis however there's still evidence that this persists in the right 1st distal phalanx. He's now on IV daptomycin based on a wound culture from 04/11/15 that grew two resistant coag negative Staph organisms. His blood sugars are typically below 150 and his A1c in February 2015 was 6.8. 04/08/[address] Christensen. The patient does not report significant drainage from the right 1st to or medial malleolar diabetic foot ulcers and states his blood sugars are consistently below 150. He continues on oral levofloxacin and doxycycline to treat right toe chronic osteomyelitis and is on dual antibiotic therapy with levofloxacin and doxycycline since (day 29) to address the resistant coag negative Staph culture from 02/07/15 of the 1st to ulcer. He offloads by minimizing walking significantly and wearing diabetic shoes. 03/31/[address] Christensen. The patient reports only minimal drainage from the right malleolar ulcer and none from the right 1st toe diabetic ulcer. His blood sugars remain well controlled below 120 and he does not report any side effects from the levofloxacin and doxycycline he's taking for chronic osteomyelitis of the right 1st toe. Of note , he's not offloading the right foot with a surgical shoe and walker as recommended but he is limiting his walking as much as possible. 03/24/[address] Christensen. The patient reports no drainage from the right 1st toe diabetic ulcer however the right medial malleolar ulcer continues with modest drainage but no associated pain, swelling, or erythema. He continues on an extended course of levofloxacin and doxycycline to treat chronic osteomyelits of the 1st toe and does not report any adverse side effects other than some sun sensitivity likely associated with doxycycline. 03/16/[address] Christensen. The patient reports there's been no drainage from the right 1st to ulcer and only minimal drainage from the right medial malleolus ulcer. His blood sugars remain moderately well controlled below 150 and he continues on doxycycline and levofloxacin to treat chronic osteomyelitis of the right first toe. 03/08/[address] Christensen. The patient does not report increased drainage from either the right medial malleolar ulcer nor the right 1st toe ulcer and he continues on an extended course of oral doxycycline and HBOT for chronic osteomyelitis of the right 1st toe. He does not report fever, chills, or sweats nor adverse side effects associated with the doxycycline. His blood sugars continue to be well controlled and his A1c was 6.8 on 02/25/15. 03/01/15 Seen by Kane Braun PA-C. The patient reports stable drainage from his wounds. He has been on Doxycycline and will need a refill today if it is to be continued. The patient's MRI of the foot did not demonstrate osteomyelitis of the medial malleolus but it did demonstrate osteomyelitis of the great toe. The study's impression is as follows: IMPRESSION: There is prominent inflammatory change involving the fatty and cutaneous soft tissues of the distal great toe, extending contiguously to involve the distal half of the great toe distal phalanx, where some degree of cortical destruction can be seen with internal marrow space edema and enhancement suggestive of osteomyelitis extending into that portion of the medullary space. No additional lesion elsewhere is seen that would indicate abscess formation or additional osteomyelitis. 02/21/15 Seen by Kane Braun PA-C. The patient's arterial ultrasound of the right leg does not show focal stenosis, though it does show progression of scattered plaques from the prior study. the patient's wounds continue to drain minimally. 02/14/15 Seen by Kane Braun PA-C. The patient reports more drainage from his medial malleolar ulcer than last week. Pain is minimal. Denies fever or chills. His hypertension is reportedly well controlled, and his BP is only elevated here in our clinic by his report. His diabetes reportely continues to be in good control with most morning blood sugars below 120 but he reports they have been higher in the past week or two. 02/07/15 Seen by Kane Braun PA-C. The patient reports minimal drainage from his wounds. He reports that he has attempted to spend time sitting with his feet elevated, which is a new therapy for him as he usually is always moving. He reports that it is helping his lower extremity edema modestly. 01/24/[address] Christensen. The patient's right medial malleolar ulcer wound culture from the last visit grew coag negative Staph and he's now on doxycycline since last Saturday. He reports only minimal drainage from both the ankle and 1st toe ulcer. He's also not offloading the right foot in anyway. His blood sugars continue to be well controlled below 120. 01/17/[address] Christensen. The patient does not report drainage from either the right medial malleolar or 1st toe ulcers. He's off antibiotics and states he got the ankle ulcer wet in the shower this morning. 01/03/15 Seen by Kane Braun PA-C. The patient reports minimal drainage from his wounds. He also reports that the shoes he brings into the clinic are not the ones he wears all day. Blood sugars are reportedly in pretty good control. 12/27/14 Seen by Kane Braun PA-C. X-ray of the right foot was negative for radiographic signs of osteomyelitis. ESR and CRP were within normal limits. The patient reports minimal drainage from his right ankle and toe wounds. 12/20/14 Seen by Kane Braun PA-C. The patient reports no increase in drainage from his right 1st toe ulcer or the malleolar ulcer that has recently recurred. He does report that he was treated for osteomyelitis at our clinic several years ago using HBOT and antibiotics with good results. 12/10/[address] Christensen. The patient does not report drainage from the right 1st toe ulcer but he states the right medial malleolar ulcer has recurred. He also report recurrence of right lower leg erythema and warmth since stopping Augmentin two days ago. His blood sugars remain below 150 and he does not report fever or chills. His most recent wound culture in mid October grew resistant coag negative Staph. 12/03/14 Seen by Kane Braun PA-C today. The patient reports no visible drainage from his right ankle or toe ulcers. He believes the ankle ulcer recurrence was related to edema when he was hospitalized. Edema has mostly resolved now in his legs by his report. 11/26/14 The patient does not report any drainage from the right 1st toe ulcer but states the right medial malleolar ulcer has recurred. He's not sure if it was caused by trauma or associated with blistering that was present as a result of the recent right lower leg cellulitis. He's nearly completed his course of high dose Keflex however still notes some swelling, warmth, and erythema in the leg. He does not report pain however. 11/22/14 The patient was discharged from [facility] on Saturday following treatment for recurrent right lower leg cellulitis. He was treated with vancomycin for resistant coag neg Staph and is now on high dose oral Keflex and feels the swelling and erythema continue to improve. He does not report fever or drainage associated with the right 1st toe ulcer and his blood sugars remain well controlled below 120. 11/15/14 The patient reports new drainage from the right 1st toe ulcer and was seen in the ER over the weekend for cellulitis of the right lower leg. He was treated with 3 doses of IV antibiotics on subsequent return to the ER over the course of the past few days and feels the swelling and erythema are slowly improving. He does not report fever or chills and states his blood sugars have been between 150 and 180. 11/01/14 The patient does not report drainage from his right 1st toe ulcer. His blood sugars remain well controlled below 150. 10/25/14 The patient reports only very minimal drainage from his right 1st toe ulcer and continues to offload using his diabetic shoe and minimizing his daily activity. 10/18/14 The patient reports continued improvement in his right toe ulcer. 10/11/14 The patient does not report drainage or pain in the right 1st toe ulcer. He does mention though he's concerned about memory difficulties and he's currently without a PCP as his recently retired. 10/04/14 The patient reports that he has difficulty applying Kerasal to the calloused ana-wound area and getting his dressing to stick. He does not report increased pain or drainage from his right great toe diabetic ulcer. 09/27/14 The patient reports increased walking since last visit with pain in his legs as a result. No increase in drainage from his wound. 09/20/14 The patient reports no new drainage from his left toe wound, and stable drainage from his right great toe wound. He asks about the plan of care today. 09/13/14 The patient reports he wounds appear stable without new symptoms. 09/06/14 The patient does not report any increase in drainage or other issues from his diabetic foot ulcers. 08/30/14 The patient does not report any new problems regarding his right 1st toe ulcer including increased drainage, pain, or redness. He states his blood sugars are well controlled under 150. His A1c was 6.8 in 07/04. 08/23/14 The patient does not complain of drainage from the right 1st toe. 08/16/14 The patient's been using Kerasal on the right 1st toe and does not report significant drainage from the ulcer. His blood sugars are usually below 140 with reported hypoglycemia. 08/09/14 The patient states he's using his offloading boot on the right foot and limiting his walking considerably. He states his blood sugars are well controlled and there' s only been minimal drainage from the toe ulcer. 08/02/14 The patient does not report increased drainage from his right first toe ulcer. He also feel his right leg erythema that was noted at his last visit has improved. He states that prior to arriving to clinic he fell in the parking lot of his pharmacy hitting his right knee. He does not report pain nor bleeding and does not report any other injuries. Past Medical History This information was obtained from the patient Patient has a medical history of: Diabetes type II (A1c 6.8 03/2017; A1c 6.2 on 05/04/16; A1c 7.9 on 01/09/16; 6.8 on 02/25/15) Hypertension Peripheral neuropathy Gout Right ankle Fracture Chronic venous insufficiency with ulcers and edema Unspecified cellulitis and abscess of toe Streptococcus infection of unspecified site Group D Enterococcus Dermatophytosis Osteomyelitis (right 1st toe (MRI 03/01/15, persistent but improved MRI 06/09/15) ; possible right medial malleolus (triple phase bone scan 12/17/14, not confirmed on MRI of 03/01/15; present on MRI 06/09/15)) 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 Melanoma ( left forehead) Diabetic foot ulcer - 10/13/2014 (Bauman grade III; plantar surface right 1st toe with underlying osteomyelitis diagnosed on 03/01/15; recurrent resistant coag negative Staph deep cultures on 11/15/14 and 02/07/15; resistant coag neg Staph cultured on 04/11/15 and started on IV daptomycin on 04/18/15) Diabetic foot ulcer (chronic and recurrent; right medial malleolus, possible osteomyeltis seen on triple phase bone scan 12/17/14 but not confirmed on MRI from 03/01/15; confirmed on MRI 06/09/15) Edema (chronic; right lower extremity) Cellulitis ( left great toe; hospitalized 02/15-02/18/surgical debridment) Complaints and Symptoms This information was obtained from the patient Patient complains of: General Notes: I have reviewed and concur with the Review of Systems and Past Family Social History documents completed by the clinician, I have reviewed and concur with the Wound Assessment document completed by the clinician Cardiovascular (Central/Peripheral): Lower extremity (leg) swelling Ear/Nose/Mouth/Throat: Hearing Loss / Aid Hematologic/Lymphatic: Bleeding Tendency Integumentary (Hair/Skin/Nails): Lesions, Open Sore Musculoskeletal: Assistive Devices, Deformities Neurological: Abnormal Gait, Loss of Protective Sensation Prior Wound History: Bleeding, Drainage, Erythema, Pain Psychiatric: Memory Loss Patient denies complaints or symptoms related to: Cardiovascular (Central/Peripheral): Intermittent Claudication, Lower extremity (leg) resting pain Cardiovascular (Peripheral) Constitutional Symptoms (General Health): Chills, Fatigue, Fever Gastrointestinal (GI): Nausea / Vomiting, Stomach/abdominal pain Hematologic/Lymphatic: Bleeding / Clotting Disorders Prior Wound History: Malodor Psychiatric: Depression Respiratory: Oxygen Use, Shortness of Breath OBJECTIVE Constitutional BP elevated; Afebrile; Alert and in no distress. Well developed. Alert. Clean appearing.. Height/Length: 71 in (180.34 cm), Weight: 263 lbs (119.55 kgs), BMI: 36.7, Temperature: 98.2 ?F (36.78 ?C), Pulse: 91 bpm, Respiratory Rate: 18 breaths/min, Blood Pressure: 161/72 mmHg, Capillary Blood Glucose: 91 mg/dl, Pulse Oximetry: 100 %. Vital Signs Notes: Glucose per patient. Ears, Nose, Mouth, and Throat: Mild hearing deficit. Respiratory: No respiratory distress. Even respirations and without use of accessory muscles.. Cardiovascular: 1+ right lower extremity edema. Integumentary (Hair, Skin) Mild periwound erythema without warmth. Refer to appropriate clinician wound documentation for this visit; right and left lower leg and right 1st toe ulcers extend to subcut with bases partially covered with pink granulation, remainder fibrin and slough; right dorsal foot ulcers extends to dermis. Maceration present in the periwound areas but improved from previous visit. Wound #13 Right, Medial Ankle is an acute Bauman Grade 3 Diabetic Ulcer and has received a status of Not Healed. Subsequent wound encounter measurements are 4cm length x 2.6cm width x 0.3cm depth, with an area of 10.4 sq cm and a volume of 3.12 cubic cm. No tunneling has been noted. No sinus tract has been noted. No undermining has been noted. There is a large amount of serous drainage noted which has no odor. The patient reports a wound pain of level 0/10. The wound margin is attached. Wound bed has No epithelialization, No eschar, Yes slough, Yes pink, firm granulation. The periwound skin exhibited: Edema, Induration, Moist, Maceration, Atrophie [place], Erythema. The periwound skin did not exhibit: Brawny Induration, Excoriation, Callus, Crepitus, Fluctuance, Friable, Rash, Dry/Scaly, Cyanosis, Ecchymosis, Hemosiderosis, Pallor, Rubor. The temperature of the periwound skin is WNL. Periwound skin presents with s/s of infection. Confirmation Description and Treatment Plan is: Confirmed Local, Systemic Antibiotics Prescribed. Local Pulse is Doppler. Wound #17 Right, Plantar Great Toe is a Bauman Grade 3 Diabetic Ulcer and has received a status of Not Healed. Subsequent wound encounter measurements are 0.9cm length x 0.7cm width x 0.3cm depth, with an area of 0.63 sq cm and a volume of 0.189 cubic cm. No tunneling has been noted. No sinus tract has been noted. No undermining has been noted. There is a small amount of serous drainage noted which has no odor. The patient reports no wound pain due to the wound being insensate. The wound margin is callus. Wound bed has No epithelialization, No eschar, Yes slough, Yes pink, firm granulation. The periwound skin moisture is normal. The periwound skin color is normal. The periwound skin exhibited: Callus. The periwound skin did not exhibit: Brawny Induration, Edema, Excoriation, Induration, Crepitus, Fluctuance, Friable, Rash. The temperature of the periwound skin is WNL. Periwound skin does not exhibit signs or symptoms of infection. Local Pulse is Palpable. Wound #25 Right, Lateral Ankle is a chronic Bauman Grade 2 Diabetic Ulcer and has received a status of Not Healed. Subsequent wound encounter measurements are 2.4cm length x 2cm width x 0.3cm depth, with an area of 4.8 sq cm and a volume of 1.44 cubic cm. No tunneling has been noted. No sinus tract has been noted. No undermining has been noted. There is a moderate amount of serous drainage noted which has no odor. The patient reports a wound pain of level 0/10. The wound margin is attached. Wound bed has No epithelialization, No eschar, Yes slough, Yes firm granulation. The periwound skin exhibited: Edema, Induration, Moist, Maceration, Erythema. The periwound skin did not exhibit: Brawny Induration, Excoriation, Callus, Crepitus , Fluctuance, Friable, Rash, Dry/Scaly, Atrophie [place], Cyanosis, Ecchymosis, Hemosiderosis , Pallor, Rubor. The temperature of the periwound skin is Warm. Periwound skin presents with s/s of infection. Confirmation Description and Treatment Plan is: Confirmed Local, Systemic Antibiotics Prescribed. Local Pulse is Doppler. Wound #29 Right, Lateral Foot is a chronic Bauman Grade 2 Diabetic Ulcer and has received a status of Not Healed. Subsequent wound encounter measurements are 0.5cm length x 0.2cm width x 0.1cm depth, with an area of 0.1 sq cm and a volume of 0.01 cubic cm. No tunneling has been noted. No sinus tract has been noted. No undermining has been noted. There is a small amount of serous drainage noted which has no odor. The patient reports a wound pain of level 0/10. The wound margin is attached. Wound bed has No epithelialization, No eschar, Yes slough, No granulation. The periwound skin texture is normal. The periwound skin color is normal. The periwound skin exhibited: Moist, Maceration. The periwound skin did not exhibit: Dry/Scaly. The temperature of the periwound skin is Warm. Periwound skin does not exhibit signs or symptoms of infection. Local Pulse is Doppler. Wound #32 Left, Medial Ankle is an acute Bauman Grade 2 Diabetic Ulcer and has received a status of Not Healed. Subsequent wound encounter measurements are 1.5cm length x 1cm width x 0.1cm depth, with an area of 1.5 sq cm and a volume of 0.15 cubic cm. No tunneling has been noted. No sinus tract has been noted. No undermining has been noted. There is a moderate amount of serous drainage noted which has no odor. The patient reports a wound pain of level 0/10. The wound margin is attached. Wound bed has No epithelialization, No eschar, Yes slough, No granulation. The periwound skin moisture is normal. The periwound skin exhibited: Edema, Atrophie [place]. The periwound skin did not exhibit: Brawny Induration, Excoriation, Induration, Callus, Crepitus, Fluctuance, Friable, Rash, Cyanosis, Ecchymosis, Erythema, Hemosiderosis, Pallor, Rubor. The temperature of the periwound skin is WNL. Periwound skin does not exhibit signs or symptoms of infection. Local Pulse is Doppler. Wound #33 Right Second Toe is an acute Bauman Grade 2 Diabetic Ulcer and has received a status of Not Healed. Subsequent wound encounter measurements are 1.6cm length x 0.5cm width x 0.1cm depth, with an area of 0.8 sq cm and a volume of 0.08 cubic cm. No tunneling has been noted. No sinus tract has been noted. No undermining has been noted. There is a small amount of serous drainage noted which has no odor. The patient reports a wound pain of level 0/10. The wound margin is attached. Wound bed has Yes epithelialization, No eschar, Yes slough, Yes pink, firm granulation. The periwound skin texture is normal. The periwound skin color is normal. The periwound skin exhibited: Moist, Maceration. The periwound skin did not exhibit: Dry/Scaly. The temperature of the periwound skin is WNL. Periwound skin does not exhibit signs or symptoms of infection. Local Pulse is Weak. Neurological: Cranial nerves grossly intact with symmetric function normal by informal observation.. Additional Information [facility] Completed?: 12/10/16. Angioplasty procedure 01/07/18. 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 A skin/ subcutaneous tissue level surgical debridement with a total area debrided of 10.4 sq cm was performed by Kam Christensen MD. Subcutaneous was removed along with devitalized tissue: slough and maceration. The following instrument(s) were used: curette. No anesthetic was required due to loss of sensation. A time out was conducted prior to the start of the procedure. A minimal amount of bleeding was controlled with n/a. The procedure was tolerated well with a loss of sensation throughout and a loss of sensation following the procedure. Post Debridement Measurements: 4cm length x 2.6cm width x 0.4cm depth; with an area of 10.4 sq cm and a volume of 4.16 cubic cm; Wound #13 (Diabetic Ulcer) is located on the right, medial ankle. A Multilayer Compression procedure was performed by Karissa Gonzalez RN. General Notes: Coban 2 Layer Wound #17 Wound #17 (Diabetic Ulcer) is located on the right, plantar great toe. A skin/ subcutaneous tissue level surgical debridement with a total area debrided of 0.63 sq cm was performed by Kam Christensen MD. Subcutaneous was removed along with devitalized tissue: callus and slough. The following instrument(s) were used: curette. No anesthetic was required due to loss of sensation. A time out was conducted prior to the start of the procedure. A minimal amount of bleeding was controlled with n/a. The procedure was tolerated well with a loss of sensation throughout and a loss of sensation following the procedure. Post Debridement Measurements: 0.9cm length x 0.7cm width x 0.4cm depth; with an area of 0.63 sq cm and a volume of 0.252 cubic cm; Wound #25 Wound #25 (Diabetic Ulcer) is located on the right, lateral ankle. A skin/ subcutaneous tissue level surgical debridement with a total area debrided of 4.8 sq cm was performed by Kam Christensen MD. Subcutaneous was removed along with devitalized tissue: exudate and slough. The following instrument(s) were used: curette. No anesthetic was required due to loss of sensation. A time out was conducted prior to the start of the procedure. A minimal amount of bleeding was controlled with n/a. The procedure was tolerated well with a loss of sensation throughout and a loss of sensation following the procedure. Post Debridement Measurements: 2.4cm length x 2cm width x 0.4cm depth; with an area of 4.8 sq cm and a volume of 1.92 cubic cm; Wound #29 Wound #29 (Diabetic Ulcer) is located on the right, lateral foot. A selective debridement with a total area debrided of 0.1 sq cm was performed by Kam Christensen MD. to remove devitalized tissue: exudate. The following instrument(s) were used: curette. No anesthetic was required due to loss of sensation. A time out was conducted prior to the start of the procedure. No bleeding occurred. The procedure was tolerated well with a loss of sensation throughout and a loss of sensation following the procedure. Post Debridement Measurements: 0.5cm length x 0.2cm width x 0.1cm depth; with an area of 0.1 sq cm and a volume of 0.01 cubic cm; Wound #32 Wound #32 (Diabetic Ulcer) is located on the left, medial ankle. A skin/ subcutaneous tissue level surgical debridement with a total area debrided of 1.5 sq cm was performed by Kam Christensen MD. Subcutaneous was removed along with devitalized tissue: slough. The following instrument(s) were used: curette. No anesthetic was required due to loss of sensation. A time out was conducted prior to the start of the procedure. A minimal amount of bleeding was controlled with n/a. The procedure was tolerated well with a loss of sensation throughout and a loss of sensation following the procedure. Post Debridement Measurements: 1.5cm length x 1cm width x 0.2cm depth; with an area of 1.5 sq cm and a volume of 0.3 cubic cm; Additional Information Muscle fascia or bone removed and sent to pathology?: No Muscle fascia or bone removed and sent to pathology?: No Muscle fascia or bone removed and sent to pathology?: No Muscle fascia or bone removed and sent to pathology?: No PLAN Wound Orders: Wound #13 Right, Medial Ankle Cleanser Cleanse Wound: - Rinse all wounds with distilled water during each dressing change. May Shower. - Cover leg with cast protector. Cleanse wound with Soap and Water. - Cleansed right leg with Hibiclens in clinic. Topical Treatments Moisturizing lotion to surround skin. - Calmoseptine Dressings Primary dressing: - Silver aquacel. Cover and secure with: - Mextra Supersorbant Coban 2 Layer compression wrap. Change Dressing: - Leave in place until next visit. Wound #17 Right, Plantar Great Toe Cleanser Cleanse Wound: - Rinse all wounds with distilled water during each dressing change. May Shower. - Cover leg with cast protector. Cleanse wound with Soap and Water. - Cleansed right leg with Hibiclens in clinic. Dressings Cover and secure with: - foam secured with hypafix tape. Change Dressing: - Every other day. Wound #25 Right, Lateral Ankle Cleanser Cleanse Wound: - Rinse all wounds with distilled water during each dressing change. May Shower. - Cover leg with cast protector. Cleanse wound with Soap and Water. - Cleansed right leg with Hibiclens in clinic. Topical Treatments Moisturizing lotion to surround skin. - Calmoseptine Dressings Primary dressing: - Silver aquacel. Cover and secure with: - Mextra Supersorbant Coban 2 Layer Lite compression wrap. Change Dressing: - Leave in place until next visit. Wound #29 Right, Lateral Foot Cleanser Cleanse Wound: - Rinse all wounds with distilled water during each dressing change. May Shower. - Cover leg with cast protector. Cleanse wound with Soap and Water. - Cleansed right leg with Hibiclens in clinic. Topical Treatments Moisturizing lotion to surround skin. - Calmoseptine Dressings Primary dressing: - Silver aquacel. Cover and secure with: - Mextra Supersorbant Coban 2 Layer Lite compression wrap. Change Dressing: - Leave in place until next visit. Wound #32 Left, Medial Ankle Cleanser Cleanse Wound: - Rinse all wounds with distilled water during each dressing change. May Shower. - Cover leg with cast protector. Cleanse wound with Soap and Water. - Cleansed right leg with Hibiclens in clinic. Topical Treatments Antibiotic/Antimicrobial Ointment/Cream. - Gentamicin Dressings Cover and secure with: - Bordered foam Change Dressing: - Every other day. Wound #33 Right Second Toe Cleanser Cleanse Wound: - Rinse all wounds with distilled water during each dressing change. May Shower. - Cover leg with cast protector. Cleanse wound with Soap and Water. - Cleansed right leg with Hibiclens in clinic. Dressings Cover and secure with: - Foam and Hypafix tape Change Dressing: - Every other day. Additional Orders: Compression/Edema Control Elevation of leg(s) above the level of the heart when sitting. - Elevate legs above hip level at least twice daily. Avoid prolonged standing in one place. Multi Layer Wrap: - Coban 2 Layer compression wrap to right leg. Single Layer Compression Hose - Tetragrip F to left leg. On in the am, off at night. Follow-Up Appointments Return Appointment: - - Saturday and for wraps. Other information: If you develop fever, chills, increased pain, drainage, redness or swelling please call our office. If after hours, respond to the ER. Should you experience any significant changes in your wound(s) or have any questions regarding your home care instructions please contact the wound center @ [phone]. If after hours, contact your primary care physician or go to the hospital emergency room. Scribing Attestation I attest, as the nurse, that I scribed these orders for the physician. I've reviewed the clinician's documentation and agree with the evaluation and plan as written. In addition the patient's ulcers demonstrate evidence of non-viable devitalized tissue and they will continue to benefit from sharp debridement to help promote granulation and expedite healing. Also, the heavy maceration in the right lower leg periulcer areas that's been problematic is starting to improve. We'll continue using a Coban wrap the treat the chronic venous hypertension and he'll complete his course of antibiotics as prescribed. Electronic Signature(s) Signed By: Date: Kam Christensen MD 01/27/2018 13:52:38 Entered By: Kam Christensen on 01/27/2018 12:56:22
== END ==
PROVIDERS: PCP Family Medicine; Visit Provider Internal Medicine
DX: E11.621 Type 2 diabetes mellitus with foot ulcer (principal); L97.511 Non-pressure chronic ulcer of other part of right foot limited to breakdown of skin; E11.622 Type 2 diabetes mellitus with other skin ulcer; L97.312 Non-pressure chronic ulcer of right ankle with fat layer exposed; L97.322 Non-pressure chronic ulcer of left ankle with fat layer exposed; L08.89 Other specified local infections of the skin and subcutaneous tissue
CPT/HCPCS: 11042; 97597

== ENCOUNTER → 2018-01-30 09:07 | Outpatient (CLI) | payer MEDICARE, SELFPAY ==
--- NOTE | 2018-01-30 | OV.WND_ITS ---
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 Allergies NKDA HPI This information was obtained from the patient 01/30/18. Seen by Dr. Christensen. The patient does not report pain associated with the chronic right lower leg, 1st toe, or leg lower leg diabetic ulcers nor pain associated with the right lower leg compression wrap that's treating chronic venous hypertension. He continues on clindamycin and Bactrim for the polymicrobial wound culture taken from the right lower leg ulcers and reports some intermittent loose stool but no abdominal pain or other adverse side effects. Of note, he's not been wearing and offloading shoe on the right foot and has been fairly active with a [employer]. 01/27/18. Seen by Dr. Christensen. The patient does not report significant pain in the right lower leg since we started compression therapy with a Coban wrap. He continues on clindamycin and Bactrim for the polymicrobial wound cultures taken from right lower leg and 1st toe diabetic ulcers and he does not report adverse side effects. 01/23/18. Seen by Dr. Christensen. The patient does not report pain in the right lower leg since we started compression therapy with a Coban wrap 2 days ago. He's also now on clindamycin and Bactrim for the polymicrobial wound cultures taken from right lower leg and 1st toe diabetic ulcers and he does not report adverse side effects. He recently had intervention to treat right leg PAD which has been contributing to the refractory nature of the diabetic ulcers. He has another small non-pressure ulcer over the left lower leg and does not report significant drainage from this site. 01/21/18. Seen by Dr. Christensen. The patient feels there's been a modest decrease in drainage associated with the right lower leg diabetic ulcers while taking levofloxacin and cefdinir over the past week. His wound cultures however returned showing persistence of the resistant Acinetobacter and Staph haemolyticus bacteria. He does not report pain in the leg and recently underwent repeat intervention for the right leg PAD. He does not report fevers or feeling unwell nor adverse side effects of the antibiotics. He also does not report significant drainage from the right 1st or 2nd toe diabetic ulcers nor left lower leg diabetic ulcer since his last visit. 01/16/18. Seen by Dr. Christensen. The patient underwent intervention for his right lower limb PAD last week however notes are not yet available to review. He does not report pain in the leg but feels the drainage from the right medial malleolus and right lower leg diabetic ulcers has increased. He does not report increased drainage or acute issues regarding the right 1st toe nor left lower leg diabetic ulcers. He's also completed his course of levofloxacin and continues on cefdinir for the recent polymicrobial wound cultures taken from the right lower leg ulcers and he does not report adverse side effects or fevers. 01/09/18. Seen by Kane Braun PA-C. The patient reports stable drainage from his chronic ulcers of the right lower extremity. He continues on antibiotics for his polymicrobial infection of his ulcers. 01/02/18. Seen by Dr. Christensen. The patient's recent wound culture again grew a resistant Acinetobacter species. He's on oral levofloxacin and cefdinir again after an interruption in the dual therapy that was noted at his last visit. He feels the left redness, swelling, and drainage have started to decrease and he's changing the dressings overlying the right medical malleolus, right lower leg and foot, right 1st toe and left lower leg diabetic ulcers twice daily as recommended. He also is scheduled for repeat intervention to treat the right leg PAD next week with Dr. Harrison. 12/31/17. Seen by Dr. Christensen. The patient called asking to be seen prior to his appointment this due to increased swelling and redness of the right lower leg. He's been on oral cefdinir and levofloxacin for refractory cellulitis of the leg and based on the recent Acinetobacter and Enterobacter positive wound cultures taken of the right lower leg and 1st toe diabetic ulcers. He does not report a fever but does state he feels a bit unwell. Also, he took his last dose of levofloxacin yesterday but has additional doses of cefdinir which indicates he may be missing doses of antibiotics. He also has an appointment with Dr. Harrison today for an angiogram and possible intervention to treat right leg PAD. His blood sugars is also elevated a bit today at 170. 12/26/17. Seen by Dr. Christensen. The patient does not report increased drainage associated with the chronic right lower leg ulcers has decreased since starting on oral cefdinir and levofloxacin for the recent Enterobacter and recurrent Acinetobacter wound cultures and he does not report adverse side effects. He also does not report any acute issues regarding the right 1st toe ulcer. He has an appointment in two weeks with Dr. Harrison to address the right leg PAD and he reports a new left medial malleolus ulcer that started about a week ago. He does not report pain or drainage from this site and does not report an inciting event. 12/19/17. Seen by Dr. Christensen. The patient feels the drainage associated with the chronic right lower leg ulcers has decreased since starting on oral cefdinir and levofloxacin for the recent Enterobacter and recurrent Acinetobacter wound cultures and he does not report adverse side effects. He also does not report pain or drainage associated with the right 1st toe diabetic ulcer and is applying topical gentamcinin as recommended. He suffers from PAD in the right leg as well as CKD stage 3 and has had angioplasty in 2016 to address the PAD. 12/13/17. Seen by Dr. Christensen. The patient is now on oral cefdinir and levofloxacin for the Enterobacter and resistant Acinetobacter positive wound cultures taken at his last visit. He does not report pain or increased drainage associated with the very refractory right medial malleolus, right lateral lower leg, nor right 1st toe diabetic ulcers since his last visit and he's changing the dressings only once daily. His HBOT has also been discontinued due to his recent seizure that occurred during his dive last week. 12/09/17. Seen by Dr. Christensen. The patient returns following his seizure that occurred during HBOT on Saturday. He was discharged home from the ER later in the day and does not report any significant issues over the weekend. He completed his course of Bactrim last week but continues on IV daptomycin which is treating chronic osteomyelitis of the right medical malleolus. He does not report pain nor increased drainage from this ulcer nor the other right lower leg non-pressure ulcer or right 1st toe diabetic ulcer. 11/29/17. Seen by Dr. Christensen. The patient continues on IV daptomycin and he completed his course of Bactrim that are treating the refractory Acinetobacter positive wound culture and right medial malleolar chronic osteomyelitis. In general he feels the drainage from the right medial malleolus, right lower leg, and right 1st toe diabetic ulcers has decreased considerably over the past week. He's also tolerating HBOT without difficulty. 11/22/17. Seen by Dr. Christensen. The patient continues on IV daptomycin and Bactrim that are treating the refractory Acinetobacter positive wound culture and right medial malleolar chronic osteomyelitis. He also continues on hyperbaric oxygen therapy and does not report ever side effects. In general he feels that the drainage associated with the chronic right medial malleolar and right lateral lower leg ulcers has decreased considerably and he does not report any new issues regarding right first toe diabetic ulcer and her second toe diabetic ulcers. 11/14/17. Seen by Dr. Christensen. The patient continues on IV daptomycin and he completed a course of Bactrim that are treating the refractory Acinetobacter positive wound culture and right medial malleolar chronic osteomyelitis. He also continues on hyperbaric oxygen therapy and does not report ever side effects. In general he feels that the drainage associated with the chronic right medial malleolar and right lateral lower leg ulcers has decreased considerably and he does not report any new issues regarding right first toe diabetic ulcer and her second toe diabetic ulcers. 11/07/17. Seen by Dr. Christensen. The patient continues on IV daptomycin for chronic osteomyelitis associated with the chronic right medial malleolus diabetic ulcer. He does not report adverse side effects nor pain or increased drainage associated with this ulcer number the right lateral ulcer nor first toe ulcer. He is also started on hyperbaric therapy and does not report any adverse effects. 10/31/17. Seen by Dr. Christensen. The patient feels that the drainage associated with chronic right medial malleolus and lateral foot and lower leg ulcers has decreased over the past week. He continues on IV daptomycin and has completed his course of Bactrim, both that were treating associated refractory cellulitis. Of note his bone scan reports a high suspicion for osteomyelitis of the right medial malleolus of which was diagnosed also in 2015 on bone scan. He also is unsure of whether an appointment has been made for follow-up with interventional radiology regarding review of his PAD for which he had angioplasty in 2016. He does not report adverse side effects of the antibiotics, fevers, or feeling unwell and his blood sugars continue to be well controlled with most below 150. 10/24/17. Seen by Dr. Christensen. The patient is now on IV daptomycin and Bactrim for refractory cellulitis, and possibly chronic osteomyelitis of the medial malleolus, associated with the chronic right lower leg diabetic ulcers. He is not reporting adverse side effects, fevers, nor feeling unwell in general however he does continue to report what sounds like rest pain when lying in bed at night that improves when standing up and walking around. His MRA did not reveal obvious proximal arterial disease however distal vessels were not well visualized. Dr. Harrison, interventional radiology, has recommended an angiogram to further evaluate for clinically significant PAD. 10/17/17. Seen by Dr. Christensen. The patient is now on Bactrim and Augmentin for the recurrent and resistant Acinetobacter culture plus enterococcus. He is not reporting adverse side effects however the drainage associated with chronic right medial malleolus and right lateral lower leg diabetic ulcers has not decreased since his last visit. He does not report pain nor increased swelling nor fevers or feeling unwell. He also does not report significant drainage associated with chronic right first toe diabetic ulcer. He has a history of severe PAD in the leg but does not report rest pain or claudication and had angioplasty approximately 18 months ago and his arterial Doppler from August 2017 confirms a high grade stenosis of the SFA. Of note, he has healed the ulcers in the past however has made no progress in terms of the size or depth over the past 3-4 months. Also, he has a history of osteomyelitis of the medial malleolus dating back to December 17, 2014 noted on his nuclear bone scan at that time and suggested again on his June 09, 2015 MRI. 10/10/17. Seen by Dr. Christensen. The patient does not report pain associated with the chronic right medial malleolus, right lateral lower leg, and right first toe and third toe diabetic ulcers however he does feel that the drainage continues to be significant from the malleoli or ulcer. His blood sugars continued to be well controlled and he is now off of antibiotics. Of note, he has a history of PAD in the leg and his last review by Dr. Harrison suggested flow was adequate to the foot however this was about 18 months ago. He does not report claudication or rest pain, fevers, or feeling unwell in general. 10/03/17. Seen by Kane Braun PA-C. The patient reports decreased drainage from his right lower extremity diabetic ulcers since beginning his antibiotics for his polymicrobial infection. 09/26/17. Seen by Kane Braun PA-C. The patient reports a very significant increase in drainage from his right medial lower leg ulcer. He is not currently on antibiotics and is spending more time on his feet. 09/19/17. Seen by Kane Braun PA-C. The patient reports good blood sugar control this week. He reports decreased drainage from his ulcer compared with 2 weeks ago and also reports that he has been leaving his new 2nd toe ulcer open to the air as he forgets that is needs a dressing. 09/12/17. Seen by Kane Braun PA-C. The patient reports decreased drainage since beginning antibiotics (which he continues taking) for his infection of his lower right leg ulcer. 09/05/17. To my Dr. Christensen. The patient feels the drainage associated with chronic right medial malleolar and right lateral lower leg diabetic ulcers continues to decrease since starting on levofloxacin and amoxicillin for the polymicrobial positive wound infection. He is not reporting adverse side effects nor drainage associated with chronic right first and second toe diabetic ulcers. Of note, he also has right lower leg PAD and underwent anterior tibial and peroneal angioplasty over a year ago. He does not report claudication or rest pain at this time. 08/29/17. Seen by Kane Braun PA-C. The patient reports increased drainage from his right lower leg diabetic ulcers. 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 08/19/17. Seen by Dr. Christensen. The patient feels the drainage associated with the chronic right lower leg diabetic ulcers continues to improve and he does not report any pain or drainage associated with chronic right first and second toe diabetic ulcers. He completed his course of Bactrim 2 days ago and does not report adverse side effects other than some mild diarrhea. 08/12/17. Seen by Dr. Christensen. The patient feels the drainage associated with the chronic right lower leg diabetic ulcers is improved since starting on Bactrim which he completed 2 days ago. He does not report adverse side effects, fevers, or feeling unwell or pain associated with these ulcers nor drainage or pain associated with the right first and second toe diabetic ulcers. 08/08/17. Seen by Dr. Christensen. The patient states his wound VAC foam dressing saturated with drainage as of yesterday. He continues on antibiotics for cellulitis associated with the chronic right medial malleolus diabetic ulcer and does not report adverse side effects, fevers, as her feeling unwell. I'm seeing him today due to the significant maceration noted in the periulcer area by the nurse today. 08/05/17. She will Dr. Christensen. The patient does not report pain or previous drainage associated with the chronic right medial malleolus diabetic ulcer nor the right first toe ulcer nor right lower leg lateral diabetic ulcer. He is on Bactrim for the refractory cellulitis associated with the recurrent Acinetobacter positive wound culture. He does not report adverse side effects, fevers, and her feeling unwell. 07/29/17. Seen by Dr. Christensen. The patient does not report pain nor increased drainage associated with chronic right lower leg and right first and second toe diabetic ulcers since his last visit. He is now off of antibiotics and states that he decreased his dressing changes recently to once daily from twice daily. The staff however are concerned about increased maceration around the ulcers. 07/17/17. Seen by Dr. Christensen. The patient reports persistent drainage associated with the right lower leg diabetic ulcers and states his wound VAC stopped working after 3 days. He since been changing his dressing daily. He's completed his course of cefdinir and levofloxacin and was treating cellulitis associated with the ulcers. He also notes a new ulcer at the distal second toe adjacent to the distal first toe diabetic ulcer. His blood sugars been well controlled also. 07/10/17. Seen by Dr. Christensen. The patient does not report pain nor increased drainage associated with chronic right lower leg diabetic ulcers nor the right first toe diabetic ulcer. He completed his course of cefdinir and levofloxacin that's treating the polymicrobial wound culture. His blood sugars are well controlled and he is not reporting adverse side effects from antibiotics. 07/04/17. Seen by Dr. Christensen. The patient reports increased drainage associated with the chronic right lower leg diabetic ulcers since his last visit and since stopping antibiotics that were treating the recently cultured Acinetobacter and Enterococcus cultures. He does not report pain in the leg nor fevers or feeling unwell and states his blood sugars remain well controlled. He also does not report any new issues regarding the chronic right 1st toe diabetic ulcer and of note was more active recently while on vacation in [place] the past 10 days. 06/21/17. Seen by Dr. Christensen. The patient feels the drainage associated with the chronic right lower leg diabetic ulcers is decreased since starting on cefdinir and he tolerated negative pressure wound therapy over the last 2 days without difficulty. His wound culture grew Acinetobacter and enterococcus. He does not report fevers, feeling unwell, nor adverse side effects from antibiotics. Of note, he will be traveling to [place] on an airplane leaving next Saturday and return 1 week later. 06/19/17. Seen by Dr. Christensen. The patient feels the recent significant drainage associated with the chronic right lower leg diabetic ulcers has decreased and he completed a course of cefdinir 5 days ago that was treating the recent Acinetobacter positive wound culture. He does not report pain at the site nor other acute issues today. He also does not report drainage associated with chronic right first toe diabetic ulcer. 06/11/17. Seen by Kane Braun PA-C. The patient reports continued drainage from his right lower extremity ulcers. He is applying gentamicin and taking bactrim to treat the bacteria that were cultured from his ulcer at his last visit. Of note, his cultured bacteria is intermediately sensitive to gentamicin. 06/04/17. Seen by Kane Braun PA-C. The patient reports increased purulent drainage from his right lower extremity ulcers. 05/28/17. Seen by Kane Braun PA-C. The patient reports no increase in drainage from his lower extremity ulcers. 05/14/17. Seen by Kane Braun PA-C. The patient reports increased drainage from his chronic lower extremity ulcers. 05/07/17. Seen by Kane Braun PA-C. The patient reports no increase in drainage from his chronic lower extremity ulcers. 04/30/17. Seen by Kane Braun PA-C. The patient reports no complications from his Bactrim and his ulcer drainage has decreased significantly over the past week. 04/23/17. Seen by Dr. Christensen. The patient is now on Bactrim for the recent Acinetobacter positive wound culture taken from the right lower leg diabetic ulcer. He reports decreased drainage and swelling in the leg and does not report any pain. He also does not report any problems regarding his chronic right distal first toe ulcer. 04/16/17. Seen by Dr. Christensen. The patient states his wound vac that was placed last lost its seal by Saturday and he removed the entire dressing. He does not report pain or increase drainage from the right lower leg and right 1st toe ulcers since then and states his blood sugars are mostly below 150. 04/11/17. Seen by Dr. Christensen. The patient does not report pain associated with the chronic right lower leg nor right first toe diabetic ulcers however drainage is significant and persistent associated with the lower leg ulcers. He continues on ciprofloxacin and amoxicillin to treat the polymicrobial wound infection. He does not report adverse side effects nor fevers or feeling unwell in general. 04/04/17. Seen by Dr. Christensen. The patient feels the drainage associated with the right lower leg and first toe diabetic ulcers is decreased over the past week. He's now on ciprofloxacin and amoxicillin for the recent polymicrobial positive wound culture and he does not report adverse side effects. His blood sugars also are mostly below 150. 03/28/17. Seen by Dr. Christensen. The patient feels the drainage associated with the right lower leg and first toe diabetic ulcers is decreased over the past week. He's changes dressings only once daily and does not report any other acute problems at this time. Also, a new ulcer is now present along the right lateral mid-foot. 03/21/17. Seen by Dr. Christensen. The patient reports improvement terms of the drainage associated with the right lower leg diabetic ulcers. He does not report any pain or drainage associated with the right first toe diabetic ulcer. He states his blood sugars have been well- controlled most below 120. 03/14/17. Seen by Dr. Christensen. The patient and staff report persistent and significant drainage associated with the chronic right lateral lower leg and right medial malleolar diabetic ulcers. He is changing his poise addressing once daily and is not currently on antibiotics. He does not reporting any new problems regarding the chronic right first toe diabetic ulcer. 03/07/17. Seen by Kane Braun PA-C. The patient reports very little drainage from his back wound and stable drainage from his right lower leg diabetic ulcers. He has a lot of questions regarding the pathology of and prognosis for his right lower leg and it's recurrent ulcers. He is considering moving to the [facility] and is looking into what medical services they have there. 02/28/17. Seen by Dr. Christensen. The patient feels the drainage associated with the right lower leg diabetic ulcers has decreased over the past week and he does not report any new problems regarding the chronic right 1st toe diabetic ulcer nor posterior right shoulder surgical wound. 02/21/17. Seen by Dr. Christensen. The patient continues to report significant drainage associated with the chronic right medial malleolar diabetic ulcer although he feels that is decreasing somewhat since starting on clindamycin for a recent positive wound culture. He does not report adverse side effects, pain in the ankle, nor fevers. He's also asked that I look at a slowly healing surgical wound on his back following a Mohs procedure for excision of a melanoma about 1 month ago. He states the site is tender but otherwise has no acute complaints. He does not report significant drainage nor new changes associated with chronic right first toe diabetic ulcer. 02/14/17. Seen by Kane Braun PA-C. The patient reports he has a new draining wound on his back. He had a shave removal of a skin cancer (patient is unsure of what type) and the dressing has fallen off and it has been draining through his shirt. It was not sutured and was left open to heal by secondary intention. His chronic right ankle and foot diabetic ulcers have had reduced drainage since starting clindamycin several days ago. Of note, he mis-read the label and was taking the clindamycin only once daily. He reports stable blood sugars with some blood sugars above 150 this week. 02/05/17. Seen by Dr. Christensen. The patient reports significant drainage associated with chronic right lower leg diabetic ulcers but none associated with the right first toe diabetic ulcer. He completed a course of Levaquin yesterday is been treating a recurrent infection associated with the toe ulcer and does not report fevers, feeling unwell, or adverse side effects. Of note, he is having problems in terms of financial limitations and medical costs associated with dressing changes. 01/31/17. Seen by Dr. Christensen. The patient does not report increased drainage or pain associated with the chronic right lower leg diabetic ulcers nor the chronic right first toe diabetic ulcer. He is now off of antibiotics does not report fevers or feeling unwell in general. 01/26/17. Seen by Kane Braun PA-C. The patient reports he continues to have a great deal of drainage from his right medial malleolar diabetic ulcer. 01/07/17. Seen by Dr. Christensen. The patient does not report increased pain or drainage associated with the chronic right lower ankle, right foot, nor right 1st toe diabetic ulcers since his last visit however staff report that the dressings are saturated. Also, the patient states his blood sugars remain well controlled below 150 consistently. 12/31/16. Seen by Kane Braun PA-C. The patient reports continued copious drainage from his right lower extremity diabetic ulcers. He is taking his Zyvox as prescribed. In addition his blood sugars are reportedly in good control, under 150. His prealbumin level resulted in the normal range. 12/27/16. Seen by Dr. Christensen. The patient does not report increased pain or drainage associated with the chronic right lower leg and right 1st toe diabetic ulcers however staff report that the dressings are saturated. He's been on Zyvox for a wound infection associated with the right medial malleolar ulcer and does not report adverse side effects. 12/18/16. Seen by Dr. Christensen. The patient feels there has been a significant increase in drainage associated with the right lower leg diabetic ulcers over the past week. He does not report pain at the site of the ulcers nor fevers or feeling unwell and his not currently on antibiotics. He states his blood sugars are relatively well controlled with most below 150. 12/10/16. Seen by Kane Braun PA-C. The patient reports increased drainage from his chronic diabetic ulcers of the right lower leg and foot. His wound culture has resulted with an enterococcus spp. and a coagulase negative staph spp. growth that are both PCN sensitive. 12/05/16. Seen by Dr. Christensen. The patient does not report pain associated with the compression wrap was placed over the right lower leg 2 days ago. The staff report that his dressings are soaked and there is some maceration in the periwound areas of the chronic right foot and medial malleolleolar diabetic ulcers. He does not report pain nor significant drainage associated with chronic right first toe diabetic ulcer. 12/03/16. Seen by Kane Braun PA-C. The patient reports no increase in drainage from his right lower leg diabetic ulcers since his last evaluation. His arterial doppler resulted with no significant stenosis in the right leg. 11/26/16. Seen by Kane Braun PA-C. The patient reports difficulty in controlling his blood sugars this week with several readings above 150. Drainage from his right lower leg ulcer has not increased. 11/19/16. Seen by Dr. Christensen. The patient reports some increased drainage associated with the lateral right lower leg diabetic ulcer. He isn't reporting any pain at the site nor pain or increased drainage associated with the right medial malleolar diabetic ulcer or right first toe ulcer since his last visit. His blood sugars continue to be mostly below 150 at home and he is not report fevers or feeling unwell in general. 11/12/16. Seen by Kane Braun PA-C. The patient reports good blood sugar control this week and no increase in drainage from his right lower leg diabetic ulcers. He is seeing dermatology today for removal of another skin cancer of the face. The patient is unsure if it is a melanoma. He also expresses concern about how long his ulcer is taking to heal, wondering Is it ever going to heal? 11/05/16. Seen by Kane Braun PA-C. The patient reports that some of his blood sugar readings have been above 150 this week. He reports that yesterday's AM blood sugar was 160. Drainage from his chronic right foot and right lower leg diabetic ulcers has reportedly reduced. 10/29/16. Seen by Kane Braun PA-C. The patient reports that he has had continued swelling at the site of his melanoma removal on the left side of his nose. His diabetic ulcers of the right foot have had stable drainage. 10/22/16. Seen by Kane Braun PA-C. The patient reports drainage from his right foot diabetic ulcers continues and today is his last does of Levaquin which was prescribed to treat an infection of these ulcers. 10/15/16. Seen by Kane Braun PA-C. The patient reports no increase in drainage from his chronic diabetic ulcers of the right foot. His pathology report has returned from the foreign body that was removed from his 2ng toe ulcer as likely plant material. After discussing this finding with the patient he believes it is a seed from [employer]. 10/08/16. Seen by Kane Braun PA-C. The patient reports that he has been using tetragrip compression stockings as directed, but doesn't wear them on mornings that he has clinic appointments. 10/01/16. Seen by Kane Braun PA-C. The patient reports no increase in drainage from his chronic diabetic ulcers of the right foot and leg. He is noted today to have a new ulcer on his right 2nd toe. The patient was not aware of this ulcer until it was discovered today. 09/24/16. Seen by Kane Braun PA-C. The patient reports decreased drainage from his chronic diabetic ulcers of the right foot and lower leg since his last evaluation. 09/17/16. Seen by Kane Braun PA-C. The patient reports that his blood sugars have been elevated above 150 this week. He has finished his course of Ampicillin and reports decreased ulcer drainage. 09/10/16. Seen by Kane Braun PA-C. The patient should be finished with his Augmentin [correction he was on AMPicillin], but reports that he has a week or more left . He does not recall ever taking it 4 times a day. His diabetic ulcers of the right lower leg have had slightly decreased drainage since his last evaluation, but continue to drain. 09/03/16. Seen by Dr. Christensen. The patient does not report increased drainage or pain associated with chronic right lower leg diabetic ulcers or right first toe diabetic ulcer since his last visit. He is applying Kerasal to the periwound right first toe callus as recommended and he states his blood sugars continue to be mostly below 150. 08/20/16 Seen by Kane Braun PA-C. The patient reports increased drainage from his right medial ankle and lateral right lower leg ulcers since his last visit. He does not report associated fever or chills. 08/13/16 Seen by Kane Braun PA-C. The patient reports consistently increased drainage from his right medial ankle ulcers for the past 2-3 days. The drainage has been of a darker color than the usual clear drainage and he has noted associated erythema surrounding the ulcers. No fever or chills reported. In addition the patient was unaware of the new ulcers on his lateral lower right leg that were discovered today. 07/30/16 Seen by Kane Braun PA-C. The patient reports that he has had his facial melanoma excised and will return to dermatology for follow up in 4 days. He reports that his blood sugars have been running over 150 in the past few days and that his new wound dressing on his right ankle ulcers appears to have increased maceration in the ulcer area. 07/24/16 Seen by Kane Braun PA-C. The patient reports a significant increase in drainage from his chronic right ankle ulcers requiring more frequent dressing changes. The increased drainage began 5 days ago and has been continuous. He has not had any associated fever or chills. New periwound erythema is reported without warmth or pain. 07/17/16 Seen by Kane Braun PA-C. The patient reports no increase in drainage from his chronic right ankle ulcers or his more recent left leg ulcer. 07/09/16 Seen by Kane Braun PA-C. The patient reports a new wound on his left medial leg which begain spontaneously 2-3 days ago. The patient believes he may have spilled hot grease on it while cooking but doesn't actually recall doing so. It raised as a painless blister, then popped with clear fluid drainage. He also reports that he is making arrangements for his melanoma to be removed in the coming days. His right lower leg diabetic ulcers have had increased drainage which is reportedly sero-purulent. 06/20/16. Seen by Dr. Christensen. The patient does not report increased drainage associated with the chronic right lower leg diabetic ulcers nor the right 1st toe diabetic ulcer. The previously diagnosed left nose lesion has been biopsied and pathology confirms melanoma. He 's asked that I take a look at the biopsy site and states he's scheduled to see a surgeon in the near future to discuss further treatment options. He does not report pain or drainage from the biopsy site. 06/06/16. Seen by Dr. Christensen. The patient does not report increased drainage associated with the chronic right lower leg diabetic ulcers nor the right 1st toe diabetic ulcer. However, he's concerned about a non-painful lesion on the left side of his nose that's been growing over the past few weeks and started bleeding yesterday. He has a history of melanoma and recent excision of a malignant lesion from the left shoulder earlier this year. 06/01/16. Seen by Dr. Christensen. The patient does not report increased drainage or swelling associated with the chronic right lower leg diabetic ulcers. He's also applying Kerasal to the right 1st toe periulcer callus as recommended. He states his blood sugars are mostly below 150 and he's off of antibiotics. 05/24/16 Seen by Kane Braun PA-C. The patient reports stable drainage from his right lower leg and right great toe ulcers since his last evaluation. The patient reports a mix of blood sugars above and below 150 in the past week. 05/17/2106. Seen by Dr. Christensen. The patient does not report pain or increased drainage associated with the chronic right medial malleolar, right lower leg, or right 1st toe diabetic ulcers since his last visit. 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 05/11/16 Seen by Kane Braun PA-C. The patient reports that his blood sugars have been under 150 this past week and that he is finishing up his doxycycline and bactrim for a polymicrobial ulcer infection of his right ankle ulcers. His PAD is improved after his recent angioplasty and he reports more warmth in his right foot. His chronic ankle ulcers of the right foot have had stable drainage since his last evaluation. 05/04/16. Seen by Dr. Christensen. The patient does not report pain or increased drainage associated with the chronic right medial malleolar, right lower leg, or right 1st toe diabetic ulcers. 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 He also does not report any new issues regarding the right anterior lower leg trauma wound. 04/27/16. Seen by Dr. Christensen. The patient does not report pain or increased drainage associated with the chronic right medial malleolar, right lower leg, or right 1st toe diabetic ulcers. 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 He also does not report any new issues regarding the right anterior lower leg trauma wound. 04/20/16. Seen by Dr. Christensen. The patient does not report pain or increased drainage associated with the chronic right medial malleolar, right lower leg, or right 1st toe diabetic ulcers. 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 He states his blood sugars are typically around 150 and does not report any new issues regarding the right anterior lower leg trauma wound noted at his last visit. 04/13/16. Seen by Dr. Christensen. The patient missed his PCI for right leg PAD yesterday due to an error on his calendar. He does not report increased swelling, pain, or drainage associated with the chronic right medial malleolar or right lower leg diabetic ulcers nor the right 1st toe diabetic ulcer. 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 He does not report adverse side effects and states his blood sugars are typically around 150. Of note, his A1c increased to 7.9 from 6.8 6 months prior. 04/05/16. Seen by Dr. Christensen. The patient reports a new traumatic wound to the right lower leg that occurred when he hit his leg while walking in the dark earlier this morning. He says that he blood considerably but it is not particularly painful. Regarding his right ankle and lower leg diabetic ulcers, he does not report any increased drainage or other problems. Nor does he report any significant drainage from the right first toe diabetic ulcer. His blood sugars continue to be mostly around 150. He still complains of some pitching at the left shoulder surgical but does not report drainage. Also, he is scheduled for intervention for his right leg PAD within the next two weeks. Also, the patient continues on Bactrim and doxycycline for chronic osteomyelitis of the right ankle. 03/30/16. Seen by Dr. Christensen. 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 He's also reporting some significant pruritus associated with the slowly healing left shoulder surgical wound but no significant drainage. He states his blood sugars are mostly around 150. 03/23/16. Seen by Dr. Christensen. 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 He's also concerned about a possible suture delaying healing of the recently excised melanoma surgical wound at the left posterior shoulder. He does no report pain or drainage at this site. He also states his blood sugars are mostly below 150 with none over 200. 03/16/16 Seen by Kane Braun PA-C. The patient reports stable drainage from his right lower leg ulcers. In addition he reports not being able to schedule transportation for his angioplasty. Again today he was asked about definitive follow up for his recently re-excised melanoma and does not recall being told that the margins were clear. 03/09/16. Seen by Dr. Christensen. The patient does not report or increased drainage associated with the right lower leg or right medial malleolar diabetic ulcers over the past week. He continues on antibiotics for the ulcers and right medial malleolar chronic osteomyelitis without reporting adverse side effects. He's also asked that we review his left posterior shoulder surgical wound due to a possible retained suture. 02/17/16. Seen by Dr. Christensen. The patient does not report pain or significant drainage associated with the chronic right medial malleolar or right lower leg diabetic ulcers over the past week. 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 02/09/[address] Christensen. The patient does not report pain or significant drainage associated with the chronic right medial malleolar or right lower leg diabetic ulcers over the past week. 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 Of note, he was changed from doxycycline to Bactrim within the past week due to his most recent wound culture results. He also reports a new trauma wound to the more proximal right anterior lower leg but does not recall what he hit the leg on or when. He states his blood sugars are mostly below 150. 02/02/16. Seen by Dr. Christensen. Patient is not report significant pain or drainage associated with the right medial malleolus diabetic ulcer or right lower leg diabetic ulcer. 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 He states the blood sugars are typically around 150. Of note, he also reports a new left anterior lower leg trauma wound that is nonpainful and has only minimal drainage. This occurred sometime in the past week. 01/26/[address] Christensen. The patient feels the drainage and swelling associated with the chronic right medial malleolar and right lower leg diabetic ulcers continues to decrease since starting HBOT. He also continues on doxycycline for chronic osteomyelits of the ankle and does not report adverse side effects. He does not report pain or drainage associated with the right 1st toe diabetic ulcer and has been applying Kerasal to the surrounding callus as recommended. 01/19/[address] Christensen. The patient reports decreased drainage associated with the chronic right medial malleolar and right lower leg diabetic ulcers over the past week and no drainage from the right 1st toe diabetic ulcer. 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 He does not report adverse side effects from the doxycycline and states his blood sugars are well controlled with most below 150. 01/12/[address] Christensen. The patient feels the drainage associated with the chronic right medial malleolar and right lower leg diabetic ulcers continues to decrease since starting on doxycycline for osteomyelitis of the malleolus and HBOT. He reports his blood sugars are relatively well controlled with most below 150. He's also scheduled to see Dr. Peña next week again to discuss possible additional intervention to treat the right lower leg PAD. 01/05/[address] Christensen. The patient feels the drainage associated with the chronic right medial maleollar diabetic ulcer has been decreasing since starting on doxycycline for the resistant coag negative Staph culture. He also does not report adverse side effects from doxycycline or problems regarding HBOT that is adjunctive treatment for the Bauman grade 3 diabetic ulcer and associated underlying chronic osteomyelitis. His blood sugars are improving with most below 150 and he's using a walker while at home to help facilitate offloading. Of note, the patient also underwent right leg angioplasty due to his recent MRA showing severe PAD and with one vessel runoff to the ankle. 12/29/15 Seen by Kane Braun PA-C. The patient reports continued drainage and increased edema in the area of his right medial malleolar diabetic ulcers. He also reports the he has decided to postpone recommended melanoma treatment to focus on taking care of the ulcers. 12/22/[address] Christensen. The patient reports continued drainage and redness associated with the chronic right medial malleolar and right lower leg diabetic ulcers. He' s been on Zyvox for the past two days to treat the recent wound culture that grew two species of resistant coag negative Staph. He also has been checking his blood sugars twice daily stating most are around or below 150. He does not report fevers and states the right lower leg and ankle pain he reported last week is starting to improve. He's also scheduled for a right lower leg MRA and to see interventional radiology next week to evaluate for possible clinically significant PAD in the right leg that may be inhibiting wound healing. Additionally, his bone scan two days ago suggests possible osteomyelitis of the right medial malleolus and states it can not be ruled out. Of note, he carries a diagnosis of a Bauman grade 3 diabetic ulcer at the medial malleolus with underlying osteomyelitis based on his bone scan from Nov, 2014. This site has not entirely healed since then and in fact has deteriorated over the past month. 12/15/[address] Christensen. The patient reports continued moderate drainage from the chronic right medial malleolar and right lower leg diabetic ulcers and he's now on Levofloxacin for the recent malleolar ulcer Stenotrophomonas culture. He reports discomfort in the right lower leg that's most noticeable when lying in bed at night however it does not necessarily resolve when he stands to walk and he does not report claudication. His blood sugars also remain well controlled below 150 consistently although his last A1c was 8.0 on 10/11/15. 12/08/[address] Christensen. The patient reports persistent drainage from the chronic right medial malleolar diabetic ulcer and some pain at this site when he lies flat in bed at night. He's now on levofloxacin for Stenotrophomonas positive wound culture and does not report adverse side effects. His MRI of the right ankle shows some marrow edema but retained normal fatty marrow signal indicative more of reactive changes as opposed to osteomyelitis. His blood sugars are a bit elevated intermittently around 160 at home but not higher than this. He also does not report fevers or feeling unwell. 12/01/[address] Christensen. The patient reports increased pain and drainage associated with the chronic right medial malleolar diabetic ulcer. He does not report fevers or feeling unwell however and states his blood sugars remain under 150 consistently. 11/25/[address] Christensen. The patient reports increased drainage associated with the chronic right medial malleolar diabetic ulcer along with increased swelling in the right lower leg. He does not report pain associated with the ulcer nor fevers or feeling unwell and states his blood sugars remain consistently under 150. 11/18/[address] Christensen. The patient does not report pain or drainage associated with his chronic right medial malleolar diabetic ulcer. He does feel there's been some increased swelling and redness in the right lower leg this week however feels this may be due to a mild sun burn than occurred while mowing his lawn. He also states his blood sugars are consistently below 150. 11/04/[address] Christensen. The patient does not report significant drainage from the right medial malleolar diabetic ulcer and has completed his course of ciprofloxacin for the recent Pseudomonas infection of the ulcer. He also does not report pain or swelling associated with the ulcer and states his blood sugars are mostly below 150. 10/28/[address] Christensen. The patient does not report increased drainage from the right medial malleolar diabetic ulcer and he's completed his course of ciprofloxacin without reporting adverse side effects. He states his follow up surgery for removal of the remaining left should melanoma has been postponed for a few weeks and he does not report any drainage or pain associated with the left chest or left shoulder healing surgical wounds. His blood sugars also remain well controlled around 120 although his A1c in September was 8.0. 10/21/[address] Christensen. The patient continues on ciprofloxacin for the recent Pseudomonas positive culture of the right medial malleolus diabetic ulcer. He does not report adverse side effects and feels the drainage has decreased significantly over the past week. He also is to undergo additional surgery to address residual melanoma at the left shoulder. He does not report any new issues regarding the left shoulder or chest surgical wounds. His blood sugars also remain well controlled below 150 consistently. 10/14/[address] Christensen. The patient reports some persistent drainage from the chronic right medial malleolar diabetic ulcer and his wound culture from the last visit grew Pseudomonas. He was placed on doxycycline empirically at the last visit. He does not report pain associated with the ulcer and states his blood sugars are consistently below 150. 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 09/29/[address] Christensen. The patient does not report pain, significant drainage, or other issues regarding his chronic right medial malleolar non-pressure ulcer. He reports using Kerasal and a moisturizer on his right 1st toe callus and feet but is non- committal in terms of how frequently they're being applied. 09/19/15 Seen by Kane Braun PA-C. The patient reports no increase in drainage from his medial malleolar diabetic ulcer. His blood sugars are reportedly a little higher than average lately and he reports again that today's blood pressure reading is not consistent with his well controlled numbers outside of our clinic. In addition he reports that the recently removed lesion on his left scapular area came back as confirmed as Melanoma and he is going to have a surgery to excise it, and possibly some lymph nodes in the coming weeks. 09/02/[address] Christensen. The patient does not report significant drainage from the chronic right medial malleolar diabetic ulcer. 08/24/[address] Christensen. The patient does not report pain, swelling, or drainage associated with his chronic left medial malleolar diabetic ulcer and he states his blood sugars remain well controlled below 150 consistently. 08/10/2015 Seen by Kane Braun PA-C. The patient reports minimal drainage from his left ankle ulcer. 08/03/2015 Seen by Kane Braun PA-C. The patient does not report any drainage from his first toe ulcer since his last dressing change. He did inspect it with a mirror and was displeased to see discoloration in the callous. He has religiously been wearing his offloading shoe. His medial malleolar ulcer has been draining minimally. 07/28/[address] Christensen. The patient does not report increased drainage from the right medial malleolar diabetic ulcer nor any drainage from the right 1st toe diabetic ulcer. He does admit to not using his walker as recommended at all times but typically walks only on days of our appointments and when grocery shopping. His blood sugars remain well controlled and he's completed his course of ciprofloxacin that was treating osteomyelitis of both the right 1st toe and right medial malleolus. He also continues with HBOT to treat right 1st toe osteomyelitis. 07/20/[address] Christensen. The patient does not report significant drainage from either the right 1st toe nor right medial malleolar diabetic ulcers. He also continues on ciprofloxacin and continues HBOT for osteomyelitis of the right 1st toe. 07/04/15 Seen by Kane Braun PA-C. The patient reports stable drainage from his wounds. He reports using a frame walker for offloading whenever he can. 06/30/[address] Christensen. The patient returns today for review of his right 1st toe diabetic ulcer and underlying osteomyelitis for which he continues on HBOT. He's also on ciprofloxacin for a recent Pseudomonas culture of the right medial malleolar ulcer. He reports there's been some drainage on the dressing the past few days despite this ulcer being healed out recently. He also admits to not using his walker as recommended spending a modest amount of time walking in his house, to appointments, and at the grocery store. 06/22/15 Seen by Kane Braun PA-C. The patient reports minimal drainage from his right malleolar wound and no noted drainage from his toe wound. 06/10/[address] Christensen. The patient reports some increased erythema in the periwound area of the right medial malleolar Bauman grade III diabetic ulcer but does not report associated pain or drainage. Nor does he report drainage associated with the right 1st toe Bauman grade III diabetic ulcer. He's now been off of IV daptomycin for 8 days. His MRI from yesterday shows persistent, albeit decreased, marrow edema at the right 1st toe distal phalanx indicating modest improvement however the evidence for osteomyelitis of the medial malleolus remain unchanged. His blood sugars have increased a bit to the 170's and his last A1c in 02/2015 was 6.8. 06/03/[address] Christensen. The patient does not report drainage or pain associated with the recently healed right 1st toe or persistent medial malleolar diabetic ulcers. He also continues on IV daptomycin for associated osteomyelitis at each site without reporting adverse side effects. He also states his blood sugars are well controlled around 120 consistently. 05/27/[address] Christensen. The patient states there's been no drainage from the right 1st toe ulcer. He continues on IV daptomycin for osteomyelitis of the 1st toe and medial malleolus without reporting adverse side effects, fevers, or sweats . His blood sugars also remain relatively well controlled below 150 and he offloads with a surgical shoe and by significantly minimizing his walking. 05/20/[address] Christensen. 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 His blood sugars are well controlled recently with most below 120 at home. 05/13/[address] Christensen. The patient does not report pain or significant drainage associated with the right 1st toe and medial malleolar ulcers nor adverse side effects associated with the IV daptomycin he's on for chronic osteomyelitis of the right 1st toe. 05/06/[address] Christensen. The patient does not report significant drainage from either the right 1st toe diabetic foot ulcer nor the right medial malleolar ulcer. He continues on IV daptomycin for chronic osteomyelitis of the right 1st toe as well as HBOT and does not report issues with either. 04/22/[address] Christensen. The patient's MRI of the right foot showed interval improvement of the osteomyelitis however there's still evidence that this persists in the right 1st distal phalanx. He's now on IV daptomycin based on a wound culture from 04/11/15 that grew two resistant coag negative Staph organisms. His blood sugars are typically below 150 and his A1c in February 2015 was 6.8. 04/08/[address] Christensen. The patient does not report significant drainage from the right 1st to or medial malleolar diabetic foot ulcers and states his blood sugars are consistently below 150. He continues on oral levofloxacin and doxycycline to treat right toe chronic osteomyelitis and is on dual antibiotic therapy with levofloxacin and doxycycline since (day 29) to address the resistant coag negative Staph culture from 02/07/15 of the 1st to ulcer. He offloads by minimizing walking significantly and wearing diabetic shoes. 03/31/[address] Christensen. The patient reports only minimal drainage from the right malleolar ulcer and none from the right 1st toe diabetic ulcer. His blood sugars remain well controlled below 120 and he does not report any side effects from the levofloxacin and doxycycline he's taking for chronic osteomyelitis of the right 1st toe. Of note , he's not offloading the right foot with a surgical shoe and walker as recommended but he is limiting his walking as much as possible. 03/24/[address] Christensen. The patient reports no drainage from the right 1st toe diabetic ulcer however the right medial malleolar ulcer continues with modest drainage but no associated pain, swelling, or erythema. He continues on an extended course of levofloxacin and doxycycline to treat chronic osteomyelits of the 1st toe and does not report any adverse side effects other than some sun sensitivity likely associated with doxycycline. 03/16/[address] Christensen. The patient reports there's been no drainage from the right 1st to ulcer and only minimal drainage from the right medial malleolus ulcer. His blood sugars remain moderately well controlled below 150 and he continues on doxycycline and levofloxacin to treat chronic osteomyelitis of the right first toe. 03/08/[address] Christensen. The patient does not report increased drainage from either the right medial malleolar ulcer nor the right 1st toe ulcer and he continues on an extended course of oral doxycycline and HBOT for chronic osteomyelitis of the right 1st toe. He does not report fever, chills, or sweats nor adverse side effects associated with the doxycycline. His blood sugars continue to be well controlled and his A1c was 6.8 on 02/25/15. 03/01/15 Seen by Kane Braun PA-C. The patient reports stable drainage from his wounds. He has been on Doxycycline and will need a refill today if it is to be continued. The patient's MRI of the foot did not demonstrate osteomyelitis of the medial malleolus but it did demonstrate osteomyelitis of the great toe. The study's impression is as follows: IMPRESSION: There is prominent inflammatory change involving the fatty and cutaneous soft tissues of the distal great toe, extending contiguously to involve the distal half of the great toe distal phalanx, where some degree of cortical destruction can be seen with internal marrow space edema and enhancement suggestive of osteomyelitis extending into that portion of the medullary space. No additional lesion elsewhere is seen that would indicate abscess formation or additional osteomyelitis. 02/21/15 Seen by Kane Braun PA-C. The patient's arterial ultrasound of the right leg does not show focal stenosis, though it does show progression of scattered plaques from the prior study. the patient's wounds continue to drain minimally. 02/14/15 Seen by Kane Braun PA-C. The patient reports more drainage from his medial malleolar ulcer than last week. Pain is minimal. Denies fever or chills. His hypertension is reportedly well controlled, and his BP is only elevated here in our clinic by his report. His diabetes reportely continues to be in good control with most morning blood sugars below 120 but he reports they have been higher in the past week or two. 02/07/15 Seen by Kane Braun PA-C. The patient reports minimal drainage from his wounds. He reports that he has attempted to spend time sitting with his feet elevated, which is a new therapy for him as he usually is always moving. He reports that it is helping his lower extremity edema modestly. 01/24/[address] Christensen. The patient's right medial malleolar ulcer wound culture from the last visit grew coag negative Staph and he's now on doxycycline since last Saturday. He reports only minimal drainage from both the ankle and 1st toe ulcer. He's also not offloading the right foot in anyway. His blood sugars continue to be well controlled below 120. 01/17/[address] Christensen. The patient does not report drainage from either the right medial malleolar or 1st toe ulcers. He's off antibiotics and states he got the ankle ulcer wet in the shower this morning. 01/03/15 Seen by Kane Braun PA-C. The patient reports minimal drainage from his wounds. He also reports that the shoes he brings into the clinic are not the ones he wears all day. Blood sugars are reportedly in pretty good control. 12/27/14 Seen by Kane Braun PA-C. X-ray of the right foot was negative for radiographic signs of osteomyelitis. ESR and CRP were within normal limits. The patient reports minimal drainage from his right ankle and toe wounds. 12/20/14 Seen by Kane Braun PA-C. The patient reports no increase in drainage from his right 1st toe ulcer or the malleolar ulcer that has recently recurred. He does report that he was treated for osteomyelitis at our clinic several years ago using HBOT and antibiotics with good results. 12/10/[address] Christensen. The patient does not report drainage from the right 1st toe ulcer but he states the right medial malleolar ulcer has recurred. He also report recurrence of right lower leg erythema and warmth since stopping Augmentin two days ago. His blood sugars remain below 150 and he does not report fever or chills. His most recent wound culture in mid October grew resistant coag negative Staph. 12/03/14 Seen by Kane Braun PA-C today. The patient reports no visible drainage from his right ankle or toe ulcers. He believes the ankle ulcer recurrence was related to edema when he was hospitalized. Edema has mostly resolved now in his legs by his report. 11/26/14 The patient does not report any drainage from the right 1st toe ulcer but states the right medial malleolar ulcer has recurred. He's not sure if it was caused by trauma or associated with blistering that was present as a result of the recent right lower leg cellulitis. He's nearly completed his course of high dose Keflex however still notes some swelling, warmth, and erythema in the leg. He does not report pain however. 11/22/14 The patient was discharged from [facility] on Saturday following treatment for recurrent right lower leg cellulitis. He was treated with vancomycin for resistant coag neg Staph and is now on high dose oral Keflex and feels the swelling and erythema continue to improve. He does not report fever or drainage associated with the right 1st toe ulcer and his blood sugars remain well controlled below 120. 11/15/14 The patient reports new drainage from the right 1st toe ulcer and was seen in the ER over the weekend for cellulitis of the right lower leg. He was treated with 3 doses of IV antibiotics on subsequent return to the ER over the course of the past few days and feels the swelling and erythema are slowly improving. He does not report fever or chills and states his blood sugars have been between 150 and 180. 11/01/14 The patient does not report drainage from his right 1st toe ulcer. His blood sugars remain well controlled below 150. 10/25/14 The patient reports only very minimal drainage from his right 1st toe ulcer and continues to offload using his diabetic shoe and minimizing his daily activity. 10/18/14 The patient reports continued improvement in his right toe ulcer. 10/11/14 The patient does not report drainage or pain in the right 1st toe ulcer. He does mention though he's concerned about memory difficulties and he's currently without a PCP as his recently retired. 10/04/14 The patient reports that he has difficulty applying Kerasal to the calloused ana-wound area and getting his dressing to stick. He does not report increased pain or drainage from his right great toe diabetic ulcer. 09/27/14 The patient reports increased walking since last visit with pain in his legs as a result. No increase in drainage from his wound. 09/20/14 The patient reports no new drainage from his left toe wound, and stable drainage from his right great toe wound. He asks about the plan of care today. 09/13/14 The patient reports he wounds appear stable without new symptoms. 09/06/14 The patient does not report any increase in drainage or other issues from his diabetic foot ulcers. 08/30/14 The patient does not report any new problems regarding his right 1st toe ulcer including increased drainage, pain, or redness. He states his blood sugars are well controlled under 150. His A1c was 6.8 in 07/04. 08/23/14 The patient does not complain of drainage from the right 1st toe. 08/16/14 The patient's been using Kerasal on the right 1st toe and does not report significant drainage from the ulcer. His blood sugars are usually below 140 with reported hypoglycemia. 08/09/14 The patient states he's using his offloading boot on the right foot and limiting his walking considerably. He states his blood sugars are well controlled and there' s only been minimal drainage from the toe ulcer. 08/02/14 The patient does not report increased drainage from his right first toe ulcer. He also feel his right leg erythema that was noted at his last visit has improved. He states that prior to arriving to clinic he fell in the parking lot of his pharmacy hitting his right knee. He does not report pain nor bleeding and does not report any other injuries. Past Medical History This information was obtained from the patient Patient has a medical history of: Diabetes type II (A1c 6.8 03/2017; A1c 6.2 on 05/04/16; A1c 7.9 on 01/09/16; 6.8 on 02/25/15) Hypertension Peripheral neuropathy Gout Right ankle Fracture Chronic venous insufficiency with ulcers and edema Unspecified cellulitis and abscess of toe Streptococcus infection of unspecified site Group D Enterococcus Dermatophytosis Osteomyelitis (right 1st toe (MRI 03/01/15, persistent but improved MRI 06/09/15) ; possible right medial malleolus (triple phase bone scan 12/17/14, not confirmed on MRI of 03/01/15; present on MRI 06/09/15)) 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 Melanoma ( left forehead) Diabetic foot ulcer - 10/13/2014 (Bauman grade III; plantar surface right 1st toe with underlying osteomyelitis diagnosed on 03/01/15; recurrent resistant coag negative Staph deep cultures on 11/15/14 and 02/07/15; resistant coag neg Staph cultured on 04/11/15 and started on IV daptomycin on 04/18/15) Diabetic foot ulcer (chronic and recurrent; right medial malleolus, possible osteomyeltis seen on triple phase bone scan 12/17/14 but not confirmed on MRI from 03/01/15; confirmed on MRI 06/09/15) Edema (chronic; right lower extremity) Cellulitis ( left great toe; hospitalized 02/15-02/18/surgical debridment) Complaints and Symptoms This information was obtained from the patient Patient complains of: General Notes: I have reviewed and concur with the Review of Systems and Past Family Social History documents completed by the clinician, I have reviewed and concur with the Wound Assessment document completed by the clinician Cardiovascular (Central/Peripheral): Lower extremity (leg) swelling Ear/Nose/Mouth/Throat: Hearing Loss / Aid Hematologic/Lymphatic: Bleeding Tendency Integumentary (Hair/Skin/Nails): Lesions, Open Sore Musculoskeletal: Assistive Devices, Deformities Neurological: Abnormal Gait, Loss of Protective Sensation Prior Wound History: Bleeding, Drainage, Erythema, Pain Psychiatric: Memory Loss Patient denies complaints or symptoms related to: Cardiovascular (Central/Peripheral): Intermittent Claudication, Lower extremity (leg) resting pain Cardiovascular (Peripheral) Constitutional Symptoms (General Health): Chills, Fatigue, Fever Gastrointestinal (GI): Nausea / Vomiting, Stomach/abdominal pain Hematologic/Lymphatic: Bleeding / Clotting Disorders Prior Wound History: Malodor Psychiatric: Depression Respiratory: Oxygen Use, Shortness of Breath OBJECTIVE Constitutional BP elevated; Afebrile; Alert and in no distress. Well developed. Alert. Clean appearing.. Height/Length: 71 in (180.34 cm), Weight: 263 lbs (119.55 kgs), BMI: 36.7, Temperature: 98.6 ?F (37 ?C), Pulse: 74 bpm, Respiratory Rate: 18 breaths/min, Blood Pressure : 152/67 mmHg, Capillary Blood Glucose: 107 mg/dl, Pulse Oximetry: 96 %. Vital Signs Notes: Glucose per patient. Ears, Nose, Mouth, and Throat: Mild hearing deficit. Respiratory: No respiratory distress. Even respirations and without use of accessory muscles.. Cardiovascular: 1+ right lower extremity edema; improved from one week ago. Gastrointestinal (GI): Obese. Nondistended.. Integumentary (Hair, Skin) Mild periwound erythema without warmth. Refer to appropriate clinician wound documentation for this visit; right and left lower leg and right 1st toe ulcers extend to subcut with bases partially covered with pink granulation, remainder fibrin and slough; right dorsal foot ulcers extends to dermis; right medial malleolus ulcer smaller and less deep than one month ago. Maceration present in the periwound areas. Wound #13 Right, Medial Ankle is an acute Bauman Grade 3 Diabetic Ulcer and has received a status of Not Healed. Subsequent wound encounter measurements are 3.9cm length x 2.1cm width x 0.3cm depth, with an area of 8.19 sq cm and a volume of 2.457 cubic cm. No tunneling has been noted. No sinus tract has been noted. No undermining has been noted. There is a large amount of serous drainage noted which has no odor. The patient reports a wound pain of level 0/10. The wound margin is attached. Wound bed has No epithelialization, No eschar, Yes slough, Yes bright red, pink, firm granulation. The periwound skin exhibited: Edema, Induration, Moist, Maceration, Atrophie Marcelina, Erythema. The periwound skin did not exhibit: Brawny Induration, Excoriation, Callus, Crepitus, Fluctuance, Friable, Rash, Dry/Scaly, Cyanosis, Ecchymosis, Hemosiderosis, Pallor, Rubor. The temperature of the periwound skin is WNL. Periwound skin does not exhibit signs or symptoms of infection. Local Pulse is Doppler. Wound #17 Right, Plantar Great Toe is a Bauman Grade 3 Diabetic Ulcer and has received a status of Not Healed. Subsequent wound encounter measurements are 1cm length x 0.7cm width x 0.3cm depth, with an area of 0.7 sq cm and a volume of 0.21 cubic cm. No tunneling has been noted. No sinus tract has been noted. No undermining has been noted. There is a small amount of serous drainage noted which has no odor. The patient reports no wound pain due to the wound being insensate. The wound margin is callus. Wound bed has No epithelialization, No eschar, Yes slough, Yes pink, firm granulation. The periwound skin moisture is normal. The periwound skin color is normal. The periwound skin exhibited: Callus. The periwound skin did not exhibit: Brawny Induration, Edema, Excoriation, Induration, Crepitus, Fluctuance, Friable, Rash. The temperature of the periwound skin is WNL. Periwound skin does not exhibit signs or symptoms of infection. Local Pulse is Palpable. Wound #25 Right, Lateral Ankle is a chronic Bauman Grade 2 Diabetic Ulcer and has received a status of Not Healed. Subsequent wound encounter measurements are 2.4cm length x 1.6cm width x 0.3cm depth, with an area of 3.84 sq cm and a volume of 1.152 cubic cm. No tunneling has been noted. No sinus tract has been noted. No undermining has been noted. There is a moderate amount of serous drainage noted which has no odor. The patient reports a wound pain of level 0/10. The wound margin is attached. Wound bed has No epithelialization, No eschar, Yes slough, Yes bright red, firm granulation. The periwound skin exhibited: Edema, Induration, Moist, Erythema. The periwound skin did not exhibit: Brawny Induration, Excoriation, Callus, Crepitus, Fluctuance, Friable, Rash, Dry/Scaly, Maceration, Atrophie Marcelina, Cyanosis, Ecchymosis, Hemosiderosis, Pallor, Rubor. The temperature of the periwound skin is Warm. Periwound skin does not exhibit signs or symptoms of infection. Local Pulse is Doppler. Wound #29 Right, Lateral Foot is a chronic Bauman Grade 2 Diabetic Ulcer and has received a status of Not Healed. Subsequent wound encounter measurements are 0.9cm length x 0.3cm width x 0.1cm depth, with an area of 0.27 sq cm and a volume of 0.027 cubic cm. No tunneling has been noted. No sinus tract has been noted. No undermining has been noted. There is a small amount of serous drainage noted which has no odor. The patient reports a wound pain of level 0/10. The wound margin is attached. Wound bed has No epithelialization, No eschar, Yes slough, No granulation. The periwound skin texture is normal. The periwound skin color is normal. The periwound skin exhibited: Moist, Maceration. The periwound skin did not exhibit: Dry/Scaly. The temperature of the periwound skin is Warm. Periwound skin does not exhibit signs or symptoms of infection. Local Pulse is Doppler. Wound #32 Left, Medial Ankle is an acute Bauman Grade 2 Diabetic Ulcer and has received a status of Not Healed. Subsequent wound encounter measurements are 1.5cm length x 1cm width x 0.1cm depth, with an area of 1.5 sq cm and a volume of 0.15 cubic cm. No tunneling has been noted. No sinus tract has been noted. No undermining has been noted. There is a moderate amount of serous drainage noted which has no odor. The patient reports a wound pain of level 0/10. The wound margin is attached. Wound bed has No epithelialization, No eschar, Yes slough, No granulation. The periwound skin exhibited: Edema, Moist, Atrophie Marcelina. The periwound skin did not exhibit: Brawny Induration, Excoriation, Induration, Callus, Crepitus, Fluctuance, Friable, Rash, Cyanosis, Ecchymosis, Erythema, Hemosiderosis, Pallor, Rubor. The temperature of the periwound skin is WNL. Periwound skin does not exhibit signs or symptoms of infection. Local Pulse is Doppler. Wound #33 Right Second Toe is an acute Bauman Grade 2 Diabetic Ulcer and has received a status of Not Healed. Subsequent wound encounter measurements are 1.9cm length x 0.5cm width x 0.1cm depth, with an area of 0.95 sq cm and a volume of 0.095 cubic cm. No tunneling has been noted. No sinus tract has been noted. No undermining has been noted. There is a small amount of serous drainage noted which has no odor. The patient reports a wound pain of level 0/10. The wound margin is attached. Wound bed has Yes epithelialization, No eschar, Yes slough, Yes pink, firm granulation. The periwound skin texture is normal. The periwound skin color is normal. The periwound skin exhibited: Moist, Maceration. The periwound skin did not exhibit: Dry/Scaly. The temperature of the periwound skin is WNL. Periwound skin does not exhibit signs or symptoms of infection. Local Pulse is Weak. Neurological: Cranial nerves grossly intact with symmetric function normal by informal observation.. Additional Information [facility]/Vascular Completed?: 12/10/16. Angioplasty procedure 01/07/18. 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 A skin/ subcutaneous tissue level surgical debridement with a total area debrided of 8.19 sq cm was performed by Kam Christensen MD. Subcutaneous was removed along with devitalized tissue: exudate and slough. No anesthetic was required due to loss of sensation. A time out was conducted prior to the start of the procedure. A minimal amount of bleeding was controlled with pressure. The procedure was tolerated well with a pain level of 1 throughout and a pain level of 0 following the procedure. Post Debridement Measurements: 3.9cm length x 2.1cm width x 0.3cm depth; with an area of 8.19 sq cm and a volume of 2.457 cubic cm; Wound #17 Wound #17 (Diabetic Ulcer) is located on the right, plantar great toe. A skin/ subcutaneous tissue level surgical debridement with a total area debrided of 0.7 sq cm was performed by Kam Christensen MD. to remove devitalized tissue: slough. The following instrument(s) were used: curette. No anesthetic was required due to loss of sensation. A time out was conducted prior to the start of the procedure. A minimal amount of bleeding was controlled with pressure. The procedure was tolerated well with a pain level of 0 throughout and a pain level of 0 following the procedure. Post Debridement Measurements: 1cm length x 0.7cm width x 0.3cm depth; with an area of 0.7 sq cm and a volume of 0.21 cubic cm; Wound #25 Wound #25 (Diabetic Ulcer) is located on the right, lateral ankle. A skin/ subcutaneous tissue level surgical debridement with a total area debrided of 3.84 sq cm was performed by Kam Christensen MD. Subcutaneous was removed along with devitalized tissue: exudate and slough. The following instrument(s) were used: curette. No anesthetic was required due to loss of sensation. A time out was conducted prior to the start of the procedure. A minimal amount of bleeding was controlled with pressure. The procedure was tolerated well with a loss of sensation throughout and a loss of sensation following the procedure. Post Debridement Measurements: 2.4cm length x 1.6cm width x 0.3cm depth; with an area of 3.84 sq cm and a volume of 1.152 cubic cm; Wound #29 Wound #29 (Diabetic Ulcer) is located on the right, lateral foot. A skin/ subcutaneous tissue level surgical debridement with a total area debrided of 0.27 sq cm was performed by Kam Christensen MD. to remove devitalized tissue: exudate and slough. The following instrument(s) were used: curette. No anesthetic was required due to loss of sensation. A time out was conducted prior to the start of the procedure. A minimal amount of bleeding was controlled with pressure. The procedure was tolerated well with a loss of sensation throughout and a loss of sensation following the procedure. Post Debridement Measurements: 0.9cm length x 0.3cm width x 0.1cm depth; with an area of 0.27 sq cm and a volume of 0.027 cubic cm; Wound #32 Wound #32 (Diabetic Ulcer) is located on the left, medial ankle. A skin/ subcutaneous tissue level surgical debridement with a total area debrided of 1.5 sq cm was performed by Kam Christensen MD. Subcutaneous was removed along with devitalized tissue: exudate and slough. The following instrument(s) were used: curette. No anesthetic was required due to loss of sensation. A time out was conducted prior to the start of the procedure. A minimal amount of bleeding was controlled with pressure. The procedure was tolerated well with a loss of sensation throughout and a loss of sensation following the procedure. Post Debridement Measurements: 1.5cm length x 1cm width x 0.01cm depth; with an area of 1.5 sq cm and a volume of 0.015 cubic cm; Wound #33 Wound #33 (Diabetic Ulcer) is located on the right second toe. A skin/ subcutaneous tissue level surgical debridement with a total area debrided of 0.95 sq cm was performed by Kam Christensen MD. Subcutaneous was removed along with devitalized tissue: exudate and slough. The following instrument(s) were used: curette. No anesthetic was required due to loss of sensation. A time out was conducted prior to the start of the procedure. A minimal amount of bleeding was controlled with pressure. The procedure was tolerated well with a loss of sensation throughout and a loss of sensation following the procedure. Post Debridement Measurements: 1.9cm length x 0.5cm width x 0.1cm depth; with an area of 0.95 sq cm and a volume of 0.095 cubic cm; Additional Information Muscle fascia or bone removed and sent to pathology?: No Muscle fascia or bone removed and sent to pathology?: No Muscle fascia or bone removed and sent to pathology?: No Muscle fascia or bone removed and sent to pathology?: No Muscle fascia or bone removed and sent to pathology?: No Muscle fascia or bone removed and sent to pathology?: No PLAN Wound Orders: Wound #13 Right, Medial Ankle Cleanser Cleanse Wound: - Rinse all wounds with distilled water during each dressing change. May Shower. - Cover leg with cast protector. Topical Treatments Moisturizing lotion to surround skin. - Unna Boot pieces. Dressings Primary dressing: - Silver aquacel. Cover and secure with: - Mextra Supersorbant Coban 2 Layer compression wrap. Change Dressing: - Leave in place until next visit. Wound #17 Right, Plantar Great Toe Cleanser Cleanse Wound: - Rinse all wounds with distilled water during each dressing change. May Shower. - Cover leg with cast protector. Dressings Cover and secure with: - foam secured with hypafix tape. Change Dressing: - Every other day. Wound #25 Right, Lateral Ankle Cleanser Cleanse Wound: - Rinse all wounds with distilled water during each dressing change. May Shower. - Cover leg with cast protector. Topical Treatments Moisturizing lotion to surround skin. - Unna Boot pieces Dressings Primary dressing: - Silver aquacel. Cover and secure with: - Mextra Supersorbant Coban 2 Layer Lite compression wrap. Change Dressing: - Leave in place until next visit. Wound #29 Right, Lateral Foot Cleanser Cleanse Wound: - Rinse all wounds with distilled water during each dressing change. May Shower. - Cover leg with cast protector. Topical Treatments Moisturizing lotion to surround skin. - Unna Boot Pieces Dressings Primary dressing: - Silver aquacel. Cover and secure with: - Mextra Supersorbant Coban 2 Layer Lite compression wrap. Change Dressing: - Leave in place until next visit. Wound #32 Left, Medial Ankle Cleanser Cleanse Wound: - Rinse all wounds with distilled water during each dressing change. May Shower. - Cover leg with cast protector. Dressings Cover and secure with: - Mextra Supersorbant Change Dressing: - Every other day. Wound #33 Right Second Toe Cleanser Cleanse Wound: - Rinse all wounds with distilled water during each dressing change. May Shower. - Cover leg with cast protector. Dressings Primary dressing: - Aquacel. Cover and secure with: - Foam and Hypafix tape Change Dressing: - Every other day. Additional Orders: Compression/Edema Control Elevation of leg(s) above the level of the heart when sitting. - Elevate legs above hip level at least twice daily. Avoid prolonged standing in one place. Multi Layer Wrap: - Coban 2 Layer compression wrap to right leg. Single Layer Compression Hose - Tetragrip F to left leg. On in the am, off at night. Follow-Up Appointments Return Appointment: - - Saturday and for wraps. Other information: If you develop fever, chills, increased pain, drainage, redness or swelling please call our office. If after hours, respond to the ER. Should you experience any significant changes in your wound(s) or have any questions regarding your home care instructions please contact the wound center @ [phone]. If after hours, contact your primary care physician or go to the hospital emergency room. Scribing Attestation I attest, as the nurse, that I scribed these orders for the physician. Cardiovascular: Arterial Ultrasound - Left leg General Notes: Wear your off-loading shoe on your right foot. I've reviewed the clinician's documentation and agree with the evaluation and plan as written. In addition the patient's ulcers demonstrate evidence of non-viable devitalized tissue and they will continue to benefit from sharp debridement to help promote granulation and expedite healing. Also, he'll continue on his antibiotics and if his loose stools increase in frequency we'll order a c. diff study. We'll also continue with compression therapy which appears to be beneficial and is well tolerated and he's been advised to wear his right forefoot offloading shoe. Electronic Signature(s) Signed By: Date: Kam Christensen MD 01/30/2018 15:39:04 Entered By: Kam Christensen on 01/30/2018 11:52:03
== END ==
PROVIDERS: PCP Family Medicine; Visit Provider Internal Medicine
DX: E11.621 Type 2 diabetes mellitus with foot ulcer (principal); L97.512 Non-pressure chronic ulcer of other part of right foot with fat layer exposed; L08.89 Other specified local infections of the skin and subcutaneous tissue; L97.822 Non-pressure chronic ulcer of other part of left lower leg with fat layer exposed; I87.311 Chronic venous hypertension (idiopathic) with ulcer of right lower extremity; L97.812 Non-pressure chronic ulcer of other part of right lower leg with fat layer exposed
CPT/HCPCS: 11042